=== PATIENT | female | born 1955 | race Caucasian/White ===

== ENCOUNTER → 2023-07-15 | Outpatient (CLI) | payer MEDICARE, SELFPAY ==
--- NOTE | 2023-07-15 09:58 | BI_ITS ---
MAMMOGRAPHY - BILATERAL SCREENING REASON FOR EXAM: Female, 68 years old. Routine annual screening examination. PERTINENT HISTORY: Non-contributory. TECHNIQUE: Digital bilateral breast ankush (3D mammographic acquisition) in the CC and MLO projections. 2-D mediolateral oblique (MLO) and craniocaudad (CC) views of both breasts were obtained. CAD: Full Field Digital Mammography with Computer Added Detection was performed. COMPARISON: None. Baseline examination. FINDINGS: Breast Composition: The breasts are heterogeneously dense, which may obscure small masses. There are no dominant masses or suspicious calcifications. Evidence of bilateral secretory calcifications. No other significant abnormalities are identified. BI/SCRN MAMM (CAD)W/ANKUSH BILAT IMPRESSION: Negative screening mammogram. Yearly followup mammogram recommended. (A) ASSESSMENT CATEGORY: BIRADS Category 2: Benign. A letter regarding these results will be sent to the patient by the facility within 30 days. Approximately 10% of breast cancers are not detected by mammography. A normal mammogram should not delay biopsy of a clinically suspicious abnormality. [id number] Electronically Signed: Andriy Garrett MD at 10:47 EST ,
--- OUTSIDE RECORDS SUMMARY | 2023-07-15 10:30 | XMS RPT_ITS | CCD ---
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 Name Role Phone Unavailable Primary Care Provider UnavailZEN Gee MD Attending Unavailable ZEN GLOVER MD Primary Care Unavailable ZEN GLOVER MD Admitting Unavailable IAN LI, DR JIM Attending Unavailab Cecile LI, DR JIM Admitting Unavailab rankin PHYSICIAN, NONE Primary Care Unavailable No, Physician Primary Care Provider UnavailChaya Castillo CNP Primary Care Provider [phone] [facility] Attending Lamar TAVERA, PHYSICIAN Primary Care Unavailable ZEN GLOVER Referring Unavailable CHAYA WADDLEL Primary Care Unavailable ALETA HUDSON Attending Unavailable ALETA HUDSON Referring Unavailable YELENA REEDER Attending Unavaila josseline [facility], [facility] Consulting Unav ailable ZEN GLOVER Referring Unavailable MADAY BYRD Admitting Unavaildenys TAVERA, PHYSICIAN Primary Care Unavailable [facility], GENERIC Consul ting Unavailable ARMANDO POLLACK Attending Unavaila CHAYA Fortune Primary Care Unavailable Allergies Allergy Classification Reported Allergen(s) Allergy Type Date of Onset Reaction(s) Facility (1 source) Codeine Drug Allergy [facility] Repository Medications Current Medications Medication Drug Class(es) Dates Sig (Normalized) Sig (Original) amoxicillin 875 mg / clavulanate 125 mg oral tablet (5 sources) Penicillin-class Antibacterial Start: 07-04-2023 take 1 tablet by mouth twice daily amoxicillin-clav ulanate (AUGMENTIN) 875-125 mg per tablet Take 1 (one) tablet by mouth 2 (two) times a day . 14 tablet 0 07/04/2023 Active aspirin 81 mg delayed release oral tablet (6 sources) Platelet Aggregation Inhibitor, Nonsteroidal Anti-inflammatory Drug Start: 07-04-2023 take 1 tablet by mouth once daily aspirin 81 MG EC tablet Take 1 (one) tablet (81 mg total) by mouth daily . 30 tablet 2 07/04/2023 Active Completed/Discontinued Medications Medication Drug Class(es) Dates Sig (Normalized) Sig (Original) acetaminophen 325 mg oral tablet (1 source) Start: 07-02-2023 End: 07-04-2023 take 1 tablet by mouth every four hours as needed for pain and headache 650 mg, Oral, Every 4 hours PRN, mild pain, fever 100.4 F or greater, headaches, Starting on 07/02/23 at 0812 ampicillin-sulbactam (UNASYN) 3000 mg in sodium chloride (NS) 0.9% 100 mL MBP (2 sources) Start: 07-03-2023 End: 07-04-2023 take 3000 mg intravenously every six hours ampicillin-sulbac caballero (UNASYN) 3000 mg in sodium chloride (NS) 0.9% 100 mL MBP Problems Active Problems Problem Classification Problem Date Documented Date Episodic/Chronic Acute cerebrovascular disease (13 sources) Cerebrovascular accident; Translations: [Cerebral infarction, unspecified] Onset: 07-02-2023 07-02-2023 Chronic Cardiac dysrhythmias (3 sources) Atrial fibrillation; Translations: [Unspecified atrial fibrillation] Onset: 07-13-2023 07-05-2023 Chronic Skin and subcutaneous tissue infections (3 sources) Cellulitis of face; Translations: [Cellulitis of face] Onset: 07-02-2023 07-02-2023 Episodic Past or Other Problems Problem Classification Problem Date Documented Date Episodic/Chronic Acute cerebrovascular disease (1 source) Acute cerebrovascular disease Onset: 07-01-2023 Results Test Name Value Interpretation Reference Range Facil ity Vital Signs Date Time Vital Sign Value Performing Clinician Faci lity 07-12-2023 10:57-0500 Diastolic blood pressure 84 mm[Hg] Armando Pollack MD Work Phone: [facility] 07-12-2023 10:57-0500 Heart rate 80 /min Armando Pollack MD Work Phone: [facility] 07-12-2023 10:57-0500 SaO2% (BldA) [Mass fraction] 98 % Armando Pollack MD Work Phone: [facility] 07-12-2023 10:57-0500 Systolic blood pressure 146 mm[Hg] Armando Theodore Work Phone: [facility] 07-04-2023 11:51-0500 Body temperature 98.2 [degF] Yelena Haskinserlinjeri DO Work Phone: [facility] 07-04-2023 11:51-0500 Diastolic blood pressure 74 mm[Hg] Yelena Haskinserlinjeri DO Work Phone: [facility] 07-04-2023 11:51-0500 Heart rate 78 /min Yelena Reeder DO Work Phone: [facility] 07-04-2023 11:51-0500 SaO2% (BldA) [Mass fraction] 98 % Yelena Reeder DO Work Phone: [facility] 07-04-2023 11:51-0500 Systolic blood pressure 146 mm[Hg] Yelena Theodore O Work Phone: [facility] 07-04-2023 06:14-0500 Respiratory rate 16 /min Yelena Haskinstierra DO Work Phone: [facility] 07-02-2023 03:10-0500 Body height 162.6 cm Yelena Reeder DO Work Phone: [facility] 07-02-2023 03:10-0500 Body mass index (BMI) [Ratio] 27.46 kg/m2 Yelena Reeder DO Work Phone: [facility] 07-02-2023 03:10-0500 Body weight 72.58 kg Yelena Reeder DO Work Phone: [facility] Encounters Encounter Date Encounter Type Care Provider Facility Start: 07-13-2023 End: 07-14-2023 ambulatory [facility] Start: 07-12-2023 Documentation procedure Katy cisneros CMA [facility] Start: 07-12-2023 End: 07-12-2023 ambulatory ARMANDO POLLACK [facility] Ambulatory Start: 07-12-2023 End: 07-12-2023 Office outpatient new 60 minutes Armando Pollack MD Work Phone: [facility] Procedures Date Procedure Procedure Detail Performing Clinician Start: 07-03-2023 End: 07-03-2023 Basic metabolic panel calcium total Kelli Staton PHYSICAL SCIENCE AIDE Work Phone: Start: 07-02-2023 Assay of troponin quantitative Maday Byrd MD Work Phone: Start: 07-02-2023 Mri brain brain stem w/o w/contrast material Vi Thapa MD Work Phone: Start: 07-02-2023 Assay of troponin quantitative Maday Byrd MD Work Phone: Start: 07-02-2023 Ecg routine ecg w/le ast 12 lds trcg only w/o i&r Maday Byrd MD Work Phone: Start: 07-02-2023 Orthopantogram Maday Byrd MD Work Phone: Start: 07-02-2023 Basic metabolic pane l calcium total Kelli Staton PHYSICAL SCIENCE AIDE Work Phone: Start: 07-02-2023 Lipid panel Kelli Roy PHYSICAL SCIENCE AIDE Work Phone: Start: 07-02-2023 End: 07-02-2023 Blood count complete auto&auto difrntl wbc Vi Thapa MD Work Phone: Start: 07-02-2023 HALL TOP Vi Thapa MD Work Phone: Start: 07-02-2023 LIGHT BLUE TOP Vi Thapa MD Work Phone: Start: 07-02-2023 LIGHT GREEN TOP Vi Thapa MD Work Phone: Start: 07-02-2023 OBTAIN VENOUS BLOOD GASES AND PERFORM Vi Thapa MD Work Phone: Start: 07-02-2023 PINK TOP Vi Thapa MD Work Phone: Start: 07-02-2023 RAINBOW DRAW Vi Thapa MD Work Phone: Start: 07-02-2023 Ct angiography head w/contrast/noncontrast Vi Thapa MD Work Phone: Plan of Treatment Date Care Activity Detail Author Start: 07-12-2023 End: 07-12-2023 Patient encounter procedure 07/12/2023 11:00 AM EST Office Visit [facility] [address] [facility] [address] [place] [address] Armando Pollack MD [address] [facility] [address] [place] [address] [facility] Start: 07-06-2023 End: 09-02-2024 [facility]- Mobile Cardiac Telemetry [facility]iac Tele[facility] Cardiac Services Routine Atrial fibrillation, unspecified type (HCC) Expected: 07/06/2023 (Approximate), Expires: 09/02/2024 [facility] Work Phone: Payers Date Payer Category Payer Medicare [id number] 2022 Medicare [id number] 2022 Medicare [id number] 1955 Unknown [id number] 1955 Unknown [id number] 1955 Unknown [id number] [id number]. [id number] 1955 Unknown [id number] [id number]. [id number] 1955 Unknown [id number] 2.16. [id number] 1955 Unknown [id number] 2.16. [id number] Medicare [id number] Social History Date Type Detail Facility Tobacco smoking status NHIS Tobacco smoking consumption unknown [facility] Work Phone: Start: 1955 Sex Assigned At Not on file [facility] Start: 07-02-2023 Gender identity [facility] Start: 07-02-2023 Tobacco smoking status MTIS Never smoked tobacco [facility] Start: 07-02-2023 Tobacco use and exposure Smokeless tobacco non-user [facility] Start: 07-02-2023 End: 07-12-2023 Alcohol intake Current drinker of alcohol (finding) [facility] Start: 07-02-2023 End: 07-12-2023 Alcohol intake [facility] Clinical Notes 07-02-2023 to 07-12-2023 Armando Pollack MD - 07/12/2023 4:05 PM Katy Moulton CMA - 07/12/2023 11:49 AM Edwina Segundo RN - 07/05/2023 7:48 AM Ruth Delgado - Kelly Del Valle RN - 07/04/2023 11:41 AM EST Sandy Date & Type Note Facility 07-12-2023 History of Present illness Narrative Images from the original note were not included. New Patient Visit [facility] Brandi King, [address], [place] [address] (office) Date of service: 07/12/2023 ID: Krista Urban, 68 y.o., female; : 1955 Chief Concerns and reason for consult: Krista Urban is a 68 y.o. woman who comes for consultation regarding Cerebrovascular Accident (Left side is doing better, including left eye. Speech not affected. Ambulating well after stroke. Sometimes I feel like I have a sinus headache but its getting better . is present for appointment.) History of Present Illness: Ms. Urban has a history of recent stroke. On 07/02/2023, the patient reportedly had some difficulty with using her left upper extremity and it felt heavy. She also had a dental infection at the time, per patient done had swelling of her right face.. Per she was also mildly disoriented. She went to a nearby ER where initially concern was raised for a cardiac cause based on initial troponin elevation. Due to concern for stroke however she was then transferred to [facility]. 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 By the time she was at [facility], she was out of the window for IV tPA. She was started on dual antiplatelets therapy. Echo was obtained prior to the patient being at [facility], and reportedly showed without evidence of endocarditis (EF 65-70%, mild concentric LVH, no regional wall motion abnormalities). Her NIHSS was noticed to, 1 for visual field deficits on the left, and 1 for left facial palsy at the time. She presents today for initial outpatient evaluation of the stroke. She denies any similar symptoms in the past. Prior to the recent visit she had no other medical history. Neurological ROS: negative for - behavioral changes, bowel and bladder control changes, confusion, dizziness, gait disturbance, impaired coordination/balance, memory loss, seizures, speech problems, or tremors Review of Systems: Comments Neurological As above General/constitutional No fevers, weight change Skin No rash HEENT No diplopia, dysphagia, dizziness, tinnitus, hearing loss Cardiovascular No dyspnea or chest pain Respiratory No SOB Gastrointestinal No loss of bowel control Genitourinary No loss of bladder control or sexual dysfunction Musculoskeletal No myalgias Psychiatric No depression Endocrine No changes to hair or nails Hematologic No easy bruising or bleeding Past medical history: has a past medical history of Known health problems: none. Past surgical history: has a past surgical history that includes left ankle surgery and Tubal ligation. Social history: reports that she has never smoked. She has never used smokeless tobacco. She reports current alcohol use of about 1.0 standard drink of alcohol per week. She reports that she does not use drugs. Family history:family history includes Emphysema in her father; Stroke in her brother, brother, and mother. Medications: Current Outpatient Medications: aspirin 81 MG EC tablet, Take 1 (one) tablet (81 mg total) by mouth daily ., Disp: 30 tablet, Rfl: 2 atorvastatin (LIPITOR) 80 MG tablet, Take 1 (one) tablet (80 mg total) by mouth nightly ., Disp: 30 tablet, Rfl: 2 clopidogreL (PLAVIX) 75 mg tablet, Take 1 (one) tablet (75 mg total) by mouth daily Start: 07/09/23., Disp: 90 tablet, Rfl: 0 lisinopriL (PRINIVIL,ZESTRIL) 5 MG tablet, Take 1 (one) tablet (5 mg total) by mouth daily with lunch ., Disp: 30 tablet, Rfl: 0 amoxicillin-clavulanate (AUGMENTIN) 875-125 mg per tablet, Take 1 (one) tablet by mouth 2 (two) times a day . (Patient not taking: Reported on 07/12/2023 .), Disp: 14 tablet, Rfl: 0 Allergies: No Known Allergies Physical Examination: Vitals signs :Her blood pressure is 146/84 (abnormal) and her pulse is 80. Her oxygen saturation is 98%. GENERAL EXAM: The patient is in no apparent distress. Head - normocephalic, atraumatic RESP: normal respiratory effort, no use of accessory muscles for respiration SKIN: No bruising MSK: No bony anomalies CV: Pulse regular; BP as above; Neurological Examination Mental status: awake and alert; oriented to person, place, year, and month; good attention. Normal mood and affect. Normal insight into condition. Speech/language: fluent; comprehension intact; object naming intact; repetition intact Cranial nerves: CN II: Visual billings intact to confrontation. PERRL. Normal conjunctivae and lids. 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 No nystagmus. CN V: Facial sensation is intact to light touch. CN VII: Facial strength normal with symmetric movement. CN VIII: Hearing is grossly intact. CN IX and X: Soft palate elevates symmetrically in the midline CN XI: Shoulder shrug and sternocleidomastoid strength (R/L) 5/5 CN XII: Tongue is midline with normal movement; no fasciculations. Motor: Normal bulk and tone. No pronator drift. SA EE EF WE WF DI HF KE KF DF PF Right 5 5 5 5 5 5 5 5 5 5 5 Left 5 5 5 5 5 5 5 5 5 5 5 Reflexes: Right Left Comments Biceps 2 2 Triceps 2 2 Brachioradialis 2 2 Patellar 2 2 Achilles 1 1 Babinski Down Down Coordination: [id number] intact bilaterally. Sensation: Comments Light touch Intact throughout Vibration Decreased at bilateral feet Temperature Mildly decreased at foot proprioception Decreased bilateral feet Gait: Normal stride length, arm swing, and base width. Able to toe, heel, and tandem walk. Negative Romberg. 07/12/23 1613 NIH Stroke Scale Interval 7-10 days Level of Consciousness (1a.) 0 LOC Questions (1b.) 0 LOC Commands (1c.) 0 Best Gaze (2.) 0 Visual (3.) 0 Facial Palsy (4.) 0 Motor Arm, Left (5a.) 0 Motor Arm, Right (5b.) 0 Motor Leg, Left (6a.) 0 Motor Leg, Right (6b.) 0 Limb Ataxia (7.) 0 Sensory (8.) 0 Best Language (9.) 0 Dysarthria (10.) 0 Extinction and Inattention (11.) (Formerly Neglect) 0 Total 0 Review of images/other data: MRI BRAIN: 07/02/2023 1. There is restricted diffusion identified within the right JAVA WEBSPHERE DEVELOPER territory compatible with evolving acute ischemic infarct with involvement of the right posterior limb internal capsule and thalamus. There is associated sulcal effacement and hyperintense T2/FLAIR signal abnormality in the region. No associated hemorrhage. No significant mass effect. 2. No additional evidence of acute ischemia elsewhere. 3. Findings are superimposed on mild senescent change and a mild burden of nonspecific white matter disease for age most commonly associated with the sequelae of chronic microvascular ischemia. 4. No pathologic post-contrast enhancement is identified to suggest abnormal breakdown of the blood brain barrier. MRA BRAIN: 1. There is intracranial atherosclerosis with approximately 70% stenosis of the right paraclinoid/supraclinoid carotid and 50% stenosis of the left. 2. There appears to be a moderate severity segmental stenosis of the left M1/M2 junction. 3. 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 4. No additional acute regional vascular abnormalities identified elsewhere in the intracranial circulation to include additional flow-limiting stenoses, occlusions, or aneurysm/vascular malformation. Assessment:/Plan: Krista Urban is a 68 y.o. female who presents for initial evaluation after sustaining a recent acute ischemic stroke in the right posterior internal capsule and thalamus in the right JAVA WEBSPHERE DEVELOPER P2 territory. Right JAVA WEBSPHERE DEVELOPER P2 stroke (Ischemic Infarct) Etiology: Large vessel stenosis versus embolic Testing: Patient is scheduled for 30-day telemetry monitor to monitor for atrial fibrillation Labs: Lipid panel elevated during inpatient stay. Patient is scheduled to get a fasting test in the near future with a primary care physician. A1c elevated Cardiac Rhythm: No atrial fibrillation was noted during stay. The patient has scheduled for a 30-day cardiac rhythm monitor Anti-thrombotic: Continue dual antiplatelets for 3 months, followed by aspirin monotherapy Anti-lipid Agent: Lipitor (atorvastatin) 80 mg BP Goal: Less than 130/80; Glucose Goal: Normoglycemia/ A1c less than 6.5. Counseled on the importance of maintaining a healthy diet, and regular aerobic exercises. Counseled to optimize control of cerebrovascular risk factors as above, and avoiding tobacco if applicable. Diagnosis:The encounter diagnosis was Acute ischemic right JAVA WEBSPHERE DEVELOPER stroke (HCC). Follow up: Return in about 3 months (around 10/11/2023). Armando Pollack MD Material Requisitioner Neurologist [facility]. documented in this encounter [facility] 07-12-2023 History of Present illness Narrative 30 day preventice monitor ordered documented in this encounter [facility] 07-05-2023 History of Present illness Narrative Patient with recent admission to [facility] for CVA. Discharged 07.04.22. Per Dr. Aleta Hudson, patient will need 30 day MCOT. MCOT ordered. documented in this encounter [facility] 07-04-2023 Note Formatting of this n ote might be different from the original. Discussed with Patient and Family- spouse scheduling follow up appointment in the [facility]. Appointment made and agreed upon with Patient and Family for July 12, [address] Pollack @ 1100. Approved to f/u in [place] per Dr Patterson. (closer to home). Reminder card with appointment day and time, phone number, and address provided. Patient and Family verbalized understanding. All questions answered at this time. Neurology Navigator provided stroke education. Reviewed with patient and/or family Understanding Stroke booklet including the signs and symptoms of stroke, when to call 911 for stroke symptoms, importance of follow-up appointment with listed providers and individual stroke risk factor of hypertension Written material provided, all questions answered at this time. Please contact Neurology Navigator at [phone] if you have additional questions or needs. [facility] 07-04-2023 Miscellaneous Notes Discussed with Patient and Family- spouse scheduling follow up appointment in the [facility]. Appointment made and agreed upon with Patient and Family for July 12, [address] Pollack @ [facility]. Approved to f/u in [place] per Dr Patterson. (closer to home). Reminder card with appointment day and time, phone number, and address provided. Patient and Family verbalized understanding. All questions answered at this time. Neurology Navigator provided stroke education. Reviewed with patient and/or family Understanding Stroke booklet including the signs and symptoms of stroke, when to call 911 for stroke symptoms, importance of follow-up appointment with listed providers and individual stroke risk factor of hypertension Written material provided, all questions answered at this time. Please contact Neurology Navigator at [phone] if you have additional questions or needs. Neurology Neurovascular Sign-Off Diagnosis: RPCA Stroke Associated Large Vessel Lesion: None Neurovascular Etiology: Intracranial atherosclerotic disease vs embolic Risk Factor Labs: Lab Results Component Value Date LDLCALC 238 (H) 07/02/2023 Lab Results Component Value Date HGBA1C 6.1 (H) 07/02/2023 Procedures & Acute Interventions: None Demographics/Scores: Age & Sex: 68 y.o. female Ethnicity: Not or [* Zip: [id number] NIHSS Admission Total: 2 NIHSS at Sign Off Total: 2 [id number] Score: Age 65= 1, Stroke/Tia= 2, and Sex ( Female) =1 Support System: Family PENDING Procedures: None AFib surveillance at Discharge: 30-day monitor ordered Blood pressure goals at Discharge: Less than 130/80; AVOID hypotension; Attending Service to manage Anti-thrombotic at Discharge: ASA 81 mg-->plan to start Plavix 75 mg + ASA 81 mg every day on 07/09/23 for 90 days, then ASA monotherapy Lipitor 80 mg every day Anti-hyperlipidemic at Discharge: Lipitor (atorvastatin) 80 mg Other treatments at Discharge: Outpatient driving evaluation and Optho eval Anticipated disposition at Discharge: Home Follow-up Appointment: In [facility]. See Discharge Tab/AVS for details. Recall: If questions. 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 RAIL CAR PAINTER/SANDBLASTER placed orders, no further needs. 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 RAIL CAR PAINTER/SANDBLASTER placed orders, no further needs. Physical Therapy PHYSICAL THERAPY EVALUATION, TREATMENT, AND DISCHARGE NOTE PHYSICAL THERAPY EVALUATION Skilled Therapy Needs After Discharge Are Skilled Therapy Services Needed After Discharge: Yes Intensity of Skilled Therapy: 2-3 days per week (outpatient PT to address L ankle pain, strength and ROM deficits and to prevent recurrent ankle sprain s/p acute L ankle sprain) Anticipated Duration of Skilled Therapy: Duration 10 - 30 days DME Recommendation: None Rehab Potential: Good Outcomes Measures Prior Function - Basic Mobility Raw Score: 24 Points Prior Function - Basic Mobility % Impaired: 0% AM-PAC Basic Mobility Raw Score: 20 Points AM-PAC Basic Mobility % Impaired: 33.32% Physical Therapy Assessment History: The following factors influence the patient's participation in the PT plan of care: Environmental Factors: Steps to enter home The following co-morbidities (from this admission or prior) influence the patient's participation in this plan of care: no significant past medical history Number of History elements affecting this patient's PT plan of care: 1 to 2 Examination of Body Systems: The patient presents with: Musculoskeletal impairments: Pain Neurologic Impairments: Vision. These impairments result in limitations of Gait, Stair-Climbing. These impairments result in restrictions of Household mobility, Community mobility, Leisure activities. Number of Body Systems elements affecting this patient's PT plan of care: 4 or more. Clinical Presentation: The patient's clinical presentation for this PT evaluation is evolving with changing characteristics as evidenced by current PT documentation. Activity Tolerance Activity Tolerance: Tolerates 20 - 30 min activity with multiple rests Therapy Precautions Orthotic Devices: No Weight Bearing Status: WFL General Rehab Precautions: (low fall risk) Balance Assessment Sitting Balance - Static: Independent Sitting Balance - Dynamic: Independent Standing Balance - Static: Stand by assist Standing Balance - Dynamic: Stand by assist Bed Mobility Supine to Sit: Stand by assist Sit to Supine: Stand by assist Transfers Sit to Stand: Stand by assist Gait/Locomotion Gait Assistance: Stand by assist Distance: 225 Feet Pattern: step through, L decreased stance time (mildly impaired gait velocity, likely due to L ankle pain) Home Living Obtained Home Living and PLOF info from: Patient Lives With: Spouse, Son (spouse is retired and able bodied) Type of Home: House Home Layout: One level Steps to enter home: Yes Rails to enter home: None Number of stairs to enter home: 2 Bathroom Shower/Tub: Tub/shower unit Bathroom Toilet: Raised (comfort height) Mobility Equipment: Crutches Prior Level of Function Level of [place] - Transfers/Ambulation/Mobility: Independent with functional transfers, Independent with household ambulation, Independent with community ambulation Level of [place] - ADLs: Independent Level of [place] - Homemaking: Independent Driving: Patient drives 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[employer]) PHYSICAL THERAPY TREATMENT NOTE Total Treatment Time (Total Session Time): 32 Minutes Total Timed Code Treatment Minutes: 8 Minutes Gait Training Skilled Intervention Provided: verbal cues For: (increased gait velocity to tolerance) Resulting in: improved functional independence, improved performance, improved safety Therapeutic Activities Bed Mobility Skilled Intervention Provided: verbal cues For: efficient movement Resulting in: improved functional independence, improved performance, improved safety Transfers Skilled Intervention Provided: verbal cues For: controlled descent Resulting in: improved functional independence, improved safety, improved performance Additional Treatment Details Pt tolerated session well this date - no adverse events; pt on room air; pt demonstrates mild L hemianopsia during visual screen testing this date - pt educated regarding potential safety implications of L visual field cut during functional mobility and verbalizes understanding (pt does not demonstrate any deficits in negotiating obstacles during gait assessment/training); pt also educated regarding importance of follow up in outpatient PT to address L ankle sprain to prevent recurrent ankle sprains in future; pt left supine in bed, all needs within reach. Past Medical History: Diagnosis Date Known health problems: none Past Surgical History: Procedure Laterality Date left ankle surgery TUBAL LIGATION For complete objective data, detailed plan of care and patient education refer to: PT Evaluation flowsheet, PT Evaluation and Treatment flowsheet, PT Treatment flowsheet, patient Plan of Care, Plan of Care progress note, and Patient Education. This note stands as the current Discharge Summary upon patient discharge from the hospital or completion of Physical Therapy Plan. Associated Order(s): IP CONSULT TO CARDIAC ELECTROPHYSIOLOGY This consult is for OP MCT request from neuro to cardio. AVS updated and MCT will be ordered upon hospital release. Associated Order(s): IP CONSULT TO NEUROLOGY; IP CONSULT TO NEUROLOGY Neurology Inpatient Consult [facility] 07/02/2023 Aleta Hudson MD [facility] Patient: Krista Urban Date of : 1955 (68 y.o. female) Referring Provider: Refer to consult order in electronic medical record PCP: No, Physician ASSESSMENT: 68 y.o. female with history of with no past medical history, does not follow-up with doctors presented to [facility] on 07/02/2023 with left arm heaviness and right facial swelling, found to have right JAVA WEBSPHERE DEVELOPER infarct and right facial cellulitis. CTA with multifocal stenosis but does not appear that severe. Her stroke is likely due to intracranial atherosclerotic disease versus embolic etiology. Low concern for bacteremia or infective endocarditis. Echo obtained at OSH without evidence of endocarditis (EF 65-70%, mild concentric LVH, no regional wall motion abnormalities). PLAN: Right JAVA WEBSPHERE DEVELOPER stroke (Ischemic Infarct) Etiology: iCAD versus embolic Testing: Echo, Telemetry, and 30-day monitor on discharge Labs: A1c, Lipid panel (Fasting) Cardiac Rhythm: NO Afib noted to date Anti-thrombotic: Continue aspirin for now consider adding Plavix in few days due to the large infarct size, would continue for 3 months Anti-lipid Agent: High intensity statin BP Goal: Less than 180/90 for now; AVOID hypotension; Attending Service to manage Glucose Goal: Normoglycemia/ A1c less than 6.5. Attending Service to manage. Tobacco: Counseled to not smoke/use tobacco. Attending Service to manage. Therapy (Assessed for Rehab): Pending evaluation DVT Prophylaxis: Pharmacological DVT prophylaxis recommended. Dosing per Attending Service Eventual Outpatient Follow-up: [facility] Patient was advised not to drive until she is cleared by ophtho due to VF deficit. Admitted with these risk variables:None. Please see assessment and plan for further details. DIAGNOSTIC TESTING SUMMARY: Resulted Testing: (MRI/CT/XR, EEG, EMG, CSF, Cardiac, Labs) I independently reviewed the MR and CT images and agree with the interpretation(s) with the following comments: Right JAVA WEBSPHERE DEVELOPER infarct, multifocal intracranial stenosis Lab Results Component Value Date HGBA1C 6.1 (H) 07/02/2023 LDLCALC 238 (H) 07/02/2023 SUBJECTIVE: Chief Complaint/Reason for Consult: Stroke Informant(s): Patient, Care Team/Chart History of Present Illness: Krista Urban is a 68 y.o. female with no significant past medical history, does not follow-up with doctors who presented to the emergency department with left-sided weakness and right facial swelling. Patient has been having problems with her tooth and was supposed to have a dentist appointment but she developed sudden onset left-sided weakness that lasted for about 6 hours. Subsequently she had a fall and was little bit dizzy and lightheaded. She also had left visual field deficits. In the emergency department CT head showed right JAVA WEBSPHERE DEVELOPER infarct. She was transferred to [facility] since there is no MRI at [facility]. Review of Systems: All systems reviewed and negative except pertinent positives and negatives documented in the History of Present Illness (HPI). History: Past Medical History: Diagnosis Date Known health problems: none Past Surgical History: Procedure Laterality Date left ankle surgery TUBAL LIGATION Social History: reports that she has never smoked. She has never used smokeless tobacco. She reports current alcohol use of about 1.0 standard drink of alcohol per week. She reports that she does not use drugs. Family History Problem Relation Age of Onset Stroke Mother Emphysema Father Stroke Brother Stroke Brother Additional History Comments: None Allergies: Patient has no known allergies. HOME Medications: No outpatient medications have been marked as taking for the 07/02/23 encounter (Hospital Encounter). HOSPITAL Infusions: sodium chloride 0.9 % HOSPITAL Scheduled Medications: ampicillin-sulbactam (UNAYSN) IVPB 3,000 mg Intravenous Q6H aspirin 325 mg Oral Daily Or aspirin 300 mg Rectal Daily atorvastatin 40 mg Oral Nightly enoxaparin (LOVENOX) injection 40 mg Subcutaneous Daily sodium chloride (PF) 5 mL Intravenous Q8H [facility] PRN Medications: acetaminophen, labetalol OR hydrALAZINE, ondansetron, ondansetron, Saline lock IV AND sodium chloride (PF) AND sodium chloride (PF) AND sodium chloride 0.9 % OBJECTIVE: Physical Examination: BP (!) 155/70 Pulse 85 Temp 98.5 F (36.9 C) Resp 13 Ht 5' 4 Wt 72.6 kg (160 lb) SpO2 94% BMI 27.46 kg/m NINO: DNFC: Does Not Follow Commands SERENE: Unable to Assess GENERAL: General Appearance: In NAD MENTAL STATUS: Alertness, Attention Span & Concentration: Normal Language: Normal Speech: Normal Orientation: Normal Memory, Recent & Remote: Normal Fund of Knowledge: Normal CRANIAL NERVES: II - Visual [place]: left superior quadrantanopsia II, III - Pupils: PERRL III, IV, - Eye Movements: Normal (EOMI, no ptosis, no nystagmus) V - Facial Sensation: Normal VII - Face Symmetry and Strength: Rt face is swollen. VIII - Hearing: Normal IX, X - Palate: Normal XI - Shoulder Shrug: Normal XII - Tongue Protrusion: Normal COORDINATION & GROSS MOTOR: Abnormal Movements: None Coordination Iufhgm-[id number]: no ataxia but slow on FNF in the LUE. Coordination: Xrjd-Fbuu-Btps:Normal Drift: None Tone: Normal Bulk: Normal MOTOR - MUSCLE STRENGTH: 5/5 throughout REFLEXES: Symmetric throughout REFLEXES NINO: 4+ Sustained Clonus 3+ Brisk 2+ Normal 1+ Diminished 0 Absent SERENE Unable to Assess SENSATION: Fine Touch: Normal OTHER: Stroke Assessment - 07/02/23 191 NIH Stroke Scale Level of Consciousness (1a.) 0 LOC Questions (1b.) 0 LOC Commands (1c.) 0 Best Gaze (2.) 0 Visual (3.) 1 Facial Palsy (4.) 1 Motor Arm, Left (5a.) 0 Motor Arm, Right (5b.) 0 Motor Leg, Left (6a.) 0 Motor Leg, Right (6b.) 0 Limb Ataxia (7.) 0 Sensory (8.) 0 Best Language (9.) 0 Dysarthria (10.) 0 Extinction and Inattention (11.) (Formerly Neglect) 0 Total 2 documented in this encounter [facility] 07-04-2023 Hospital course Narrative [facility] DISCHARGE SUMMARY Krista Urban Account: [id number] Admitted: 07/02/2023 Discharge Date/Time: 07/04/23 10:41 AM _ Handoff to PCP PCP to address the following Follow up on BP control (new lisinopril), repeat BMP in ~5 days Ensure compliance to DAPT for 90 days (starting 07/09/22), [facility] CVA clinic Clinical Summary Krista Urban is a 68 y.o. female with no significant past medical history who had [facility] visit 07[facility]01/23 from [facility] due to concern for right facial cellulitis, fall, and left arm heaviness found to have CT head nonacute but noted facial cellulits, small abscess thus transferred to [facility] 07/02/2023 subsequent MRI with R JAVA WEBSPHERE DEVELOPER territory CVA. Neuro followed: DAPT x90 days then ASA starting 07/09/22 Acute R JAVA WEBSPHERE DEVELOPER Stroke: with left arm heaviness and left peripheral vision deficit 07/01/23, since resolved. [facility] CT H 07/01/23 without acute intracranial abnormality, TTE 07/01/23 EF 65-70%, mild concentric LVH, no regional wall motion abnormalities. Admission CTA H/N showed evolving R JAVA WEBSPHERE DEVELOPER distribution infarct, occlusion of proximal P2 segment of right JAVA WEBSPHERE DEVELOPER, and focal high grade stenosis involving the origin of left vertebral artery. Confirmed on MRI. LDL 238, hesham 328, tri 166 and A1c 6.1%. ASA/statin initiated. Neuro followed: DAPT starting 07/09/23 for 90 days then ASA monotherapy. 30 day monitor Right facial cellulitis with dental caries: Onset 06/27/23, missed dentist appt 07/01/[address] Facial Bone 07/01/23 showed right sided maxillary area facial cellulitis with possible very small abscess adjacent to right maxillary sinus. Panorex 07/02/23 showed dental caries involving right mandibular 1st premolar and apical lucencies of right 2nd maxillary premolar and both left maxillary premolars. Unasyn ordered, de-escalate to Augmentin until 07/11/22. 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 XR Left ankle 07/01/23 without acute injury, stable surgical screws noted. OVS. Telemetry. PT/OT Elevated Blood Pressure: SBP 170-190s on admit. No prior diagnosis of HTN. Add low dose lisinopril Elevated Trop: at [facility], suspect demand ischemia. CT Chest 06/25/23 without PE, otherwise unremarkable. EKG 07/01/23 NSR without acute ischemia. TTE 07/01/23 without regional wall abnormalities. Admission Trop 15, no further work up indicated Code status: Full Dispo: outpt therapy, driving eval Discharge Medications Discharge Medications New Medications Details amoxicillin-clavulanate 875-125 mg per tablet Commonly known as: AUGMENTIN Take 1 (one) tablet by mouth 2 (two) times a day . Quantity: 14 tablet aspirin 81 MG EC tablet Take 1 (one) tablet (81 mg total) by mouth daily . Quantity: 30 tablet atorvastatin 80 MG tablet Commonly known as: LIPITOR Take 1 (one) tablet (80 mg total) by mouth nightly . Quantity: 30 tablet clopidogreL 75 mg tablet Commonly known as: PLAVIX Start taking on: July 09, 2023 Take 1 (one) tablet (75 mg total) by mouth daily Start: 07/09/23. Quantity: 90 tablet lisinopriL 5 MG tablet Commonly known as: PRINIVIL,ZESTRIL Take 1 (one) tablet (5 mg total) by mouth daily with lunch . Quantity: 30 tablet Physician(s) Family: No, Physician, Phone: None, Address: [facility] Follow Up: [facility] [address] [place] [id number] Follow up Physicians, [facility] [address] [place] [address] Follow up You will be mailed a heart monitor to wear for 30 days to detect any abnormal heart rhythms. Once completed, mail back and results will be provided to you by Neurology. Primary care physician Follow up Follow up in 1 week for repeat BP check and kidney function test Additional Information: Patient seen and examined day of discharge. For more information regarding patient's care, including complete radiology reports, please contact [facility] Records at Patient instructions, including activity, were given to the patient/family at discharge. Please see the After Visit Summary in the medical record for details. Time spent on discharge: > 30 minutes Completed by: Yelena Reeder on 07/04/23, 10:41 AM documented in this encounter [facility] 07-04-2023 Consult note Formatting of th is note is different from the original. Physical Therapy PHYSICAL THERAPY EVALUATION, TREATMENT, AND DISCHARGE NOTE PHYSICAL THERAPY EVALUATION Skilled Therapy Needs After Discharge Are Skilled Therapy Services Needed After Discharge: Yes Intensity of Skilled Therapy: 2-3 days per week (outpatient PT to address L ankle pain, strength and ROM deficits and to prevent recurrent ankle sprain s/p acute L ankle sprain) Anticipated Duration of Skilled Therapy: Duration 10 - 30 days DME Recommendation: None Rehab Potential: Good Outcomes Measures Prior Function - Basic Mobility Raw Score: 24 Points Prior Function - Basic Mobility % Impaired: 0% AM-PAC Basic Mobility Raw Score: 20 Points AM-PAC Basic Mobility % Impaired: 33.32% Physical Therapy Assessment History: The following factors influence the patient's participation in the PT plan of care: Environmental Factors: Steps to enter home The following co-morbidities (from this admission or prior) influence the patient's participation in this plan of care: no significant past medical history Number of History elements affecting this patient's PT plan of care: 1 to 2 Examination of Body Systems: The patient presents with: Musculoskeletal impairments: Pain Neurologic Impairments: Vision. These impairments result in limitations of Gait, Stair-Climbing. These impairments result in restrictions of Household mobility, Community mobility, Leisure activities. Number of Body Systems elements affecting this patient's PT plan of care: 4 or more. Clinical Presentation: The patient's clinical presentation for this PT evaluation is evolving with changing characteristics as evidenced by current PT documentation. Activity Tolerance Activity Tolerance: Tolerates 20 - 30 min activity with multiple rests Therapy Precautions Orthotic Devices: No Weight Bearing Status: WFL General Rehab Precautions: (low fall risk) Balance Assessment Sitting Balance - Static: Independent Sitting Balance - Dynamic: Independent Standing Balance - Static: Stand by assist Standing Balance - Dynamic: Stand by assist Bed Mobility Supine to Sit: Stand by assist Sit to Supine: Stand by assist Transfers Sit to Stand: Stand by assist Gait/Locomotion Gait Assistance: Stand by assist Distance: 225 Feet Pattern: step through, L decreased stance time (mildly impaired gait velocity, likely due to L ankle pain) Home Living Obtained Home Living and PLOF info from: Patient Lives With: Spouse, Son (spouse is retired and able bodied) Type of Home: House Home Layout: One level Steps to enter home: Yes Rails to enter home: None Number of stairs to enter home: 2 Bathroom Shower/Tub: Tub/shower unit Bathroom Toilet: Raised (comfort height) Mobility Equipment: Crutches Prior Level of Function Level of [place] - Transfers/Ambulation/Mobility: Independent with functional transfers, Independent with household ambulation, Independent with community ambulation Level of [place] - ADLs: Independent Level of [place] - Homemaking: Independent Driving: Patient drives 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[employer]) PHYSICAL THERAPY TREATMENT NOTE Total Treatment Time (Total Session Time): 32 Minutes Total Timed Code Treatment Minutes: 8 Minutes Gait Training Skilled Intervention Provided: verbal cues For: (increased gait velocity to tolerance) Resulting in: improved functional independence, improved performance, improved safety Therapeutic Activities Bed Mobility Skilled Intervention Provided: verbal cues For: efficient movement Resulting in: improved functional independence, improved performance, improved safety Transfers Skilled Intervention Provided: verbal cues For: controlled descent Resulting in: improved functional independence, improved safety, improved performance Additional Treatment Details Pt tolerated session well this date - no adverse events; pt on room air; pt demonstrates mild L hemianopsia during visual screen testing this date - pt educated regarding potential safety implications of L visual field cut during functional mobility and verbalizes understanding (pt does not demonstrate any deficits in negotiating obstacles during gait assessment/training); pt also educated regarding importance of follow up in outpatient PT to address L ankle sprain to prevent recurrent ankle sprains in future; pt left supine in bed, all needs within reach. Past Medical History: Diagnosis Date Known health problems: none Past Surgical History: Procedure Laterality Date left ankle surgery TUBAL LIGATION For complete objective data, detailed plan of care and patient education refer to: PT Evaluation flowsheet, PT Evaluation and Treatment flowsheet, PT Treatment flowsheet, patient Plan of Care, Plan of Care progress note, and Patient Education. This note stands as the current Discharge Summary upon patient discharge from the hospital or completion of Physical Therapy Plan. [facility] 07-03-2023 Emergency department Note Rounding completed on this patient as follows: Safety - Safety addressed. Cart in low and locked position, side rails up for safety, call light within reach. Plan - Plan discussed with patient. Personal Needs - Personal needs of patient addressed. Duration - Duration discussed with patient. [facility] 07-03-2023 Emergency department Note Rounding completed on this patient as follows: Safety - Safety addressed. Cart in low and locked position, side rails up for safety, call light within reach. Plan - Plan discussed with patient. Personal Needs - Personal needs of patient addressed. Duration - Duration discussed with patient. Bed: 2406 Expected date: Expected time: Means of arrival: Comments: 15 - already in hospital bed Report given to 2 green nurse at this time. MRI scheduled for 929 Images from the original note were not included. ED PROVIDER NOTE [facility] NAME: Krista Urban AGE: 68 y.o. : 1955 VISIT DATE: 07/02/2023 CSN: [id number] PCP: No, Physician Chief Complaint Patient presents with Weakness HPI 68-year-old presents emergency department concerns for weakness. Patient presented to an [facility] hospital yesterday was diagnosed with facial cellulitis. She was admitted last night and this morning had a fall. She noted some weakness at that time. Patient noted some left arm weakness and left lateral visual disturbance. She had undergone a facial CT as well as a chest CT and echo of her heart. They had concerns about giving her an additional dye load and did speak with neurology here who recommended she come to the emergency department for CTA of her head and neck. She notes no headache she notes no other neurologic deficits. History reviewed. No pertinent past medical history. History reviewed. No pertinent surgical history. History reviewed. No pertinent family history. Social History Socioeconomic History Marital status: Tobacco Use Smoking status: Never Smokeless tobacco: Never Vaping Use Vaping Use: Never used Substance and Sexual Activity Alcohol use: Yes Alcohol/week: 1.0 standard drink of alcohol Types: 1 Standard drinks or equivalent per week Drug use: Never No current outpatient medications on file prior to encounter. No Known Allergies Review of Systems All other systems reviewed and are negative. Patient Vitals for the past 24 hrs: BP Temp Pulse Resp SpO2 Height Weight 07/02/23 0400 (!) 185/88 -- 82 12 98 % -- -- 07/02/23 0315 (!) 184/91 -- 81 17 98 % -- -- 07/02/23 0310 (!) 184/91 98.5 F (36.9 C) 78 18 98 % 5' 4 72.6 kg (160 lb) Physical Exam Vitals and nursing note reviewed. Constitutional: General: She is not in acute distress. Appearance: She is well-developed. HENT: Head: Normocephalic. Comments: Swelling noted to the right facial area. Cardiovascular: Rate and Rhythm: Normal rate and regular rhythm. Musculoskeletal: General: Normal range of motion. Cervical back: Full passive range of motion without pain and normal range of motion. Pulmonary: Effort: Pulmonary effort is normal. Breath sounds: Normal breath sounds. Abdominal: General: Abdomen is flat. Skin: General: Skin is warm and dry. Neurological: Mental Status: She is alert and oriented to person, place, and time. Sensory: No sensory deficit. Psychiatric: Mood and Affect: Mood normal. NIH Scale: LOC: 0 - alert LOC Questions: 0 - answers both correctly LOC Commands: 0 - performs both correctly Best gaze: 0 - normal Vision: 1 - partial hemianopia Facial Palsy: 0 - normal Left arm: 0 - no drift Right arm; 0 - no drift Left le - no drift Right le - no drift Limb ataxia: 0 - absent Sensation: 0 - normal Best language: 0 - no aphasia Dysarthria: 0 - normal articulation Extinction and inattention: 0 - no neglect Stroke Scale: 1 Laboratory & Radiographic Imaging (if done): Results for orders placed or performed during the hospital encounter of 07/02/23 POC Venous Blood Gases with Full Panel Result Value Ref Range pH, Venous 7.40 7.32 - 7.42 pCO2, Ed 40.5 (L) 41.0 - 51.0 mm Hg pO2, Ed 31 25 - 40 mm Hg Base Excess, Ed 0.3 -2.0 - 2.0 O2 Sat, Ed 59.8 40.0 - 70.0 % Glucose 113 (H) 65 - 99 mg/dL BUN 10 8 - 25 mg/dL Creatinine 0.71 0.60 - 1.20 mg/dL GFR 94 >=60 mL/min/1.73 m2 Sodium 139 135 - 145 mmol/L Potassium 4.3 3.5 - 5.1 mmol/L Chloride 104 98 - 108 mmol/L TCO2 25 21 - 32 mmol/L Lactate 0.9 0.6 - 2.0 mmol/L Ionized Calcium 4.7 4.5 - 5.3 mg/dL CBC Auto Differential Result Value Ref Range WBC 8.27 4.50 - 11.00 K/mcL RBC 4.59 4.00 - 5.20 M/mcL Hemoglobin 13.4 12.0 - 16.0 g/dL Hematocrit 40.4 36.0 - 46.0 % MCV 88.0 80.0 - 100.0 fL MCH 29.2 26.0 - 34.0 pg MCHC 33.2 31.0 - 37.0 g/dL Platelets 252 150 - 400 K/mcL RDW - CV 13.4 11.6 - 14.8 % MPV 9.3 (L) 9.4 - 12.4 fL Neutrophils 83.9 % Lymphocytes 8.7 % Monocytes 5.9 % Eosinophils 0.5 % Basophils 0.5 % IG Percent 0.50 % Neutrophils Abs 6.94 1.70 - 7.00 K/mcL Lymphocytes Abs 0.72 (L) 0.90 - 4.00 K/mcL Monocytes Abs 0.49 0.30 - 0.90 K/mcL Eosinophils Abs 0.04 0.00 - 0.50 K/mcL Basophils Abs 0.04 0.00 - 0.30 K/mcL IG Absolute 0.04 0.00 - 0.30 K/mcL Nucleated RBC 0.0 % Nucleated RBC Abs 0.00 0.00 - 0.00 K/mcL CT Angiogram Head Neck Final Result 1. There is an evolving right JAVA WEBSPHERE DEVELOPER distribution infarction. No evidence of hemorrhagic transformation. 2. There is occlusion of the proximal P2 segment of the right JAVA WEBSPHERE DEVELOPER. 3. There is focal high-grade stenosis involving the origin of the left vertebral artery. 4. There are atherosclerotic changes noted along the carotid bulbs. Otherwise, the extracranial carotid arteries are patent. The process of contacting the ordering provider was initiated on 07/02/2023 at 4:01 a.m.. Critical results were relayed by Dr. Janusz Shrestha to Dr. VI THAPA on 07/02/2023 at 04:14. Workstation ID: [id number] MRA Cow And MR Brain With Contrast (Results Pending) Procedures Medical Decision Making HPI Summary: 68-year-old presents emergency department [facility] with concerns for left arm weakness and left lateral visual disturbance in the setting of a recent diagnosis of facial cellulitis. DDx: CVA, TIA, peripheral neuropathy Data Review/analysis: CT obtained interpreted by radiology the head and neck showed evolving right JAVA WEBSPHERE DEVELOPER infarction. There is occlusion of the proximal P2 segment of the right JAVA WEBSPHERE DEVELOPER. Patient's CBC and chemistry are within normal limits. Disposition: During the patient's ED course above findings were reviewed with the patient. I did speak with Dr. Patterson who is on-call for stroke neurology who recommended aspirin at this time with plans for MRI/MRA to be ordered for the inpatient setting. Patient was updated for the plan for admission at this time. She had no evolving neurologic deficits during her ED course and actually noted some improvement in her subjective strength in her left upper extremity. MDM Data : External Records Reviewed, Drug management discussed, Treatment Goals were addressed, and Social Determinants of Health Impacted Treatment/Disposition Clinical Impression: 1. Cerebrovascular accident (CVA), unspecified mechanism (HCC) 2. Facial cellulitis ED Disposition ED Disposition Hospitalize Condition -- Comment Phone call required?: No Follow-up Information Follow-up information has not been specified. Contact information for after-discharge care Follow-up information has not been specified. MIPS Measure #187: Thrombolytic Therapy Plan for Thrombolytics: LKW was > 3.5 hrs Vi Thapa MD 07/02/23 0437 Per transfer center note: Patient admitted on a med/surg unit for C/O right facial cellulitis today from an infected tooth. Patiet is not septic. [facility] reports that the patient reported that she had fallen while at the [facility] this morning around 8am, and noted she hand left arm heaviness and that her left eye vision feels delayed. Patient also has mild intermittent confusion. [facility] reports patient was seen by their stroke network, a CT head was completed and show no acute intracranial abnormalities. Neurology recommended a CTA head and neck but patient had already received contrast today and would not be able to have more contrast until tomorrow. A MRI/MRA Head and neck was recommended, concern that the inflammation on the CT of the maxillary facial, shows inflammation along the maxillary/mandible region could be compressing on the RCA. [facility] do not have MRI available on the weekends. [facility] request transfer where the patient can have an MRI. VS HR [id number]. [facility] reports patient with no past medical problems. [facility] reports patient did have an elevated troponin 123, 106, no C/O chest pain. OL reports most likely not cardiac. Request transfer for further stroke work up. Per EMS REPORT: No peripheral vision at this time. 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 CT and repeat CT were unremarkable. Potassium running 100 mL/HR. Bed: 15 Expected date: Expected time: Means of arrival: Comments: Referral/Elier/Lele documented in this encounter [facility] 07-03-2023 History of Present illness Narrative [facility] Inpatient Progress Note 07/03/2023 Krista Urban 1955 [id number] Assessment/Plan: Krista Urban is a 68 y.o. female with no significant past medical history who had [facility] visit 07[facility]23 from [facility] due to concern for right facial cellulitis, fall, and left arm heaviness found to have CT head nonacute but noted facial cellulits, small abscess thus transferred to [facility] 07/02/2023 subsequent MRI with R JAVA WEBSPHERE DEVELOPER territory CVA. Neuro followed: DAPT as below Acute R JAVA WEBSPHERE DEVELOPER Stroke: with left arm heaviness and left peripheral vision deficit 07/01/23, since resolved. [facility] CT H 07/01/23 without acute intracranial abnormality, TTE 07/01/23 EF 65-70%, mild concentric LVH, no regional wall motion abnormalities. Admission CTA H/N showed evolving R JAVA WEBSPHERE DEVELOPER distribution infarct, occlusion of proximal P2 segment of right JAVA WEBSPHERE DEVELOPER, and focal high grade stenosis involving the origin of left vertebral artery. Confirmed on MRI. LDL 238, hesham 328, tri 166 and A1c 6.1%. ASA/statin initiated. Neuro followed: DAPT starting 07/09/23 for 90 days then ASA monotherapy Right facial cellulitis with dental caries: Onset 06/27/23, missed dentist appt 07/01/[address] Facial Bone 07/01/23 showed right sided maxillary area facial cellulitis with possible very small abscess adjacent to right maxillary sinus. Panorex 07/02/23 showed dental caries involving right mandibular 1st premolar and apical lucencies of right 2nd maxillary premolar and both left maxillary premolars. Unasyn ordered, de-escalate to Augmentin at discharge with outpatient follow up with established dentist. 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 XR Left ankle 07/01/23 without acute injury, stable surgical screws noted. OVS. Telemetry. PT/OT Elevated Blood Pressure: SBP 170-190s on admit. No prior diagnosis of HTN. Monitor, allow for permissive HTN then may need anti-hypertensive agent Elevated Trop: at [facility], suspect demand ischemia. CT Chest 06/25/23 without PE, otherwise unremarkable. EKG 07/01/23 NSR without acute ischemia. TTE 07/01/23 without regional wall abnormalities. Admission Trop 15, no further work up indicated Code status: Full DVT Prophylaxis: Lovenox Current living situation: home Expected Disposition: therapy pending Estimated discharge date: 07/04, dispo Subjective: Patient seen and examined at bedside. I personally reviewed prior medical records including recent labs, diagnostics, vitals including pulse ox, and access consultant/other provider recommendations. Case discussed with Neuro - TTE pending but plan for DAPT Pt reports she continues to feel well other than tenderness at R upper gum/maxillary Physical Exam: BP (!) 180/88 Pulse 83 Temp 98.2 F (36.8 C) (Oral) Resp 16 Ht 5' 4 Wt 72.6 kg (160 lb) SpO2 96% BMI 27.46 kg/m General: NAD Eyes: EOMI ENT: neck supple Cardiovascular: Regular rate. Respiratory: Clear to auscultation Gastrointestinal: Soft, non tender Genitourinary: no suprapubic tenderness Musculoskeletal: No edema. Skin: warm, dry. R cheek erythema and edema Neuro: Alert. CN intact other than visual cut, 5/5 and sensation intact. Defer gait Psych: Mood appropriate. Current Medications: ampicillin-sulbactam (UNAYSN) IVPB 3,000 mg Intravenous Q6H aspirin 325 mg Oral Daily Or aspirin 300 mg Rectal Daily atorvastatin 80 mg Oral Nightly enoxaparin (LOVENOX) injection 40 mg Subcutaneous Daily sodium chloride (PF) 5 mL Intravenous Q8H [facility] Labs, Imaging and Studies reviewed: Results from last 7 days Lab Units 07/03/23 0409 07/02/23 0811 07/02/23 0355 WBC K/mcL 7.23 7.80 8.27 HGB g/dL 14.0 13.6 13.4 HCT % 41.3 40.7 40.4 PLT K/mcL 245 253 252 Results from last 7 days Lab Units 07/03/23 0408 07/02/23 0811 07/02/23 0411 07/02/23 0355 SODIUM mmol/L 139 138 -- 138 POTASSIUM mmol/L 4.2 4.2 -- 4.4 CHLORIDE mmol/L 104 104 -- 103 BICARB mmol/L 24 23 -- 25 BUN mg/dL 13 11 -- 11 POC BUN mg/dL -- -- 10 -- CREATININE mg/dL 0.78 0.70 -- 0.71 POC CREATININE (EPOC) mg/dL -- -- 0.71 -- EGFR mL/min/1.73 m2 84 96 -- 94 GLUCOSE mg/dL 113* 113* -- 124* CALCIUM mg/dL 9.2 9.3 -- -- ADDENDUM: Patient plan reviewed with Dr. Mora, plan to start Plavix 75 mg + ASA 81 mg on 07/09/23 x 90 days, then ASA monotherapy. 07/03/2023 1:19 PM Neurology Inpatient Follow Up [facility] 07/03/2023 Marisabel Reagan CNP [facility] Patient: Krista Urban Date of : 1955 (68 y.o. female) Referring Provider: Refer to consult order in electronic medical record PCP: No, Physician ASSESSMENT: 68 y.o. female with history of with no past medical history, does not follow-up with doctors presented to [facility] on 07/02/2023 with left arm heaviness and right facial swelling, found to have right JAVA WEBSPHERE DEVELOPER infarct and right facial cellulitis. CTA with multifocal stenosis; her stroke is likely due to intracranial atherosclerotic disease versus embolic etiology. Low concern for bacteremia or infective endocarditis. Echo obtained at OSH without evidence of endocarditis (EF 65-70%, mild concentric LVH, no regional wall motion abnormalities). PLAN: Right JAVA WEBSPHERE DEVELOPER stroke (Ischemic Infarct) Etiology: intracranial atherosclerotic disease versus embolic Testing: Telemetry and 30-day monitor on discharge Labs: None Cardiac Rhythm: NO Afib noted to date Anti-thrombotic: Continue aspirin for now consider adding Plavix in few days due to the large infarct size, would continue for 3 months Anti-lipid Agent: Lipitor 80 mg QD BP Goal: Less than 130/80; AVOID hypotension; Attending Service to manage Glucose Goal: Normoglycemia/ A1c less than 6.5. Attending Service to manage. Tobacco: Counseled to not smoke/use tobacco. Attending Service to manage. Therapy (Assessed for Rehab): Pending evaluation DVT Prophylaxis: Pharmacological DVT prophylaxis recommended. Dosing per Attending Service Eventual Outpatient Follow-up: In [facility] Patient was advised not to drive until she is cleared by ophtho due to VF deficit. Will also place referral for outpatient formal driving evaluation. General medical issues per Attending Service: right facial cellulitis Answered questions and rediscussed plan at length with Patient. Covering neurologist: Dr. Mora. DIAGNOSTIC TESTING SUMMARY: Resulted Testing: (MRI/CT/XR, EEG, EMG, CSF, Cardiac, Labs) I independently reviewed the MR and CT images and agree with the interpretation(s) with the following comments: MRI brain: There is restricted diffusion identified within the right JAVA WEBSPHERE DEVELOPER territory compatible with evolving acute ischemic infarct with involvement of the right posterior limb internal capsule and thalamus. There is associated sulcal effacement and hyperintense T2/FLAIR signal abnormality in the region. No associated hemorrhage. No significant mass effect. MRA brain: There is intracranial atherosclerosis with approximately 70% stenosis of the right paraclinoid/supraclinoid carotid and 50% stenosis of the left. There appears to be a moderate severity segmental stenosis of the left M1/M2 junction. 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 No additional acute regional vascular abnormalities identified elsewhere in the intracranial circulation to include additional flow-limiting stenoses, occlusions, or aneurysm/vascular malformation. CTA head and neck: There is an evolving right JAVA WEBSPHERE DEVELOPER distribution infarction. No evidence of hemorrhagic transformation. There is occlusion of the proximal P2 segment of the right JAVA WEBSPHERE DEVELOPER. There is focal high-grade stenosis involving the origin of the left vertebral artery. There are atherosclerotic changes noted along the carotid bulbs. Otherwise, the extracranial carotid arteries are patent. TTE at OSH reportedly normal. Report unable to view Lab Results Component Value Date HGBA1C 6.1 (H) 07/02/2023 LDLCALC 238 (H) 07/02/2023 SUBJECTIVE: Chief Complaint/Reason for Consult: Stroke Informant(s): Patient Interval Update: Ongoing LH. Right face with notable swelling/bruising. Reviewed recs for formal outpatient driving evaluation prior to resumption of driving. Review of Systems: All systems reviewed and negative except pertinent positives and negatives documented in the History of Present Illness (HPI). OBJECTIVE: Physical Examination: BP (!) 177/71 (BP Location: Right arm, Patient Position: Lying) Pulse 65 Temp 98.2 F (36.8 C) (Oral) Resp 18 Ht 5' 4 Wt 72.6 kg (160 lb) SpO2 96% BMI 27.46 kg/m NINO: DNFC: Does Not Follow Commands SERENE: Unable to Assess GENERAL: General Appearance: In NAD Eyes: Conjunctiva/sclera non-icteric Ears (Hearing): Normal Respiratory Effort: Normal Extremities: No edema Skin: Right facial swelling/bruising MENTAL STATUS: Alertness, Attention Span & Concentration: Normal Language: Normal Speech: Normal Orientation: Normal Memory, Recent & Remote: Normal Fund of Knowledge: Normal CRANIAL NERVES: II - Visual Billings: [facility] II, III - Pupils: PERRL III, IV, - Eye Movements: Normal (EOMI, no ptosis, no nystagmus) V - Facial Sensation: Normal VII - Face Symmetry and Strength: Rt face is swollen. VIII - Hearing: Normal IX, X - Palate: Normal XI - Shoulder Shrug: Normal XII - Tongue Protrusion: Normal COORDINATION & GROSS MOTOR: Abnormal Movements: None Coordination Zypgjt-pu-Camu: no ataxia but slow LUE Drift: None Tone: Normal Bulk: Normal MOTOR - MUSCLE STRENGTH: 5/5 throughout SENSATION: Fine Touch: Normal NIH Stroke Scale Level of Consciousness (1a.): Alert, keenly responsive LOC Questions (1b.): Answers both questions correctly LOC Commands (1c.): Performs both tasks correctly Best Gaze (2.): Normal Visual (3.): Complete hemianopia Facial Palsy (4.): Normal symmetrical movements Motor Arm, Left (5a.): No drift Motor Arm, Right (5b.): No drift Motor Leg, Left (6a.): No drift Motor Leg, Right (6b.): No drift Limb Ataxia (7.): Absent Sensory (8.): Normal, no sensory loss Best Language (9.): No aphasia Dysarthria (10.): Normal Extinction and Inattention (11.) (Formerly Neglect): No abnormality Total: 2 documented in this encounter [facility] 07-03-2023 Consult note Associated Order (s): IP CONSULT TO CARDIAC ELECTROPHYSIOLOGY This consult is for OP MCT request from neuro to cardio. AVS updated and MCT will be ordered upon hospital release. [facility] 07-03-2023 Note Formatting of this n ote is different from the original. Neurology Neurovascular Sign-Off Diagnosis: RPCA Stroke Associated Large Vessel Lesion: None Neurovascular Etiology: Intracranial atherosclerotic disease vs embolic Risk Factor Labs: Lab Results Component Value Date LDLCALC 238 (H) 07/02/2023 Lab Results Component Value Date HGBA1C 6.1 (H) 07/02/2023 Procedures & Acute Interventions: None Demographics/Scores: Age & Sex: 68 y.o. female Ethnicity: Not or [* Zip: [id number] NIHSS Admission Total: 2 NIHSS at Sign Off Total: 2 [id number] Score: Age 65= 1, Stroke/Tia= 2, and Sex ( Female) =1 Support System: Family PENDING Procedures: None AFib surveillance at Discharge: 30-day monitor ordered Blood pressure goals at Discharge: Less than 130/80; AVOID hypotension; Attending Service to manage Anti-thrombotic at Discharge: ASA 81 mg-->plan to start Plavix 75 mg + ASA 81 mg every day on 07/09/23 for 90 days, then ASA monotherapy Lipitor 80 mg every day Anti-hyperlipidemic at Discharge: Lipitor (atorvastatin) 80 mg Other treatments at Discharge: Outpatient driving evaluation and Optho eval Anticipated disposition at Discharge: Home Follow-up Appointment: In [facility]. See Discharge Tab/AVS for details. Recall: If questions. Urgent Questions: Use [facility] On-call Directory to contact Physician [facility] 07-02-2023 Emergency department Note Bed: 2406 Expected date: Expected time: Means of arrival: Comments: 15 - already in hospital bed [facility] 07-02-2023 Emergency department Note Report given to 2 green nurse at this time. [facility] 07-02-2023 Consult note Associated Order (s): IP CONSULT TO NEUROLOGY; IP CONSULT TO NEUROLOGY Neurology Inpatient Consult [facility] 07/02/2023 Aleta Hudson MD [facility] Patient: Krista Urban Date of : 1955 (68 y.o. female) Referring Provider: Refer to consult order in electronic medical record PCP: Yennifer, Physician ASSESSMENT: 68 y.o. female with history of with no past medical history, does not follow-up with doctors presented to [facility] on 07/02/2023 with left arm heaviness and right facial swelling, found to have right JAVA WEBSPHERE DEVELOPER infarct and right facial cellulitis. CTA with multifocal stenosis but does not appear that severe. Her stroke is likely due to intracranial atherosclerotic disease versus embolic etiology. Low concern for bacteremia or infective endocarditis. Echo obtained at OSH without evidence of endocarditis (EF 65-70%, mild concentric LVH, no regional wall motion abnormalities). PLAN: Right JAVA WEBSPHERE DEVELOPER stroke (Ischemic Infarct) Etiology: iCAD versus embolic Testing: Echo, Telemetry, and 30-day monitor on discharge Labs: A1c, Lipid panel (Fasting) Cardiac Rhythm: NO Afib noted to date Anti-thrombotic: Continue aspirin for now consider adding Plavix in few days due to the large infarct size, would continue for 3 months Anti-lipid Agent: High intensity statin BP Goal: Less than 180/90 for now; AVOID hypotension; Attending Service to manage Glucose Goal: Normoglycemia/ A1c less than 6.5. Attending Service to manage. Tobacco: Counseled to not smoke/use tobacco. Attending Service to manage. Therapy (Assessed for Rehab): Pending evaluation DVT Prophylaxis: Pharmacological DVT prophylaxis recommended. Dosing per Attending Service Eventual Outpatient Follow-up: In [facility] Patient was advised not to drive until she is cleared by ophtho due to VF deficit. Admitted with these risk variables:None. Please see assessment and plan for further details. DIAGNOSTIC TESTING SUMMARY: Resulted Testing: (MRI/CT/XR, EEG, EMG, CSF, Cardiac, Labs) I independently reviewed the MR and CT images and agree with the interpretation(s) with the following comments: Right JAVA WEBSPHERE DEVELOPER infarct, multifocal intracranial stenosis Lab Results Component Value Date HGBA1C 6.1 (H) 07/02/2023 LDLCALC 238 (H) 07/02/2023 SUBJECTIVE: Chief Complaint/Reason for Consult: Stroke Informant(s): Patient, Care Team/Chart History of Present Illness: Krista Urban is a 68 y.o. female with no significant past medical history, does not follow-up with doctors who presented to the emergency department with left-sided weakness and right facial swelling. Patient has been having problems with her tooth and was supposed to have a dentist appointment but she developed sudden onset left-sided weakness that lasted for about 6 hours. Subsequently she had a fall and was little bit dizzy and lightheaded. She also had left visual field deficits. In the emergency department CT head showed right JAVA WEBSPHERE DEVELOPER infarct. She was transferred to [place] since there is no MRI at [facility]. Review of Systems: All systems reviewed and negative except pertinent positives and negatives documented in the History of Present Illness (HPI). History: Past Medical History: Diagnosis Date Known health problems: none Past Surgical History: Procedure Laterality Date left ankle surgery TUBAL LIGATION Social History: reports that she has never smoked. She has never used smokeless tobacco. She reports current alcohol use of about 1.0 standard drink of alcohol per week. She reports that she does not use drugs. Family History Problem Relation Age of Onset Stroke Mother Emphysema Father Stroke Brother Stroke Brother Additional History Comments: None Allergies: Patient has no known allergies. HOME Medications: No outpatient medications have been marked as taking for the 07/02/23 encounter (Hospital Encounter). HOSPITAL Infusions: sodium chloride 0.9 % HOSPITAL Scheduled Medications: ampicillin-sulbactam (UNAYSN) IVPB 3,000 mg Intravenous Q6H aspirin 325 mg Oral Daily Or aspirin 300 mg Rectal Daily atorvastatin 40 mg Oral Nightly enoxaparin (LOVENOX) injection 40 mg Subcutaneous Daily sodium chloride (PF) 5 mL Intravenous Q8H [facility] PRN Medications: acetaminophen, labetalol OR hydrALAZINE, ondansetron, ondansetron, Saline lock IV AND sodium chloride (PF) AND sodium chloride (PF) AND sodium chloride 0.9 % OBJECTIVE: Physical Examination: BP (!) 155/70 Pulse 85 Temp 98.5 F (36.9 C) Resp 13 Ht 5' 4 Wt 72.6 kg (160 lb) SpO2 94% BMI 27.46 kg/m NINO: DNFC: Does Not Follow Commands SERENE: Unable to Assess GENERAL: General Appearance: In NAD MENTAL STATUS: Alertness, Attention Span & Concentration: Normal Language: Normal Speech: Normal Orientation: Normal Memory, Recent & Remote: Normal Fund of Knowledge: Normal CRANIAL NERVES: II - Visual Billings: left superior quadrantanopsia II, III - Pupils: PERRL III, IV, - Eye Movements: Normal (EOMI, no ptosis, no nystagmus) V - Facial Sensation: Normal VII - Face Symmetry and Strength: Rt face is swollen. VIII - Hearing: Normal IX, X - Palate: Normal XI - Shoulder Shrug: Normal XII - Tongue Protrusion: Normal COORDINATION & GROSS MOTOR: Abnormal Movements: None Coordination Nxntal-yi-Xvia: no ataxia but slow on FNF in the LUE. Coordination: Gvrk-Xxti-Wjdb:Normal Drift: None Tone: Normal Bulk: Normal MOTOR - MUSCLE STRENGTH: 5/5 throughout REFLEXES: Symmetric throughout REFLEXES NINO: 4+ Sustained Clonus 3+ Brisk 2+ Normal 1+ Diminished 0 Absent SERENE Unable to Assess SENSATION: Fine Touch: Normal OTHER: Stroke Assessment - 07/02/23 191 NIH Stroke Scale Level of Consciousness (1a.) 0 LOC Questions (1b.) 0 LOC Commands (1c.) 0 Best Gaze (2.) 0 Visual (3.) 1 Facial Palsy (4.) 1 Motor Arm, Left (5a.) 0 Motor Arm, Right (5b.) 0 Motor Leg, Left (6a.) 0 Motor Leg, Right (6b.) 0 Limb Ataxia (7.) 0 Sensory (8.) 0 Best Language (9.) 0 Dysarthria (10.) 0 Extinction and Inattention (11.) (Formerly Neglect) 0 Total 2 [facility] Work Phone: 07-02-2023 Emergency department Note MRI scheduled for 929 [facility] 07-02-2023 History and physical note [facility] History and Physical Note 07/02/23 Krista Urban 1955 [id number] Assessment/Plan: Krista Urban is a 68 y.o. female with no significant past medical history who had [facility] visit 07/01/23 from [facility] due to concern for right facial cellulitis, fall, and left arm heaviness. Transferred to [facility] 07/02/2023 for further neurological evaluation as no MRI available at [facility] on weekends. Acute Stroke: with left arm heaviness and numbness, gait instability, and left peripheral vision deficit 07/01/23, since resolved. [facility] Stroke Network evaluated with CT H 07/01/23 without acute intracranial abnormality; noted unable to obtain CTA H/N due to recent contrast and recommended MRI/MRA H/N as concern that CT MF showing inflammation along maxillary/mandible region could be compressing on RCA. [facility] TTE 07/01/23 EF 65-70%, mild concentric LVH, no regional wall motion abnormalities. Admission CTA H/N showed evolving R JAVA WEBSPHERE DEVELOPER distribution infarct, occlusion of proximal P2 segment of right JAVA WEBSPHERE DEVELOPER, and focal high grade stenosis involving the origin of left vertebral artery. Admission lipid panel with LDL 238, hesham 328, tri 166 and A1c pending. ASA/statin initiated on admit. MRI/MRA pending. 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 Right facial cellulitis with dental caries: Onset 06/27/23, missed dentist appt 07/01/[address] Facial Bone 07/01/23 showed right sided maxillary area facial cellulitis with possible very small abscess adjacent to right maxillary sinus. Panorex 07/02/23 showed dental caries involving right mandibular 1st premolar and apical lucencies of right 2nd maxillary premolar and both left maxillary premolars. Unasyn ordered, de-escalate to Augmentin at discharge with outpatient follow up with established dentist. 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 XR Left ankle 07/01/23 without acute injury, stable surgical screws noted. OVS. Telemetry. PT/OT Elevated Blood Pressure: SBP 170-190s on admit. No prior diagnosis of HTN. Monitor, allow for permissive HTN then may need anti-hypertensive agent Elevated Trop: at [facility], suspect demand ischemia. CT Chest 06/25/23 without PE, otherwise unremarkable. EKG 07/01/23 NSR without acute ischemia. TTE 07/01/23 without regional wall abnormalities. Admission Trop 15, no further work up indicated Code status: Full DVT Prophylaxis: Lovenox Current living situation: home Expected Disposition: same Estimated discharge date: 2-3 days Admitted with these risk variables:None. Please see assessment and plan for further details. Chief Complaint: Stroke symptoms History of Present Illness: Krista Urban is a 68 y.o. female with no significant past medical history who had [facility] visit 07/01/23 from [facility] due to concern for right facial cellulitis, fall, and left arm heaviness. Transferred to [facility] 07/02/2023 for further neurological evaluation as no MRI available at [facility] on weekends. Patient has infection under her crown. She called dentist, wasn't able to get to the dentist for her appt yesterday though. Currently with a little bit of tooth discomfort, rated as 2/10, aching, constant throbbing. Stated she got tylenol with some improvement Patient stated she set her alarm for 8AM on 07/01/23. She laid back down, got back up and took about 4 steps and felt like her left side wasn't working. Stated her LUE was numb, felt heavy, had difficulty moving it. Reported LLE felt uncoordinated. No dysphagia, aphasia, facial droop. Stated it last 5-6 hours. It did cause her to fall, felt like she twisted her bad foot or left ankle. Stated she was a little lightheaded, dizzy, warm, and then her gait was also off causing her to fall. When she got to the hospital, she had left visual deficit with peripheral vision cut out. Currently, peripheral vision has returned and arm improved, no longer heavy. Denied chset pain, shortness of breath, abdominal pain, n/v/d, urinary discomfort, fevers, chills. Denied current lightheadedness, dizziness. Has slight headache from R side of face feeling uncomfortable. ROS: 10 systems were reviewed and negative, except as noted above. Past Medical, Surgical, Social, Family History: Past Medical History: Diagnosis Date Known health problems: none Past Surgical History: Procedure Laterality Date left ankle surgery TUBAL LIGATION Social History Socioeconomic History Marital status: Tobacco Use Smoking status: Never Smokeless tobacco: Never Vaping Use Vaping Use: Never used Substance and Sexual Activity Alcohol use: Yes Alcohol/week: 1.0 standard drink of alcohol Types: 1 Standard drinks or equivalent per week Drug use: Never Family History Problem Relation Age of Onset Stroke Mother Emphysema Father Stroke Brother Stroke Brother Home Medications: No current outpatient medications on file as of 07/02/2023. Physical Exam: BP (!) 182/86 Pulse 80 Temp 98.5 F (36.9 C) Resp 17 Ht 5' 4 Wt 72.6 kg (160 lb) SpO2 93% BMI 27.46 kg/m General: NAD Eyes: EOMI ENT: neck supple. Right facial swelling, no redness Cardiovascular: Regular rate. No extra heart sounds Respiratory: Clear to auscultation, on room air Gastrointestinal: Soft, non tender Genitourinary: no suprapubic tenderness Musculoskeletal: No edema Skin: warm, dry Neuro: Alert. Oriented x3. BUE/BLE 5/5, sensation intact. No facial droop, no pronator drift Psych: Mood appropriate. Labs, Imaging, and Studies reviewed: Results from last 7 days Lab Units 07/02/23 0811 07/02/23 0355 WBC K/mcL 7.80 8.27 HGB g/dL 13.6 13.4 HCT % 40.7 40.4 PLT K/mcL 253 252 Results from last 7 days Lab Units 07/02/23 0811 07/02/23 0411 07/02/23 0355 SODIUM mmol/L 138 -- 138 POTASSIUM mmol/L 4.2 -- 4.4 CHLORIDE mmol/L 104 -- 103 BICARB mmol/L 23 -- 25 BUN mg/dL 11 -- 11 POC BUN mg/dL -- 10 -- CREATININE mg/dL 0.70 -- 0.71 POC CREATININE (EPOC) mg/dL -- 0.71 -- EGFR mL/min/1.73 m2 96 -- 94 GLUCOSE mg/dL 113* -- 124* CALCIUM mg/dL 9.3 -- -- Associated attestation - Maday Byrd MD - 07/02/2023 11:19 AM EST I have personally performed a [id number] diagnostic evaluation of this patient on 07/02/2023. After discussing the case Kelli Staton CNP, I performed the substantive part of the medical decision making for this encounter with the following additions: Patient is a 68 year old female with no known past significant medical history who initially presented to [facility] on 07/01/23 for stroke like symptoms with left arm heaviness and facial cellulitis. VS at [facility] significant for BP of 189/95. She was transferred to [facility] on 07/02/23 for higher level of care. CTA head and neck at [facility] on 07/02/23 showed evolving right JAVA WEBSPHERE DEVELOPER infarction, occluded proximal P2 segment of right JAVA WEBSPHERE DEVELOPER and focal high grade stenosis of left vertebral artery. Acute stroke: likely ischemic than embolic, presented as above. CTA as above. Neurology consulted. TTE at [facility] with EF of 65% with no RWMA. Permissive HTN. PT/OT. Continued aspirin and statin initiated this admit. MRI/MRA pending. Right facial cellulitis: CT Facial Bone 07/01/23 showed right sided maxillary area facial cellulitis with possible very small abscess adjacent to right maxillary sinus. Panorex on 07/02/23 with dental ashleigh involving right mandibular 1 st molar and apical lucency in right 2nd maxillary premolar. Unasyn initiated. DDS consulted given abscess. Elevated troponin: troponin of 15 on admit. Denied anginal complaint. EKG at [facility] pending. Likely due to demand ischemia in the setting of above. Trend. Medical non compliance: patient has never been to PCP, will need to establish with PCP before discharge. PCP to consider age appropriate health screenings on outpatient. Physical Exam (Focused elements based on presentation): BP (!) 168/91 Pulse 89 Temp 98.5 F (36.9 C) Resp 15 Ht 5' 4 Wt 72.6 kg (160 lb) SpO2 98% BMI 27.46 kg/m General: NAD Eyes: EOMI ENT: neck supple. Right facial swelling with some warmth Cardiovascular: Regular rate. No extra heart sound Musculoskeletal: No edema Skin: warm, dry Neuro: Alert. Oriented x3. Some flattening of nasolabial fold on right side due to facial swelling, strength on UE and LE intact Psych: Mood appropriate. [facility] 07-02-2023 [facility] and Physical [facility] 07/02/23 Krista Urban 1955 [id number] Assessment/Plan: Krista Urban is a 68 y.o. female with no significant past medical history who had [facility] visit 07/01/23 from [facility] due to concern for right facial cellulitis, fall, and left arm heaviness. Transferred to [facility] 07/02/2023 for further neurological evaluation as no MRI available at [facility] on weekends. Acute Stroke: with left arm heaviness and numbness, gait instability, and left peripheral vision deficit 07/01/23, since resolved. [facility] Stroke Network evaluated with CT H 07/01/23 without acute intracranial abnormality; noted unable to obtain CTA H/N due to recent contrast and recommended MRI/MRA H/N as concern that CT MF showing inflammation along maxillary/mandible region could be compressing on RCA. [facility] TTE 07/01/23 EF 65-70%, mild concentric LVH, no regional wall motion abnormalities. Admission CTA H/N showed evolving R JAVA WEBSPHERE DEVELOPER distribution infarct, occlusion of proximal P2 segment of right JAVA WEBSPHERE DEVELOPER, and focal high grade stenosis involving the origin of left vertebral artery. Admission lipid panel with LDL 238, hesham 328, tri 166 and A1c pending. ASA/statin initiated on admit. MRI/MRA pending. 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 Right facial cellulitis with dental caries: Onset 06/27/23, missed dentist appt 07/01/[address] Facial Bone 07/01/23 showed right sided maxillary area facial cellulitis with possible very small abscess adjacent to right maxillary sinus. Panorex 07/02/23 showed dental caries involving right mandibular 1st premolar and apical lucencies of right 2nd maxillary premolar and both left maxillary premolars. Unasyn ordered, de-escalate to Augmentin at discharge with outpatient follow up with established dentist. 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 XR Left ankle 07/01/23 without acute injury, stable surgical screws noted. OVS. Telemetry. PT/OT Elevated Blood Pressure: SBP 170-190s on admit. No prior diagnosis of HTN. Monitor, allow for permissive HTN then may need anti-hypertensive agent Elevated Trop: at [facility], suspect demand ischemia. CT Chest 06/25/23 without PE, otherwise unremarkable. EKG 07/01/23 NSR without acute ischemia. TTE 07/01/23 without regional wall abnormalities. Admission Trop 15, no further work up indicated Code status: Full DVT Prophylaxis: Lovenox Current living situation: home Expected Disposition: same Estimated discharge date: 2-3 days Admitted with these risk variables:None. Please see assessment and plan for further details. Chief Complaint: Stroke symptoms History of Present Illness: Krista Urban is a 68 y.o. female with no significant past medical history who had [facility] visit 07/01/23 from [facility] due to concern for right facial cellulitis, fall, and left arm heaviness. Transferred to [facility] 07/02/2023 for further neurological evaluation as no MRI available at [facility] on weekends. Patient has infection under her crown. She called dentist, wasn't able to get to the dentist for her appt yesterday though. Currently with a little bit of tooth discomfort, rated as 2/10, aching, constant throbbing. Stated she got tylenol with some improvement Patient stated she set her alarm for 8AM on 07/01/23. She laid back down, got back up and took about 4 steps and felt like her left side wasn't working. Stated her LUE was numb, felt heavy, had difficulty moving it. Reported LLE felt uncoordinated. No dysphagia, aphasia, facial droop. Stated it last 5-6 hours. It did cause her to fall, felt like she twisted her bad foot or left ankle. Stated she was a little lightheaded, dizzy, warm, and then her gait was also off causing her to fall. When she got to the hospital, she had left visual deficit with peripheral vision cut out. Currently, peripheral vision has returned and arm improved, no longer heavy. Denied chset pain, shortness of breath, abdominal pain, n/v/d, urinary discomfort, fevers, chills. Denied current lightheadedness, dizziness. Has slight headache from R side of face feeling uncomfortable. ROS: 10 systems were reviewed and negative, except as noted above. Past Medical, Surgical, Social, Family History: Past Medical History: Diagnosis Date Known health problems: none Past Surgical History: Procedure Laterality Date left ankle surgery TUBAL LIGATION Social History Socioeconomic History Marital status: Tobacco Use Smoking status: Never Smokeless tobacco: Never Vaping Use Vaping Use: Never used Substance and Sexual Activity Alcohol use: Yes Alcohol/week: 1.0 standard drink of alcohol Types: 1 Standard drinks or equivalent per week Drug use: Never Family History Problem Relation Age of Onset Stroke Mother Emphysema Father Stroke Brother Stroke Brother Home Medications: No current outpatient medications on file as of 07/02/2023. Physical Exam: BP (!) 182/86 Pulse 80 Temp 98.5 F (36.9 C) Resp 17 Ht 5' 4 Wt 72.6 kg (160 lb) SpO2 93% BMI 27.46 kg/m General: NAD Eyes: EOMI ENT: neck supple. Right facial swelling, no redness Cardiovascular: Regular rate. No extra heart sounds Respiratory: Clear to auscultation, on room air Gastrointestinal: Soft, non tender Genitourinary: no suprapubic tenderness Musculoskeletal: No edema Skin: warm, dry Neuro: Alert. Oriented x3. BUE/BLE 5/5, sensation intact. No facial droop, no pronator drift Psych: Mood appropriate. Labs, Imaging, and Studies reviewed: Results from last 7 days Lab Units 07/02/23 0811 07/02/23 0355 WBC K/mcL 7.80 8.27 HGB g/dL 13.6 13.4 HCT % 40.7 40.4 PLT K/mcL 253 252 Results from last 7 days Lab Units 07/02/23 0811 07/02/23 0411 07/02/23 0355 SODIUM mmol/L 138 -- 138 POTASSIUM mmol/L 4.2 -- 4.4 CHLORIDE mmol/L 104 -- 103 BICARB mmol/L 23 -- 25 BUN mg/dL 11 -- 11 POC BUN mg/dL -- 10 -- CREATININE mg/dL 0.70 -- 0.71 POC CREATININE (EPOC) mg/dL -- 0.71 -- EGFR mL/min/1.73 m2 96 -- 94 GLUCOSE mg/dL 113* -- 124* CALCIUM mg/dL 9.3 -- -- Associated attestation - Maday Byrd MD - 07/02/2023 11:19 AM EST I have personally performed a [id number] diagnostic evaluation of this patient on 07/02/2023. After discussing the case Kelli Staton CNP, I performed the substantive part of the medical decision making for this encounter with the following additions: Patient is a 68 year old female with no known past significant medical history who initially presented to [facility] on 07/01/23 for stroke like symptoms with left arm heaviness and facial cellulitis. VS at [facility] significant for BP of 189/95. She was transferred to [facility] on 07/02/23 for higher level of care. CTA head and neck at [facility] on 07/02/23 showed evolving right JAVA WEBSPHERE DEVELOPER infarction, occluded proximal P2 segment of right JAVA WEBSPHERE DEVELOPER and focal high grade stenosis of left vertebral artery. Acute stroke: likely ischemic than embolic, presented as above. CTA as above. Neurology consulted. TTE at [facility] with EF of 65% with no RWMA. Permissive HTN. PT/OT. Continued aspirin and statin initiated this admit. MRI/MRA pending. Right facial cellulitis: CT Facial Bone 07/01/23 showed right sided maxillary area facial cellulitis with possible very small abscess adjacent to right maxillary sinus. Panorex on 07/02/23 with dental ashleigh involving right mandibular 1 st molar and apical lucency in right 2nd maxillary premolar. Unasyn initiated. DDS consulted given abscess. Elevated troponin: troponin of 15 on admit. Denied anginal complaint. EKG at [facility] pending. Likely due to demand ischemia in the setting of above. Trend. Medical non compliance: patient has never been to PCP, will need to establish with PCP before discharge. PCP to consider age appropriate health screenings on outpatient. Physical Exam (Focused elements based on presentation): BP (!) 168/91 Pulse 89 Temp 98.5 F (36.9 C) Resp 15 Ht 5' 4 Wt 72.6 kg (160 lb) SpO2 98% BMI 27.46 kg/m General: NAD Eyes: EOMI ENT: neck supple. Right facial swelling with some warmth Cardiovascular: Regular rate. No extra heart sound Musculoskeletal: No edema Skin: warm, dry Neuro: Alert. Oriented x3. Some flattening of nasolabial fold on right side due to facial swelling, strength on UE and LE intact Psych: Mood appropriate. documented in this encounter [facility] 07-02-2023 Note HNO ID: [id number] Author: Pj Lewis DO Service: Hospital Medicine Author Type: Physician Type: Plan of Care Filed: 07/02/2023 2:16 AM Note Text: Accepted for transfer yesterday 07/01/2023 (late charting, pt not yet arrived to [facility]) from [facility] initially seen for right facial cellulitis suspected to be odontogenic but patient then reported left sided deficits of weakness in arm, heaviness, vision changes. Teleneurology recommended CTA carotid but pt had already received contrast for previous scans so Neurology recommended MRA/MRV which they do not have available and due to acuity would not want to wait the 24 hours from contrast standpoint. Bps in the 140's went up to 180's reportedly but Dr. Glover discussed this seeming related to pain from facial cellulitis and did not note a correlation between blood pressure being elevated and neurologic symptoms. She was not aware of any comorbidities putting pt at risk of strokes residential but wanting to rule out deeper swelling of facial cellulitis possibly compressing right carotid. [facility] 07-02-2023 Physician Emergency department Note Images from the original note were not included. ED PROVIDER NOTE [facility] EM[facility]ENCY [facility] NAME: Krista Urban AGE: 68 y.o. : 1955 VISIT DATE: 07/02/2023 CSN: [id number] PCP: No, Physician Chief Complaint Patient presents with Weakness HPI 68-year-old presents emergency department concerns for weakness. Patient presented to an [facility] hospital yesterday was diagnosed with facial cellulitis. She was admitted last night and this morning had a fall. She noted some weakness at that time. Patient noted some left arm weakness and left lateral visual disturbance. She had undergone a facial CT as well as a chest CT and echo of her heart. They had concerns about giving her an additional dye load and did speak with neurology here who recommended she come to the emergency department for CTA of her head and neck. She notes no headache she notes no other neurologic deficits. History reviewed. No pertinent past medical history. History reviewed. No pertinent surgical history. History reviewed. No pertinent family history. Social History Socioeconomic History Marital status: Tobacco Use Smoking status: Never Smokeless tobacco: Never Vaping Use Vaping Use: Never used Substance and Sexual Activity Alcohol use: Yes Alcohol/week: 1.0 standard drink of alcohol Types: 1 Standard drinks or equivalent per week Drug use: Never No current outpatient medications on file prior to encounter. No Known Allergies Review of Systems All other systems reviewed and are negative. Patient Vitals for the past 24 hrs: BP Temp Pulse Resp SpO2 Height Weight 07/02/23 0400 (!) 185/88 -- 82 12 98 % -- -- 07/02/23 0315 (!) 184/91 -- 81 17 98 % -- -- 07/02/23 0310 (!) 184/91 98.5 F (36.9 C) 78 18 98 % 5' 4 72.6 kg (160 lb) Physical Exam Vitals and nursing note reviewed. Constitutional: General: She is not in acute distress. Appearance: She is well-developed. HENT: Head: Normocephalic. Comments: Swelling noted to the right facial area. Cardiovascular: Rate and Rhythm: Normal rate and regular rhythm. Musculoskeletal: General: Normal range of motion. Cervical back: Full passive range of motion without pain and normal range of motion. Pulmonary: Effort: Pulmonary effort is normal. Breath sounds: Normal breath sounds. Abdominal: General: Abdomen is flat. Skin: General: Skin is warm and dry. Neurological: Mental Status: She is alert and oriented to person, place, and time. Sensory: No sensory deficit. Psychiatric: Mood and Affect: Mood normal. NIH Scale: LOC: 0 - alert LOC Questions: 0 - answers both correctly LOC Commands: 0 - performs both correctly Best gaze: 0 - normal Vision: 1 - partial hemianopia Facial Palsy: 0 - normal Left arm: 0 - no drift Right arm; 0 - no drift Left le - no drift Right le - no drift Limb ataxia: 0 - absent Sensation: 0 - normal Best language: 0 - no aphasia Dysarthria: 0 - normal articulation Extinction and inattention: 0 - no neglect Stroke Scale: 1 Laboratory & Radiographic Imaging (if done): Results for orders placed or performed during the hospital encounter of 07/02/23 POC Venous Blood Gases with Full Panel Result Value Ref Range pH, Venous 7.40 7.32 - 7.42 pCO2, Ed 40.5 (L) 41.0 - 51.0 mm Hg pO2, Ed 31 25 - 40 mm Hg Base Excess, Ed 0.3 -2.0 - 2.0 O2 Sat, Ed 59.8 40.0 - 70.0 % Glucose 113 (H) 65 - 99 mg/dL BUN 10 8 - 25 mg/dL Creatinine 0.71 0.60 - 1.20 mg/dL GFR 94 >=60 mL/min/1.73 m2 Sodium 139 135 - 145 mmol/L Potassium 4.3 3.5 - 5.1 mmol/L Chloride 104 98 - 108 mmol/L TCO2 25 21 - 32 mmol/L Lactate 0.9 0.6 - 2.0 mmol/L Ionized Calcium 4.7 4.5 - 5.3 mg/dL CBC Auto Differential Result Value Ref Range WBC 8.27 4.50 - 11.00 K/mcL RBC 4.59 4.00 - 5.20 M/mcL Hemoglobin 13.4 12.0 - 16.0 g/dL Hematocrit 40.4 36.0 - 46.0 % MCV 88.0 80.0 - 100.0 fL MCH 29.2 26.0 - 34.0 pg MCHC 33.2 31.0 - 37.0 g/dL Platelets 252 150 - 400 K/mcL RDW - CV 13.4 11.6 - 14.8 % MPV 9.3 (L) 9.4 - 12.4 fL Neutrophils 83.9 % Lymphocytes 8.7 % Monocytes 5.9 % Eosinophils 0.5 % Basophils 0.5 % IG Percent 0.50 % Neutrophils Abs 6.94 1.70 - 7.00 K/mcL Lymphocytes Abs 0.72 (L) 0.90 - 4.00 K/mcL Monocytes Abs 0.49 0.30 - 0.90 K/mcL Eosinophils Abs 0.04 0.00 - 0.50 K/mcL Basophils Abs 0.04 0.00 - 0.30 K/mcL IG Absolute 0.04 0.00 - 0.30 K/mcL Nucleated RBC 0.0 % Nucleated RBC Abs 0.00 0.00 - 0.00 K/mcL CT Angiogram Head Neck Final Result 1. There is an evolving right JAVA WEBSPHERE DEVELOPER distribution infarction. No evidence of hemorrhagic transformation. 2. There is occlusion of the proximal P2 segment of the right JAVA WEBSPHERE DEVELOPER. 3. There is focal high-grade stenosis involving the origin of the left vertebral artery. 4. There are atherosclerotic changes noted along the carotid bulbs. Otherwise, the extracranial carotid arteries are patent. The process of contacting the ordering provider was initiated on 07/02/2023 at 4:01 a.m.. Critical results were relayed by Dr. Janusz Shrestha to Dr. VI THAPA on 07/02/2023 at 04:14. Workstation ID: [id number] MRA Cow And MR Brain With Contrast (Results Pending) Procedures Medical Decision Making HPI Summary: 68-year-old presents emergency department from [facility] with concerns for left arm weakness and left lateral visual disturbance in the setting of a recent diagnosis of facial cellulitis. DDx: CVA, TIA, peripheral neuropathy Data Review/analysis: CT obtained interpreted by radiology the head and neck showed evolving right JAVA WEBSPHERE DEVELOPER infarction. There is occlusion of the proximal P2 segment of the right JAVA WEBSPHERE DEVELOPER. Patient's CBC and chemistry are within normal limits. Disposition: During the patient's ED course above findings were reviewed with the patient. I did speak with Dr. Patterson who is on-call for stroke neurology who recommended aspirin at this time with plans for MRI/MRA to be ordered for the inpatient setting. Patient was updated for the plan for admission at this time. She had no evolving neurologic deficits during her ED course and actually noted some improvement in her subjective strength in her left upper extremity. MDM Data : External Records Reviewed, Drug management discussed, Treatment Goals were addressed, and Social Determinants of Health Impacted Treatment/Disposition Clinical Impression: 1. Cerebrovascular accident (CVA), unspecified mechanism (HCC) 2. Facial cellulitis ED Disposition ED Disposition Hospitalize Condition -- Comment Phone call required?: No Follow-up Information Follow-up information has not been specified. Contact information for after-discharge care Follow-up information has not been specified. MIPS Measure #187: Thrombolytic Therapy Plan for Thrombolytics: LKW was > 3.5 hrs Vi Thapa MD 07/02/23 0437 [facility] 07-02-2023 Emergency department Triage note Per transfer center note: Patient admitted on a med/surg unit for C/O right facial cellulitis today from an infected tooth. Patiet is not septic. [facility] reports that the patient reported that she had fallen while at the [facility] this morning around 8am, and noted she hand left arm heaviness and that her left eye vision feels delayed. Patient also has mild intermittent confusion. [facility] reports patient was seen by their stroke network, a CT head was completed and show no acute intracranial abnormalities. Neurology recommended a CTA head and neck but patient had already received contrast today and would not be able to have more contrast until tomorrow. A MRI/MRA Head and neck was recommended, concern that the inflammation on the CT of the maxillary facial, shows inflammation along the maxillary/mandible region could be compressing on the RCA. [facility] HOSPITAL do not have MRI available on the weekends. [facility] request transfer where the patient can have an MRI. VS HR [id number]. [facility] reports patient with no past medical problems. [facility] reports patient did have an elevated troponin 123, 106, no C/O chest pain. [facility] reports most likely not cardiac. Request transfer for further stroke work up. Per EMS REPORT: No peripheral vision at this time. 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 CT and repeat CT were unremarkable. Potassium running 100 mL/HR. [facility] 07-02-2023 Emergency department Note Bed: 15 Expected date: Expected time: Means of arrival: Comments: Referral/Elier/Lele [facility] Diagnosis Atrial fibrillation, unspecified type (HCC)- Primary [facility]* Diagnosis Acute ischemic right JAVA WEBSPHERE DEVELOPER stroke (HCC)- Primary Unspecified cerebral artery occlusion with cerebral infarction [facility] Attachments The following attachments cannot be sent through Care Everywhere. * Stroke (Divehi) * After a Stroke: Taking an Antiplatelet: Video (Divehi) * Antiplatelets After Ischemic Stroke: General Info ([facility]) [facility] Family History No Family History Records FoundNo Family History Records FoundNo Family History Records FoundNo Family History Records FoundNo Family History Records FoundNo Family History Records Found Advance Directives No Advanced Directives Records FoundLatest Code Status on File Code Status Date Activated Date Inactivated Comments Full Code 07/02/2023 8:05 AM 07/04/2023 2:18 PM Latest Code Status on File Code Status Date Activated Date Inactivated Comments Full Code 07/02/2023 8:05 AM 07/04/2023 2:18 PM Reason for Referral Specialty Diagnoses / Procedures Referred By Kyrie t Referred To Contact Rehabilitation Diagnoses Cerebrovascular accident (CVA), unspecified mechanism (HCC) Facial cellulitis Acute stroke due to occlusion of right carotid artery (HCC) Yelena Reeder, [address] [place] [address] [address] [place] [address] Referral ID Status Reason Start Date Expiration Date V isits Requested Visits Authorized [id number] Authorized 07/04/2023 07/03/2024 1 1 Specialty Diagnoses / Procedures Referred By Contac t Referred To Contact Cardiology Diagnoses Atrial fibrillation, unspecified type (HCC) Procedures MCT- Mobile Cardiac Telemetry Aleta Hudson MD [address] [facility] [address] [place] [address] Referral ID Status Reason Start Date Expiration Date V isits Requested Visits Authorized [id number] Authorized 07/06/2023 07/05/2024 1 1 Additional Source Comments INFORMATION SOURCE (unrecogn ized section and content) DATE CREATED AUTHOR AUTHOR'S ORGANIZ ATION 07/03/2023 [facility] ([place]) DATE CREATED AUTHOR AUTHOR'S ORGANIZ ATION 07/03/2023 [facility] DATE CREATED AUTHOR AUTHOR'S ORGANIZ ATION 07/13/2023 [facility] DATE CREATED AUTHOR AUTHOR'S ORGANIZ ATION 07/14/2023 [facility] DATE CREATED AUTHOR AUTHOR'S ORGANIZ ATION 07/15/2023 [facility] Reason for Visit (unrecogniz ed section and content) Specialty Diagnoses / Procedures Referred By Contac t Referred To Contact Diagnoses 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 Speech not affected. Ambulating well after stroke. Sometimes I feel like I have a sinus headache but its getting better . is present for appointment. Scheduled Active and Recently Administ ered Medications (unrecognized section and content) PRN Medication Order 07/02/2023 07/03/2023 07/04/2023 acetaminophen (TYLENOL) tablet 650 mg 650 mg, Oral, Every 4 hours PRN, mild pain, fever 100.4 F or greater, headaches, Starting on 07/02/23 at 0812 2135 (Given - Provider: Tracey Jones RN) 0701 (Given - Provider: Tracey Jones RN) gadoterate meglumine (DOTAREM) injection 15 mL (COMPLETED) 15 mL, Intravenous, Once in imaging, contrast, Starting on 07/02/23 at 1244, For 1 dose 1225 (Contrast Administered - Provider: Ambrocio Diane, TECHNOLOGIST) hydrALAZINE (APRESOLINE) injection 10 mg(Linked Group 3) 10 mg, Intravenous, Every 2 hour PRN, As ordered IF HR = 100 or less AND SBP or DBP greater than ranges stated in Hemodynamic Goal orders., Starting on 07/02/23 at 0812, Use labetalol first if HR greater than 60. Do not use hydralazine if HR greater than 100. May repeat dose in 15 minutes if SBP or DBP remains above ranges stated in Hemodynamic Goal orders. If, 15 minutes after a repeat dose, SBP or DBP remains above ranges stated in Hemodynamic Goal orders, initiate antihypertensive infusion IF ordered (Otherwise notify physician). If infusion already running, titrate it as ordered. 2217 (See Alternative - Provider: CHRISTIANO Zaman) iopamidoL (ISOVUE-370) 370 mg iodine /mL (76 %) injection 75 mL (COMPLETED) 75 mL, Intravenous, Once in imaging, contrast, Starting on 07/02/23 at 0309, For 1 dose 0323 (Contrast Administered - Provider: Pro Trinh, TECHNOLOGIST) labetaloL (NORMODYNE) injection 10 mg(Linked Group 3) 10 mg, Intravenous, Every 2 hour PRN, As ordered IF HR greater than 60 AND SBP or DBP greater than ranges stated in Hemodynamic Goal orders., Starting on 07/02/23 at 0812, Do not use labetolol if HR = 60 or less (Use hydralazine in that case, if ordered). May repeat dose in 15 minutes if SBP or DBP remains above ranges stated in Hemodynamic Goal orders. If, 15 minutes after a repeat dose, SBP or DBP remains above ranges stated in Hemodynamic Goal orders, initiate antihypertensive infusion IF ordered (Otherwise notify physician). If infusion already running, titrate it as ordered. 2217 (Given - Provider: CHRISTIANO Zaman) ondansetron (ZOFRAN) injection 4 mg 4 mg, Intravenous, Every 6 hours PRN, nausea, vomiting, Starting on 07/02/23 at 0812, Use oral route first, if tolerated. ondansetron (ZOFRAN-ODT) disintegrating tablet 4 mg 4 mg, Oral, Every 6 hours PRN, nausea, vomiting, Starting on 07/02/23 at 0812, Use oral route first, if tolerated. Formulation requires tablet remain in sealed package until immediately prior to dose being administered. sodium chloride (PF) (NS) flush 5 mL(Linked Group 2) 5 mL, Intravenous, As needed, line care, Starting on 07/02/23 at 0812 sodium chloride 0.9% (NS)(Linked Group 2) 0-150 mL/hr, Intravenous, As needed, To flush line after IV infusions when no maintenance IV ordered or a compatibility issue. Infuse 20ml at the same rate as the secondary infusion, Starting on 07/02/23 at 0812, Run as Primary IV. NOT intended for KVO. Linked Groups Order Group 1: aspirin EC tablet 325 mgJump to med 325 mg, Oral, Daily, First dose on 07/02/23 at 0815
DO NOT CRUSH OR CHEW.
Or aspirin suppository 300 mgJump to med 300 mg, Rectal, Daily, First dose on 07/02/23 at 0815
Use oral route first, if tolerated.
Group 2: Saline lock IV (CANCELED) Routine, Continuous, Starting on 07/02/23 at 0815, Until Specified And sodium chloride (PF) (NS) flush 5 mLJump to med 5 mL, Intravenous, As needed, line care, Starting on 07/02/23 at 0812 And sodium chloride (PF) (NS) flush 5 mLJump to med 5 mL, Intravenous, Every 8 hours scheduled, First dose on 07/02/23 at 0815
Saline lock
And sodium chloride 0.9% (NS)Jump to med 0-150 mL/hr, Intravenous, As needed, To flush line after IV infusions when no maintenance IV ordered or a compatibility issue. Infuse 20ml at the same rate as the secondary infusion, Starting on 07/02/23 at 0812
Run as Primary IV. NOT intended for KVO.
Group 3: labetaloL (NORMODYNE) injection 10 mgJump to med 10 mg, Intravenous, Every 2 hour PRN, As ordered IF HR greater than 60 AND SBP or DBP greater than ranges stated in Hemodynamic Goal orders., Starting on 07/02/23 at 0812
Do not use labetolol if HR = 60 or less (Use hydralazine in that case, if ordered). May repeat dose in 15 minutes if SBP or DBP remains above ranges stated in Hemodynamic Goal orders. If, 15 minutes after a repeat dose, SBP or DBP remains above ranges stated in Hemodynamic Goal orders, initiate antihypertensive infusion IF ordered (Otherwise notify physician). If infusion already running, titrate it as ordered.
Or hydrALAZINE (APRESOLINE) injection 10 mgJump to med 10 mg, Intravenous, Every 2 hour PRN, As ordered IF HR = 100 or less AND SBP or DBP greater than ranges stated in Hemodynamic Goal orders., Starting on 07/02/23 at 0812
Use labetalol first if HR greater than 60. Do not use hydralazine if HR greater than 100. May repeat dose in 15 minutes if SBP or DBP remains above ranges stated in Hemodynamic Goal orders. If, 15 minutes after a repeat dose, SBP or DBP remains above ranges stated in Hemodynamic Goal orders, initiate antihypertensive infusion IF ordered (Otherwise notify physician). If infusion already running, titrate it as ordered.
Care Teams (unrecognized sec tion and content) Scene And Lighting Design Lecturer Relationship Specialty Start Date End Date No, Physician [facility] PCP - General 07/01/23 Scene [employer] Lighting Design Lecturer Relationship Specialty Start Date End Date Chaya Waddell CNP [place] [phone] [place] [address] PCP - General Nurse Practitioner 07/12/23 [employer] Lighting [employer] Lecturer Relationship Specialty Start Date End Date Chaya Waddell CNP [place] [phone] [place] [address] PCP - General Nurse Practitioner 07/12/23 FOR RECORDS PERTAINING TO PATIENTS WHO ARE OR HAVE BEEN ENROLLED IN A CHEMICAL DEPENDENCY/SUBSTANCEABUSE PROGRAM, SOME INFORMATION MAY BE OMITTED. This clinical summary was aggregated from multiple sources. Caution should be exercised in using it in the provision of clinical care. This summary normalizes information from multiple sources, and as a consequence, information in this document may materially change the coding, format and clinical context of patient data. In addition, data may be omitted in some cases. CLINICAL DECISIONS SHOULD BE BASED ON THE PRIMARY CLINICAL RECORDS. [facility]. provides no warranty or guarantee of the accuracy or completeness of information in this document.
== END | disposition home or self-care (01) ==
PROVIDERS: PCP Nurse Practitioner Family; Referring Provider Nurse Practitioner Family; Visit Provider Nurse Practitioner Family
DX: Z12.31 Encounter for screening mammogram for malignant neoplasm of breast (principal)
CPT/HCPCS: 77063; 77067

== ENCOUNTER → 2023-07-25 | Outpatient (CLI) | payer MEDICARE, SELFPAY ==
[2023-07-25 09:18] LABS: Absolute Lymphocyte Count 1.36 X10^3/uL (0.83-4.51); Basophil# 0.05 X10^3/uL; Basophil% 0.9 % (0-1); Eosinophil# 0.14 X10^3/uL; Eosinophils% 2.4 % (0-5); Hematocrit 43.5 % (37-47); Hemoglobin 14.3 g/dL (12.0-15.0); Lymphocyte # 1.36 X10^3/ul (0.83-4.51); Lymphocyte % 23.4 % (19-41); Mean Corp Hgb Conc 32.9 g/dL (32-36); Mean Corpuscular Hgb 29.3 pg (27.0-32.0); Mean Corpuscular Volume 89.1 fL (81-99); Mean Platelet Vol. 10.1 fl (6.2-12.0); Monocyte# 0.27 X10^3/uL; Monocyte% 4.6 % (0-10); NRBC Flagged by Analyzer 0 % (0-5); Neutrophil # 3.97 X10^3/uL (2.7-7.7); Neutrophil % 68.2 % (47-70); Platelet Count 258 K/mm3 (150-450); RBC Distribution Width CV 12.8 % (11.6-14.6); Red Blood Count 4.88 M/mm3 (4.2-5.4); White Blood Count 5.8 K/mm3 (4.4-11.0)
--- OUTSIDE RECORDS SUMMARY | 2023-07-25 09:24 | XMS RPT_ITS | CCD ---
Author Name Unknown Address [address] [place] [address] Organization [facility] Care Team Providers Care Track Walker Name Role Phone Unavailable Primary Care Provider UnavailZEN Gee MD Attending Unavailable ZEN GLOVER MD Primary Care Unavailable ZEN GLOVER MD Admitting Unavailable IAN LI, DR JIM Attending Unavailab Cecile LI, DR JIM Admitting Unavailab rankin PHYSICIAN, NONE Primary Care Unavailable No, Physician Primary Care Provider UnavailChaya Castillo CNP Primary Care Provider [phone] [facility] [place] [place] [facility] Attending Lamar TAVERA, PHYSICIAN Primary Care Unavailable ZEN GLOVER Referring Unavailable CHAYA WADDELL Primary Care Unavailable ALETA HUDSON Attending Unavailable ALETA HUDSON Referring Unavailable YELENA REEDER Attending Unavaila josseline [facility], [facility] Consulting Unav ailable ZEN GLOVER Referring Unavailable MADAY BYRD Admitting Unavaildenys TAVERA, PHYSICIAN Primary Care Unavailable [facility], GENER[facility] Consul ting Unavailable ARMANDO POLLACK Attending Unavaila CHAYA Fortune Primary Care Unavailable Allergies Allergy Classification Reported Allergen(s) Allergy Type Date of Onset Reaction(s) Facility (1 source) Codeine Drug Allergy [facility] Repository Medications Current Medications Medication Drug Class(es) [...] 84 mm[Hg] Armando Pollack MD Work Phone: [facility] 07-12-2023 10:57-0500 Heart rate 80 /min Armando Pollack MD Work Phone: [facility] 07-12-2023 10:57-0500 SaO2% (BldA) [Mass fraction] 98 % Armando Pollack MD Work Phone: [facility] 07-12-2023 10:57-0500 Systolic blood pressure 146 mm[Hg] Armando Theodore Work Phone: [facility] 07-04-2023 11:51-0500 Body temperature 98.2 [degF] Yelena Haskinserlinjeri DO Work Phone: [facility] 07-04-2023 11:51-0500 Diastolic blood pressure 74 mm[Hg] Yelena Haskinserlinjeri DO Work Phone: [facility] 07-04-2023 11:51-0500 Heart rate 78 /min Yelena Reeder DO Work Phone: [facility] 07-04-2023 11:51-0500 SaO2% (BldA) [Mass fraction] 98 % Yelena Reeder DO Work Phone: [facility] 07-04-2023 11:51-0500 Systolic blood pressure 146 mm[Hg] Yelena Theodore O Work Phone: [facility] 07-04-2023 06:14-0500 Respiratory rate 16 /min Yelena Haskinstierra DO Work Phone: [facility] 07-02-2023 03:10-0500 Body height 162.6 cm Yelena Reeder DO Work Phone: [facility] 07-02-2023 03:10-0500 Body mass index (BMI) [Ratio] 27.46 kg/m2 Yelena Reeder DO Work Phone: [facility] 07-02-2023 03:10-0500 Body weight 72.58 kg Yelena Reeder DO Work Phone: [facility] Encounters Encounter Date Encounter Type Care Provider Facility Start: 07-13-2023 End: 07-14-2023 ambulatory [facility] Start: 07-12-2023 Documentation procedure Katy cisneros CMA [facility] Start: 07-12-2023 End: 07-12-2023 ambulatory ARMANDO POLLACK [facility] Start: 07-12-2023 End: 07-12-2023 Office outpatient new 60 minutes Armando Pollack MD Work Phone: [facility] Procedures Date Procedure Procedure Detail Performing Clinician Start: 07-03-2023 End: 07-03-2023 Basic metabolic panel calcium total Kelli Staton [employer]PLANT NETWORK MANAGER Work Phone: Start: 07-02-2023 Assay of troponin [...] metabolic pane l calcium total Kelli Staton [employer]COLOGY TRANSPLANT NETWORK MANAGER Work Phone: Start: 07-02-2023 Lipid panel Kelli Roy ONCOLOGY TRANSPLANT NETWORK MANAGER Work Phone: Start: 07-02-2023 End: 07-02-2023 Blood [...] procedure 07/12/2023 11:00 AM EST Office Visit [facility] [address], [address]nd [place] [address] Armando Pollack MD [address] [address] [place] [address] [facility] Start: 07-06-2023 End: 09-02-2024 MCT- Mobile Cardiac Telemetry M[facility]- Mobile Cardiac Telemetry Cardiac Services Routine Atrial fibrillation, unspecified type (HCC) Expected: 07/06/2023 (Approximate), Expires: 09/02/2024 [facility] Work Phone: Payers Date Payer Category Payer Medicare [id number] 2022 Medicare [id number] 2022 Medicare [id number] 1955 Unknown [id number] 1955 Unknown [id number] 1955 Unknown [id number] 2.16. [id number] 1955 Unknown [id number] 2.16. [id number] 1955 Unknown [id number] 2.16. [id number] 1955 Unknown [id number] 2.16. [id number] Medicare [id number] Social History Date Type Detail Facility Tobacco smoking status NHIS Tobacco smoking consumption unknown [facility] Work Phone: Start: 1955 Sex Assigned At Not on file [facility] Start: 07-02-2023 [facility] Start: 07-02-2023 Tobacco smoking status RIIS Never smoked tobacco [facility] Start: 07-02-2023 Tobacco use and exposure Smokeless tobacco non-user [facility] Start: 07-02-2023 End: 07-12-2023 Alcohol intake Current drinker of alcohol (finding) [facility] Start: 07-02-2023 End: 07-12-2023 Alcohol intake [facility] Clinical Notes 07-02-2023 to 07-12-2023 Armando Pollack MD - 07/12/2023 4:05 PM Katy Moulton CMA - 07/12/2023 11:49 AM Edwina Segundo RN - 07/05/2023 7:48 AM Ruth Delgado - Kelly Del Valle RN - 07/04/2023 11:41 AM EST Sandy Date & Type Note Facility 07-12-2023 History of Present illness Narrative Images from the original note were not included. New Patient Visit [place] [facility] Brandi King, [address], [place] [address] (office) Date of service: 07/12/2023 [...] stroke however she was then transferred to [facility]. She was found to have a right FRAME POLISHER stroke and right facial cellulitis. By the time she was at [facility], she was out of the window for IV tPA. She was started on dual antiplatelets therapy. Echo was obtained prior to the patient being at [facility], and reportedly showed without evidence of endocarditis [...] to confrontation. PERRL. Normal conjunctivae and lids. 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 [...] Achilles 1 1 Babinski Down Down Coordination: Murqwb-zl-xhji intact bilaterally. Sensation: Comments Light touch Intact [...] is restricted diffusion identified within the right FRAME POLISHER territory compatible with evolving acute ischemic infarct [...] internal capsule and thalamus in the right FRAME POLISHER P2 territory. Right FRAME POLISHER P2 stroke (Ischemic Infarct) Etiology: Large vessel stenosis versus embolic Testing: Patient is scheduled for 30-day checkout supervisor to monitor for atrial fibrillation Labs: Lipid [...] Diagnosis:The encounter diagnosis was Acute ischemic right FRAME POLISHER stroke (HCC). Follow up: Return in about 3 months (around 10/11/2023). Armando Pollack MD Care Navigator Neurologist [facility]. documented in this encounter [facility] 07-12-2023 History of Present illness Narrative 30 day preventice monitor ordered documented in this encounter [facility] 07-05-2023 History of Present illness Narrative Patient with recent admission to [facility] for CVA. Discharged 07.04.22. Per Dr. Aleta Hudson, patient will need 30 day MCOT. MCOT ordered. documented in this encounter [facility] 07-04-2023 Note Formatting of this n ote might be different from the original. Discussed with Patient and Family- spouse scheduling follow up appointment in the [facility]. Appointment made and agreed upon with Patient and Family for July 12, [address] Pollack @ 1100. Approved to f/u in [place] per Dr Patterson. (closer to home). Reminder [...] this time. Please contact Neurology Navigator at [phone] if you have additional questions or needs. [facility] 07-04-2023 Miscellaneous Notes Discussed with Patient and Family- spouse scheduling follow up appointment in the Stroke Prevention Clinic. Appointment made and agreed upon with Patient and Family for July 12, [address] Pollack @ [facility]. Approved to f/u in [place] per Dr Patterson. (closer to home). Reminder [...] this time. Please contact Neurology Navigator at [phone] if you have additional questions or needs. Neurology Neurovascular Sign-Off Diagnosis: RPCA Stroke Associated Large Vessel Lesion: None Neurovascular Etiology: Intracranial atherosclerotic disease vs embolic Risk Factor Labs: Lab Results Component Value Date LDLCALC 238 (H) 07/02/2023 Lab Results Component Value Date HGBA1C 6.1 (H) 07/02/2023 Procedures & Acute Interventions: None Demographics/Scores: Age & Sex: 68 y.o. female Ethnicity: Not or [* Zip: [id number] NIHSS Admission Total: 2 NIHSS at Sign Off Total: 2 [id number] Score: Age 65= 1, Stroke/Tia= 2, and [...] details. Recall: If questions. 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 TIRE BLADDER MAKER placed orders, no further needs. 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 TIRE BLADDER MAKER placed orders, no further needs. 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 female) Referring Provider: Refer to consult order in electronic medical record PCP: No, Physician ASSESSMENT: 68 y.o. female with history of with no past medical history, does not follow-up with doctors presented to [facility] on 07/02/2023 with left arm heaviness and right facial swelling, found to have right FRAME POLISHER infarct and right facial cellulitis. CTA with multifocal stenosis but does not appear that severe. Her stroke is likely due to intracranial atherosclerotic disease versus embolic etiology. Low concern for bacteremia or infective endocarditis. Echo obtained at OSH without evidence of endocarditis (EF 65-70%, mild concentric LVH, no regional wall motion abnormalities). PLAN: Right FRAME POLISHER stroke (Ischemic Infarct) Etiology: iCAD versus embolic [...] the interpretation(s) with the following comments: Right FRAME POLISHER infarct, multifocal intracranial stenosis Lab Results Component [...] the emergency department CT head showed right FRAME POLISHER infarct. She was transferred to [facility] since there is no MRI at [facility]. Review of Systems: All systems [...] sodium chloride (PF) 5 mL Intravenous Q8H [facility] PRN Medications: acetaminophen, labetalol OR hydrALAZINE, [...] & GROSS MOTOR: Abnormal Movements: None Coordination Yocolj-fa-Qoew: no ataxia but slow on FNF in the LUE. Coordination: Yook-Hmym-Qwmc:Normal Drift: None Tone: Normal Bulk: Normal MOTOR [...] 0 Total 2 documented in this encounter [facility] 07-04-2023 Hospital course Narrative [facility] DISCHARGE SUMMARY Krista Urban Account: [id number] Admitted: 07/02/2023 Discharge Date/Time: 07/04/23 10:41 AM _ Handoff to PCP PCP to address the following Follow up on BP control (new lisinopril), repeat BMP in ~5 days Ensure compliance to DAPT for 90 days (starting 07/09/22), [facility] CVA clinic Clinical Summary Krista Urban is a 68 y.o. female with no significant past medical history who had [facility] visit 07/01/23 from [facility] due to concern for right facial cellulitis, fall, and left arm heaviness found to have CT head nonacute but noted facial cellulits, small abscess thus transferred to [facility] 07/02/2023 subsequent MRI with R FRAME POLISHER territory CVA. Neuro followed: DAPT x90 days then ASA starting 07/09/22 Acute R FRAME POLISHER Stroke: with left arm heaviness and left peripheral vision deficit 07/01/23, since resolved. [facility] CT H 07/01/23 without acute intracranial abnormality, TTE 07/01/23 EF 65-70%, mild concentric LVH, no regional wall motion abnormalities. 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 XR Left ankle 07/01/23 without acute injury, stable surgical screws noted. OVS. Telemetry. PT/OT Elevated Blood Pressure: SBP 170-190s on admit. No prior diagnosis of HTN. Add low dose lisinopril Elevated Trop: at [facility], suspect demand ischemia. CT Chest 06/25/23 without [...] Physician(s) Family: No, Physician, Phone: None, Address: [facility] Follow Up: [facility] Stroke [facility] [address] [place] [id number] Follow up Physicians, [facility] [address] [place] [address] Follow up You will be mailed a [...] care, including complete radiology reports, please contact [facility] Records at Patient instructions, including activity, were given to the patient/family at discharge. Please see the After Visit Summary in the medical record for details. 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 [facility] 07-03-2023 Emergency department Note Rounding completed on this patient as follows: Safety - Safety addressed. Cart in low and locked position, side rails up for safety, call light within reach. Plan - Plan discussed with patient. Personal Needs - Personal needs of patient addressed. Duration - Duration discussed with patient. [facility] 07-03-2023 Emergency department Note Rounding completed on [...] note were not included. ED PROVIDER NOTE [facility] EMERGENCY DEPARTMENT NAME: Krista Urban AGE: 68 y.o. : 1955 VISIT DATE: 07/02/2023 CSN: [id number] PCP: No, Physician Chief Complaint Patient presents with Weakness HPI 68-year-old presents emergency department concerns for weakness. Patient presented to an [facility] yesterday was diagnosed with facial cellulitis. [...] Result 1. There is an evolving right FRAME POLISHER distribution infarction. No evidence of hemorrhagic transformation. 2. There is occlusion of the proximal P2 segment of the right FRAME POLISHER. 3. There is focal high-grade stenosis involving [...] HPI Summary: 68-year-old presents emergency department from [facility] with concerns for left arm weakness and left lateral visual disturbance in the setting of a recent diagnosis of facial cellulitis. DDx: CVA, TIA, peripheral neuropathy Data Review/analysis: CT obtained interpreted by radiology the head and neck showed evolving right FRAME POLISHER infarction. There is occlusion of the proximal P2 segment of the right FRAME POLISHER. Patient's CBC and chemistry are within normal [...] an infected tooth. Patiet is not septic. [facility] reports that the patient reported that she had fallen while at the [facility] this morning around 8am, and noted she hand left arm heaviness and that her left eye vision feels delayed. Patient also has mild intermittent confusion. [facility] reports patient was seen by their stroke [...] region could be compressing on the RCA. [facility] do not have MRI available on the weekends. [facility] request transfer where the patient can have an MRI. VS HR [id number]%RA. OL reports patient with no past medical problems. OL reports patient did have an elevated troponin 123, 106, no C/O chest pain. OL reports most likely not cardiac. Request transfer for further stroke work up. Per EMS REPORT: No peripheral vision at this time. Equal flower buncher or picker strength, left sided deficits, right side droop per ems but could be attributed to cellulitis. CT and repeat CT were unremarkable. Potassium running 100 mL/HR. Bed: 15 Expected date: Expected time: Means of arrival: Comments: Referral/Elier/Lele documented in this encounter [facility] 07-03-2023 History of Present illness Narrative [facility] Inpatient Progress Note 07/03/2023 Krista Urban 1955 [id number] Assessment/Plan: Krista Urban is a 68 y.o. female with no significant past medical history who had [facility] visit 07/01/23 from [facility] due to concern for right facial cellulitis, fall, and left arm heaviness found to have CT head nonacute but noted facial cellulits, small abscess thus transferred to [facility] 07/02/2023 subsequent MRI with R FRAME POLISHER territory CVA. Neuro followed: DAPT as below Acute R FRAME POLISHER Stroke: with left arm heaviness and left peripheral vision deficit 07/01/23, since resolved. [facility] CT H 07/01/23 without acute intracranial abnormality, TTE 07/01/23 EF 65-70%, mild concentric LVH, no regional wall motion abnormalities. 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 XR Left [...] labs, diagnostics, vitals including pulse ox, and literacy consultant/other provider recommendations. Case discussed with Neuro [...] 07/03/2023 1:19 PM Neurology Inpatient Follow Up [facility] 07/03/2023 Marisabel Reagan CNP [facility] Patient: Krista Urban Date of : 1955 (68 y.o. female) Referring Provider: Refer to consult order in electronic medical record PCP: No, Physician ASSESSMENT: 68 y.o. female with history of with no past medical history, does not follow-up with doctors presented to [facility] on 07/02/2023 with left arm heaviness and right facial swelling, found to have right FRAME POLISHER infarct and right facial cellulitis. CTA with multifocal stenosis; her stroke is likely due to intracranial atherosclerotic disease versus embolic etiology. Low concern for bacteremia or infective endocarditis. Echo obtained at OSH without evidence of endocarditis (EF 65-70%, mild concentric LVH, no regional wall motion abnormalities). PLAN: Right FRAME POLISHER stroke (Ischemic Infarct) Etiology: intracranial atherosclerotic disease [...] is restricted diffusion identified within the right FRAME POLISHER territory compatible with evolving acute ischemic infarct [...] and neck: There is an evolving right FRAME POLISHER distribution infarction. No evidence of hemorrhagic transformation. There is occlusion of the proximal P2 segment of the right FRAME POLISHER. There is focal high-grade stenosis involving the [...] Normal CRANIAL NERVES: II - Visual [place]: [facility] II, III - Pupils: PERRL III, IV, - Eye Movements: Normal (EOMI, no ptosis, no nystagmus) V - Facial Sensation: Normal VII - Face Symmetry and Strength: Rt face is swollen. VIII - Hearing: Normal IX, X - Palate: Normal XI - Shoulder Shrug: Normal XII - Tongue Protrusion: Normal COORDINATION & GROSS MOTOR: Abnormal Movements: None Coordination Mrzcgh-lv-Rnnp: no ataxia but slow LUE Drift: None [...] abnormality Total: 2 documented in this encounter [facility] 07-03-2023 Consult note Associated Order (s): IP CONSULT TO CARDIAC ELECTROPHYSIOLOGY This consult is for OP MCT request from neuro to cardio. AVS updated and MCT will be ordered upon hospital release. [facility] 07-03-2023 Note Formatting of this n ote [...] y.o. female Ethnicity: Not or [* Zip: [id number] NIHSS Admission Total: 2 NIHSS at Sign Off Total: 2 [id number] Score: Age 65= 1, Stroke/Tia= 2, and [...] details. Recall: If questions. Urgent Questions: Use [facility] On-call Directory to contact Physician [facility] 07-02-2023 Emergency department Note Bed: 2406 Expected date: Expected time: Means of arrival: Comments: 15 - already in hospital bed [facility] 07-02-2023 Emergency department Note Report given to 2 green nurse at this time. [facility] 07-02-2023 Consult note Associated Order (s): IP CONSULT TO NEUROLOGY; IP CONSULT TO NEUROLOGY Neurology Inpatient Consult [facility] 07/02/2023 Aleta Hudson MD [facility] Patient: Krista Urban Date of : 1955 (68 y.o. female) Referring Provider: Refer to consult order in electronic medical record PCP: Yennifer, Physician ASSESSMENT: 68 y.o. female with history of with no past medical history, does not follow-up with doctors presented to [facility] on 07/02/2023 with left arm heaviness and right facial swelling, found to have right FRAME POLISHER infarct and right facial cellulitis. CTA with multifocal stenosis but does not appear that severe. Her stroke is likely due to intracranial atherosclerotic disease versus embolic etiology. Low concern for bacteremia or infective endocarditis. Echo obtained at OSH without evidence of endocarditis (EF 65-70%, mild concentric LVH, no regional wall motion abnormalities). PLAN: Right FRAME POLISHER stroke (Ischemic Infarct) Etiology: iCAD versus embolic [...] the interpretation(s) with the following comments: Right FRAME POLISHER infarct, multifocal intracranial stenosis Lab Results Component [...] the emergency department CT head showed right FRAME POLISHER infarct. [facility] [facility]. Review of Systems: All systems [...] sodium chloride (PF) 5 mL Intravenous Q8H [facility] PRN Medications: acetaminophen, labetalol OR hydrALAZINE, [...] & GROSS MOTOR: Abnormal Movements: None Coordination Xwbvfh-eo-Drge: no ataxia but slow on FNF in the LUE. Coordination: Xvac-Yetg-Rpnv:Normal Drift: None Tone: Normal Bulk: Normal MOTOR [...] Inattention (11.) (Formerly Neglect) 0 Total 2 [facility] Work Phone: 07-02-2023 Emergency department Note MRI scheduled for 929 [facility] 07-02-2023 History and physical note [facility] History and Physical Note 07/02/23 Krista Urban 1955 [id number] Assessment/Plan: Krista Urban is a 68 y.o. female with no significant past medical history who had [facility] visit 07/01/23 from [facility] due to concern for right facial cellulitis, fall, and left arm heaviness. Transferred to [facility] 07/02/2023 for further neurological evaluation as no MRI available at [facility] on weekends. Acute Stroke: with left arm heaviness and numbness, gait instability, and left peripheral vision deficit 07/01/23, since resolved. [facility] Stroke Network evaluated with CT H 07/01/23 without acute intracranial abnormality; noted unable to obtain CTA H/N due to recent contrast and recommended MRI/MRA H/N as concern that CT MF showing inflammation along maxillary/mandible region could be compressing on RCA. [facility] TTE 07/01/23 EF 65-70%, mild concentric LVH, no regional wall motion abnormalities. Admission CTA H/N showed evolving R FRAME POLISHER distribution infarct, occlusion of proximal P2 segment of right FRAME POLISHER, and focal high grade stenosis involving the origin of left vertebral artery. Admission lipid panel with LDL 238, hesham 328, tri 166 and A1c pending. ASA/statin initiated on admit. MRI/MRA pending. Neuro, PT, OT, SUPERVISOR [employer] consulted. 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 XR Left ankle 07/01/23 without acute injury, stable surgical screws noted. OVS. Telemetry. PT/OT Elevated Blood Pressure: SBP 170-190s on admit. No prior diagnosis of HTN. Monitor, allow for permissive HTN then may need anti-hypertensive agent Elevated Trop: at [facility], suspect demand ischemia. CT Chest 06/25/23 without [...] no significant past medical history who had [facility] visit 07/01/23 from [facility] due to concern for right facial cellulitis, fall, and left arm heaviness. Transferred to [facility] 07/02/2023 for further neurological evaluation as no MRI available at [facility] on weekends. Patient has infection under her [...] AM EST I have personally performed a hvaj-qj-paoi diagnostic evaluation of this patient on 07/02/2023. After discussing the case Kelli Staton CNP, I performed the substantive part of the medical decision making for this encounter with the following additions: Patient is a 68 year old female with no known past significant medical history who initially presented to [facility] on 07/01/23 for stroke like symptoms with left arm heaviness and facial cellulitis. VS at [facility] significant for BP of 189/95. She was transferred to [facility] on 07/02/23 for higher level of care. CTA head and neck at [facility] on 07/02/23 showed evolving right FRAME POLISHER infarction, occluded proximal P2 segment of right FRAME POLISHER and focal high grade stenosis of left vertebral artery. Acute stroke: likely ischemic than embolic, presented as above. CTA as above. Neurology consulted. TTE at [facility] with EF of 65% with no RWMA. [...] on admit. Denied anginal complaint. EKG at [facility] pending. Likely due to demand ischemia in [...] UE and LE intact Psych: Mood appropriate. [facility] 07-02-2023 History and physical note [facility] Physical [facility] 07/02/23 Krista Urban 1955 [id number] Assessment/Plan: Krista Urban is a 68 y.o. female with no significant past medical history who had [facility] visit 07/01/23 from [facility] due to concern for right facial cellulitis, fall, and left arm heaviness. Transferred to [facility] 07/02/2023 for further neurological evaluation as no MRI available at [facility] on weekends. Acute Stroke: with left arm heaviness and numbness, gait instability, and left peripheral vision deficit 07/01/23, since resolved. [facility] Stroke Network evaluated with CT H 07/01/23 without acute intracranial abnormality; noted unable to obtain CTA H/N due to recent contrast and recommended MRI/MRA H/N as concern that CT MF showing inflammation along maxillary/mandible region could be compressing on RCA. [facility] TTE 07/01/23 EF 65-70%, mild concentric LVH, no regional wall motion abnormalities. Admission CTA H/N showed evolving R FRAME POLISHER distribution infarct, occlusion of proximal P2 segment of right FRAME POLISHER, and focal high grade stenosis involving the origin of left vertebral artery. Admission lipid panel with LDL 238, hesham 328, tri 166 and A1c pending. ASA/statin initiated on admit. MRI/MRA pending. Neuro, PT, OT, [employer] consulted. 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 XR Left ankle 07/01/23 without acute injury, stable surgical screws noted. OVS. Telemetry. PT/OT Elevated Blood Pressure: SBP 170-190s on admit. No prior diagnosis of HTN. Monitor, allow for permissive HTN then may need anti-hypertensive agent Elevated Trop: at [facility], suspect demand ischemia. CT Chest 06/25/23 without [...] no significant past medical history who had [facility] visit 07/01/23 from [facility] due to concern for right facial cellulitis, fall, and left arm heaviness. Transferred to [facility] 07/02/2023 for further neurological evaluation as no MRI available at [facility] on weekends. Patient has infection under her [...] AM EST I have personally performed a [id number]-ixsz diagnostic evaluation of this patient on 07/02/2023. After discussing the case Kelli Staton CNP, I performed the substantive part of the medical decision making for this encounter with the following additions: Patient is a 68 year old female with no known past significant medical history who initially presented to [facility] on 07/01/23 for stroke like symptoms with left arm heaviness and facial cellulitis. VS at [facility] significant for BP of 189/95. She was transferred to [facility] on 07/02/23 for higher level of care. CTA head and neck at [facility] on 07/02/23 showed evolving right FRAME POLISHER infarction, occluded proximal P2 segment of right FRAME POLISHER and focal high grade stenosis of left vertebral artery. Acute stroke: likely ischemic than embolic, presented as above. CTA as above. Neurology consulted. TTE at [facility] with EF of 65% with no RWMA. [...] on admit. Denied anginal complaint. EKG at [facility] pending. Likely due to demand ischemia in [...] Psych: Mood appropriate. documented in this encounter [facility] 07-02-2023 Note HNO ID: [id number] Author: Pj Lewis DO Service: Hospital Medicine Author Type: Physician Type: Plan of Care Filed: 07/02/2023 2:16 AM Note Text: Accepted for transfer yesterday 07/01/2023 (late charting, pt not yet arrived to [facility]) from [facility] initially seen for right facial cellulitis suspected [...] comorbidities putting pt at risk of strokes correction but wanting to rule out deeper swelling of facial cellulitis possibly compressing right carotid. [facility] 07-02-2023 Physician Emergency department Note Images from the original note were not included. ED PROVIDER NOTE [facility] EMERGENCY DEPARTMENT NAME: Krista Urban AGE: 68 y.o. : 1955 VISIT DATE: 07/02/2023 CSN: [id number] PCP: No, Physician Chief Complaint Patient presents with Weakness HPI 68-year-old presents emergency department concerns for weakness. Patient presented to an [facility] yesterday was diagnosed with facial cellulitis. [...] Result 1. There is an evolving right FRAME POLISHER distribution infarction. No evidence of hemorrhagic transformation. 2. There is occlusion of the proximal P2 segment of the right FRAME POLISHER. 3. There is focal high-grade stenosis involving [...] HPI Summary: 68-year-old presents emergency department from [facility] with concerns for left arm weakness and left lateral visual disturbance in the setting of a recent diagnosis of facial cellulitis. DDx: CVA, TIA, peripheral neuropathy Data Review/analysis: CT obtained interpreted by radiology the head and neck showed evolving right FRAME POLISHER infarction. There is occlusion of the proximal P2 segment of the right FRAME POLISHER. Patient's CBC and chemistry are within normal [...] 3.5 hrs Vi Thapa MD 07/02/23 0437 [facility] 07-02-2023 Emergency department Triage note Per transfer center note: Patient admitted on a med/surg unit for C/O right facial cellulitis today from an infected tooth. Patiet is not septic. [facility] reports that the patient reported that she had fallen while at the [facility] this morning around 8am, and noted she hand left arm heaviness and that her left eye vision feels delayed. Patient also has mild intermittent confusion. [facility] reports patient was seen by their stroke [...] region could be compressing on the RCA. [facility] do not have MRI available on the weekends. [facility] request transfer where the patient can have an MRI. VS HR [id number]/95-94%RA. [facility] reports patient with no past medical problems. [facility] reports patient did have an elevated troponin 123, 106, no C/O chest pain. [facility] reports most likely not cardiac. Request transfer for further stroke work up. Per EMS REPORT: No peripheral vision at this time. Equal flower buncher or picker strength, left sided deficits, right side droop per ems but could be attributed to cellulitis. CT and repeat CT were unremarkable. Potassium running 100 mL/HR. [facility] 07-02-2023 Emergency department Note Bed: 15 Expected date: Expected time: Means of arrival: Comments: Referral/Elier/Lele [facility] Diagnosis Atrial fibrillation, unspecified type (HCC)- Primary [facility]* Diagnosis Acute ischemic right FRAME POLISHER stroke (HCC)- Primary Unspecified cerebral artery occlusion with cerebral infarction [facility]* Attachments The following attachments cannot be sent through Care Everywhere. * Stroke (Ukrainian) * After a Stroke: Taking an Antiplatelet: Video (Ukrainian) * Antiplatelets After Ischemic Stroke: General Info (Ukrainian) [facility] Family History No Family History [...] of right carotid artery (HCC) Yelena Reeder, [address] [place] [address] [address] [place] [address] Referral ID Status Reason Start Date Expiration Date V isits Requested Visits Authorized [id number] Authorized 07/04/2023 07/03/2024 1 1 Specialty Diagnoses / Procedures Referred By Contac t Referred To Contact Cardiology Diagnoses Atrial fibrillation, unspecified type (HCC) Procedures MCT- Mobile Cardiac Telemetry Aleta Hudson MD [address] [facility] [address] [place] [address] Referral ID Status Reason Start Date Expiration Date V isits Requested Visits Authorized [id number] Authorized 07/06/2023 07/05/2024 1 1 Additional Source Comments INFORMATION SOURCE (unrecogn ized section and content) DATE CREATED AUTHOR AUTHOR'S ORGANIZ ATION 07/03/2023 [facility] ([place]) DATE CREATED AUTHOR AUTHOR'S ORGANIZ ATION 07/03/2023 [facility] DATE CREATED AUTHOR AUTHOR'S ORGANIZ ATION 07/13/2023 [facility] DATE CREATED AUTHOR AUTHOR'S ORGANIZ ATION 07/14/2023 [facility] DATE CREATED AUTHOR AUTHOR'S ORGANIZ ATION 07/15/2023 [facility] Reason for Visit (unrecogniz ed section and content) Specialty Diagnoses / Procedures Referred By Contac t Referred To Contact Diagnoses Acute stroke due to occlusion of right carotid artery (HCC) Stroke Symptoms, Facial cellulitis Referral ID Status Reason Start Date Expiration Date Visits Re quested Visits Authorized [id number] 1 1 Reason Comments Cerebrovascular Accident Left [...]
Care Teams (unrecognized sec tion and content) Track Walker Relationship Specialty Start Date End Date No, Physician [facility] PCP - General 07/01/23 Track Walker Relationship Specialty Start Date End Date Chaya Waddell CNP [place] [id number] [place] [address] PCP - General Nurse Practitioner 07/12/23 Track Walker Relationship Specialty Start Date End Date Chaya Waddell CNP [place] [id number] [place] [address] PCP - General Nurse Practitioner 07/12/23 FOR [...] BE BASED ON THE PRIMARY CLINICAL RECORDS. [facility]. provides no warranty or guarantee of the accuracy or completeness of information in this document.
[2023-07-25 09:45] LABS: ALB/GLOB Ratio 1.1 RATIO (0.9-2.4); AST(SGOT) 27 U/L (15-37); Alanine Aminotransfer ALT/SGPT 38 U/L (13-56); Alkaline Phosphatase 93 U/L (45-117); Anion Gap 5 (5-15); BUN 14 mg/dL (7-18); BUN/Creat Ratio 14.4 RATIO (10-20); Chloride 108 mmol/L (98-107); Cholesterol 146 mg/dL (200); Creatinine, Serum 0.97 mg/dL (0.55-1.02); EST Glomerular Filtration Rate 61 mL/min (>60); Est Glom Filt Rate - Afr Amer 74 mL/min (>60); Globulin 3.5 g/dL (2.2-4.2); Glucose 122 mg/dL (74-106); High Density Lipoprotein 43 mg/dL; Potassium 4.1 mmol/L (3.5-5.1); Protein, Total 7.5 g/dL (6.4-8.2); Sodium Level 139 mmol/L (136-145); Triglycerides 152 mg/dL; Very Low Density Lipoprotein 30 mg/dL (5-40)
[2023-07-25 13:40] LABS: Hemoglobin A1c 5.9 % (3.8-5.6)
== END | disposition home or self-care (01) ==
LOC: LAB 08:44
PROVIDERS: PCP Nurse Practitioner Family; Referring Provider Nurse Practitioner Family; Visit Provider Nurse Practitioner Family
DX: I10 Essential (primary) hypertension (principal); E78.5 Hyperlipidemia, unspecified; R73.01 Impaired fasting glucose
CPT/HCPCS: 36415; 80053; 80061; 83036; 85025

== ENCOUNTER → 2024-07-16 | Outpatient (CLI) | payer MEDICARE, SELFPAY ==
--- NOTE | 2024-07-16 14:21 | BI_ITS ---
MAMMOGRAPHY - BILATERAL SCREENING REASON FOR EXAM: Female, 69 years old. Routine annual screening examination. PERTINENT HISTORY: Non-contributory. TECHNIQUE: Digital bilateral breast ankush (3D mammographic acquisition) in the CC and MLO projections. 2-D mediolateral oblique (MLO) and craniocaudad (CC) views of both breasts were obtained. CAD: Full Field Digital Mammography with Computer Added Detection was performed. COMPARISON: Comparison is made with prior study dated July 15, 2023. FINDINGS: Breast Composition: The breasts are heterogeneously dense, which may obscure small masses. There are no dominant masses or suspicious calcifications. Stable bilateral secretory calcifications. No other significant abnormalities are identified. There has been no significant change since the prior study. BI/SCRN MAMM (CAD)W/ANKUSH BILAT IMPRESSION: Stable bilateral screening mammogram. Yearly follow-up mammogram recommended. (A) ASSESSMENT CATEGORY: BIRADS Category 2: Benign. A letter regarding these results will be sent to the patient by the facility within 30 days. Approximately 10% of breast cancers are not detected by mammography. A normal mammogram should not delay biopsy of a clinically suspicious abnormality. [id number] Electronically Signed: Andriy Garrett MD at 15:04 EST ,
== END | disposition home or self-care (01) ==
LOC: OPBI 14:20
PROVIDERS: PCP Nurse Practitioner Family; Referring Provider Nurse Practitioner Family; Visit Provider Nurse Practitioner Family
DX: Z12.31 Encounter for screening mammogram for malignant neoplasm of breast (principal)

== ENCOUNTER → 2024-07-31 | Outpatient (CLI) | payer MEDICARE, SELFPAY ==
[2024-07-31 12:17] LABS: Absolute Lymphocyte Count 1.29 X10^3/uL (0.83-4.51); Absolute Neutrophil Count 5.3 X10^3/uL (2.0-7.7); Basophil# 0.06 X10^3/uL; Basophil% 0.8 % (0-1); Eosinophil# 0.14 X10^3/uL; Hematocrit 44.2 % (37-47); Hemoglobin 14.2 g/dL (12.0-15.0); Lymphocyte # 1.29 X10^3/ul (0.83-4.51); Lymphocyte % 18.1 % (19-41); Mean Corp Hgb Conc 32.1 g/dL (32-36); Mean Corpuscular Volume 93.2 fL (81-99); Mean Platelet Vol. 10.9 fl (6.2-12.0); Monocyte# 0.37 X10^3/uL; Monocyte% 5.2 % (0-10); NRBC Flagged by Analyzer 0 % (0-5); Neutrophil # 5.25 X10^3/uL (2.7-7.7); Neutrophil % 73.5 % (47-70); Platelet Count 211 K/mm3 (150-450); RBC Distribution Width CV 13.5 % (11.6-14.6); RBC Distribution Width SD 46.3 fl (35.1-43.9); Red Blood Count 4.74 M/mm3 (4.2-5.4); White Blood Count 7.1 K/mm3 (4.4-11.0)
[2024-07-31 12:27] LABS: ALB/GLOB Ratio 1.2 RATIO (0.9-2.4); AST(SGOT) 23 U/L (15-37); Alanine Aminotransfer ALT/SGPT 38 U/L (13-56); Alkaline Phosphatase 52 U/L (45-117); Anion Gap 5 (5-15); BUN 24 mg/dL (7-18); BUN/Creat Ratio 22.6 RATIO (10-20); Calcium,Total 9.7 mg/dL (8.5-10.1); Chloride 107 mmol/L (98-107); Cholesterol 141 mg/dL (200); Creatinine, Serum 1.06 mg/dL (0.55-1.02); EST Glomerular Filtration Rate 55 mL/min (>60); Est Glom Filt Rate - Afr Amer 67 mL/min (>60); Globulin 3.4 g/dL (2.2-4.2); Glucose 100 mg/dL (74-106); High Density Lipoprotein 55 mg/dL; Potassium 4.3 mmol/L (3.5-5.1); Protein, Total 7.4 g/dL (6.4-8.2); Sodium Level 138 mmol/L (136-145); Triglycerides 95 mg/dL; Very Low Density Lipoprotein 19 mg/dL (5-40)
== END | disposition home or self-care (01) ==
LOC: BFHLAB 10:00
PROVIDERS: PCP Nurse Practitioner Family; Visit Provider Nurse Practitioner Family
DX: I10 Essential (primary) hypertension (principal); E78.5 Hyperlipidemia, unspecified
CPT/HCPCS: 36415; 80053; 80061; 85025

== ENCOUNTER 2024-08-21 06:49 | Day surgery (SDC) | payer MEDICARE, SELFPAY ==
[2024-08-21 07:08] VITALS: BP 145/83; PULSE 74; RESP 12; TEMP 36.2; O2SAT 98; BMI 23.0
--- NOTE | 2024-08-21 07:26 | PCM.PRE.AN2 ---
ASA Classification* ASA Classification ASA Classification: 2 Assessment & Plan Anesthesia* Anesthesia Assessment Anesthesia Assessment: Discussed sedation and/or anesthesia options, risks, benefits, and alternatives with patient/parents/legal guardian/POA. Questions invited. The patient/parents/legal guardian/POA seems to understand and agrees to proceed with anesthesia plan. Reviewed the physical assessment, medical history, allergy history and patient home medications list prior to surgery/procedure/anesthetic and documented any changes. Performed airway and anesthesia risk assessments. Anesthesia Type Anesthesia Type: MAC History Source History Obtained from:: Patient and Chart Anesthesia Focused Assessment* Temperature: 97.2 F Pulse Rate: 74 Blood Pressure: 145/83 Respiratory Rate: 12 Pulse Ox: 98 Oxygen Delivery Method: Room Air Airway Assessment Mouth opens: >3 cm Mallampati Score: III Teeth Condition: Caps/Crowns (Patient has several crowns on both incisors and molars. They are all tight.) and Missing (Patient has a couple missing teeth. Rest are tight.) Neck Range of motion (ROM): Full ROM Focused Labs Anesthesia Preop lab: CBC WBC 7.1 K/mm3 (4.4-11.0) 07/31/24 10:01 07/31/24 RBC 4.74 M/mm3 (4.2-5.4) 07/31/24 10:01 07/31/24 Hgb 14.2 g/dL (12.0-15.0) 07/31/24 10:01 07/31/24 Hct 44.2 % (37-47) 07/31/24 10:01 07/31/24 Plt Count 211 K/mm3 (150-450) 07/31/24 10:01 07/31/24 CHEMISTRY Potassium 4.3 mmol/L (3.5-5.1) 07/31/24 10:01 07/31/24 Sodium 138 mmol/L (136-145) 07/31/24 10:01 07/31/24 BUN 24 mg/dL (7-18) H 07/31/24 10:01 07/31/24 Creatinine 1.06 mg/dL (0.55-1.02) H 07/31/24 10:01 07/31/24 Glucose 100 mg/dL (74-106) 07/31/24 10:01 07/31/24 COAG Pre-Assessment Diagnosis/Proposed Procedure Planned Operative Procedure(s): COLONSCOPY Anesthesia History Anesthesia History - relief mate: Anesthesia History - relief mate Hx Hospitalization No 08/16/24 14:12 Any Problems With Anesthesia Yes: PONV 08/16/24 14:12 Cholinesterase deficiency No 08/16/24 14:12 You/Your Family Experience No 08/16/24 14:12 fever (hyperthermia) with Relationship Recent Exposure to Contagious No 08/21/24 07:08 Disease Does patient have nerve No 08/16/24 14:12 stimulator Patient instructed to have device shut off --Does patient have Pacemaker No 08/21/24 07:08 or ICD? When Was Last Pacemaker Check QUESTION #4 FULL TEXT: You/Your Family Experience fever (hyperthermia) with Anesthesia Last Oral Intake Last Oral intake: Last Oral Intake NPO since 04:15 08/21/24 07:08 Meds taken in AM with sips of No 08/21/24 07:08 water? Meds patient instructed to take am of surgery Any additional information?: Yes NPO since: 04:15 (Patient finished prep at 4:15 AM.) PONV PONV - relief mate: PONV - relief mate Female Yes 08/16/24 14:12 HX of Motion Sickness No 08/16/24 14:12 HX of N/V After Surgery Yes 08/16/24 14:12 Non-Smoker Yes 08/16/24 14:12 Duration of Surgery greater No 08/16/24 14:12 than 60 minutes Number of Risk Factors 3 08/16/24 14:12 PONV Score Moderate Risk 08/16/24 14:12 Height & Weight Height & Weight: Anesthesia: Height & Weight Height 5 ft 4 in 08/21/24 07:08 Weight: 60.9 kg 08/21/24 07:08 Body Mass Index (BMI) 23.0 08/21/24 07:08 Respiratory Assessment Respiratory Assessment - relief mate: Respiratory Tract Infection Hx - relief mate Hx Respiratory Tract Infection No 08/16/24 14:12 STOP Sleep Apnea STOP Sleep Apnea - relief mate: STOP Sleep Apnea - relief mate Hx Hypertension Yes: per pt, controlled on 08/16/24 14:12 meds Hx Sleep Apnea No 08/16/24 14:12 CPAP BIPAP Do you snore loudly (louder No 08/16/24 14:12 than talking or can be heard Do you often feel tired/ No 08/16/24 14:12 fatigued/ sleepy during daytime? Has anyone observed you stop No 08/16/24 14:12 breathing during sleep? STOP Results Negative 08/16/24 14:12 QUESTION #5 FULL TEXT : Do you snore loudly (louder than talking or can be heard through closed doors)? Tobacco Use History Tobacco Use History - relief mate: Tobacco Use History - relief mate Tobacco Use Smoking Status Never smoker 08/16/24 14:12 Hx Tobacco Use No 08/16/24 14:12 Years Smoking Packs Smoked per Day Smoking Cessation Date was within the last 15 years Hx Smoking Cessation Date Hx Smoking Cessation Counseling Hematologic Medial History Hematologic Hx - relief mate: Hematologic Medical Hx - flatwork folder Hx of Blood Transfusion No 08/16/24 14:12 Hx of Transfusion in last 3 No 08/16/24 14:12 Months Date of Last Transfusion (if within last 3 months) Ever experience any problems No 08/16/24 14:12 with transfusion(s)? Specify any problems Hx of Preganancy in last 3 No 08/16/24 14:12 Months Nurse Filling Out Transfusion MGRIFFITH 08/16/24 14:12 & Questions: Date: 08/16/24 08/16/24 14:12 Time: 14:14 08/16/24 14:12 Patient unable to answer at this time (ie. confused, unrespo /Reproduction History /Reproductive History - relief mate: /Reproductive Hx- relief mate Hx Now Gestational Age (in weeks): EDC: Hx Hx Para Hx Section [facility] Medical History (Updated 08/21/24 @ 07:[address] Chiki Randle MD) Wears glasses Alcohol use Arthritis High cholesterol Back pain Heartburn PONV (postoperative nausea and vomiting) Non-smoker Hemiplegia and hemiparesis following cerebral infarction affecting left non-dominant side CVA (cerebral vascular accident) HTN (hypertension) Home Medications ?Medication ?Instructions ?Recorded ?Last Taken ?Type aspirin 81 mg tablet,delayed 81 mg PO QDAY 07/13/24 08/20/24 History release (Adult Low Dose Aspirin) atorvastatin 40 mg tablet 40 mg PO QHS 07/13/24 Unknown History lisinopril 5 mg tablet 5 mg PO QDAY 07/13/24 08/20/24 History meloxicam 15 mg tablet 15 mg PO QDAY 07/13/24 08/19/24 History Allergy/AdvReac Type Severity Reaction Status Date / Time codeine AdvReac Jitters Verified 08/21/24 07:07 Dressing: Non-Medicated AdvReac Rash Verified 08/21/24 07:07 (band aids) Surgical History History of tubal ligation History of nasal surgery History of ankle surgery Social History household members: spouse and children current occupational status: retired Smoking Status: Never smoker alcohol intake: current alcohol intake frequency: holidays/special occasions only substance use type: does not use Review of Systems (Anesthesia) ROS Narrative System reviewed and no additional complaints, except as documented.
[2024-08-21 07:37] VITALS: BP 145/83; PULSE 74; RESP 12; TEMP 36.2; O2SAT 98
--- NOTE | 2024-08-21 08:41 | PCM.HP.STD ---
[facility] - General General Date of Admission: 08/21/24 Date of Service: 08/21/24 Chief Complaint: Colonoscopy HPI Narrative ZACH URBAN, is a 69 F who presents for screening colonoscopy. She has had no prior colonoscopy. No family history of colon polyps or colon cancers. She denies any GI issues or complaints. [facility] Medical History Wears glasses Alcohol use Arthritis High cholesterol Back pain Heartburn PONV (postoperative nausea and vomiting) Non-smoker Hemiplegia and hemiparesis following cerebral infarction affecting left non-dominant side CVA (cerebral vascular accident) HTN (hypertension) Home Medications ?Medication ?Instructions ?Recorded ?Last Taken ?Type aspirin 81 mg tablet,delayed 81 mg PO QDAY 07/13/24 08/20/24 History release (Adult Low Dose Aspirin) atorvastatin 40 mg tablet 40 mg PO QHS 07/13/24 Unknown History lisinopril 5 mg tablet 5 mg PO QDAY 07/13/24 08/20/24 History meloxicam 15 mg tablet 15 mg PO QDAY 07/13/24 08/19/24 History Allergy/AdvReac Type Severity Reaction Status Date / Time codeine AdvReac Jitters Verified 08/21/24 07:07 Dressing: Non-Medicated AdvReac Rash Verified 08/21/24 07:07 (band aids) Surgical History History of tubal ligation History of nasal surgery History of ankle surgery Social History household members: spouse and children current occupational status: retired Smoking Status: Never smoker alcohol intake: current alcohol intake frequency: holidays/special occasions only substance use type: does not use ROS Constitutional Constitutional: Reports systems reviewed and no addt'l complaints, except as documented Eyes Eyes: Reports systems reviewed and no addt'l complaints, except as documented ENT HEENT: Reports systems reviewed and no addt'l complaints, except as documented Cardiovascular Cardiovascular: Reports systems reviewed and no addt'l complaints, except as documented Respiratory/Chest Respiratory/Chest: Reports systems reviewed and no addt'l complaints, except as documented Gastrointestinal Gastrointestinal: Reports systems reviewed and no addt'l complaints, except as documented Vital Signs Vital Signs Vital Signs: 08/21/24 07:08 08/21/24 07:08 08/21/24 07:37 Temperature 97.2 F L 97.2 F L Temperature Source Temporal Pulse Rate 74 74 Respiratory Rate 12 12 Respiratory Pattern Normal Blood Pressure 145/83 H 145/83 H Blood Pressure Mean 103 Blood Pressure Source Monitor Blood Pressure Position Semi-Fowlers Blood Pressure Location Right Arm Pulse Ox 98 98 Oxygen Delivery Method Room Air Room Air Weight Weight: 134 lb 4.184 oz Body Mass Index (BMI) 23.0 Physical Exam Const alert, oriented x3 and no apparent distress Assessment & Plan Assessment/Plan (1) Encounter for screening for malignant neoplasm of colon: PLAN: Plan The patient is a 69-year-old female in need of a screening colonoscopy. She has not had no previous colonoscopy. We discussed the details of the planned procedure including risk benefits and alternatives. She wishes to proceed. This will begin momentarily.
[2024-08-21 09:05] VITALS: BP 145/83; BP 93/56; PULSE 60; RESP 16; TEMP 36.5; O2SAT 98
--- NOTE | 2024-08-21 09:08 | OP.CCLET_ITS ---
08/21/2024 Paige Brown Re : Colonoscopy procedure for Kaylee Nievesr Perry This procedure was performed on Wednesday, August 21, 2024. My impressions and recommendations are as follows: Impressions : - Internal hemorrhoids. - The examination was otherwise normal on direct and retroflexion views. - No specimens collected. Recommendations : - Discharge patient to home (ambulatory). - High fiber diet. - Repeat colonoscopy in 10 years for screening purposes. - Return to my office PRN. - Continue present medications. My findings are described in the full procedure note, which is enclosed. If I can be of further assistance, please feel free to contact me at . Sincerely, Maxwell Castillo MD 08/21/2024 9:08:08 AM This report has been signed electronically.
--- NOTE | 2024-08-21 09:08 | OP.COLON_ITS ---
Patient Name: Kaylee Royal Procedure Date: 08/21/2024 8:40 AM Date of : 1955 Age: 69 Procedure: Colonoscopy Indications: Screening for colorectal malignant neoplasm Providers: Maxwell Castillo MD Referring MD: Paige Brown Medicines: Monitored Anesthesia Care Patient Profile: Refer to note in patient chart for documentation of history and physical. Last Colonoscopy: none. The patient's first colonoscopy is today. Complications: No immediate complications. Estimated blood loss: None. Procedure: Pre-Anesthesia Assessment: - Prior to the procedure, a History and Physical was performed, and patient medications and allergies were reviewed. The patient's tolerance of previous anesthesia was also reviewed. The risks and benefits of the procedure and the sedation options and risks were discussed with the patient. All questions were answered, and informed consent was obtained. Prior Anticoagulants: The patient has taken no anticoagulant or antiplatelet agents. ASA Grade Assessment: II - A patient with mild systemic disease. After reviewing the risks and benefits, the patient was deemed in satisfactory condition to undergo the procedure. After I obtained informed consent, the scope was passed under direct vision. Throughout the procedure, the patient's blood pressure, pulse, and oxygen saturations were monitored continuously. The adult colonoscope was introduced through the anus and advanced to the cecum, identified by appendiceal orifice and ileocecal valve. The ileocecal valve, appendiceal orifice, and rectum were photographed. The entire colon was well visualized. The colonoscopy was performed without difficulty. The patient tolerated the procedure well. The quality of the bowel preparation was adequate. Moderate Sedation: See the other procedure note for documentation of moderate sedation with intraservice time. See the other procedure note for documentation of moderate sedation with intraservice time. Scope In: 8:49:24 AM Scope Withdrawal Time 0 hours 6 minutes 54 seconds Scope Out: 9:03:06 AM Total Procedure Duration Time 0 hours 13 minutes 42 seconds Findings: The perianal and digital rectal examinations were normal. Pertinent negatives include normal sphincter tone. Internal hemorrhoids were found during retroflexion. The hemorrhoids were mild. The exam was otherwise without abnormality on direct and retroflexion views. Impression: - Internal hemorrhoids. - The examination was otherwise normal on direct and retroflexion views. - No specimens collected. Recommendation: - Discharge patient to home (ambulatory). - High fiber diet. - Repeat colonoscopy in 10 years for screening purposes. - Return to my office PRN. - Continue present medications. Procedure Code(s): --- Professional --- 08235, Colonoscopy, flexible; diagnostic, including collection of specimen(s) by brushing or washing, when performed (separate procedure) Diagnosis Code(s): --- Professional --- K64.8, Other hemorrhoids Z12.11, Encounter for screening for malignant neoplasm of colon CPT copyright 2021 [employer]. All rights reserved. The codes documented in this report are preliminary and upon white metal corrosion proofer review may be revised to meet current compliance requirements. Maxwell Castillo MD 08/21/2024 9:08:08 AM This report has been signed electronically. Number of Addenda: 0 Note Initiated On: 08/21/2024 8:40 AM
[2024-08-21 09:10] VITALS: BP 145/83; BP 92/54; BP 93/56; PULSE 62; PULSE 69; RESP 16; TEMP 36.5; O2SAT 94; O2SAT 98
--- NOTE | 2024-08-21 09:10 | PCM.POST.ANE ---
Anesthesia: Postop Eval I Current Vital Signs Temperature: 97.7 F Pulse Rate: 62 Blood Pressure: 93/56 Respiratory Rate: 16 Pulse Ox: 98 Oxygen Delivery Method: Room Air Assessment Airway patent: Yes Spontaneous unlabored respirations: Yes Mental status: Awake and Calm nausea: No Vomiting: No Anesthesia Complication: No Fluid Hydration Crystalloid volume administer (ml): 40 Total IV fluid infused: 40 Progress Note Anesthesia document: Postop Eval 1 completed: Yes
[2024-08-21 09:15] VITALS: BP 104/81; BP 145/83; PULSE 67; RESP 16; TEMP 36.8; O2SAT 96
[2024-08-21 09:24] VITALS: BP 145/83
--- NOTE | 2024-08-21 10:58 | PCM.POSTANE2 ---
Anesthesia Postop Eval I Sum Postop Eval Completion status Anesthesia document: Postop Eval 1 completed: Yes Anesthesia Postop Eval I Summary Anesthesia Postop Eval I Summary: Anesthesia Postop Eval I: Assessment Summary Airway patent Yes 08/21/24 09:10 [email or web address] Spontaneous unlabored Yes 08/21/24 09:10 [email or web address] respirations Mental status Awake,Calm 08/21/24 09:10 [email or web address] nausea No 08/21/24 09:10 [email or web address] Vomiting No 08/21/24 09:10 [email or web address] Anesthesia Postop Eval I: Fluid Summary Crystalloid volume administer 40 08/21/24 09:10 [email or web address] (ml) Colloids volume administered ( ml) Blood Product volume administered (ml) Total IV fluid infused 40 08/21/24 09:10 [email or web address] Anesthesia Postop Eval I: Summary Notes Anesthesia Complication No 08/21/24 09:10 [email or web address] Anesthesia Complication Comment: Post-operative progress note Anesthesia: Postop Eval II Evaluation Mental status: Awake and Calm Pain Level: 0 nausea: No Vomiting: No Complications Anesthesia Complication: No
== END 2024-08-21 09:42 | disposition home or self-care (01) ==
LOC: EN 06:50 → AC 06:51
PROVIDERS: PCP Nurse Practitioner Family; Referring Provider Nurse Practitioner Family; Visit Provider Surgery
PROC: 0DJD8ZZ Inspection of Lower Intestinal Tract, Via Natural or Artificial Opening Endoscopic (ICD-10-PCS; CPT 45378; principal; 2024-08-21 08:10)
DX: Z12.11 Encounter for screening for malignant neoplasm of colon (principal); I69.354 Hemiplegia and hemiparesis following cerebral infarction affecting left non-dominant side; K64.8 Other hemorrhoids; I10 Essential (primary) hypertension; E78.00 Pure hypercholesterolemia, unspecified; Z79.899 Other long term (current) drug therapy; Z79.82 Long term (current) use of aspirin
CPT/HCPCS: G0121; A4216; J2405

== ENCOUNTER → 2024-08-24 | Outpatient (CLI) | payer MEDICARE, SELFPAY | END | disposition home or self-care (01) | LOC: LABSPEC 12:09 | PROVIDERS: PCP Nurse Practitioner Family; Referring Provider Nurse Practitioner Family; Visit Provider Nurse Practitioner Family | DX: N39.0 Urinary tract infection, site not specified (principal) | CPT/HCPCS: 87086; 87088; 87186 ==

== ENCOUNTER 2024-12-25 12:18 | Inpatient (IN) | payer MEDICARE, SELFPAY ==
[2024-12-25] VITALS (10 sets, daily range): BP systolic 125–148; BP diastolic 67–90; PULSE 60–104; RESP 14–20; TEMP 36.4–37; O2SAT 93–99; BMI 23.1; BMI 23.8
--- NOTE | 2024-12-25 12:19 | CT_ITS ---
PROCEDURE: STROKE CTA HEAD AND NECK W/CON 12/25/2024 REASON FOR EXAM: NEURO DEFICIT, ACUTE, STROKE SUSPECTED TECHNIQUE: STROKE CTA HEAD AND NECK W/CON Multiplanar Sagittal and Coronal images were obtained. CONTRAST: Isovue 3 7 VOLUME: 100 mL One or more dose reduction techniques were used (e.g., Automated exposure control, adjustment of the mA and/or kV according to patient size, use of iterative reconstruction technique). RADIATION DOSE SUMMARY: CTDlvol: 17.5 mGy DLP: 584.28 mGycm COMPARISON: None FINDINGS: Aortic Arch: Normal size and branching pattern. Mild atherosclerotic plaque. Brachiocephalic and Subclavians: Mild atherosclerotic plaque without significant stenosis. RIGHT Carotid: Right CCA: Unremarkable. Right ICA: Unremarkable. Right ECA: Unremarkable. LEFT Carotid: Left CCA: Unremarkable. Left ICA: Moderate calcified and soft plaque. Maximum stenosis (NASCET): > 70 % Left ECA: Unremarkable. Vertebrals: Codominant. Arise from the subclavians. Both vertebrals form the basilar. RIGHT Vertebral: Unremarkable. LEFT Vertebral: Unremarkable. Anatomy: [place] anatomy is normal. Aneurysm or avm: No intracranial aneurysms or large vascular malformations are identified. Anterior cerebral arteries: Unremarkable: Middle cerebral arteries: Unremarkable. Basilar artery: Unremarkable. Posterior cerebral arteries: Unremarkable. Other major branches of the posterior circulation: Unremarkable. Major venous structures: Unremarkable. Other findings: Neck: Lungs: Bones: CT/STROKE CTA Head AND Neck W/Con IMPRESSION: High-grade stenosis at the origin of the left internal carotid artery. Reading Location: [facility]
--- NOTE | 2024-12-25 12:19 | EKG12_ITS ---
Test Reason : STROKE TEAM Blood Pressure : */* mmHG Vent. Rate : 86 BPM Atrial Rate : 86 BPM P-R Int : 164 ms QRS Dur : 86 ms QT Int : 382 ms P-R-T Axes : 61 7 36 degrees QTcB Int : 457 ms Normal sinus rhythm Normal ECG Confirmed by JEFE LI, SANDHYA ([id number]), acquisition editor TOMASA TORRES ([id number]) on 12/26/2024 11:05:12 AM Referred By: Yadira Costello Confirmed By: SANDHYA MAYBERRY MD
--- NOTE | 2024-12-25 12:19 | RAD_ITS ---
PROCEDURE: CHEST PA AND LATERAL 12/25/2024 REASON FOR EXAM: STROKE TECHNIQUE: CHEST PA AND LATERAL COMPARISON: None. RAD/Chest PA and Lateral IMPRESSION: Moderate degenerative changes of the visualized spine are seen. A partially calcified aorta is noted; no evidence of cardiomegaly. Lungs appear clear of acute disease. No pleural effusion or pneumothorax is noted. No evidence of acute cardiopulmonary disease Reading Location: [place] [id number]
--- NOTE | 2024-12-25 12:19 | CT_ITS ---
PROCEDURE: STROKE BRAIN/HEAD WITHOUT CONT N/A REASON FOR EXAM: NEURO DEFICIT, ACUTE, STROKE SUSPECTED TECHNIQUE: STROKE BRAIN/HEAD WITHOUT CONT Coronal and Sagittal reconstruction series were provided. One or more dose reduction techniques were used (e.g., Automated exposure control, adjustment of the mA and/or kV according to patient size, use of iterative reconstruction technique. RADIATION DOSE SUMMARY: CTDlvol: 44.99 mGy DLP: 762.36 mGycm COMPARISON: None FINDINGS: Brain: Low density in the periventricular white matter suggests mild chronic small vessel ischemic changes. Focal area of decreased attenuation in the medial aspect of the right occipital lobe as well as in the region of the hippocampus of the right temporal lobe. This may be subacute in nature. CSF Spaces: Mild generalized cerebral atrophy Sinuses/Mastoids: Clear at visualized levels Bones: Unremarkable CT/STROKE Brain/Head without Cont IMPRESSION: Findings suggestive of possible subacute infarct in the region of the hippocamp us of the right temporal lobe. Old ischemic change in the medial aspect of the right occipital lobe. Red Alert: ?Ischemia in Right hippocampus The critical information above was relayed directly by me by telephone to Donn Dewitt on 12/25/2024 at 12:34 pm with readback verification. Reading Location: [id number]
--- NOTE | 2024-12-25 12:25 | EX.ED.DYSGE1 ---
HPI History of Present Illness Chief Complaint: Stroke Alert Narrative Narrative: Patient is a 69-year-old female with past medical history of CVA, hypercholesteremia, hypertension who presents to the emergency department via EMS as a prehospital stroke alert. According to EMS patient and were driving down the road when she started looking into her left and behind the car and not responding to him. He states that then she went unresponsive he pulled over called EMS. When they arrived EMS noted that she was not fully responding to them and noted that when they started putting IVs and she became a little bit more responsive and opened her eyes. According to them she was not saying words and not following commands and route. When they arrived here and were coming to the hospital she became combative with him. They deny a history of seizures denied any history of shaking today. [facility] Medical History Wears glasses Alcohol use Arthritis High cholesterol Back pain Heartburn PONV (postoperative nausea and vomiting) Non-smoker Hemiplegia and hemiparesis following cerebral infarction affecting left non-dominant side CVA (cerebral vascular accident) HTN (hypertension) Home Medications ?Medication ?Instructions ?Recorded ?Last Taken ?Type aspirin 81 mg tablet,delayed 81 mg PO QDAY 07/13/24 08/20/24 History release (Adult Low Dose Aspirin) lisinopril 5 mg tablet 5 mg PO QDAY 07/13/24 08/20/24 History meloxicam 15 mg tablet 15 mg PO QDAY 07/13/24 08/19/24 History ezetimibe 10 mg tablet 10 mg PO DAILY 12/25/24 Unknown History Allergy/AdvReac Type Severity Reaction Status Date / Time codeine AdvReac Jitters Verified 08/21/24 07:07 Dressing: Non-Medicated AdvReac Rash Verified 08/21/24 07:07 (band aids) Surgical History History of tubal ligation History of nasal surgery History of ankle surgery Social History household members: spouse and children current occupational status: retired Smoking Status: Never smoker alcohol intake: current alcohol intake frequency: holidays/special occasions only substance use type: does not use ROS ROS ED ROS Narrative Constitutional: [ ] Eyes: [ ] Cardiovascular: [ ] Respiratory: [ ] Abdomen: [ ] : [ ] Neurological: [ ] Musculoskeletal: [ ] Skin: [ ] EXAM Physical Exam Narrative Exam Narrative: General: Patient is lying on the cot in the hallway resting comfortably did not appear to be acute distress Head: Atraumatic, normocephalic Eyes: PERRL bilaterally, EOMI bladder, no conjunctival injection noted Neck: Soft, supple, trachea midline Cardiovascular: Patient tachycardic with regular rhythm Respiratory: Clear to auscultation bilaterally Abdomen: Soft, nondistended, tender to palpation Extremities: +5/5 strength noted in the bilateral lower extremities, left upper extremity, +4/5 strength noted in the right upper extremity, radial pulses +2/4 in the bilateral extremities Neurological: Patient following commands, closed her eyes when told to was able to lift each extremity up off the cot. NIH of 0 GCS 15 Skin: Warm, dry, tact no rashes or lesions noted Const Vital Signs: 12/25/24 12:19 12/25/24 12:20 12/25/24 12:25 Temperature 98.6 F 98.1 F Temperature Source Oral Temporal Pulse Rate 92 104 H Respiratory Rate 16 18 Blood Pressure 134/67 H 144/77 H Blood Pressure Mean 89 99 Pulse Ox 98 96 Oxygen Delivery Method Room Air Room Air Room Air 12/25/24 12:25 12/25/24 12:27 12/25/24 13:18 Temperature 98.6 F Temperature Source Oral Pulse Rate 104 H 104 H 72 Respiratory Rate 18 18 16 Blood Pressure 144/74 H 144/74 H 131/81 H Blood Pressure Mean 97 97 97 Pulse Ox 96 96 93 Oxygen Delivery Method Room Air Room Air Room Air MDM MDM MDM Narrative Medical decision making narrative: Patient is a 69-year-old female who presented to the emergency department via EMS prehospital stroke alert. On the differential diagnosis includes but not limited to intracranial hemorrhage, TIA, ischemic stroke, electrolyte abnormality, hypoglycemia although per EMS her glucose was normal, cardiac arrhythmia. Once workup is obtained reviewed she will be reevaluated Patient is not a tenecteplase candidate as her symptoms have significantly proved upon her arrival to the emergency department. Patient CBC was reviewed and showed no evidence leukocytosis white blood count normal 11,000, hemoglobin is 14.3, platelet count normal at 313. Patient's INR normal at 1.1, PT of 14.7. Patient sodium is 135, potassium normal at 4.3, patient's anion gap was noted to be 26 with a CO2 of 11.9. Patient's glucose of 128. Patient's troponin was 9, EKG reviewed showed sinus rhythm with a rate of 86 bpm. Patient chest x-ray reviewed by myself and by radiology showed no acute cardiopulmonary processes there was moderate degenerative changes of the visualized spine with a partially calcified aorta noted. Patient's CT brain reviewed which showed finding suggestive of possible subacute infarct in the region of the hippocampus of the right temporal lobe old ischemic change in the medial aspect of the right occipital lobe. Patient CTA head and neck was reviewed and showed high-grade stenosis at the origin of the left internal carotid artery. Patient's arrived at bedside and he noted that she had some left arm shaking at this point in time during this episode and noted by staff that she appears to have bit her tongue and she stooled herself as well. Teleneurology evaluated the patient and they feel that this was likely a seizure and is requesting admission for new onset seizure workup with Keppra load which was ordered. Will discuss case with hospitalist for admission. Discussed case with hospitalist Dr. Costello who accept patient for admission. Patient was notified as well as significant other at bedside all course concerns answered. Lab Data Labs: Laboratory Results - last 24 hr 12/25/24 12:30 WBC 11.0 RBC 4.57 Hgb 14.3 Hct 43.5 MCV 95.2 MCH 31.3 MCHC 32.9 RDW Std Deviation 45.2 H RDW Coeff of Miesha 13.0 Plt Count 313 MPV 10.0 Immature Gran % (Auto) 0.500 Neut % (Auto) 63.5 Lymph % (Auto) 27.7 [place] % (Auto) 6.3 Eos % (Auto) 1.3 Baso % (Auto) 0.7 Absolute Neuts (auto) 7.0 Absolute Lymphs (auto) 3.04 Nucleated RBC % 0 PT 14.7 INR 1.1 APTT 24.5 Sodium 135 Potassium 4.3 Chloride 96 L Carbon Dioxide 11.9 L Anion Gap 26 H BUN 18 Creatinine 1.10 Estim Creat Clear Calc 42.86 L Est GFR (MDRD) Non-Af 55 L BUN/Creatinine Ratio 16.0 Glucose 128 H Calcium 10.0 Troponin T High Sens 9 Radiography Diagnostic Testing: Clinical Impression(s) from Imaging Studies Brain CT 12/25/24 12:19 IMPRESSION: Findings suggestive of possible subacute infarct in the region of the hippocampus of the right temporal lobe. Old ischemic change in the medial aspect of the right occipital lobe. Red Alert: ?Ischemia in Right hippocampus The critical information above was relayed directly by me by telephone to Donn Fitch on 12/25/2024 at 12:34 pm with readback verification. Reading Location: [id number] Chest X-Ray 12/25/24 12:19 IMPRESSION: Moderate degenerative changes of the visualized spine are seen. A partially calcified aorta is noted; no evidence of cardiomegaly. Lungs appear clear of acute disease. No pleural effusion or pneumothorax is noted. No evidence of acute cardiopulmonary disease Reading Location: [id number] Head/Neck CTA 12/25/24 12:19 IMPRESSION: High-grade stenosis at the origin of the left internal carotid artery. Reading Location: [facility] Discharge Plan Triage Chief Complaint: Stroke Alert ED Provider: Donn Fitch Dx/Rx/DC Orders Clinical Impression: Abnormal involuntary movement, Altered mental status Prescriptions: No Action aspirin [Adult Low Dose Aspirin] 81 mg tablet,delayed release (DR/EC) 81 mg PO QDAY lisinopril 5 mg tablet 5 mg PO QDAY meloxicam 15 mg tablet 15 mg PO QDAY ezetimibe 10 mg tablet 10 mg PO DAILY Primary Care Provider: Johanna Amador Referrals: Johanna Amador, ACUTE CARE CERTIFIED NURSING ASSISTANT-C [Primary Care Provider] - Print Language: Welsh Disposition Disposition: Acute Care [facility]
[2024-12-25] MEDS: 0.9% Normal Saline (1000mL) 1,000 ML 999 ML IV (12:43)
[2024-12-25] MEDS: Ondansetron 4 MG/2 ML Vial IV ×2 (12:43→19:59)
[2024-12-25 12:45] LABS: Absolute Lymphocyte Count 3.04 X10^3/uL (0.83-4.51); Basophil# 0.08 X10^3/uL; Basophil% 0.7 % (0-1); Eosinophil# 0.14 X10^3/uL; Eosinophils% 1.3 % (0-5); Hematocrit 43.5 % (37-47); Hemoglobin 14.3 g/dL (12.0-15.0); Lymphocyte # 3.04 X10^3/ul (0.83-4.51); Lymphocyte % 27.7 % (19-41); Mean Corp Hgb Conc 32.9 g/dL (32-36); Mean Corpuscular Hgb 31.3 pg (27.0-32.0); Mean Corpuscular Volume 95.2 fL (81-99); Monocyte# 0.69 X10^3/uL; Monocyte% 6.3 % (0-10); NRBC Flagged by Analyzer 0 % (0-5); Neutrophil # 6.98 X10^3/uL (2.7-7.7); Neutrophil % 63.5 % (47-70); Platelet Count 313 K/mm3 (150-450); RBC Distribution Width SD 45.2 fl (35.1-43.9); Red Blood Count 4.57 M/mm3 (4.2-5.4)
[2024-12-25 12:59] LABS: International Normalized Ratio 1.1; Partial Thromboplast Time 24.5 Seconds (24.1-36.2); Prothrombin Time (Protime)PT. 14.7 SECONDS (11.7-14.9)
[2024-12-25 13:09] LABS: Troponin T High Sensitivity 9 ng/L (<=14)
[2024-12-25] MEDS: levETIRAcetam IV 2,000 MG in 0.9% Normal Saline (250mL Bag) 230 ML 1000 MG IV (13:10)
[2024-12-25 13:13] LABS: Anion Gap 26 (5-15); BUN 18 mg/dL (4-19); Carbon Dioxide 11.9 mmol/L (21.0-32.0); Chloride 96 mmol/L (98-108); EST Glomerular Filtration Rate 55 (>60); Estimated Creatinine Clearance 42.86 ml/min (50-250); Glucose 128 mg/dL (70-99); Potassium 4.3 mmol/L (3.3-5.1); Sodium Level 135 mmol/L (133-145)
--- NOTE | 2024-12-25 13:57 | HP.PCM.HOS_ITS ---
HPI - General General Date of Admission: 12/25/24 Date of Service: 12/25/24 Chief Complaint: LOC, shaking episode HPI Narrative ZACH URBAN, is a 69-year-old female history of CVA and hypertension presented to [facility] ED 12/21/2024 as a prehospital stroke alert. On arrival patient afebrile, heart rate 92 with blood pressure 134/67, respiratory rate 16 patient pulse ox 98% on room air. CBC with no concerning findings, BMP with bicarb of 11.9 and a gap of 26 with creatinine of 1.1. Reportedly patient and were driving down the road and then she began looking to her left and had left arm shaking and was not responding purposefully and then went completely unresponsive so pulled over and called EMS. When EMS arrived she was not fully responding initially but then slowly became more responsive and opened her eyes but was not saying words or following commands. She then became combative but by the time ED physician evaluated her she was awake and alert. Patient did have stroke alert and brain CT showed findings suggestive of possible subacute infarct in region of hippocampus on right temporal lobe with old ischemic change in the medial aspect of the right occipital lobe. CTA with high-grade stenosis of the origin of the left internal carotid artery. Teleneurology evaluated and got history that patient had left arm tightening, left face twisting and then started shaking before she lost consciousness for 1 minute, during that time she bit her right lateral tongue and had stool incontinence and was confused. Teleneurology concern for seizure and recommended admitting locally and pursuing seizure workup with brain MRI, routine EEG, general neuro consult and recommended loading patient with Keppra. Patient loaded with Keppra and hospitalist contacted for admission. Patient evaluated at bedside with family members present. reports that she had been in her usual health and then suddenly while he was driving she began looking somewhere behind him, he looked to see what she was looking at but did not see anything and when he looked back her left arm manjit up in the left side of her face twisted and then she began having all over shaking movements, then slumped forward with loss of consciousness, was noted to bit her tongue and soiled herself. She was confused afterwards but now is back to her baseline mental status. Feels little bit nauseated and just kind of tired but no other new or acute complaints. Denies anything like this happening previously. Does note previous stroke 07/01/2023 when she went to do her hair she was unable to use her left hand, she then lost consciousness and fell hurting her shoulder and her left leg. Only residual problems are some numbness on top of left foot and knee which is unchanged. Presently denies any other numbness, tingling, weakness. Has chronic right shoulder problems so somewhat limited with this and is supposed to be evaluated for surgery next month. Sometimes gets some reflux symptoms but no chest pain or shortness of breath, no headache or changes in vision. No bowel or bladder complaints. [facility] Medical History Wears glasses Alcohol use Arthritis High cholesterol Back pain Heartburn PONV (postoperative nausea and vomiting) Non-smoker Hemiplegia and hemiparesis following cerebral infarction affecting left non- dominant side CVA (cerebral vascular accident) HTN (hypertension) Home Medications ?Medication ?Instructions ?Recorded ?Last Taken ?Type aspirin 81 mg tablet,delayed 81 mg PO QDAY 07/13/24 History release (Adult Low Dose Aspirin) lisinopril 5 mg tablet 5 mg PO QDAY 07/13/24 History meloxicam 15 mg tablet 15 mg PO QDAY 07/13/2408/19 History ezetimibe 10 mg tablet 10 mg PO DAILY 12/25/24 Unkn own History Allergy/AdvReac Type Severity Reaction Status Date / Time codeine AdvReac Jitters Verified 08/21/24 07:07 Dressing: Non-Medicated AdvReac Rash Verified 08/21/24 07:07 (band aids) Surgical History History of tubal ligation History of nasal surgery History of ankle surgery Social History household members: spouse and children current occupational status: retired Smoking Status: Never smoker alcohol intake: current alcohol intake frequency: holidays/special occasions only substance use type: does not use ROS ROS Narrative General: Denies fever/chills HENT: Denies headache, denies stuffy nose, denies sore throat EYES: Denies changes in vision Resp: Denies cough, denies shortness of breath Cardiac: Denies chest pain GI: Denies abdominal pain, denies changes in bowel, feels little nauseated, did soil self during this episode : Denies changes in urination Extremity: Denies swelling MSK: Denies weakness, has some chronic right shoulder pain and left hip pain Neuro: Chronic numb feeling in left knee and top of left foot Heme: Denies any bleeding or bruising Skin: Denies rashes Psychiatric: No complaints voiced Vital Signs Vital Signs Vital Signs: 12/25/24 12:19 12/25/24 12:20 12/25/24 12:25 Temperature 98.6 F 98.1 F Temperature Source Oral Temporal Pulse Rate 92 104 H Respiratory Rate 16 18 Blood Pressure 134/67 H 144/77 H Blood Pressure Mean 89 99 Pulse Ox 98 96 Oxygen Delivery Method Room Air Room Air Room Air 12/25/24 12:25 12/25/24 12:27 12/25/24 13:18 Temperature 98.6 F Temperature Source Oral Pulse Rate 104 H 104 H 72 Respiratory Rate 18 18 16 Blood Pressure 144/74 H 144/74 H 131/81 H Blood Pressure Mean 97 97 97 Pulse Ox 96 96 93 Oxygen Delivery Method Room Air Room Air Room Air 12/25/24 13:48 Temperature 97.8 F Temperature Source Pulse Rate 76 Respiratory Rate 20 H Blood Pressure 125/76 H Blood Pressure Mean 92 Pulse Ox 97 Oxygen Delivery Method Weight Weight: 61 kg Body Mass Index (BMI) 23.1 Physical Exam Narrative General: Alert, oriented, no apparent distress HEENT: Atraumatic, normocephalic Eyes: Anicteric, normal conjunctiva, extraocular movements intact, pupils equal Neck: Supple Respiratory: Clear to auscultation bilaterally, normal respiratory effort Cardiovascular: Regular rate and rhythm GI: Soft, nontender, nondistended Extremities: No edema Musculoskeletal: Strength 5 out of 5 in right upper extremity, 5 out of 5 left upper extremity, 5 out of 5 right lower extremity, 5 out of 5 left lower extremity, does have some limited shrug and movement in the right shoulder which is not new Neuro: No overt focal neurological deficits, cranial nerves II through XII intact, [id number] without significant difficulty bilaterally Skin: No rashes appreciated Psych: Cooperative Results Lab / Micro Data 12/25/24 12:30 12/25/24 12:30 Labs: Laboratory Results - last 24 hr 12/25/24 12:30: WBC 11.0, RBC 4.57, Hgb 14.3, Hct 43.5, MCV 95.2, MCH 31.3, MCHC 32.9, RDW Std Deviation 45.2 H, RDW Coeff of Miesha 13.0, Plt Count 313, MPV 10.0, Immature Gran % (Auto) 0.500, Neut % (Auto) 63.5, Lymph % (Auto) 27.7, [place] % (Auto) 6.3, Eos % (Auto) 1.3, Baso % (Auto) 0.7, Absolute Neuts (auto) 7.0, Absolute Lymphs (auto) 3.04, Nucleated RBC % 0, PT 14.7, INR 1.1, APTT 24.5, Sodium 135, Potassium 4.3, Chloride 96 L, Carbon Dioxide 11.9 L, Anion Gap 26 H, BUN 18, Creatinine 1.10, Estim Creat Clear Calc 42.86 L, Est GFR (MDRD) Non-Af 55 L, BUN/Creatinine Ratio 16.0, Glucose 128 H, Calcium 10.0, Troponin T High Sens 9 Imaging Radiology Impression Brain CT 12/25/24 12:19 IMPRESSION: Findings suggestive of possible subacute infarct in the region of the hippocampus of the right temporal lobe. Old ischemic change in the medial aspect of the right occipital lobe. Red Alert: ?Ischemia in Right hippocampus The critical information above was relayed directly by me by telephone to Donn Fitch on 12/25/2024 at 12:34 pm with readback verification. Reading Location: [id number] Chest X-Ray 12/25/24 12:19 IMPRESSION: Moderate degenerative changes of the visualized spine are seen. A partially calcified aorta is noted; no evidence of cardiomegaly. Lungs appear clear of acute disease. No pleural effusion or pneumothorax is noted. No evidence of acute cardiopulmonary disease Reading Location: [facility] Head/Neck CTA 12/25/24 12:19 IMPRESSION: High-grade stenosis at the origin of the left internal carotid artery. Reading Location: [id number] Assessment & Plan Assessment/Plan (1) Abnormal involuntary movement: (2) Altered mental status: PLAN: Plan # Concern for new onset seizure - With left-sided symptoms followed by general tonic-clonic movements, possibly associated with right sided subacute CVA seen on imaging, evaluated by stroke neurologist who recommended admitting locally with further workup with a general telemetry neurology consult - MRI ordered - EEG - General Neurology consult - Continuing [facility] - Will obtain UA and UDS for additional workup - Also check lactic acid given the low bicarb and elevated gap, no other acute complaints is suspected that this is high due to seizure -IVF # Subacute CVA - CT revealed possible subacute infarct in region of left hippocampus of right temporal lobe - Aspirin, statin - MRI as above - Will obtain echocardiogram - Monitor on telemetry -It was felt that presentation was due to seizure not stroke however given the subacute stroke will obtain further workup as above -NIH q4hr -asa, statin -Echo -PT/OT/Speech eval # Left internal carotid stenosis - Seen on CTA - Will obtain carotid Doppler for further assessment, if significant stenosis will need to consider vascular intervention inpatient versus outpatient #Hypertension - Will hold home lisinopril at this time pending further workup #DVT ppx: SCDs Yadira Costello MD Charges/Coding Visit Charges Inpatient E&M: 63617 Init Hosp L2
--- NOTE | 2024-12-25 14:24 | MRI_ITS ---
PROCEDURE: BRAIN WITHOUT CONTRAST 12/25/2024 REASON FOR EXAM: CVA ON CT, NEW ONSET SEIZURE TECHNIQUE: BRAIN WITHOUT CONTRAST Multiplanar and multisequence images were obtained. FINDINGS: There is no abnormal diffusion to suggest an acute or recent infarction. Normal craniocervical junction. No evidence of hemorrhage. Sinuses orbits are unremarkable. There has been a prior right STAVE GRADER territory infarct with encephalomalacia. There is slight volume loss of the right hippocampus compared with the left probably secondary to adjacent volume loss from STAVE GRADER territory infarct rather than hippocampal sclerosis itself. There are few nonspecific punctate scattered areas of subcortical leukomalacia. No sinonasal air-fluid levels. Negative for hemorrhage. MRI/Brain without Contrast IMPRESSION: No acute infarction. Prior right STAVE GRADER territory infarct. Reading [facility]
--- NOTE | 2024-12-25 14:24 | ECHOD_ITS ---
Reason For Study Reason For Study: TIA/STROKE Procedure This was a 2D Doppler, Color Flow transthoracic echocardiogram. Exam performed portable in patient room. Left Ventricle Normal LV size. Left ventricular systolic function is normal. The left ventricular ejection fraction is 70 %. No regional wall motion abnormalities noted. Right Ventricle Normal RV size. Normal systolic function. Atria Normal left atrium. Normal right atrium. Mitral Valve There is mild to moderate mitral annular calcification. Mild focal mitral valve calcification, bileaflet. Tricuspid Valve Normal tricuspid valve. Mild tricuspid valve insufficiency. Pulmonary artery systolic pressure is 27 mmHg. Aortic Valve Trisinus/trileaflet aortic valve. Mild focal aortic valve calcification. Pulmonic Valve Normal pulmonic valve. Great Vessels Normal aortic root. The pulmonary artery is normal size. Inferior vena cava collapse with respiration. Pericardium/Pleural No pericardial effusion. MMode/2D Measurements & Calculations LVIDd: 4.1 cm IVSd: 0.98 cm LVOT diam: 1.9 cm LVIDs: 2.2 cm LVPWd: 0.94 cm LVOT area: 2.7 cm2 RVDd: 3.7 cm FS: 45.9 % asc Aorta Diam: 3.4 cm LAV(MOD-bp): 25.0 ml LVAd ap4: 18.1 cm2 LAV(MOD-bp) Indexed: 15.0 ml/m2 LVLd ap4: 6.8 cm LAV(MOD-sp2): 33.3 ml EDV(MOD-sp4): 38.9 ml LAV(MOD-sp4): 18.1 ml EDV(sp4-el): 40.8 ml LVAs ap4: 9.5 cm2 LVLs ap4: 6.1 cm ESV(MOD-sp4): 12.9 ml ESV(sp4-el): 12.5 ml EF(MOD-sp4): 66.8 % EF(sp4-el): 69.3 % LVAd ap2: 18.7 cm2 SV(MOD-sp4): 26.0 ml SV(MOD-sp2): 27.8 ml LVLd ap2: 7.5 cm SI(MOD-sp4): 15.5 ml/m2 SI(MOD-sp2): 16.6 ml/m2 EDV(MOD-sp2): 40.0 ml EDV(sp2-el): 39.5 ml LVAs ap2: 9.5 cm2 LVLs ap2: 6.5 cm ESV(MOD-sp2): 12.2 ml ESV(sp2-el): 11.7 ml EF(MOD-sp2): 69.5 % SV(sp4-el): 28.3 ml Ao sinus diam: 3.[address] Junction: 2.4 cm LA dimension(2D): 3.1 cm LA A4 area: 10.5 cm2 RA A4 area: 10.4 cm2 TAPSE: 2.3 cm Time Measurements MV dec time: 0.21 sec Doppler Measurements & Calculations MV E max tobias: 98.4 cm/sec Lat Peak E' Tobias: 8.4 cm/sec Med Peak E' Tobias: 7.4 cm/sec MV A max tobias: 91.1 cm/sec E/E' lat: 11.8 E/E' med: 13.3 MV E/A: 1.1 MV dec slope: 465.8 cm/sec2 Ao V2 max: 157.9 cm/sec LV V1 max: 129.9 cm/sec Ao max P.0 mmHg LV V1 max P.8 mmHg Ao V2 mean: 110.9 cm/sec LV V1 mean P.7 mmHg Ao mean P.6 mmHg LV V1 mean: 88.9 cm/sec Ao V2 VTI: 39.4 cm LV V1 VTI: 29.9 cm AV (velocity ratio): 0.76 REBECA(I,D): 2.1 cm2 REBECA(V,D): 2.2 cm2 SV(LVOT): 81.1 ml TV V2 max: 162.1 cm/sec PA V2 max: 87.1 cm/sec TV max P.5 mmHg TR max tobias: 239.7 cm/sec TR max P.0 mmHg ECHO/Echo Complete Interpretation Summary Normal LV size. Left ventricular systolic function is normal. The left ventricular ejection fraction is 70 %. No regional wall motion abnormalities noted. Mild focal mitral valve calcification, bileaflet. Mild tricuspid valve insufficiency. Ordering Physician: Yadira Costello Referring Physician: Yadira Costello Performed By: Carmina Waggoner RDCS
--- NOTE | 2024-12-25 14:24 | CDU_ITS ---
Reason For Study Reason For Study: CVA / Abnormal CT Rt. Velocities/BP Lt. Velocities/BP Prox CCA 79.0/9.8 cm/sec. Prox CCA 80.9/15.8 cm/sec. Mid CCA 51.6/14.7 cm/sec. Mid CCA 69.9/14.6 cm/sec. Dist CCA 48.7/10.0 cm/sec. Dist CCA 56.4/17.1 cm/sec. Prox ICA 69.5/15.5 cm/sec. Prox ICA 73.6/28.1 cm/sec. Mid ICA 80.6/30.2 cm/sec. Mid ICA 54.8/18.0 cm/sec. Dist ICA 69.6/20.6 cm/sec. Dist ICA 89.4/36.6 cm/sec. Rt. ICA/CCA = 1.6. Lt. ICA/CCA = 1.3. Prox ECA 88.4/5.3 cm/sec. Prox ECA 54.3/5.2 cm/sec. Rt. Vert. 48.3/14.2 cm/sec. Lt. Vert. 55.6/17.1 cm/sec. Right Extracranial There is heterogeneous, irregular atherosclerotic plaque noted in the right common carotid artery. There is heterogeneous, irregular atherosclerotic plaque noted in the right internal carotid artery. There is heterogeneous, irregular atherosclerotic plaque noted in the right external carotid artery. Antegrade flow is noted in the right vertebral artery. Left Extracranial There is homogeneous, smooth atherosclerotic plaque noted in the left common carotid artery. There is heterogeneous, irregular atherosclerotic plaque noted in the left internal carotid artery. There is heterogeneous, irregular atherosclerotic plaque noted in the left external carotid artery. Antegrade flow is noted in the left vertebral artery. Procedure Carotid Duplex [id number]. This is a Carotid Duplex examination using B-mode, color flow and specral Doppler. The exam was diagnostic. Exam performed portable in patient room. VL/Carotid Duplex Ultrasound Interpretation Summary Mild (<50%) stenosis right extracranial internal carotid. Mild (<50%) stenosis left extracranial internal carotid. Patent and antegrade vertebrals bilaterally. Ordering Physician: Yadira Costello Referring Physician: Johanna Amador Performed By: Wilfred Jamison RVT
--- NOTE | 2024-12-25 14:56 | CHAPLAIN ---
Type of Pastoral Visit ___ Initial Visit ___ Follow-up Visit ___ On-call Visit ___ General Patient Visit ___ Spiritual Assessment ___ Family Conference ___ Bereavement _x__ Rapid Response ___ Code Blue ___ Other (describe below) Pastoral Care Referral From ___ Patient ___ Family ___ Nurse ___ Physician ___ Power Ballast Machine Operator ___ Certified Prosthetist/Orthotist _x__ Other (describe below) Sacrament/Intervention _x__ Active listening ___ Anointing ___ Jain ___ Bereavement ___ Communion ___ Alexia exploration ___ ___ Life review ___ Prayer ___ Reconciliation ___ Sacrament of Sick _x__ Supportive presence ___ Wedding ___ Other (describe below) Pastoral Comments responded to the stroke alert and met with the spouse and daughter of the patient as she was in the CT; was present when patient was returned to the room and the online evaluation was to begin; listened to spouse speak of the situation and symptoms that caused this ED visit; offered water and presence; family members declined further support at this time
--- NOTE | 2024-12-25 15:07 | CM.ED ---
Social Work Reason for visit: Stroke Alert SW introduced self to patients who was standing outside of [place] by patients room. stated he was okay at this time and thanked SW for checking. No further needs identified at this time. Joanna Dill, MID LEVEL PROVIDER, WAFER MOUNTER
[2024-12-25 15:57] LABS: Mucous, Urine 0 SEEN /hpf (<or=2+)
[2024-12-25 16:08] LABS: Lactic Acid 2.8 mmol/L (0.0-2.0); Troponin T High Sens 2 HR 63 ng/L (<=14)
[2024-12-25] MEDS: 0.9% Normal Saline (1000mL) 1,000 ML 100 ML IV (16:35)
[2024-12-25 16:47] LABS: Color, Urine Straw (Yellow); Glucose, Dipstick Normal (Normal); Ketone-Dipstick Negative (Negative); Leukocyte Esterase-Dipstick 25 /ul (Negative); Nitrite-Dipstick Negative (Negative); Occult Blood-Urine 25 /ul (Negative); Protein-Dipstick 15 mg/dl (Negative); Urine Bilirubin Dipstick Negative (Negative); Urine Clarity Clear (Clear); Urine Urobilinogen Normal (Normal)
[2024-12-25 17:30] LABS: Amphetamine Urine NEGATIVE (<1000 ng/mL); Barbiturate Urine NEGATIVE (< 200 ng/mL); Benzodiazepine Urine NEGATIVE (< 200 ng/mL); Buprenorphine Urine NEGATIVE (< 200 ng/mL); Cocaine Urine NEGATIVE (< 300 ng/mL); Fentanyl, Urine NEGATIVE; Methadone Urine NEGATIVE (< 300 ng/mL); Opiates Urine NEGATIVE (< 300 ng/mL); Oxycodone, Urine NEGATIVE (< 100 ng/mL); PCP Urine NEGATIVE (< 25 ng/mL); THC Urine NEGATIVE (< 50 ng/mL)
[2024-12-25 17:38] LABS: Troponin T High Sens 4 HR 74 ng/L (<=14)
[2024-12-25 18:30] LABS: Bacteria 1+ /hpf (None Seen); Red Blood Cells-Urine 0-5 SEEN /hpf (0-5); Squamous Epithelial Cells - UA 0-5 SEEN /hpf (5-10); White Blood Cells 0-5 SEEN /hpf (0-5)
[2024-12-25 19:08] LABS: Reflex Lactate? Y
[2024-12-25 20:37] LABS: Lactic Acid 1.6 mmol/L (0.0-2.0)
--- OUTSIDE RECORDS SUMMARY | 2024-12-25 22:16 | XMS RPT_ITS | CCD ---
Author Organization [facility] Care Team Providers Care Hand Etcher Name Role Phone Unavailable Primary Care Provider ZEN Henson MD Attending Unavailable ZEN HATHAWAY MD Primary Care Unavailable ZEN HATHAWAY MD Admitting Unavailable IAN LI, DR JIM Attending Unavailab massiel SOSA MD, DR JIM Admitting Unavailab massiel PHYSICIAN, NONE Primary Care Unavailable No, Physician Primary Care Provider Unavailabl e Biaron IT TEACHER, Chaya Primary Care Provider [phone] [facility] Attending Lamar TAVERA, PHYSICIAN Primary Care Unavailable ZEN HATHAWAY Referring Unavailable BAIRON, CHAYA Primary Care Unavailable SYSTEM, PROVIDER NOT IN Attending Unavaila ble SYSTEM, PROVIDER NOT IN Referring Unavaila ble BAIRON, CHAYA Primary Care Unavailable SYSTEM, PROVIDER NOT IN Referring Unavaila ble SYSTEM, PROVIDER NOT IN Attending Unavaila ble ALETA HUDSON Attending Unavailable ALETA HUDSON Referring Unavailable BAIRON, CHAYA Primary Care Unavailable ZEN HATHAWAY Referring Unavailable MADAY CONTI Admitting UnavailYELENA Olvera Attending Unavaila ble PHYSICIANS, [facility] Consulting Unav ailable NO, PHYSICIAN Primary Care Unavailable [facility] [place], GENERIC Consul ting Unavailable SYSTEM, PROVIDER NOT IN Referring Unavaila ble SYSTEM, PROVIDER NOT IN Attending Unavaila ble BAIRON, CHAYA Primary Care Unavailable BAIRON, CHAYA Primary Care Unavailable SYSTEM, PROVIDER NOT IN Attending Unavaila ble SYSTEM, PROVIDER NOT IN Referring Unavaila ble BAIRON, CHAYA Primary Care Unavailable JOSESITO POLLACK Attending Unavaila ble JOSESITO POLLACK Attending Unavaila ble BAIRON, CHAYA Primary Care Unavailable JOSESITO POLLACK Attending Unavaila ble BAIRON, CHAYA Primary Care Unavailable Maxwell Castillo Consulting Unavailable Maxwell Castillo Attending Unavailable Bairon, Chaya Referring Unavailable Bairon, Chaya Primary Care Unavailable Bairon, Chaya Primary Care Unavailable Patrick Renee Attending Unavailable Bairon, Chaya Primary Care Unavailable Bairon, Chaya Attending Unavailable Bairon, Chaya Referring Unavailable Bairon, Chaya Attending Unavailable Bairon, Chaya Referring Unavailable Bairon, Chaya Primary Care Unavailable Bairon, Chaya Primary Care Unavailable Bairon, Chaya Attending Unavailable Bairon, Chaya Primary Care Unavailable Maxwell Castillo Attending Unavailable Bairon, Chaya Referring Unavailable Bairon IMPORT EXPORT MANAGER, Chaya Primary Care Provider [phone] BAIRON, CHAYA Referring Unavailable VETOVITZ, RACHELE Attending Unavailable BAIRON, CHAYA Primary Care Unavailable VETOVITZ, RACHELE Referring Unavailable BAIRON, CHAYA Primary Care Unavailable Bairon IMPORT EXPORT MANAGER-C, Chaya Primary Care Provider Dr. Donn Fitch DO Emergency Provider [phone] Pravin LI, Dr. May Admit Provider [phone] Yadira Costello MD Attending Provider [phone] Dr. Yadira Costello MD Referring Provider [phone] Allergies Allergy Classification Reported Allergen(s) Allergy Type Date of Onset Reaction(s) Facility (3 sources) Codeine; Translations: [CODEINE] Drug Allergy 4 [facility] Repository (5 sources) Codeine Drug Allergy 4 Unknown, GI Upset [facility] (1 source) Codeine Drug Allergy 5 [facility] Repository (2 sources) Dressing: Non-Medicated; Translations: [Dressing: Non-Medicated] Propensity to adverse reactions (disorder) [address] [facility] Repository Medications Current Medications Medication Drug Class(es) Dates Sig (Normalized) Sig (Original) aspirin 81 mg delayed release oral tablet (10 sources) Platelet Aggregation Inhibitor, Nonsteroidal Anti-inflammatory Drug Start: 07-13-2024 Aspirin (Adult Low Dose Aspirin) 81 mg tablet,delayed release (DR/EC) Active 81 mg PO daily July 13, 2024 1:00am Start: 07-04-2023 take 1 tablet by madelyn th once daily aspirin 81 MG EC tablet Take 1 (one) tablet (81 mg total) by mouth daily . 30 tablet 2 07/04/2023 Active Start: 07-02-2023 End: 07-04-2023 aspirin EC tablet 325 mg take 81 mg by mouth once daily [facility] ASPIRIN ORAL Take 81 mg by mouth once daily. Active clopidogrel 75 mg oral tablet (7 sources) P2Y12 Platelet Inhibitor Start: 07-09-2023 End: 05-18-2024 take 1 tablet by mouth once daily clopidogreL (PLAVIX) 75 mg tablet Take 1 (one) tablet (75 mg total) by mouth daily Start: 07/09/23. 90 tablet 07/09/2023 05/18/2024 Discontinued (Therapy completed) ezetimibe 10 mg oral tablet (2 sources) Dietary Cholesterol Absorption Inhibitor Start: 12-25-2024 take 1 tablet by mouth once daily Ezetimibe 10 mg tablet Active 10 mg PO DAILY December 25, 2024 12:00am take 1 tablet by mouth once sky y ezetimibe (ZETIA) 10 mg tablet Take 10 mg by mouth once daily. Active lisinopril 5 mg oral tablet (10 sources) Angiotensin Converting Enzyme Inhibitor Start: 07-13-2024 take 1 tablet by mouth once daily Lisinopril 5 mg tablet Active 5 mg PO daily July 13, 2024 1:00am Start: 07-04-2023 End: 07-04-2023 take 1 tablet by mouth once daily at lunch lisinopriL (PRINIVIL,ZESTRIL) 5 MG tablet Take 1 (one) tablet (5 mg total) by mouth daily with lunch . 30 tablet 07/04/2023 Active meloxicam 15 mg oral tablet (3 sources) Nonsteroidal Anti-inflammatory Drug Start: 07-13-2024 take 1 tablet by mouth once daily Meloxicam 15 mg tablet Active 15 mg PO daily July 13, 2024 1:00am Start: 03-01-2024 take 1 tablet by madelyn th once daily meloxicam (MOBIC) 7.5 MG tablet Take 1 (one) tablet (7.5 mg total) by mouth daily . 03/01/2024 Active Completed/Discontinued Medications Medication Drug Class(es) Dates Sig (Normalized) Sig (Original) acetaminophen 325 mg oral tablet (1 source) Start: 07-02-2023 End: 07-04-2023 take 1 tablet by mouth every four hours as needed for pain and headache 650 mg, Oral, Every 4 hours PRN, mild pain, fever 100.4 F or greater, headaches, Starting on 07/02/23 at 0812 amoxicillin 875 mg / clavulanate 125 mg oral tablet (6 sources) Penicillin-class Antibacterial Start: 07-04-2023 End: 10-03-2023 take 1 tablet by mouth twice daily amoxicillin-clavu lanate (AUGMENTIN) 875-125 mg per tablet Take 1 (one) tablet by mouth 2 (two) times a day . 14 tablet 0 07/04/2023 10/03/2023 Discontinued (Therapy completed) ampicillin-sulbacta m (UNASYN) 3000 mg in sodium chloride (NS) 0.9% 100 mL MBP (2 sources) Start: 07-03-2023 End: 07-04-2023 take 3000 mg intravenously every six hours ampicillin-sulbac caballero (UNASYN) 3000 mg in sodium chloride (NS) 0.9% 100 mL MBP Start: 07-02-2023 End: 07-03-2023 take 3000 mg intravenously every six hours ampicillin-sulbactam (UNASYN) 3000 mg in sodium chloride (NS) 0.9% 100 mL MBP atorvastatin 40 mg oral tablet (11 sources) HMG-CoA Reductase Inhibitor Start: 07-13-2024 End: 12-25-2024 take 1 tablet by mouth at bedtime Atorvastatin 40 mg tablet Discontinued 40 mg PO AT BEDTIME July 13, 2024 1:00am December 25, 2024 12:52pm Start: 07-04-2023 End: 05-18-2024 take 1 tablet by mouth once daily atorvastatin (LIPITOR) 80 MG tablet Take 1 (one) tablet (80 mg total) by mouth nightly . 30 tablet 2 07/04/2023 05/18/2024 Discontinued (Dose adjustment) Start: 07-03-2023 End: 07-04-2023 atorvastatin (LIPITOR) table t 80 mg Start: 07-02-2023 End: 07-03-2023 take 40 mg by mouth once daily 40 mg, Oral, Nightly, F irst dose on 07/02/23 at 2100 0.4 ml enoxaparin sodium 100 mg/ml prefilled syringe (1 source) Low Molecular Weight Heparin Start: 07-02-2023 End: 07-04-2023 inject 40 mg by subcutaneous injection once daily 40 mg, Subcutaneous, Daily, First dose on 07/02/23 at 0900 Administer in abdomen unless otherwise directed by prescriber. Notify physician if patient refuses. Indication: VTE Prophylaxis gadoterate meglumine (DOTAREM) injection 15 mL (1 source) Start: 07-02-2023 End: 07-02-2023 gadoterate meglumine (DOTAREM) injection 15 mL iopamidoL (ISOVUE-370) 370 mg iodine /mL (76 %) injection 75 mL (1 source) Start: 07-02-2023 End: 07-02-2023 iopamidoL (ISOVUE-370) 370 mg iodine /mL (76 %) injection 75 mL labetaloL (NORMODYNE) injection 10 mg (1 source) Start: 07-02-2023 End: 07-04-2023 take 10 mg intravenously every two hours as needed labetaloL (NORMODYNE) injection 10 mg 2 ml ondansetron 2 mg/ml injection (2 sources) Serotonin-3 Receptor Antagonist Start: 07-02-2023 End: 07-04-2023 take 1 tablet by mouth every six hours as needed for nausea and vomiting 4 mg, Oral, Every 6 hours PRN, nausea, vomiting, Starting on 07/02/23 at 0812 Use oral route first, if tolerated. Fo rmulation requires tablet remain in sealed package until immediately prior to dose being administered. Start: 07-02-2023 End: 07-04-2023 take 4 mg intravenously every six hours as needed for nausea and vomiting 4 mg, Intravenous, Every 6 hours PRN, nausea, vomiting, Starting on 07/02/23 at 0812 Use oral route first, if tolerated. Sodium Chloride (1 source) Start: 07-02-2023 End: 07-04-2023 sodium chloride (PF) (NS) fl ush 5 mL Problems Active Problems Problem Classification Problem Date Documented Date Episodic/Chronic Acute cerebrovascular disease (16 sources) Cerebrovascular accident; Translations: [Cerebral infarction, unspecified] Onset: 07-02-2023 Resolved: 10-03-2023 07-02-2023 Chronic Cardiac dysrhythmias (3 sources) Atrial fibrillation; Translations: [Unspecified atrial fibrillation] Onset: 07-13-2023 07-05-2023 Chronic Essential hypertension (1 source) Essential (primary) hypertension; Translations: [Essential (primary) hypertension] Onset: 08-17-2024 Chronic Osteoarthritis (3 sources) Osteoarthritis of right glenohumeral joint; Translations: [Primary osteoarthritis, right shoulder] Onset: 12-10-2024 12-12-2024 Chronic Other circulatory disease (2 sources) History of cerebrovascular accident; Translations: [Personal history of transient ischemic attack (TIA), and cerebral infarction without residual deficits] 10-03-2023 Episodic Other nervous system disorders (2 sources) Involuntary movement; Translations: [Unspecified abnormal involuntary movements] 12-25-2024 Episodic Other screening for suspected conditions (not mental disorders or infectious disease) (4 sources) Encounter for screening for malignant neoplasm of colon; Translations: [Encounter for screening mammogram for malignant neoplasm of breast] Onset: 08-08-2024 07-13-2024 Episodic Residual codes; unclassified (1 source) Pain; Translations: [Pain, unspecified] 12-10-2024 Episodic Residual codes; unclassified (1 source) Pain, unspecified; Translations: [Pain] Onset: 12-10-2024 Episodic Residual codes; unclassified (2 sources) Altered mental status; Translations: [Altered mental status, unspecified] 12-25-2024 Episodic Skin and subcutaneous tissue infections (3 sources) Cellulitis of face; Translations: [Cellulitis of face] Onset: 07-02-2023 07-02-2023 Episodic Urinary tract infections (1 source) Urinary tract infection, site not specified; Translations: [Urinary tract infection, site not specified] Onset: 09-04-2024 Episodic Past or Other Problems Problem Classification Problem Date Documented Date Episodic/Chronic Acute cerebrovascular disease (1 source) Acute cerebrovascular disease Onset: 07-01-2023 Results Test Name Value Interpretation Reference Range Facility Absolute lymphocyte countOrd ered By: Donn Fitch on 12-25-2024 Lymphocytes Auto (Unsp spec) [#/Vol] 3.04 10*3/uL 0.83-4.51 [facility] Absolute neutrophil countOrd ered By: Donn Fitch on 12-25-2024 Neutrophils (Bld) [#/Vol] 7.0 10*3/uL 2.0-7.7 [facility] Activated partial thrombopla stin time (aPTT) in platelet poor plasma by coagulation aOrdered By: Donn Fitch on 12-25-2024 aPTT Coag (PPP) [Time] 24.5 s 24.1-36.2 [facility] Anion gap in Serum or Plasma Ordered By: Donn Fitch on 12-25-2024 Anion gap [Moles/Vol] 26 mmol/L High 5-15 [facility] Automated lymphocyte count a s percentage of total leukocytesOrdered By: Donn Fitch on 12-25-2024 Lymphocytes/100 WBC Auto (Unsp spec) 27.7 % 19-41 [facility] BUN/creatinine ratioOrdered By: Donn Fitch on 12-25-2024 Urea nitrogen/Creatinine [Mass ratio] 16.0 mg/mg 10-20 [facility] Basophil percentageOrdered B y: Donn Fitch on 12-25-2024 Basophils/100 WBC (Bld) 0.7 % 0-1 [facility] Carbon dioxide, total [Moles /volume] in Central venous bloodOrdered By: Donn Fitch on 12-25-2024 CO2 [Moles/Vol] 11.9 mmol/L Low 21.0-32.0 [facility] Chloride assayOrdered By: Garret Fitch on 12-25-2024 Chloride [Moles/Vol] 96 mmol/L Low 98-108 [facility] Eosinophil percentageOrdered By: Donn Fitch on 12-25-2024 Eosinophils/100 WBC (Bld) 1.3 % 0-5 [facility] Erythrocyte distribution wid th ratioOrdered By: Donn Fitch on 12-25-2024 Erythrocyte distribution width (RBC) [Ratio] 13.0 % 11.6-14.6 [facility] Erythrocyte distribution wid th standard deviationOrdered By: Donn Fitch on 12-25-2024 Erythrocyte distribution width (RBC) [Ratio] 45.2 fl High 35.1-43.9 [facility] Glomerular filtration rate ( GFR) estimation/1.73 sq m using serum, plasma, or whole bOrdered By: Donn Fitch on 12-25-2024 GFR/1.73 sq M.predicted among non-blacks MDRD (S/P/Bld) [Vol rate/Area] 55 mL/min/{1.73_m2} Low >60 [facility] Comment on above: mL/min/1.73m2 CKD-EP I Creatinine Equation (2020) Hematocrit Auto (Bld) [Volum e fraction]Ordered By: Donn Fitch on 12-25-2024 Hematocrit (Bld) [Volume fraction] 43.5 % 37-47 [facility] Hemoglobin measurementOrdere d By: Donn Fitch on 12-25-2024 Hemoglobin (Bld) [Mass/Vol] 14.3 g/dL 12.0-15.0 [facility] Immature granulocytes/100 WB C Auto (Bld)Ordered By: Donn Fitch on 12-25-2024 Immature granulocytes/100 WBC (Bld) 0.500 % 0.0-0.9 [facility] Comment on above: IG% - Immature Granu locytes (promyelocytes, myelocytes and metamyelocytes) > 1% indicates that a LEFT SHIFT is Present. International normalized rat io (INR) calculationOrdered By: Donn Fitch on 12-25-2024 INR Coag (Bld) [Relative time] 1.1 {INR} [facility] MCV (mean corpuscular volume ) determinationOrdered By: Donn Fitch on 12-25-2024 MCV (RBC) [Entitic vol] 95.2 fL 81-99 [facility] Mean corpuscular hemoglobin (MCH) determinationOrdered By: Donn Fitch on 12-25-2024 MCH (RBC) [Entitic mass] 31.3 pg 27.0-32.0 [facility] Mean corpuscular hemoglobin concentration (MCHC) determinationOrdered By: Donn Fitch on 12-25-2024 MCHC (RBC) [Mass/Vol] 32.9 g/dL 32-36 [facility] Mean platelet volume determi nationOrdered By: Donn Fitch on 12-25-2024 Platelet mean volume (Bld) [Entitic vol] 10.0 fL 6.2-12.0 [facility] Monocyte percentageOrdered B y: Donn Fitch on 12-25-2024 Monocytes/100 WBC (Bld) 6.3 % 0-10 [facility] Neutrophil percentageOrdered By: Donn Fitch on 12-25-2024 Neutrophils/100 WBC (Bld) 63.5 % 47-70 [facility] Nucleated red blood cell per centageOrdered By: Donn Fitch on 12-25-2024 Nucleated RBC/100 WBC (Bld) [Ratio] 0 % 0-5 [facility] Platelet countOrdered By: Garret Fitch on 12-25-2024 Platelets (Bld) [#/Vol] 313 10*3/uL 150-450 [facility] Potassium measurement (mass/ volume)Ordered By: Donn Fitch on 12-25-2024 Potassium (Unsp spec) [Mass/Vol] 4.3 mmol/L 3.3-5.1 [facility] Comment on above: Hemolysis present, R esults could be affected. Prothrombin timeOrdered By: Donn Fitch on 12-25-2024 PT Coag (PPP) [Time] 14.7 s 11.7-14.9 [facility] RBC Auto (Bld) [#/Vol]Ordere d By: Donn Fitch on 12-25-2024 RBC (Bld) [#/Vol] 4.57 10*6/uL 4.2-5.4 [facility] Serum creatinine measurement (mass/volume)Ordered By: Donn Fitch on 12-25-2024 Creatinine [Mass/Vol] 1.10 mg/dL 0.70-1.20 [facility] Serum glucose measurement (m ass/volume)Ordered By: Donn Fitch on 12-25-2024 Glucose [Mass/Vol] 128 mg/dL High 70-99 [facility] Serum or plasma calcium haris urement (mass/volume)Ordered By: Donn Fitch on 12-25-2024 Calcium [Mass/Vol] 10.0 mg/dL 7.6-11.0 [facility] Serum or plasma urea nitroge n measurement (mass/volume)Ordered By: Donn Fitch on 12-25-2024 Urea nitrogen [Mass/Vol] 18 mg/dL 4-19 [facility] Sodium levelOrdered By: Isac Fitch on 12-25-2024 Sodium [Moles/Vol] 135 mmol/L 133-145 [facility] Troponin T.cardiac [Mass/vol ume] in Serum or Plasma by High sensitivity methodOrdered By: Donn Fitch on 12-25-2024 Troponin T.cardiac High sensitivity method [Mass/Vol] 9 ng/L <14 [facility] White blood cell (WBC) count Ordered By: Donn Fitch on 12-25-2024 WBC (Bld) [#/Vol] 11.0 10*3/uL 4.4-11.0 [facility] CNOVon 12-10-2024 CNOV Office Visit (ORTHWS) KRISTA ROYAL ([id number]) 1955 F Date Time Provider Department 12/10/24 11:00 AM RACHELE OSUNA During your visit today, we recorded the following information about you: Mary Park MA 12/12/2024 6:04 PM Signed Patient presents with: Right Shoulder - New, Pain: Referred by Chaya Waddell [facility] INTAKE FLOWSHEET DATA Risk Screening Do you have concerns about personal safety or safety in the home?: No Pain Pain Level: 10 Pain Location: Shoulder-Right Description: Aching Duration Amount of Time: 6 Duration Units: Years Frequency: Continuous Intervention/Comfort measure: (injections) Patient states she is having pain in her right shoulder that started 6 years ago after using crutches when she fractured her ankle. States she is having difficulty sitting on the couch. Feels like her shoulder blade is protruding in her back. She was given a a cortisone shot by her PCP and did not help. X-rays done today. Tried taking Tylenol for the pain and does not help. Has tried biofreeze and only helps for about 10 minutes. Rachele Osuna PA-C 12/12/2024 6:04 PM Signed Rachele Osuna PA-C Department of Orthopaedics Orthopaedics [address] [facility] [address] Dept: [phone] Dept December 10, 2024 CHIEF COMPLAINT: New and Pain of the Right Shoulder (Referred by Chaya Waddell) Right Shoulder Pain: - Worsening pain and limited ROM in the right shoulder. - Pain described as awful, radiating down the entire front of the shoulder. - Difficulty performing daily activities, including hair care and vacuuming. - Unable to sleep comfortably due to pain. - Reports a visible lump on the shoulder. - Pain exacerbated by movement, especially pulling; shoulder feels like it jerks out of socket. - Two previous cortisone injections by Chaya Waddell provided no relief. - Tylenol ineffective for pain management. - History of right clavicle fracture, (AC seperation) 30 years ago. - Left-handed but uses right hand more frequently; right-hand dominant for sports. - Retired after 46 years at [employer], with a history of overhead lifting and repetitive use of the right arm. ASSESSMENT: M19.011 Glenohumeral arthritis, right (primary encounter diagnosis) PLAN: 1. Glenohumeral arthritis, right (M19.011) - Discussed the benefits of shoulder replacement surgery, including pain relief and nondenominational of a significant amount of movement. - Referred to Dr. Nolan Stanford at [facility] for consultation and potential shoulder replacement surgery. - Patient and spouse understand and agree with the treatment plan. Ms. Krista Royal was advised as to contrast therapies and/or to take analgesics/anti-infl ammatories as needed and all contraindications were reviewed. OBJECTIVE: Ms. Krista Royal is a pleasant 69 year old in no apparent distress. Gen:There were no vitals taken for this visit. nl development, non obese, no deformities ENT: Normocephalic, normal hearing, moist mucosa CV: Pulses:Radial= 2+ and symmetric, capillary refill < 2 secs, no peripheral edema/varicosities Skin: no rash, bruising or lesions. Good turgor. Psych: cooperative and appropriate, alert and oriented x 3, good mood and affect. Musculoskeletal: Right shoulder with an obvious deformity at the AC joint. Diffuse tenderness throughout the right shoulder. Passive forward elevation of about 85 degrees, passive external rotation of about 10 degrees. There is palpable crepitance of the shoulder through passive range of motion. Strength testing was not performed. Imaging: * * *Final Report* * * DATE OF EXAM: Dec 10 2024 11:23AM [id number] - XR SHLDR >/=3V AP/JOHN AP/OTHR RT / PROCEDURE REASON: Pain * * * * Physician Interpretation * * * * XR SHLDR >/=3V AP/JOHN AP/OTHR RT Ordering Physician: RACHELE OSUNA RIGHT SHOULDER RADIOGRAPHS Clinical Statement: Pain Comparison: None FINDINGS: Inferior subluxation of the acromion in relation to the distal clavicle is likely chronic. The coracoclavicular distance is not widened. There are advanced degenerative changes in the glenohumeral joint with joint space narrowing, subchondral sclerosis and prominent marginal osteophytosis. Soft tissues are unremarkable. IMPRESSION IMPRESSION: Chronic and degenerative changes. [employer] Hand Engraver: [facility] Transcribe Date/Time: Dec 12 2024 7:51A Dictated by : KRYSTAL RIVERA MD This examination was interpreted and the report reviewed and electronically signed by: KRYSTAL RIVERA MD on Dec 12 2024 7:51AM EST Supporting Subjective Information Below: Past Surgical History: PAST SURGICAL HISTORY Procedure Laterality Date LIGATE FALLOPIAN TUBE NASAL SURGERY PROCEDURE OPEN RX ANKLE DISLOCATN+FIXATN Left (more content not included)... Normal [facility] XR SHLDR >/=3V AP/JOHN AP/OTH R RTon 12-10-2024 XR SHLDR >/=3V AP/JOHN AP/OTHR RT * * *Final Report* * * DATE OF EXAM: Dec 10 2024 11:23AM [id number] - XR SHLDR >/=3V AP/JOHN AP/OTHR RT / PROCEDURE REASON: Pain * * * * Physician Interpretation * * * * XR SHLDR >/=3V AP/JOHN AP/OTHR RT Ordering Physician: RACHELE OSUNA RIGHT SHOULDER RADIOGRAPHS Clinical Statement: Pain Comparison: None FINDINGS: Inferior subluxation of the acromion in relation to the distal clavicle is likely chronic. The coracoclavicular distance is not widened. There are advanced degenerative changes in the glenohumeral joint with joint space narrowing, subchondral sclerosis and prominent marginal osteophytosis. Soft tissues are unremarkable. IMPRESSION: Chronic and degenerative changes. [employer] Hand Engraver: ISABEL Transcribe Date/Time: Dec 12 2024 7:51A Dictated by : KRYSTAL RIVERA MD This examination was interpreted and the report reviewed and electronically signed by: KRYSTAL RIVERA MD on Dec 12 2024 7:51AM EST [id number] CN Normal [facility] Urine Cultureon 08-26-2024 [facility] Presumptive E. coli [place] Count 25,000-50,000 Presumptive E. coli: REACTION Ampicillin Islt LUKE >=32 Ampicillin+Sulbac Islt LUKE 16 I Cefepime Islt LUKE <=0.12 S cefTRIAXone Islt LUKE <=0.25 S Ciprofloxacin Islt LUKE <=0.06 S B-Lactamase Extended Susc Islt NEG Gentamicin Islt LUKE >=16 R levoFLOXacin Islt LUKE <=0.12 S Meropenem Islt LUKE <=0.25 S Nitrofurantoin Islt LUKE <=16 S Pip+Tazo Islt LUKE <=4 S TMP SMX Islt LUKE >=[address] [facility] Comment on above: Performed By: #### M [id number] #### [facility] [address] [place], [address] Colonoscopy Reporton 025 Colonoscopy Report [facility] Medical Records Department [address] [place] [address] Colonoscopy Report MR#: [id number] Acct: [id number] Name: KAYLEE ROYAL Rep #: [id number] : 1955 69 From: Maxwell Castillo MD PCP: RICHARD Brown Status:REG [facility] Patient Name: Kaylee Royal Procedure Date: 08/21/2024 8:40 AM Date of : 1955 Age: 69 Procedure: Colonoscopy Indications: Screening for colorectal malignant neoplasm Providers: Maxwell Castillo MD Referring MD: Richard Brown Medicines: Monitored Anesthesia Care Patient Profile: Refer to note in patient chart for documentation of history and physical. Last Colonoscopy: none. The patient's first colonoscopy is today. Complications: No immediate complications. Estimated blood loss: None. Procedure: Pre-Anesthesia Assessment: - Prior to the procedure, a History and Physical was performed, and patient medications and allergies were reviewed. The patient's tolerance of previous anesthesia was also reviewed. The risks and benefits of the procedure and the sedation options and risks were discussed with the patient. All questions were answered, and informed consent was obtained. Prior Anticoagulants: The patient has taken no anticoagulant or antiplatelet agents. ASA Grade Assessment: II - A patient with mild systemic disease. After reviewing the risks and benefits, the patient was deemed in satisfactory condition to undergo the procedure. After I obtained informed consent, the scope was passed under direct vision. Throughout the procedure, the patient's blood pressure, pulse, and oxygen saturations were monitored continuously. The adult colonoscope was introduced through the anus and advanced to the cecum, identified by appendiceal orifice and ileocecal valve. The ileocecal valve, appendiceal orifice, and rectum were photographed. The entire colon was well visualized. The colonoscopy was performed without difficulty. The patient tolerated the procedure well. The quality of the bowel preparation was adequate. Moderate Sedation: See the other procedure note for documentation of moderate sedation with intraservice time. See the other procedure note for documentation of moderate sedation with intraservice time. Scope In: 8:49:24 AM Scope Withdrawal Time 0 hours 6 minutes 54 seconds Scope Out: 9:03:06 AM Total Procedure Duration Time 0 hours 13 minutes 42 seconds Findings: The perianal and digital rectal examinations were normal. Pertinent negatives include normal sphincter tone. Internal hemorrhoids were found during retroflexion. The hemorrhoids were mild. The exam was otherwise without abnormality on direct and retroflexion views. Impression: - Internal hemorrhoids. - The examination was otherwise normal on direct and retroflexion views. - No specimens collected. Recommendation: - Discharge patient to home (ambulatory). - High fiber diet. - Repeat colonoscopy in 10 years for screening purposes. - Return to my office PRN. - Continue present medications. Procedure Code(s): --- Professional --- 16780, Colonoscopy, flexible; diagnostic, including collection of specimen(s) by brushing or washing, when performed (separate procedure) Diagnosis Code(s): --- Professional --- K64.8, Other hemorrhoids Z12.11, Encounter for screening for malignant neoplasm of colon CPT copyright 2021 [employer]. All rights reserved. The codes documented in this report are preliminary and upon licensed occupational therapist review may be revised to meet current compliance requirements. Maxwell Castillo MD 08/21/2024 9:08:08 AM This report has been signed electronically. Number of Addenda: 0 Note Initiated On: 08/21/2024 8:40 AM 08/21/24907 Date Maxwell Castillo MD Cosigner Signature: Date (if indicated) CC: IMPORT EXPORT MANAGER-C Chaya Waddell; Dr. Maxwell Castillo MD Date Dictated: 08/21/24839 Date Transcribed: [employer] Hand Engraver: JADIEL Silva [facility] MR/POSTOP.[facility]uma 08-21-2024 MR/POSTOP.[facility] Medical Records Department [address] [place] [address] Anesthesia Postop Eval I 08/21/24909 MR#: [id number] Acct: [id number] Name: KAYLEE ROYAL Rep #: [id number] : 1955 69 From: Tyler Fitch PCP: RICHARD Brown Status:REG SDC Y Race: C Location: [place] [address] Anesthesia: Postop Eval I Current Vital Signs Temperature: 97.7 F Pulse Rate: 62 Blood Pressure: 93/56 Respiratory Rate: 16 Pulse Ox: 98 Oxygen Delivery Method: Room Air Assessment Airway patent: Yes Spontaneous unlabored respirations: Yes Mental status: Awake and Calm nausea: No Vomiting: No Anesthesia Complication: No Fluid Hydration Crystalloid volume administer (ml): 40 Total IV fluid infused: 40 Progress Note Anesthesia document: Postop Eval 1 completed: Yes 08/21/24909 Date Tyler Horn Signature: Date CC: Signed Normal [facility] MR/NOTHESCU0tu 08-21-2024 MR/POSTOPAN2 [facility] Medical Records Department [address] [place] [address] Anesthesia Postop Eval II 08/21/24 105 MR#: [id number] Acct: [id number] Name: KAYLEE ROYAL Rep #: [id number] : 1955 69 From: Tyler Fitch PCP: RICHARD Brown Status:[facility] Y Race: C Location: [place] Anesthesia Postop Eval I Sum Postop Eval Completion status Anesthesia document: Postop Eval 1 completed: Yes Anesthesia Postop Eval I Summary Anesthesia Postop Eval I Summary: Anesthesia Postop Eval I: Assessment Summary Airway patent Yes 08/21/24 09:10 [email or web address] Spontaneous unlabored Yes 08/21/24 09:10 [email or web address] respirations Mental status Awake,Calm 08/21/24 09:10 [email or web address] nausea No 08/21/24 09:10 [email or web address] Vomiting No 08/21/24 09:10 [email or web address] Anesthesia Postop Eval I: Fluid Summary Crystalloid volume administer 40 08/21/24 09:10 [email or web address] (ml) Colloids volume administered ( ml) Blood Product volume administered (ml) Total IV fluid infused 40 08/21/24 09:10 [email or web address] Anesthesia Postop Eval I: Summary Notes Anesthesia Complication No 08/21/24 09:10 [email or web address] Anesthesia Complication Comment: Post-operative progress note Anesthesia: Postop Eval II Evaluation Mental status: Awake and Calm Pain Level: 0 nausea: No Vomiting: No Complications Anesthesia Complication: No 08/21/241057 Date Tyler Horn Signature: Date CC: Signed Normal [facility] CBC W/Diff, Automatedon 07-05 Absolute Lymph 1.29 X10 3/uL Normal 0.83-4.51 [facility] Comment on above: Performed By: #### L 100.0100, L500.4100, L500.4050 #### [facility] [address] [place], [address] Absolute Neut 5.3 X10 3/uL Normal 2.0-7.7 [facility] Comment on above: Performed By: #### L 100.0100, L500.4100, L500.4050 #### [facility] [address] [place], [address] Basophils/100 WBC (Bld) 0.8 % Normal 0-1 [facility] Comment on above: Performed By: #### L 100.0100, L500.4100, L500.4050 #### [facility] [address] [place], [address] Eosinophils/100 WBC (Bld) 2.0 % Normal 0-5 [facility] Comment on above: Performed By: #### L 100.0100, L500.4100, L500.4050 #### [facility] [address] [place], [address] Erythrocyte distribution width (RBC) [Ratio] 13.5 % Normal 11.6-14.6 [facility] Comment on above: Performed By: #### L 100.0100, L500.4100, L500.4050 #### [facility] [address] [place], [address] Hematocrit (Bld) [Volume fraction] 44.2 % Normal 37-47 [facility] Comment on above: Performed By: #### L 100.0100, L500.4100, L500.4050 #### [facility] [address] [place], [address] Hemoglobin (Bld) [Mass/Vol] 14.2 g/dL Normal 12.0-15.0 [facility] Comment on above: Performed By: #### L 100.0100, L500.4100, L500.4050 #### [facility] [address] [place], [address] IG% 0.400 Normal 0.0-0.9 [facility] Comment on above: Result Comment: IG% - Immature Granulocytes (promyelocytes, myelocytes and metamyelocytes) > 1% indicates that a LEFT SHIFT is Present. Performed By: #### L 100.0100, L500.4100, L500.4050 #### [facility] [address] [place], [address] Lymphocytes/100 WBC (Bld) 18.1 % Low 19-41 [facility] Comment on above: Performed By: #### L 100.0100, L500.4100, L500.4050 #### [facility] [address] [place], [address] MCH (RBC) [Entitic mass] 30.0 pg Normal 27.0-32.0 [facility] Comment on above: Performed By: #### L 100.0100, L500.4100, L500.4050 #### [facility] [address] [place], [address] MCHC (RBC) [Mass/Vol] 32.1 g/dL Normal 32-36 [facility] Comment on above: Performed By: #### L 100.0100, L500.4100, L500.4050 #### [facility] [address] [place], [address] MCV (RBC) [Entitic vol] 93.2 fL Normal 81-99 [facility] Comment on above: Performed By: #### L 100.0100, L500.4100, L500.4050 #### [facility] [address] [place], [address] Monocytes/100 WBC (Bld) 5.2 % Normal 0-10 [facility] Comment on above: Performed By: #### L 100.0100, L500.4100, L500.4050 #### [facility] [address] [place], [address] Neutrophils/100 WBC (Bld) 73.5 % High 47-70 [facility] Comment on above: Performed By: #### L 100.0100, L500.4100, L500.4050 #### [facility] [address] [place], [address] Nucleated RBC (Bld) [#/Vol] 0 10*3/uL Normal 0-5 [facility] Comment on above: Performed By: #### L 100.0100, L500.4100, L500.4050 #### [facility] [address] [place], [address] Platelet mean volume (Bld) [Entitic vol] 10.9 fL Normal 6.2-12.0 [facility] Comment on above: Performed By: #### L 100.0100, L500.4100, L500.4050 #### [facility] [address] [place], [address] Platelets (Bld) [#/Vol] 211 10*3/uL Normal 150-450 [facility] Comment on above: Performed By: #### L 100.0100, L500.4100, L500.4050 #### [facility] [address] [place], [address] RBC (Bld) [#/Vol] 4.74 10*6/uL Normal 4.2-5.4 [facility] Comment on above: Performed By: #### L 100.0100, L500.4100, L500.4050 #### [facility] [address] [place], [address] RDW SD 46.3 fl High 35.1-43.9 [facility] Comment on above: Performed By: #### L 100.0100, L500.4100, L500.4050 #### [facility] [address] [place], [address] WBC (Bld) [#/Vol] 7.1 10*3/uL Normal 4.4-11.0 [facility] Comment on above: Performed By: #### L 100.0100, L500.4100, L500.4050 #### [facility] [address] [place], [address] Comprehensive Metabolic Prof [facility] 07-31-2024 Albumin [Mass/Vol] 4.0 g/dL Normal 3.2-5.0 [facility] Comment on above: Performed By: #### L 100.0100, L500.4100, L500.4050 #### [facility] [address] [place], [address] Albumin/Globulin [Mass ratio] 1.2 {ratio} Normal 0.9-2.4 [facility] Comment on above: Performed By: #### L 100.0100, L500.4100, L500.4050 #### [facility] [address] [place], [address] ALK P 52 U/L Normal 45-117 [facility] Comment on above: Performed By: #### L 100.0100, L500.4100, L500.4050 #### [facility] [address] [place], [address] ALT [Catalytic activity/Vol] 38 U/L Normal 13-56 [facility] Comment on above: Performed By: #### L 100.0100, L500.4100, L500.4050 #### [facility] [address] [place], [address] AST [Catalytic activity/Vol] 23 U/L Normal 15-37 [facility] Comment on above: Performed By: #### L 100.0100, L500.4100, L500.4050 #### [facility] [address] [place], [address] Bilirubin [Mass/Vol] 0.50 mg/dL Normal 0.20-1.00 [facility] Comment on above: Result Comment: For patients on eltrombopag therapy, use of Dimension [place] TBIL is not recommended. Performed By: #### L 100.0100, L500.4100, L500.4050 #### [facility] [address] [place], [address] BUN/CRE 22.6 RATIO High 10-20 [facility] Comment on above: Performed By: #### L 100.0100, L500.4100, L500.4050 #### [facility] [address] [place], [address] CA,Total 9.7 mg/dL Normal 8.5-10.1 [facility] Comment on above: Performed By: #### L 100.0100, L500.4100, L500.4050 #### [facility] [address] [place], [address] Chloride [Moles/Vol] 107 mmol/L Normal 98-107 [facility] Comment on above: Performed By: #### L 100.0100, L500.4100, L500.4050 #### [facility] [address] [place], [address] CO2 [Moles/Vol] 26.0 mmol/L Normal 21.0-32.0 [facility] Comment on above: Performed By: #### L 100.0100, L500.4100, L500.4050 #### [facility] [address] [place], [address] Creatinine [Mass/Vol] 1.06 mg/dL High 0.55-1.02 [facility] Comment on above: Result Comment: The validity of the calculated GFR GFRAA in patients over 70 years has not been determined. Clinical correlation is essential. Performed By: #### L 100.0100, L500.4100, L500.4050 #### [facility] [address] [place], [address] EST GFR - AA 67 mL/min Normal >60 [facility] Comment on above: Result Comment: Afri can [place] GFR Calc Performed By: #### L 100.0100, L500.4100, L500.4050 #### [facility] [address] [place], [address] GAP 5 Normal 5-15 [facility] Comment on above: Performed By: #### L 100.0100, L500.4100, L500.4050 #### [facility] [address] [place], [address] GFR/1.73 sq M.predicted among non-blacks MDRD (S/P/Bld) [Vol rate/Area] 55 mL/min/{1.73_m2} Low >60 [facility] Comment on above: Result Comment: Non- GFR Calc Performed By: #### L 100.0100, L500.4100, L500.4050 #### [facility] [address] [place], [address] Globulin (S) [Mass/Vol] 3.4 g/dL Normal 2.2-4.2 [facility] Comment on above: Performed By: #### L 100.0100, L500.4100, L500.4050 #### [facility] [address] [place], [address] Glucose [Mass/Vol] 100 mg/dL Normal 74-106 [facility] Comment on above: Result Comment: Fast ing Glucose result from 100 to 125 mg/dL suggests IMPAIRED HOMEOSTASIS per A.D.A. criteria. Performed By: #### L 100.0100, L500.4100, L500.4050 #### [facility] [address] [place], [address] Potassium [Moles/Vol] 4.3 mmol/L Normal 3.5-5.1 [facility] Comment on above: Performed By: #### L 100.0100, L500.4100, L500.4050 #### [facility] [address] [place], [address] Sodium [Moles/Vol] 138 mmol/L Normal 136-145 [facility] Comment on above: Performed By: #### L 100.0100, L500.4100, L500.4050 #### [facility] [address] [place], [address] T PROT 7.4 g/dL Normal 6.4-8.2 [facility] Comment on above: Performed By: #### L 100.0100, L500.4100, L500.4050 #### [facility] [address] [place], [address] Urea nitrogen [Mass/Vol] 24 mg/dL High 7-18 [facility] Comment on above: Performed By: #### L 100.0100, L500.4100, L500.4050 #### [facility] [address] [place], [address] Lipid Profileon 07-31-2024 Cholesterol [Mass/Vol] 141 mg/dL Normal 200 [facility] Comment on above: Result Comment: <200 mg/dL Desirable 200-240 mg/dL Borderline >240 mg/dL High Risk Performed By: #### L 100.0100, L500.4100, L500.4050 #### [facility] [address] [place], [address] Cholesterol in HDL [Mass/Vol] 55 mg/dL Normal [facility] Comment on above: Result Comment: The drugs N-Acetylcysteine and Metamizole may falsely depress this assay. Reference Range HDL <40 mg/dL Low HDL Cholesterol HDL >or= 60 mg/dL High HDL Cholesterol Performed By: #### L 100.0100, L500.4100, L500.4050 #### [facility] [address] [place], [address] Cholesterol in LDL [Mass/Vol] 67 mg/dL Normal 0-130 [facility] Comment on above: Performed By: #### L 100.0100, L500.4100, L500.4050 #### [facility] [address] [place], [address] Cholesterol in VLDL [Mass/Vol] 19 mg/dL Normal 5-40 [facility] Comment on above: Performed By: #### L 100.0100, L500.4100, L500.4050 #### [facility] [address] [place], [address] Triglyceride [Mass/Vol] 95 mg/dL Normal [facility] Comment on above: Result Comment: The drugs N-Acetylcysteine and Metamizole may falsely depress this assay. Serum Triglycerides Reference Interval Normal <150 mg/dL Borderline high 150 - 199 mg/dL High 200 - 499 mg/dL Very High > or = 500 mg/dL Performed By: #### L 100.0100, L500.4100, L500.4050 #### [facility] [address] [place], [place], [address] SCRN MAMM (CAD)W/ANKUSH BILATo n 07-16-2024 SCRN MAMM (CAD)W/ANKUSH BILAT [facility] Imaging Services [address] [place] [address] SCRN MAMM (CAD)W/ANKUSH BILAT MR#: [id number] Acct: [id number] Name: KAYLEE ROYAL Rep #: [id number] : 1955 F 69 From: Andriy hernandez MD PCP: RICHARD Brown Status: [facility] Study: SCRN MAMM (CAD)W/ANKUSH BILAT Date of Exam: 07/04 09/25 Exam# [id number] Ordering Dr: Chaya Waddell [id number] MAMMOGRAPHY - BILATERAL SCREENING REASON FOR EXAM: Female, 69 years old. Routine annual screening examination. PERTINENT HISTORY: Non-contributory. TECHNIQUE: Digital bilateral breast ankush (3D mammographic acquisition) in the CC and MLO projections. 2-D mediolateral oblique (MLO) and craniocaudad (CC) views of both breasts were obtained. CAD: Full Field Digital Mammography with Computer Added Detection was performed. COMPARISON: Comparison is made with prior study dated July 15, 2023. FINDINGS: Breast Composition: The breasts are heterogeneously dense, which may obscure small masses. There are no dominant masses or suspicious calcifications. Stable bilateral secretory calcifications. No other significant abnormalities are identified. There has been no significant change since the prior study. BI/SCRN MAMM (CAD)W/ANKUSH BILAT IMPRESSION: Stable bilateral screening mammogram. Yearly follow-up mammogram recommended. (A) ASSESSMENT CATEGORY: BIRADS Category 2: Benign. A letter regarding these results will be sent to the patient by the facility within 30 days. Approximately 10% of breast cancers are not detected by mammography. A normal mammogram should not delay biopsy of a clinically suspicious abnormality. [id number] Electronically Signed: Andriy Garrett MD at 15:04 EST , CC: RICHARD Waddell [employer] Hand Engraver: Signed Normal [facility] MCT-CARDIAC EVENT MONITORon 09-21-2023 MCT-CARDIAC EVENT MONITOR ?? Event monitor findings as below I had the pleasure of reviewing the 30 day event monitor on your patient Krista Royal indicated for evaluation of AF. The recording is between 07/19/2023 - 08/17/2023, with the usable monitored diagnostic time being 100% of the total time during which a total of 9 recordings were sent. 2 (auto trigger) and 7 (manual trigger) recordings were associated with no symptoms. The baseline rhythm is SR with normal [place], QRS, QT interval with a heart rate of 88/min. The additional 8 recordings displayed normal sinus rhythm at a heart rate between 48 and 166 bpm without any significant pathological ectopy except for one sustained episode of narrow complex tachycardia at 180/min. PAC burden is <1%. PVC burden is <1%. Atrial fibrillation burden is 0%. Upon review of the available tracings, I do not see any evidence of sustained atrial fibrillation, atrial flutter, sustained or nonsustained ventricular tachycardia, significant sinus pauses or high-grade AV block. Clinical correlation is required. When present, significant motion artifact coupled with a single lead vector ECG transmission reduces the accuracy of making a correct cardiac rhythm diagnosis. Feel free to contact me if you have any specific questions. Normal [facility] Absolute lymphocyte countOrd ered By: Chaya Waddell on 07-25-2023 Lymphocytes Auto (Unsp spec) [#/Vol] 1.36 10*3/uL 0.83-4.51 [facility] Automated lymphocyte count a s percentage of total leukocytesOrdered By: Chaya Waddell on 07-25-2023 Lymphocytes/100 WBC Auto (Unsp spec) 23.4 % 19-41 [facility] Basophil percentageOrdered B y: Chaya Waddell on 07-25-2023 Basophils/100 WBC (Bld) 0.9 % 0-1 [facility] Bilirubin [Mass/Vol] 0.70 mg/dL 0.20-1.00 [facility] Comment on above: For patients on eltr ombopag therapy, use of Dimension [place] TBIL is not recommended. Chloride [Moles/Vol] 108 mmol/L 98-107 [facility] Cholesterol [Mass/Vol] 146 mg/dL <200 [facility] Comment on above: <200 mg/dL Desirable 200-240 mg/dL Borderline >240 mg/dL High Risk Eosinophils/100 WBC (Bld) 2.4 % 0-5 [facility] Glucose [Mass/Vol] 122 mg/dL 74-106 [facility] Comment on above: Fasting Glucose resu lt from 100 to 125 mg/dL suggests IMPAIRED HOMEOSTASIS per A.D.A. criteria. Hemoglobin (Bld) [Mass/Vol] 14.3 g/dL 12.0-15.0 [facility] Monocytes/100 WBC (Bld) 4.6 % 0-10 [facility] Neutrophils (Bld) [#/Vol] 4.0 10*3/uL 2.0-7.7 [facility] Neutrophils/100 WBC (Bld) 68.2 % 47-70 [facility] Potassium [Moles/Vol] 4.1 mmol/L 3.5-5.1 [facility] Protein [Mass/Vol] 7.5 g/dL 6.4-8.2 [facility] Sodium [Moles/Vol] 139 mmol/L 136-145 [facility] Triglyceride [Mass/Vol] 152 mg/dL <199 [facility] Comment on above: The drugs N-Acetylcy steine and Metamizole may falsely depress this assay.Serum Triglycerides Reference Interval Normal <150 mg/dL Borderline high 150 - 199 mg/dL High 200 - 499 mg/dL Very High > or = 500 mg/dL WBC (Bld) [#/Vol] 5.8 10*3/uL 4.4-11.0 [facility] Determination of erythrocyte mean corpuscular volume (MCV)Ordered By: Chaya Waddell on 07-25-2023 MCV (RBC) [Entitic vol] 89.1 fL 81-99 [facility] Erythrocyte distribution wid th ratioOrdered By: Firsthealthgar on 07-25-2023 Erythrocyte distribution width (RBC) [Ratio] 12.8 % 11.6-14.6 [facility] Erythrocyte distribution wid th standard deviationOrdered By: Chaya Bairon on 07-25-2023 Erythrocyte distribution width (RBC) [Entitic vol] 42.0 fL 35.1-43.9 [facility] Hematocrit Auto (Bld) [Volum e fraction]Ordered By: Chayaannabelle Waddell on 07-25-2023 Hematocrit (Bld) [Volume fraction] 43.5 % 37-47 [facility] High density lipoprotein (HD L) measurementOrdered By: Chaya Waddell on 07-25-2023 Cholesterol in HDL (Body fld) [Mass/Vol] 43 mg/dL >40 [facility] Comment on above: The drugs N-Acetylcy steine and Metamizole may falsely depress this assay. Reference Range HDL <40 mg/dL Low HDL Cholesterol HDL >or= 60 mg/dL High HDL Cholesterol Immature granulocytes/100 WB C Auto (Bld)Ordered By: Chaya Waddell on 07-25-2023 Immature granulocytes/100 WBC (Bld) 0.500 % 0.0-0.9 [facility] Comment on above: IG% - Immature Granu locytes (promyelocytes, myelocytes and metamyelocytes) > 1% indicates that a LEFT SHIFT is Present. Laboratory - Chemistry and C hemistry - challengeOrdered By: Chayaannabelle Waddell on 07-25-2023 Albumin/Globulin [Mass ratio] 1.1 {ratio} 0.9-2.4 [facility] ALP [Catalytic activity/Vol] 93 U/L 45-117 [facility] ALT [Catalytic activity/Vol] 38 U/L 13-56 [facility] CO2 [Moles/Vol] 26.0 mmol/L 21.0-32.0 [facility] Globulin (S) [Mass/Vol] 3.5 g/dL 2.2-4.2 [facility] Urea nitrogen/Creatinine [Mass ratio] 14.4 mg/mg 10-20 [facility] Laboratory - Hematology and Cell countsOrdered By: Chaya Waddell on 07-25-2023 MCH (RBC) [Entitic mass] 29.3 pg 27.0-32.0 [facility] MCHC (RBC) [Mass/Vol] 32.9 g/dL 32-36 [facility] Nucleated RBC/100 WBC (Bld) [Ratio] 0 % 0-5 [facility] Platelets (Bld) [#/Vol] 258 10*3/uL 150-450 [facility] Low density lipoprotein (LDL ) cholesterol measurementOrdered By: Chaya Waddell on 07-25-2023 Cholesterol in LDL (Body fld) [Moles/Vol] 73 mg/dL 0-130 [facility] No Panel InformationOrdered By: Chaya Waddell on 07-25-2023 Estimated GFR (MDRD) Amer 74 mL/min >60 [facility] Comment on above: GFR Calc Estimated GFR (MDRD) Non-Af Amer 61 mL/min >60 [facility] Comment on above: Non- GFR Calc Platelet mean volume Jarred-Ec ker (Bld) [Entitic vol]Ordered By: Chaya Waddell on 07-25-2023 Platelet mean volume (Bld) [Entitic vol] 10.1 fL 6.2-12.0 [facility] RBC Auto (Bld) [#/Vol]Ordere d By: Chaya Waddell on 07-25-2023 RBC (Bld) [#/Vol] 4.88 10*6/uL 4.2-5.4 [facility] Serum or plasma calcium haris urement (mass/volume)Ordered By: Chaya Waddell on 07-25-2023 Calcium [Mass/Vol] 10.0 mg/dL 8.5-10.1 [facility] Serum or plasma creatinine m easurement (mass/volume)Ordered By: Chaya Waddell on 07-25-2023 Creatinine [Mass/Vol] 0.97 mg/dL 0.55-1.02 [facility] Comment on above: The validity of the calculated GFR & GFRAA in patients over 70 years has not been determined. Clinical correlation is essential. Serum or plasma urea nitroge n measurement (mass/volume)Ordered By: Chaya Waddell on 07-25-2023 Urea nitrogen [Mass/Vol] 14 mg/dL 7-18 [facility] Thin prep Papanicolaou smear with manual screeningOrdered By: Chaya Waddell on 07-25-2023 Thin prep Papanicolaou smear with manual screening 4.0 g/dL 3.2-5.0 [facility] Thin prep Papanicolaou smear with manual screening 27 U/L 15-37 [facility] Thin prep Papanicolaou smear with manual screening 5 5-15 [facility] Very low density lipoprotein (VLDL) cholesterol measurementOrdered By: Chaya Waddell on 07-25-2023 Cholesterol in VLDL Calc [Moles/Vol] 30 mg/dL 5-40 [facility] Whole blood hemoglobin A1c/t otal hemoglobin ratio (mass fraction)Ordered By: Chaya Waddell on 07-25-2023 HbA1c (Bld) [Mass fraction] 5.9 % 3.8-5.6 [facility] Comment on above: Normal < 5.7 % Predi abetic 5.7 - 6.4 % Diabetic >or= 6.5 % Please note range changes. Basic metabolic 2000 panelon 07-03-2023 Anion gap [Moles/Vol] 15 mmol/L 10 - 2 0 mmol/L [facility] Calcium [Mass/Vol] 9.2 mg/dL 8.4 - 10. 2 mg/dL [facility] Chloride [Moles/Vol] 104 mmol/L 98 - 10 8 mmol/L [facility] Creatinine [Mass/Vol] 0.78 mg/dL 0.60 - 1.20 mg/dL [facility] GFR/1.73 sq M.predicted CKD-EPI (S/P/Bld) [Vol rate/Area] 84 - PINF [facility] Comment on above: Estimated GFR was ca lculated using the 2020 CKD-EPI creatinine equation. Glucose [Mass/Vol] 113 mg/dL High 65 - 99 mg/dL [facility] HCO3 [Moles/Vol] 24 mmol/L 21 - 32 mmol/L [facility] Interpretation and review of laboratory results Abnormal [facility] Potassium [Moles/Vol] 4.2 mmol/L 3.5 - 5.1 mmol/L [facility] Sodium [Moles/Vol] 139 mmol/L 135 - 145 mmol/L [facility] Urea nitrogen [Mass/Vol] 13 mg/dL 8 - 25 mg/d L [facility] Urea nitrogen/Creatinine [Mass ratio] 16.7 mg/mg 10.0 - 20.0 [facility] has implemented the eGFR calculation approach that does not have a coefficient for race that conforms to the NKF-ASN Task Force Recommendations. [facility] CBC panel Auto (Bld)on 07-03 Erythrocyte distribution width (RBC) [Entitic vol] 13.3 % 11.6 - 14.8 % [facility] Hematocrit (Bld) [Volume fraction] 41.3 % 36.0 - 46.0 % [facility] Hemoglobin (Bld) [Mass/Vol] 14.0 g/dL 12.0 - 16.0 g/dL [facility] Interpretation and review of laboratory results Abnormal [facility] MCH (RBC) [Entitic mass] 30.0 pg 26. 0 - 34.0 pg [facility] MCHC (RBC) [Mass/Vol] 33.9 g/dL 31.0 - 37.0 g/dL [facility] MCV (RBC) [Entitic vol] 88.4 fL 80.0 - 100.0 fL [facility] Nucleated RBC (Bld) [#/Vol] 0.00 10*3/uL [facility] Nucleated RBC/100 WBC (Bld) [Ratio] 0.0 % [facility] Platelet mean volume (Bld) [Entitic vol] 9.3 fL Low 9.4 - 12.4 fL [facility] Platelets (Bld) [#/Vol] 245 10*3/uL [facility] RBC (Bld) [#/Vol] 4.67 10*6/uL [facility] WBC (Bld) [#/Vol] 7.23 10*3/uL [facility] Basic metabolic 1998 panelon 07-02-2023 Anion gap [Moles/Vol] 14 mmol/L 10 - 2 0 mmol/L [facility] Chloride [Moles/Vol] 103 mmol/L 98 - 10 8 mmol/L [facility] Creatinine [Mass/Vol] 0.71 mg/dL 0.60 - 1.20 mg/dL [facility] GFR/1.73 sq M.predicted CKD-EPI (S/P/Bld) [Vol rate/Area] 94 - PINF [facility] Comment on above: Estimated GFR was ca lculated using the 2020 CKD-EPI creatinine equation. Glucose [Mass/Vol] 124 mg/dL High 65 - 99 mg/dL [facility] HCO3 [Moles/Vol] 25 mmol/L 21 - 32 mmol/L [facility] Interpretation and review of laboratory results Abnormal [facility] Potassium [Moles/Vol] 4.4 mmol/L 3.5 - 5.1 mmol/L [facility] Sodium [Moles/Vol] 138 mmol/L 135 - 145 mmol/L [facility] Urea nitrogen [Mass/Vol] 11 mg/dL 8 - 25 mg/d L [facility] Urea nitrogen/Creatinine [Mass ratio] 15.5 mg/mg 10.0 - 20.0 [facility] has implemented the eGFR calculation approach that does not have a coefficient for race that conforms to the NKF-ASN Task Force Recommendations. [facility] Basic metabolic 2000 panelon 07-02-2023 Anion gap [Moles/Vol] 15 mmol/L 10 - 2 0 mmol/L [facility] Calcium [Mass/Vol] 9.3 mg/dL 8.4 - 10. 2 mg/dL [facility] Chloride [Moles/Vol] 104 mmol/L 98 - 10 8 mmol/L [facility] Creatinine [Mass/Vol] 0.70 mg/dL 0.60 - 1.20 mg/dL [facility] GFR/1.73 sq M.predicted CKD-EPI (S/P/Bld) [Vol rate/Area] 96 - PINF [facility] Comment on above: Estimated GFR was ca lculated using the 2020 CKD-EPI creatinine equation. Glucose [Mass/Vol] 113 mg/dL High 65 - 99 mg/dL [facility] HCO3 [Moles/Vol] 23 mmol/L 21 - 32 mmol/L [facility] Interpretation and review of laboratory results Abnormal [facility] Potassium [Moles/Vol] 4.2 mmol/L 3.5 - 5.1 mmol/L [facility] Sodium [Moles/Vol] 138 mmol/L 135 - 145 mmol/L [facility] Urea nitrogen [Mass/Vol] 11 mg/dL 8 - 25 mg/d L [facility] Urea nitrogen/Creatinine [Mass ratio] 15.7 mg/mg 10.0 - 20.0 [facility] has implemented the eGFR calculation approach that does not have a coefficient for race that conforms to the NKF-ASN Task Force Recommendations. [facility] CBC Auto Differentialon 06-05 Basophils (Bld) [#/Vol] 0.04 10*3/uL [facility] Basophils/100 WBC (Bld) 0.5 % [facility] Eosinophils (Bld) [#/Vol] 0.04 10*3/uL [facility] Eosinophils/100 WBC (Bld) 0.5 % [facility] Erythrocyte distribution width (RBC) [Entitic vol] 13.4 % 11.6 - 14.8 % [facility] Hematocrit (Bld) [Volume fraction] 40.4 % 36.0 - 46.0 % [facility] Hemoglobin (Bld) [Mass/Vol] 13.4 g/dL 12.0 - 16.0 g/dL [facility] Immature granulocytes (Bld) [#/Vol] 0.04 10*3/uL [facility] Immature granulocytes/100 WBC (Bld) 0.50 % [facility] Comment on above: The IG parameter is the percentage of metamyelocytes, myelocytes and promyelocytes. An immature granulocyte count (IG) of 1% or more suggests the possibility of infection, an IG count of 3% is very likely related to an infection. Interpretation and review of laboratory results Abnormal [facility] Lymphocytes (Bld) [#/Vol] 0.72 10*3/uL Low [facility] Lymphocytes/100 WBC (Bld) 8.7 % [facility] MCH (RBC) [Entitic mass] 29.2 pg 26. 0 - 34.0 pg [facility] MCHC (RBC) [Mass/Vol] 33.2 g/dL 31.0 - 37.0 g/dL [facility] MCV (RBC) [Entitic vol] 88.0 fL 80.0 - 100.0 fL [facility] Monocytes (Bld) [#/Vol] 0.49 10*3/uL [facility] Monocytes/100 WBC (Bld) 5.9 % [facility] Neutrophils (Bld) [#/Vol] 6.94 10*3/uL [facility] Neutrophils/100 WBC (Bld) 83.9 % [facility] Nucleated RBC (Bld) [#/Vol] 0.00 10*3/uL [facility] Nucleated RBC/100 WBC (Bld) [Ratio] 0.0 % [facility] Platelet mean volume (Bld) [Entitic vol] 9.3 fL Low 9.4 - 12.4 fL [facility] Platelets (Bld) [#/Vol] 252 10*3/uL [facility] RBC (Bld) [#/Vol] 4.59 10*6/uL [facility] WBC (Bld) [#/Vol] 8.27 10*3/uL [facility] CBC panel Auto (Bld)on 07-02 Erythrocyte distribution width (RBC) [Entitic vol] 13.4 % 11.6 - 14.8 % [facility] Hematocrit (Bld) [Volume fraction] 40.7 % 36.0 - 46.0 % [facility] Hemoglobin (Bld) [Mass/Vol] 13.6 g/dL 12.0 - 16.0 g/dL [facility] Interpretation and review of laboratory results Abnormal [facility] MCH (RBC) [Entitic mass] 29.3 pg 26. 0 - 34.0 pg [facility] MCHC (RBC) [Mass/Vol] 33.4 g/dL 31.0 - 37.0 g/dL [facility] MCV (RBC) [Entitic vol] 87.7 fL 80.0 - 100.0 fL [facility] Nucleated RBC (Bld) [#/Vol] 0.00 10*3/uL [facility] Nucleated RBC/100 WBC (Bld) [Ratio] 0.0 % [facility] Platelet mean volume (Bld) [Entitic vol] 9.3 fL Low 9.4 - 12.4 fL [facility] Platelets (Bld) [#/Vol] 253 10*3/uL [facility] RBC (Bld) [#/Vol] 4.64 10*6/uL [facility] WBC (Bld) [#/Vol] 7.80 10*3/uL [facility] CT ANGIOGRAM HEAD NECKon CT ANGIOGRAM HEAD NECK EXAMINATION: CT Head without Contrast CT Angiogram Neck with Contrast CT Angiogram Head with Contrast HISTORY: Neuro deficit, acute, stroke suspected Injury/Trauma or Illness?:Illness/Oth er How long have you had these symptoms (acute/chronic)?:Acu te COMPARISON: none TECHNIQUE: Helical CT imaging of the head was performed without IV contrast and supplemented with coronal sagittal reformations. Multiple axial images of the head and neck were obtained during the dynamic intravenous administration of contrast material according to the standard protocol. 3-D volume rendered reformations were created on an independent workstation. The amount and type of contrast are recorded in the medical record. QPP DOCUMENTATION: All internal carotid artery percent stenoses are calculated using the distal internal carotid artery diameter as the denominator (NASCET criteria). At least one of the following dose reduction techniques was utilized: Iterative reconstruction, and/or Automatic Exposure Control, and/or mA/kV adjustment based on body size. FINDINGS: CT HEAD: Infarction/Vascular: There is subtle hypoattenuation within the posteromedial right temporal lobe the and adjacent right occipital lobe. These findings are consistent with an area of evolving right STARS COORDINATOR distribution infarction. Hemorrhage: No intracranial hemorrhage. Masses: No evidence of space occupying intracranial lesions. Ventricles/CSF Spaces: The ventricles, basal cisterns, and sulci are normal for the patient's age. Skull/Scalp: No suspicious skull or scalp lesions. Paranasal Sinuses/Mastoids: There is mucosal thickening throughout the right maxillary sinus. The mastoid air cells are clear. Orbits: The orbits are unremarkable. Additional: None. CTA NECK: Aortic Arch/Great Vessels: Minimal atherosclerotic plaque along the visualized segments of the aortic arch. The brachiocephalic and subclavian arteries are patent. Right Carotid: Minimal atherosclerotic plaque at the level of the bifurcation. No significant stenosis, occlusion, or dissection throughout the common carotid, cervical internal carotid, or proximal external carotid arteries. Left Carotid: There is calcified and noncalcified atherosclerotic plaque along the left carotid bulb. This results in mild narrowing of the artery with stenosis estimated at well under 50%. Right Vertebral: Dominant. No significant stenoses, occlusions or dissections of the cervical segments of the artery. Left Vertebral: Slightly nondominant. There is severe focal stenosis of the origin. No significant stenoses, occlusions, or dissections throughout the other cervical segments. Additional Findings: There is mild pulmonary scarring within the right upper lobe of the lung. There are degenerative changes throughout the cervical spine. CTA HEAD: ICAs: There is calcified atherosclerotic plaque along the siphons. Otherwise, the petrous, cavernous, and supraclinoid segments are patent. ACAs: No significant stenoses, occlusions, or aneurysms. MCAs: No significant stenoses, occlusions, or aneurysms. steel inspector: There is occlusion of the proximal P2 segment of the right STARS COORDINATOR. The left STARS COORDINATOR is patent. Basilar: Probable fenestration within the proximal basilar artery. No significant stenoses or occlusions. Vertebral Arteries: No significant stenoses, occlusions, or aneurysms throughout the intracranial segments. Dural Venous Sinuses: Limited assessment of the dural venous sinuses demonstrates no evidence of thrombosis. Additional Findings: None. IMPRESSION: 1. 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 No evidence of hemorrhagic transformation. 2. There is occlusion of the proximal P2 segment of the right STARS COORDINATOR. 3. There is focal high-grade stenosis involving the origin of the left vertebral artery. 4. There are atherosclerotic changes noted along the carotid bulbs. Otherwise, the extracranial carotid arteries are patent. The process of contacting the ordering provider was initiated on 07/02/2023 at 4:01 a.m.. Critical results were relayed by Dr. Darius Banks to Dr. SOURAV THAPA on 07/02/2023 at 04:14. Workstation ID: [id number] Dictated by: DARIUS BANKS on Sat Jul 02, 2023 4:18:37 AM EST Transcribed by: DARIUS BANKS on Sat Jul 02, 2023 4:18:37 AM EST Finalized by: DARIUS BANKS on Sat Jul 02, 2023 4:18:37 AM EST Normal [facility] Comment on above: Order Comment: Injur y/Trauma or Illness?:Illness/Other How long have you had these symptoms (acute/chronic)?:Acute Reason for exam?:Neuro deficit, acute, stroke suspected Type of Exam?:Initial Additional signs and symptoms?:Neuro deficit, acute, stroke suspected CTA Head vessels and Neck ve ssels W contrast Gerardo 07-02-2023 1. 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 No evidence of hemorrhagic transformation. 2. There is occlusion of the proximal P2 segment of the right STARS COORDINATOR. 3. There is focal high-grade stenosis involving the origin of the left vertebral artery. 4. There are atherosclerotic changes noted along the carotid bulbs. Otherwise, the extracranial carotid arteries are patent. The process of contacting the ordering provider was initiated on 07/02/2023 at 4:01 a.m.. Critical results were relayed by Dr. Darius Banks to Dr. SOURAV THAPA on 07/02/2023 at 04:14. Workstation ID: [id number] EXAMINATION: CT Head without Contrast CT Angiogram Neck with Contrast CT Angiogram Head with Contrast HISTORY: Neuro deficit, acute, stroke suspected Injury/Trauma or Illness?:Illness/Oth er How long have you had these symptoms (acute/chronic)?:Acu te COMPARISON: none TECHNIQUE: Helical CT imaging of the head was performed without IV contrast and supplemented with coronal sagittal reformations. Multiple axial images of the head and neck were obtained during the dynamic intravenous administration of contrast material according to the standard protocol. 3-D volume rendered reformations were created on an independent workstation. The amount and type of contrast are recorded in the medical record. QPP DOCUMENTATION: All internal carotid artery percent stenoses are calculated using the distal internal carotid artery diameter as the denominator (NASCET criteria). At least one of the following dose reduction techniques was utilized: Iterative reconstruction, and/or Automatic Exposure Control, and/or mA/kV adjustment based on body size. FINDINGS: CT HEAD: Infarction/Vascular: There is subtle hypoattenuation within the posteromedial right temporal lobe the and adjacent right occipital lobe. These findings are consistent with an area of evolving right STARS COORDINATOR distribution infarction. Hemorrhage: No intracranial hemorrhage. Masses: No evidence of space occupying intracranial lesions. Ventricles/CSF Spaces: The ventricles, basal cisterns, and sulci are normal for the patient's age. Skull/Scalp: No suspicious skull or scalp lesions. Paranasal Sinuses/Mastoids: There is mucosal thickening throughout the right maxillary sinus. The mastoid air cells are clear. Orbits: The orbits are unremarkable. Additional: None. CTA NECK: Aortic Arch/Great Vessels: Minimal atherosclerotic plaque along the visualized segments of the aortic arch. The brachiocephalic and subclavian arteries are patent. Right Carotid: Minimal atherosclerotic plaque at the level of the bifurcation. No significant stenosis, occlusion, or dissection throughout the common carotid, cervical internal carotid, or proximal external carotid arteries. Left Carotid: There is calcified and noncalcified atherosclerotic plaque along the left carotid bulb. This results in mild narrowing of the artery with stenosis estimated at well under 50%. Right Vertebral: Dominant. No significant stenoses, occlusions or dissections of the cervical segments of the artery. Left Vertebral: Slightly nondominant. There is severe focal stenosis of the origin. No significant stenoses, occlusions, or dissections throughout the other cervical segments. Additional Findings: There is mild pulmonary scarring within the right upper lobe of the lung. There are degenerative changes throughout the cervical spine. CTA HEAD: ICAs: There is calcified atherosclerotic plaque along the siphons. Otherwise, the petrous, cavernous, and supraclinoid segments are patent. ACAs: No significant stenoses, occlusions, or aneurysms. MCAs: No significant stenoses, occlusions, or aneurysms. steel inspector: There is occlusion of the proximal P2 segment of the right STARS COORDINATOR. The left STARS COORDINATOR is patent. Basilar: Probable fenestration within the proximal basilar artery. No significant stenoses or occlusions. Vertebral Arteries: No significant stenoses, occlusions, or aneurysms throughout the intracranial segments. Dural Venous Sinuses: Limited assessment of the dural venous sinuses demonstrates no evidence of thrombosis. Additional Findings: None. [employer] [facility] Darius Banks MD - 07/02/2023 EXAMINATION: CT Head without Contrast CT Angiogram Neck with Contrast CT Angiogram Head with Contrast HISTORY: Neuro deficit, acute, stroke suspected Injury/Trauma or Illness?:Illness/Oth er How long have you had these symptoms (acute/chronic)?:Acu te COMPARISON: none TECHNIQUE: Helical CT imaging of the head was performed without IV contrast and supplemented with coronal sagittal reformations. Multiple axial images of the head and neck were obtained during the dynamic intravenous administration of contrast material according to the standard protocol. 3-D volume rendered reformations were created on an independent workstation. The amount and type of contrast are recorded in the medical record. QPP DOCUMENTATION: All internal carotid artery percent stenoses are calculated using the distal internal carotid artery diameter as the denominator (NASCET criteria). At least one of the following dose reduction techniques was utilized: Iterative reconstruction, and/or Automatic Exposure Control, and/or mA/kV adjustment based on body size. FINDINGS: CT HEAD: Infarction/Vascular: There is subtle hypoattenuation within the posteromedial right temporal lobe the and adjacent right occipital lobe. These findings are consistent with an area of evolving right STARS COORDINATOR distribution infarction. Hemorrhage: No intracranial hemorrhage. Masses: No evidence of space occupying intracranial lesions. Ventricles/CSF Spaces: The ventricles, basal cisterns, and sulci are normal for the patient's age. Skull/Scalp: No suspicious skull or scalp lesions. Paranasal Sinuses/Mastoids: There is mucosal thickening throughout the right maxillary sinus. The mastoid air cells are clear. Orbits: The orbits are unremarkable. Additional: None. CTA NECK: Aortic Arch/Great Vessels: Minimal atherosclerotic plaque along the visualized segments of the aortic arch. The brachiocephalic and subclavian arteries are patent. Right Carotid: Minimal atherosclerotic plaque at the level of the bifurcation. No significant stenosis, occlusion, or dissection throughout the common carotid, cervical internal carotid, or proximal external carotid arteries. Left Carotid: There is calcified and noncalcified atherosclerotic plaque along the left carotid bulb. This results in mild narrowing of the artery with stenosis estimated at well under 50%. Right Vertebral: Dominant. No significant stenoses, occlusions or dissections of the cervical segments of the artery. Left Vertebral: Slightly nondominant. There is severe focal stenosis of the origin. No significant stenoses, occlusions, or dissections throughout the other cervical segments. Additional Findings: There is mild pulmonary scarring within the right upper lobe of the lung. There are degenerative changes throughout the cervical spine. CTA HEAD: ICAs: There is calcified atherosclerotic plaque along the siphons. Otherwise, the petrous, cavernous, and supraclinoid segments are patent. ACAs: No significant stenoses, occlusions, or aneurysms. MCAs: No significant stenoses, occlusions, or aneurysms. steel inspector: There is occlusion of the proximal P2 segment of the right STARS COORDINATOR. The left STARS COORDINATOR is patent. Basilar: Probable fenestration within the proximal basilar artery. No significant stenoses or occlusions. Vertebral Arteries: No significant stenoses, occlusions, or aneurysms throughout the intracranial segments. Dural Venous Sinuses: Limited assessment of the dural venous sinuses demonstrates no evidence of thrombosis. Additional Findings: None. IMPRESSION: 1. 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 No evidence of hemorrhagic transformation. 2. There is occlusion of the proximal P2 segment of the right STARS COORDINATOR. 3. There is focal high-grade stenosis involving the origin of the left vertebral artery. 4. There are atherosclerotic changes noted along the carotid bulbs. Otherwise, the extracranial carotid arteries are patent. The process of contacting the ordering provider was initiated on 07/02/2023 at 4:01 a.m.. Critical results were relayed by Dr. Daruis Banks to Dr. SOURAV THAPA on 07/02/2023 at 04:14. Workstation ID: [id number] [facility] Radiology Study observation (narrative) [facility] CTA Head vessels and Neck ve ssels W contrast IVOrdered By: Darius Banks on 07-02-2023 [facility] Work Phone: ECG 12 Leadon 07-02-2023 Atrial Rate 84 BPM [facility] P [place] 48 degrees [facility] P-R Interval 134 ms [facility] Q-T Interval 392 ms [facility] QRS Duration 70 ms [facility] QTC Calculation (Bezet) 463 ms [facility] R [place] 42 degrees [facility] T [place] 55 degrees [facility] Ventricular Rate 84 BPM [facility] Normal sinus rhythm Confirmed by Bobo Galvez ([id number]) on 07/02/2023 5:45:59 PM MUSE [facility] HbA1c (Bld) [Mass fraction]o n 07-02-2023 Average glucose Estimated from glycated hemoglobin (Bld) [Mass/Vol] 128 mg/dL High 74 - 114 mg/dL [facility] Interpretation and review of laboratory results Abnormal [facility] Normal: 4.2% - 5.6% Increased risk for diabetes: 5.7% - 6.4% Diabetes: >= 6.5% Pediatrics: No established reference range Estimated average glucose: 74-114 mg/dL [facility] Hemoglobin A1con 07-02-2023 HbA1c (Bld) [Mass fraction] 6.1 % High 4.2 - 5.6 % [facility] Lipid 1996 panelon Cholesterol [Mass/Vol] 328 mg/dL High 100 - 199 mg/dL [facility] Cholesterol in HDL [Mass/Vol] 57 mg/dL 40 - 59 mg/dL [facility] Cholesterol in LDL [Mass/Vol] 238 mg/dL High 10 - 130 mg/dL [facility] Comment on above: National Cholesterol Education Program Guidelines: LDL Cholesterol Optimal: <100 mg/dL Near Optimal/above Optimal: 100-129 mg/dL Borderline High: 130-159 mg/dL High: 160-189 mg/dL Very High: greater than or equal to 190 mg/dL Cholesterol non HDL [Mass/Vol] 271 mg/dL [facility] Comment on above: National Cholesterol Education Program Guidelines: NON HDL Cholesterol Desirable: <130 mg/dL Borderline High: 130-159 mg/dL High: 160-189 mg/dL Very High: > or = 190 mg/dL Cholesterol.total/Choles terol in HDL [Mass ratio] 5.8 {ratio} ratio [facility] Comment on above: Female Cholesterol/H DL Ratio: Average risk: 4.4 1/2 average risk: 3.3 2 x average risk: 7.1 Interpretation and review of laboratory results Abnormal [facility] Triglyceride [Mass/Vol] 166 mg/dL High 30 - 150 mg/dL [facility] MR Brain WO and W contrast I V and MRA Brain WO contraston 07-02-2023 MRI BRAIN: 1. There is restricted diffusion identified within the right STARS COORDINATOR territory compatible with evolving acute ischemic infarct [...] with approximately 70% stenosis of the right paraclinoid/supracli noid carotid and 50% stenosis of the left. 2. There appears to be a moderate severity segmental stenosis of the left M1/M2 junction. 3. 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 4. No additional acute regional vascular abnormalities identified elsewhere in the intracranial circulation to include additional flow-limiting stenoses, occlusions, or aneurysm/vascular malformation. [facility] Workstation ID: [id number] [employer] [facility] EXAMINATION: MR/MRA BRAIN WITH AND WITHOUT CONTRAST HISTORY: ORDERING SYSTEM PROVIDED HISTORY: Stroke, follow up, TECHNOLOGIST PROVIDED HISTORY: Illness/Other Reason for exam: stroke Encounter Type: Initial Additional signs and symptoms: n/a ORDERING SYSTEM PROVIDED DIAGNOSIS CODES: I63.9 Cerebrovascular accident (CVA), unspecified mechanism (HCC) L03.211 Facial cellulitis COMPARISON: 07/02/2023 (CTA). TECHNIQUE: Noncontrast audio visual project manager images of the head were first obtained, followed by 2D and 3D MR angiography of the intracranial circulation including the [place] using sosn-hj-hdubaq techniques. Pre and postcontrast multiplanar, multisequence imaging of the entire brain was then performed. Advanced data processing and image rendering were carried out on an independent 3D workstation. Any stenosis reported is calculated using NASCET criteria with the estimated diameter of the distal normal vessel (e.g., ICA) in the denominator. CONTRAST: GADOTERATE MEGLUMINE 0.5 MMOL/ML (376.9 MG/ML) INTRAVENOUS SOLUTION - 15 mL, FINDINGS: MRI BRAIN: CALVARIUM/SKULL BASE: No focal marrow replacing lesion suggestive of neoplasm. ORBITS: Grossly unremarkable. PARANASAL SINUSES: There is mucosal thickening of the right maxillary antrum. Remaining sinuses are well aerated. BRAIN: There is restricted diffusion identified in the right STARS COORDINATOR territory compatible with evolving acute ischemic infarct with some involvement of the right posterior limb internal capsule and thalamus. There is sulcal effacement in the region without evidence of significant midline shift. No additional restricted diffusion is identified elsewhere to localize acute ischemia or cytotoxic edema otherwise. No acute intracranial hemorrhage. No hydrocephalus. There is a mild background of nonspecific white matter disease which is most commonly associated with the sequelae of chronic microvascular ischemia. No abnormal extraaxial fluid collections are identified. Midline structures to include the corpus callosum and the pituitary gland appear to be within normal limits. The flow voids of the intracranial arteries and veins at the base of the brain are maintained implying preserved antegrade flow. After the administration of contrast, there is no pathologic postcontrast enhancement identified currently to suggest abnormal breakdown of the blood brain barrier. ADDITIONAL COMMENTS: None. MRA BRAIN: ANTERIOR CIRCULATION: Skull base internal carotid arteries appear to be patent. There appear to be segmental stenoses identified at the iqpby-cezkeho-mhcn-l eft paraclinoid and supraclinoid carotid which appear flow-limiting with approximately 70% stenosis on the right and 50% stenosis on the left. This is presumably atherosclerotic in origin. The bilateral A1 segments are codominant. The bilateral anterior cerebral arteries appear to be widely patent. The middle cerebral arteries appear to be patent with no flow-limiting (greater than 50%) stenosis or occlusion. There is a short segment moderate severity stenosis identified at the left M1/M2 junction which is presumably atherosclerotic in origin. No aneurysm. No vascular malformation. POSTERIOR CIRCULATION: Evaluation of the posterior circulation demonstrates a patent appearance of the vertebral and cerebellar arteries. The basilar artery is patent in appearance. The left posterior cerebral artery appears to be patent. The right posterior cerebral artery is occluded at the P1/P2 junction. ADDITIONAL COMMENTS: None. [facility] Guillaume Nick MD - 07/02/2023 EXAMINATION: MR/MRA BRAIN WITH AND WITHOUT CONTRAST HISTORY: ORDERING SYSTEM PROVIDED HISTORY: Stroke, follow up, TECHNOLOGIST PROVIDED HISTORY: Illness/Other Reason for exam: stroke Encounter Type: Initial Additional signs and symptoms: n/a ORDERING SYSTEM PROVIDED DIAGNOSIS CODES: I63.9 Cerebrovascular accident (CVA), unspecified mechanism (HCC) L03.211 Facial cellulitis COMPARISON: 07/02/2023 (CTA). TECHNIQUE: Noncontrast audio visual project manager images of the head were first obtained, followed by 2D and 3D MR angiography of the intracranial circulation including the [place] using ynew-dh-ynmgcv techniques. Pre and postcontrast multiplanar, multisequence imaging of the entire brain was then performed. Advanced data processing and image rendering were carried out on an independent 3D workstation. Any stenosis reported is calculated using NASCET criteria with the estimated diameter of the distal normal vessel (e.g., ICA) in the denominator. CONTRAST: GADOTERATE MEGLUMINE 0.5 MMOL/ML (376.9 MG/ML) INTRAVENOUS SOLUTION - 15 mL, FINDINGS: MRI BRAIN: CALVARIUM/SKULL BASE: No focal marrow replacing lesion suggestive of neoplasm. ORBITS: Grossly unremarkable. PARANASAL SINUSES: There is mucosal thickening of the right maxillary antrum. Remaining sinuses are well aerated. BRAIN: There is restricted diffusion identified in the right STARS COORDINATOR territory compatible with evolving acute ischemic infarct with some involvement of the right posterior limb internal capsule and thalamus. There is sulcal effacement in the region without evidence of significant midline shift. No additional restricted diffusion is identified elsewhere to localize acute ischemia or cytotoxic edema otherwise. No acute intracranial hemorrhage. No hydrocephalus. There is a mild background of nonspecific white matter disease which is most commonly associated with the sequelae of chronic microvascular ischemia. No abnormal extraaxial fluid collections are identified. Midline structures to include the corpus callosum and the pituitary gland appear to be within normal limits. The flow voids of the intracranial arteries and veins at the base of the brain are maintained implying preserved antegrade flow. After the administration of contrast, there is no pathologic postcontrast enhancement identified currently to suggest abnormal breakdown of the blood brain barrier. ADDITIONAL COMMENTS: None. MRA BRAIN: ANTERIOR CIRCULATION: Skull base internal carotid arteries appear to be patent. There appear to be segmental stenoses identified at the yfweh-siiomjx-pwsk-l eft paraclinoid and supraclinoid carotid which appear flow-limiting with approximately 70% stenosis on the right and 50% stenosis on the left. This is presumably atherosclerotic in origin. The bilateral A1 segments are codominant. The bilateral anterior cerebral arteries appear to be widely patent. The middle cerebral arteries appear to be patent with no flow-limiting (greater than 50%) stenosis or occlusion. There is a short segment moderate severity stenosis identified at the left M1/M2 junction which is presumably atherosclerotic in origin. No aneurysm. No vascular malformation. POSTERIOR CIRCULATION: Evaluation of the posterior circulation demonstrates a patent appearance of the vertebral and cerebellar arteries. The basilar artery is patent in appearance. The left posterior cerebral artery appears to be patent. The right posterior cerebral artery is occluded at the P1/P2 junction. ADDITIONAL COMMENTS: None. IMPRESSION: MRI BRAIN: 1. There is restricted diffusion identified within the right STARS COORDINATOR territory compatible with evolving acute ischemic infarct [...] with approximately 70% stenosis of the right paraclinoid/supracli noid carotid and 50% stenosis of the left. 2. There appears to be a moderate severity segmental stenosis of the left M1/M2 junction. 3. 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 4. No additional acute regional vascular abnormalities identified elsewhere in the intracranial circulation to include additional flow-limiting stenoses, occlusions, or aneurysm/vascular malformation. [employer] Workstation ID: [id number] [facility] Radiology Study observation (narrative) MR Brain WO and W contrast I V and MRA Brain WO contrastOrdered By: Guillaume Nick on 07-02-2023 [facility] Work Phone: MR/MRA BRAIN WITH AND WITHOU T CONTRASTon 07-02-2023 MR/MRA BRAIN WITH AND WITHOUT CONTRAST EXAMINATION: MR/MRA BRAIN WITH AND WITHOUT CONTRAST HISTORY: ORDERING SYSTEM PROVIDED HISTORY: Stroke, follow up, TECHNOLOGIST PROVIDED HISTORY: Illness/Other Reason for exam: stroke Encounter Type: Initial Additional signs and symptoms: n/a ORDERING SYSTEM PROVIDED DIAGNOSIS CODES: I63.9 Cerebrovascular accident (CVA), unspecified mechanism (HCC) L03.211 Facial cellulitis COMPARISON: 07/02/2023 (CTA). TECHNIQUE: Noncontrast audio visual project manager images of the head were first obtained, followed by 2D and 3D MR angiography of the intracranial circulation including the [place] using oxts-ae-frldtv techniques. Pre and postcontrast multiplanar, multisequence imaging of the entire brain was then performed. Advanced data processing and image rendering were carried out on an independent 3D workstation. Any stenosis reported is calculated using NASCET criteria with the estimated diameter of the distal normal vessel (e.g., ICA) in the denominator. CONTRAST: GADOTERATE MEGLUMINE 0.5 MMOL/ML (376.9 MG/ML) INTRAVENOUS SOLUTION - 15 mL, FINDINGS: MRI BRAIN: CALVARIUM/SKULL BASE: No focal marrow replacing lesion suggestive of neoplasm. ORBITS: Grossly unremarkable. PARANASAL SINUSES: There is mucosal thickening of the right maxillary antrum. Remaining sinuses are well aerated. BRAIN: There is restricted diffusion identified in the right STARS COORDINATOR territory compatible with evolving acute ischemic infarct with some involvement of the right posterior limb internal capsule and thalamus. There is sulcal effacement in the region without evidence of significant midline shift. No additional restricted diffusion is identified elsewhere to localize acute ischemia or cytotoxic edema otherwise. No acute intracranial hemorrhage. No hydrocephalus. There is a mild background of nonspecific white matter disease which is most commonly associated with the sequelae of chronic microvascular ischemia. No abnormal extraaxial fluid collections are identified. Midline structures to include the corpus callosum and the pituitary gland appear to be within normal limits. The flow voids of the intracranial arteries and veins at the base of the brain are maintained implying preserved antegrade flow. After the administration of contrast, there is no pathologic postcontrast enhancement identified currently to suggest abnormal breakdown of the blood brain barrier. ADDITIONAL COMMENTS: None. MRA BRAIN: ANTERIOR CIRCULATION: Skull base internal carotid arteries appear to be patent. There appear to be segmental stenoses identified at the dzskn-clzljue-jqhc-l eft paraclinoid and supraclinoid carotid which appear flow-limiting with approximately 70% stenosis on the right and 50% stenosis on the left. This is presumably atherosclerotic in origin. The bilateral A1 segments are codominant. The bilateral anterior cerebral arteries appear to be widely patent. The middle cerebral arteries appear to be patent with no flow-limiting (greater than 50%) stenosis or occlusion. There is a short segment moderate severity stenosis identified at the left M1/M2 junction which is presumably atherosclerotic in origin. No aneurysm. No vascular malformation. POSTERIOR CIRCULATION: Evaluation of the posterior circulation demonstrates a patent appearance of the vertebral and cerebellar arteries. The basilar artery is patent in appearance. The left posterior cerebral artery appears to be patent. The right posterior cerebral artery is occluded at the P1/P2 junction. ADDITIONAL COMMENTS: None. IMPRESSION: MRI BRAIN: 1. There is restricted diffusion identified within the right STARS COORDINATOR territory compatible with evolving acute ischemic infarct [...] with approximately 70% stenosis of the right paraclinoid/supracli noid carotid and 50% stenosis of the left. 2. There appears to be a moderate severity segmental stenosis of the left M1/M2 junction. 3. 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 4. No additional acute regional vascular abnormalities identified elsewhere in the intracranial circulation to include additional flow-limiting stenoses, occlusions, or aneurysm/vascular malformation. LSE/[facility] Workstation ID: [id number] Dictated by: GUILLAUME NICK on Tue (more content not included)... Normal [facility] Comment on above: Order Comment: Injur y/Trauma or Illness?:Illness/Other How long have you had these symptoms (acute/chronic)?:Unknown Reason for exam?:stroke Type of Exam?:Initial Additional signs and symptoms?:n/a No Panel Informationon 07-02 Extra Tube Hold for add-ons. [facility] Comment on above: Auto resulted. [facility] Obtain VBG and performon [facility] POC Venous Blood Gases with Full PanelOrdered By: Wilma Fernandez on 07-02-2023 Base excess Calc (BldV) [Moles/Vol] 0.3 mmol/L -2.0 - 2.0 [facility] Calcium.ionized [Mass/Vol] 4.7 mg/dL 4.5 - 5.3 mg/dL [facility] Chloride [Moles/Vol] 104 mmol/L 98 - 10 8 mmol/L [facility] CO2 (BldV) [Partial pressure] 40.5 mm[Hg] Low [facility] CO2 [Moles/Vol] 25 mmol/L 21 - 32 mmol/L [facility] Creatinine [Mass/Vol] 0.71 mg/dL 0.60 - 1.20 mg/dL [facility] GFR/1.73 sq M.predicted CKD-EPI (S/P/Bld) [Vol rate/Area] 94 - PINF [facility] Comment on above: Estimated GFR was ca lculated using the 2020 CKD-EPI creatinine equation. Glucose [Mass/Vol] 113 mg/dL High 65 - 99 mg/dL [facility] Interpretation and review of laboratory results Abnormal [facility] Lactate (Bld) [Mass/Vol] 0.9 mmol/L 0.6 - 2.0 mmol/L [facility] Oxygen (BldV) [Partial pressure] 31 mm[Hg] [facility] Oxygen saturation in Venous blood 59.8 % 40.0 - 70.0 % [facility] pH (BldV) 7.40 [pH] 7.32 - 7.42 [facility] Potassium [Moles/Vol] 4.3 mmol/L 3.5 - 5.1 mmol/L [facility] Sodium [Moles/Vol] 139 mmol/L 135 - 145 mmol/L [facility] Urea nitrogen [Mass/Vol] 10 mg/dL 8 - 25 mg/d L [facility] has implemented the eGFR calculation approach that does not have a coefficient for race that conforms to the NKF-ASN Task Force Recommendations. [facility] Dewitt Topon 07-02-2023 [facility] Troponin OnceOrdered By: Latricia Bell on 07-02-2023 Interpretation and review of laboratory results Abnormal [facility] Troponin T 15 ng/L Critically high NINF - 14 ng/L [facility] Troponin T Interpretation Possible acute cardiac injury. [facility] Troponin x 2 (Now and Repeat in 3 hours)on 07-02-2023 Delta Difference Troponin T 0 ng/L < = -/+ 7 change [facility] Inter Troponin T Delta Change Probable non-acute cardiac injury or late presentation of acute injury. [facility] Interpretation and review of laboratory results Abnormal [facility] Troponin T 15 ng/L Critically high NINF - 14 ng/L [facility] Delta Difference Troponin T 0 ng/L < = -/+ 7 change [facility] Inter Troponin T Delta Change Probable non-acute cardiac injury or late presentation of acute injury. [facility] Interpretation and review of laboratory results Abnormal [facility] Troponin T 15 ng/L Critically high NINF - 14 ng/L [facility] XR MANDIBLE LESS THAN 4 VIEW S (PANOREX)on 07-02-2023 XR MANDIBLE LESS THAN 4 VIEWS (PANOREX) EXAMINATION: XR MANDIBLE LESS THAN 4 VIEWS (PANOREX) HISTORY: ORDERING SYSTEM PROVIDED HISTORY: infected tooth, TECHNOLOGIST PROVIDED HISTORY: Illness/Other Reason for exam: infected tooth Cancer History: unk Surgery, RadiationHistory: unk Encounter Type: Unknown Additional signs and symptoms: no ORDERING SYSTEM PROVIDED DIAGNOSIS CODES: I63.9 Cerebrovascular accident (CVA), unspecified mechanism (HCC) L03.211 Facial cellulitis infected tooth. COMPARISON: CTA head and neck 07/02/2023. TECHNIQUE: Panoramic view of the mandible. FINDINGS: Temporomandibular joints are maintained. Mandible is intact. Extensive postsurgical change of the maxillary and mandibular teeth. Root canal involving the right 2nd mandibular molar and left 1st mandibular molar. Dental caries is seen involving the right 1st mandibular premolar. Apical lucency/abscess is seen involving the right 2nd maxillary premolar and both left maxillary premolars. Several maxillary molars are missing. IMPRESSION: 1. Dental ashleigh involving the right mandibular 1st premolar. 2. Apical lucencies involving the right 2nd maxillary premolar and both left maxillary premolars. MPH/mll Workstation ID: [id number] Dictated by: MILDRED RICHARDS on Sat Jul 02, 2023 9:54:44 AM EST Transcribed by: CHAPIS TAMAYO on Sat Jul 02, 2023 10:01:26 AM EST Finalized by: MILDRED RICHARDS on Sat Jul 02, 2023 10:02:35 AM EST Normal [facility] Comment on above: Order Comment: Injur y/Trauma or Illness?:Illness/Other How long have you had these symptoms (acute/chronic)?:Unknown Reason for exam?:infected tooth History of cancer?:unk Surgeries, chemotherapy, or radiation?:unk Type of Exam?:Unknown Additional signs and symptoms?:no XR Mandible 4 Viewson 2022 1. Dental ashleigh involving the right mandibular 1st premolar. 2. Apical lucencies involving the right 2nd maxillary premolar and both left maxillary premolars. [facility] Workstation ID: [id number] [facility] EXAMINATION: XR MANDIBLE LESS THAN 4 VIEWS (PANOREX) HISTORY: ORDERING SYSTEM PROVIDED HISTORY: infected tooth, TECHNOLOGIST PROVIDED HISTORY: Illness/Other Reason for exam: infected tooth Cancer History: unk Surgery, RadiationHistory: unk Encounter Type: Unknown Additional signs and symptoms: no ORDERING SYSTEM PROVIDED DIAGNOSIS CODES: I63.9 Cerebrovascular accident (CVA), unspecified mechanism (HCC) L03.211 Facial cellulitis infected tooth. COMPARISON: CTA head and neck 07/02/2023. TECHNIQUE: Panoramic view of the mandible. FINDINGS: Temporomandibular joints are maintained. Mandible is intact. Extensive postsurgical change of the maxillary and mandibular teeth. Root canal involving the right 2nd mandibular molar and left 1st mandibular molar. Dental caries is seen involving the right 1st mandibular premolar. Apical lucency/abscess is seen involving the right 2nd maxillary premolar and both left maxillary premolars. Several maxillary molars are missing. [facility] Mildred Richards, DO - 07/02/2023 EXAMINATION: XR MANDIBLE LESS THAN 4 VIEWS (PANOREX) HISTORY: ORDERING SYSTEM PROVIDED HISTORY: infected tooth, TECHNOLOGIST PROVIDED HISTORY: Illness/Other Reason for exam: infected tooth Cancer History: unk Surgery, RadiationHistory: unk Encounter Type: Unknown Additional signs and symptoms: no ORDERING SYSTEM PROVIDED DIAGNOSIS CODES: I63.9 Cerebrovascular accident (CVA), unspecified mechanism (HCC) L03.211 Facial cellulitis infected tooth. COMPARISON: CTA head and neck 07/02/2023. TECHNIQUE: Panoramic view of the mandible. FINDINGS: Temporomandibular joints are maintained. Mandible is intact. Extensive postsurgical change of the maxillary and mandibular teeth. Root canal involving the right 2nd mandibular molar and left 1st mandibular molar. Dental caries is seen involving the right 1st mandibular premolar. Apical lucency/abscess is seen involving the right 2nd maxillary premolar and both left maxillary premolars. Several maxillary molars are missing. IMPRESSION: 1. Dental ashleigh involving the right mandibular 1st premolar. 2. Apical lucencies involving the right 2nd maxillary premolar and both left maxillary premolars. MPH/mll Workstation ID: [id number] [facility] Radiology Study observation (narrative) [facility] X[facility] Mandible 4 ViewsOrdered B y: Mildred Richards on 07-02-2023 [facility] Work Phone: ANKLE COMPLETE LTon 07-01-20 23 ANKLE COMPLETE LT [address] [address] Patient: KRISTA ROYAL Phone#: : 1955 Age: 68 Gender: F Pt. Type: Out Account: [id number] Location: [facility] Ordering: ZEN HATHAWAY Exam Date: 07/01/2023/16:51 Family Phys: Charge Code: 326165 Physician: [place] Order #: [id number] Dose#: PROCEDURE: X-RAY ANKLE COMPLETE LT MIN 3 VIEWS COMPARISON: None. INDICATIONS: Pain. FINDINGS: BONES: Surgical screws are present in the distal tibia and distal fibula. There is no evidence of acute bone abnormality. SOFT TISSUES: Negative. No visible soft tissue swelling. EFFUSION: None visible. OTHER: Negative. CONCLUSION: 1. There is no evidence of acute abnormality. Dictated by: Sofia Nascimento MD on 07/01/2023 at 17:04 Approved by: Sofia Nascimento MD on 07/01/2023 at 17:06 Normal [facility] CBC + DIFFon 07-01-2023 Baso # 0.10 x10EE3/UL Normal 0.00 - 0.10 [facility] Comment on above: Performed By: #### 2 [id number] #### [facility],[address] [place] [id number] Basophils/100 WBC (Bld) 0.4 % Normal 0.0 - 2.0 [facility] l [facility] Comment on above: Performed By: #### 2 [id number] #### [facility] [place] [id number] CBC + DIFF Normal [facility] Comment on above: Result Comment: CBC- COMPLETE BLOOD COUNT Performed By: #### 2 [id number] #### [facility],[address] [place] [address] 11146 EO # 0.10 x10EE3/UL Normal 0.00 - 0.50 [facility] Comment on above: Performed By: #### 2 [id number] #### [facility],[address] [place] [address] 22953 Eosinophils/100 WBC (Bld) 0.6 % Normal 0.0 - 7.0 [facility] Comment on above: Performed By: #### 2 [id number] #### [facility],[address] [place] [address] [id number] Erythrocyte distribution width (RBC) [Ratio] 13.8 % Normal 12.0 - 15.6 [facility] Comment on above: Performed By: #### 2 [id number] #### [facility],[address] [place] [address] 18028 Hematocrit (Bld) [Volume fraction] 45.5 % Normal 34.0 - 46.0 [facility] Comment on above: Performed By: #### 2 [id number] #### [facility],[address] [place] [address] 21860 Hemoglobin (Bld) [Mass/Vol] 15.0 g/dL Normal 12.0 - 16.0 [facility] Comment on above: Performed By: #### 2 [id number] #### [facility],[address] [place] [address]172 Lymph # 1.10 x10EE3/UL Normal 0.80 - 2.80 [facility] Comment on above: Performed By: #### 2 [id number] #### [facility],[address] [place] [address] 14623 Lymphocytes/100 WBC (Bld) 8.1 % Low 20.0 - 45.0 [facility] Comment on above: Performed By: #### 2 [id number] #### [facility],[address] [place] [address] MANUAL DIFF N/A Normal [facility] Comment on above: Performed By: #### 2 [id number] #### [facility],[address] [place] [address] MCH (RBC) [Entitic mass] 29 pg Normal 27 - 33 [facility] Comment on above: Performed By: #### 2 [id number] #### [facility],[address] [place] [address] MCHC 33 X10 3 Normal 32 - 36 [facility] [facility] Comment on above: Performed By: #### 2 16435 #### [facility],[address] [place] [address] MCV (RBC) [Entitic vol] 89 fL Normal 80 - 99 [facility] Comment on above: Performed By: #### 2 48033 #### [facility],[address] [place] [address] [place] # 0.60 x10EE3/UL Normal 0.20 - 1.00 [facility] Comment on above: Performed By: #### 2 77070 #### [facility],[address] [place] [address] MONOS % 4.2 % Normal 0.0 - 10.0 [facility] Comment on above: Performed By: #### 2 77436 #### [facility],[address] [place] [address] Morphology Augusto (Bld) [Interp] N/A Normal [facility] Comment on above: Result Comment: {CD] Performed By: #### 2 58880 #### [facility],[address] [place] [address] Neut # 11.50 x10EE3/UL High 1.50 - 7.10 [facility] Comment on above: Performed By: #### 2 99379 #### [facility],[address] [place] [address] 61880 Neutrophils/100 WBC (Bld) 86.7 % High 46.0 - 76.0 [facility] Comment on above: Performed By: #### 2 35298 #### [facility],[address] [place] [address] 88264 PLATELET 312 x10EE3/UL Normal 150 - 450 [facility] Comment on above: Performed By: #### 2 65181 #### [facility],[address] [place] [address] 62925 Platelet mean volume (Bld) [Entitic vol] 8.5 fL Normal 6.6 - 10.5 [facility] Comment on above: Result Comment: AUTO MATED DIFFERENTIAL Performed By: #### 2 68648 #### [facility],[address] [place] [address] 64538 RBC 5.11 x 10EE6/UL Normal 4.10 - 5.30 [facility] Comment on above: Performed By: #### 2 90736 #### [facility],[address] [place] [address] 63811 WBC 13.3 x 10EE3/UL High 4.5 - 10.8 [facility] Comment on above: Performed By: #### 2 42655 #### [facility],[address] [place] [address] 20159 CMP with eGFRon 07-01-2023 AGE 68 years Normal [facility] Comment on above: Performed By: #### 2 02022 #### [facility],[address] [place] [address] 68884 Albumin [Mass/Vol] 3.8 g/dL Normal 3.4 - 5.0 [facility] Comment on above: Performed By: #### 2 66548 #### [facility],[address] [place] [address] 03584 Albumin/Globulin [Mass ratio] 1.0 {ratio} Normal 0.9 - 1.6 [facility] Comment on above: Performed By: #### 2 84871 #### [facility],[address] [place] [address] 26864 ALK PHOS 92 U/L Normal 46 - 116 [facility] Comment on above: Performed By: #### 2 96530 #### [facility],[address] [place] [address] 86475 ALT [Catalytic activity/Vol] 28 U/L Normal 14 - 59 [facility] Comment on above: Performed By: #### 2 36931 #### [facility],[address] [place] [address] 97531 Anion gap [Moles/Vol] 18 mmol/L Normal 10 - 20 [facility] Comment on above: Performed By: #### 2 70388 #### [facility],[address] [place] [address] 53207 AST [Catalytic activity/Vol] 14 U/L Normal 13 - 39 [facility] Comment on above: Performed By: #### 2 21634 #### [facility],[address] [place] [address] 59438 B/C RATIO 17 ratio Normal 0 - 30 [facility] Comment on above: Performed By: #### 2 58128 #### [facility],[address] [place] [address] 26418 Bilirubin [Mass/Vol] 0.6 mg/dL Normal 0.2 - 1.0 [facility] Comment on above: Performed By: #### 2 06396 #### [facility],[address] [place] [address] 89960 Calcium [Mass/Vol] 10.1 mg/dL Normal 8.5 - 10.1 [facility] Comment on above: Performed By: #### 2 96628 #### [facility],[address] [place] [address] 34585 Chloride [Moles/Vol] 100 mmol/L Normal 98 - 107 [facility] Comment on above: Performed By: #### 2 08708 #### [facility],[address] [place] [address] 99772 CMP with eGFR Normal [facility] Comment on above: Result Comment: COMP REHENSIVE METABOLIC PANEL Performed By: #### 2 40279 #### [facility],[address] [place], [place] [id number] CO2 [Moles/Vol] 23.6 mmol/L Normal 21.0 - 32.0 [facility] Comment on above: Performed By: #### 2 16554 #### [place] [address] Creatinine [Mass/Vol] 0.96 mg/dL Normal 0.55 - 1.02 [facility] Comment on above: Performed By: #### 2 71335 #### [facility],[address] [place], [place] [id number] eGFR 58 ML/MINUTE Low 60 - 999 [facility] Comment on above: Performed By: #### 2 09728 #### [place] [id number] GFR/1.73 sq M.predicted among non-blacks MDRD (S/P/Bld) [Vol rate/Area] mL/min/{1.73_m2} Normal 60 - 999 [facility] Comment on above: Result Comment: ACCO RDING TO THE NATIONAL KIDNEY DISEASE EDUCATION PROGRAM(NKDE), A NORMAL eGFR IS A VALUE GREATER THAN OR EQUAL TO 60 ML/MIN/1.73 SQ METERS. CHRONIC KIDNEY DISEASE: <60mL/MIN/1.73 SQ METERS KIDNEY FAILURE: <15mL/MIN/1.73 SQ METERS THIS TEST SHOULD ONLY BE USED FOR PATIENTS 18 YEARS OF AGE AND OLDER. Performed By: #### 2 29688 #### [facility],[address] [place] [address] 92688 Globulin (S) [Mass/Vol] 4.0 g/dL High 1.5 - 3.8 [facility] Comment on above: Performed By: #### 2 01543 #### [facility],[address] [place] [address] 31849 Glucose [Mass/Vol] 157 mg/dL High 74 - 106 [facility] Comment on above: Performed By: #### 2 49638 #### [facility],[address] [place] [address] 23273 Potassium [Moles/Vol] 4.0 mmol/L Normal 3.5 - 5.1 [facility] Comment on above: Performed By: #### 2 18519 #### [facility],[address] [place] [address] 30291 Protein [Mass/Vol] 7.8 g/dL Normal 6.4 - 8.2 [facility] Comment on above: Performed By: #### 2 16772 #### [facility],[address] [place] [address] 23736 Sodium [Moles/Vol] 138 mmol/L Normal 136 - 145 [facility] Comment on above: Performed By: #### 2 68599 #### [facility],[address] [place] [address] 51638 Urea nitrogen [Mass/Vol] 16 mg/dL Normal 7 - 18 [facility] Comment on above: Performed By: #### 2 20433 #### [facility],[address] [place] [address] BRAIN W/O CONTRAST - CT BRAIN W/O CONTRAST [place] [address] Patient: KRISTA ROYAL Phone#: : 1955 Age: 68 Gender: F Pt. Type: ER Account: [id number] Location: [facility] Ordering: SOURAV JOINER Exam Date: 07/01/2023/11:23 Family Phys: Charge Code: [id number] Physician: [place] Order #: [id number] Dose#: 57.50 mGy PROCEDURE: CT BRAIN WITHOUT CONTRAST COMPARISON: None. INDICATIONS: Dizziness. TECHNIQUE: CT images were obtained without contrast material. All CT scans at this facility use dose modulation, iterative reconstruction, and/or weight based dosing when appropriate to reduce radiation dose to as low as reasonably achievable. IV CONTRAST: No IV contrast used,ml TOTAL DOSE: 57.50 CTDIvol(mGy) FINDINGS: CEREBRUM: No edema, hemorrhage, mass, or inappropriate atrophy. CEREBELLUM: No edema, hemorrhage, mass, or inappropriate atrophy. BRAINSTEM: No edema, hemorrhage, mass, or inappropriate atrophy. CSF SPACES: Ventricles, cisterns, and sulci are appropriate for age. No hydrocephalus, subarachnoid hemorrhage, or mass. SKULL: No mass or other significant visible lesion. SINUSES: Limited views demonstrate no significant mucosal thickening or fluid. ORBITS: Limited views are unremarkable. OTHER: Atherosclerotic calcifications the intracranial arteries. CONCLUSION: 1. No appreciable acute intracranial abnormality. Note: An acute ischemic event may not be initially evident on CT. Dictated by: Germain Jaime MD on 07/01/2023 at 11:56 Approved by: Germain Jaime MD on 07/01/2023 at 12:01 Normal [facility] CT CHEST (PE PROTOCOL)on CT CHEST (PE PROTOCOL) [place] [id number] Patient: KRISTA ROYAL Phone#: : 1955 Age: 68 Gender: F Pt. Type: ER Account: [id number] Location: 052 Ordering: SOURAV JOINER Exam Date: 07/01/2023/13:36 Family Phys: Charge Code: [id number] Physician: [place] Order #: [id number] Dose#: 5.90 mGy PROCEDURE: CT CHEST WITH CONTRAST FOR PE COMPARISON: None. INDICATIONS: Cough. TECHNIQUE: After obtaining the patient's consent, CT images were obtained with non-ionic intravenous contrast material. Multi-planar images were created to optimize visualization of vascular anatomy with MPR/MIPS and 3D imaging. All CT scans at this facility use dose modulation, iterative reconstruction, and/or weight based dosing when appropriate to reduce radiation dose to as low as reasonably achievable. IV CONTRAST: Omnipaque 350,100ml TOTAL DOSE: 5.90 CTDIvol(mGy) FINDINGS: Respiratory motion somewhat limits the evaluation. VASCULATURE: No pulmonary embolism in the main or proximal pulmonary arteries. Branch pulmonary arteries limited by respiratory motion AORTA: No aortic aneurysm. LUNGS: Atelectasis versus scarring in the upper lobes. Atelectasis or scarring in the lower lobes. Areas of geographic attenuation differences may be due to phase inspiration. DAVID: Normal. No mass or adenopathy. MEDIASTINUM: Calcified mediastinal lymph nodes. CARDIAC: Coronary artery calcifications. PLEURA: Normal. No mass or effusion. CHEST WALL: Normal. No mass or axillary adenopathy. LIMITED ABDOMEN: Normal. Limited images of the upper abdomen are unremarkable. BONES: Degenerative changes of the right shoulder. Schmorl's nodes multiple levels throughout the thoracic spine. OTHER: Negative. CONCLUSION: 1. No pulmonary embolism in the main or proximal pulmonary arteries. Continued Report - Page 2 of 2 Patient: KRISTA ROYAL Phone#: : 1955 Age: 68 Gender: F Pt. Type: ER Account: [id number] Location: [facility] Ordering: SOURAV JOINER Exam Date: 07/01/2023/13:36 Family Phys: Charge Code: [id number] Physician: [place] Order #: [id number] Dose#: 5.90 mGy 2. No significant focal acute pulmonary parenchymal abnormality Dictated by: Germain Jaime MD on 07/01/2023 at 14:02 Approved by: Germain Jaime MD on 07/01/2023 at 14:12 Normal [facility] CT FACIAL BONES W/CONTRASTon 07-01-2023 CT FACIAL BONES W/CONTRAST [address] [address] Patient: KRISTA ROYALRolf Phone#: : 1955 Age: 68 Gender: F Pt. Type: ER Account: [id number] Location: 052 Ordering: [facility] Exam Date: 07/01/2023/11:23 Family Phys: Charge Code: [id number] Physician: C[place] Order #: [id number] Dose#: 30.50 mGy PROCEDURE: CT FACIAL BONES WITH CONTRAST COMPARISON: None. INDICATIONS: Infection. TECHNIQUE: After obtaining the patient's consent, CT images were created with non-ionic intravenous contrast. All CT scans at this facility use dose modulation, iterative reconstruction, and/or weight based dosing when appropriate to reduce radiation dose to as low as reasonably achievable. IV CONTRAST: Omnipaque 350,50ml TOTAL DOSE: 30.50 CTDIvol(mGy) FINDINGS: Dental amalgam streak artifact limits evaluation at the involved levels. Artifact from the your piercings also somewhat limits the evaluation. FACIAL BONES: Normal. No bony lesion or fracture SINUSES: There is mucosal thickening in the ethmoid air cells. There is mucosal thickening of the right maxillary sinus. NASAL FOSSA: Mild rightward nasal septal deviation. SKULL BASE: Normal. No mass or bone destruction. ORBITS: Normal. No visible mass, hematoma, edema or fracture. CAVERNOUS SINUS: Atherosclerotic calcifications of the cavernous carotid arteries. SALIVARY GLANDS: Normal. The parotid and submandibular glands are unremarkable. OTHER: There is asymmetric soft tissue swelling and stranding in the soft tissues of the right face extending from the level of the maxilla to mandible. There is focal enhancement in the soft tissues the level of the right maxilla, there is a small amount of fluid centrally suggesting a very small abscess measuring approximately 0.2 x 0.1 cm, series 8, image 23, however this area is limited by streak artifact from dental hardware. There are periapical lucencies in the bilateral maxillary premolars and right maxillary molar. Atherosclerotic calcifications of the carotid bifurcations. CONCLUSION: Continued Report - Page 2 of 2 Patient: KRISTA ROYAL Phone#: : 1955 Age: 68 Gender: F Pt. Type: ER Account: [id number] Location: 052 Ordering: [facility] Exam Date: 07/01/2023/11:23 Family Phys: Charge Code: [id number] Physician: [place] Order #: [id number] Dose#: 30.50 mGy 1. Asymmetric right-sided soft tissue swelling and inflammation. Focal area of enhancement with central lucency may represent a very small abscess, adjacent to the right maxillary sinus. 2. Bilateral maxillary periapical lucencies. Dictated by: Germain Jaime MD on 07/01/2023 at 12:01 Approved by: Germain Jaime MD on 07/01/2023 at 12:25 Normal [facility] CV ECHO COMPLETEon CV ECHO COMPLETE [place] [address] Patient: KRISTA ROYAL Phone#: : 1955 Age: 68 Gender: F Pt. Type: Out Account: [id number] Location: [facility] Ordering: ZEN HATHAWAY Exam Date: 07/01/2023/14:53 Family Phys: Charge Code: [id number] Physician: [place] Order #: [id number] Dose#: PROCEDURE: ECHOCARDIOGRAM WITH DOPPLER AND COLOR FLOW HISTORY: Patient is 68-year-old female INDICATIONS: Cardiomyopathy COMPARISON: None. TECHNIQUE: A 2-D ultrasound, color spectral Doppler and M-mode evaluation of the heart and great vessels. PATIENT MEASUREMENTS: Height (in.): 65 BSA: 1.9 Weight (lbs.): 185 BP: 148/95 Superintendent Building: [facility] MODE 2D MEASUREMENTS AND CALCULATIONS: LVIDd: 4.2 cm LVIDs: 2.8 cm IVSd: 1.1 cm LVPWd: 1.1 cm LVOT diam: 1.7 cm FS: 25 % Ao Root diam: 2.87 cm LA diam: 3.5 cm LA Volume Index: 14.4 ml/m2 LA A4 Area: 10.65 cm2 RA A4 Area: 10.6 cm2 RVDd: 2.66 cm TAPSE: 19 mm DOPPLER MEASUREMENTS AND CALCULATIONS MITRAL MV E MAX mariah: 0.84 m/s MV A MAX mariah: 1.10 m/s MV E-A ratio: 0.76 Lat Peak E' Mariah 6 cm/sec Septal Peak E' MARIAH 7 cm/sec E/E' lateral 19 E/E' medial 11 Continued Report - Page 2 of 3 Patient: KRISTA ROYAL Phone#: : 1955 Age: 68 Gender: F Pt. Type: Out Account: [id number] Location: 010 Ordering: ZEN HATHAWAY Exam Date: 07/01/2023/14:53 Family Phys: Charge Code: [id number] Physician: [place] Order #: [id number] Dose#: AORTIC Ao V2 max: 1.46 m/s Ao max P.54 mm[Hg] LV V1 Max 1.15 m/s LV V1 Max PG 5.25 mm[Hg] PULMONIC PA V2 Max 1.03 m/s PA Max PG 4.24 mm[Hg] TRICUSPID TR Max Mariah 2.22 m/s TR max PG 19.77 mm[Hg] RVSP 23 mm Hg 2D/M-MODE AND COLOR FLOW LEFT VENTRICLE: There is mild concentric left ventricular hypertrophy. Left ventricle is normal in size. Systolic ejection fraction is 65-70%. There are no regional wall motion abnormality seen. WALL MOTION: 1 - Basal anterior: Normal. 7 - Mid anterior: Normal. 13 - Apical anterior: Normal. 2 - Basal anteroseptal: Normal. 8 - Mid anteroseptal: Normal. 14 - Apical septal: Normal. 3 - Basal inferoseptal: Normal. 9 - Mid inferoseptal: Normal. 15 - Apical inferior: Normal. 4 - Basal inferior: Normal. 10-Mid inferior: Normal. 16 - Apical lateral: Normal. 5 - Basal inferolateral: Normal. 11-Mid inferolateral: Normal. 6 - Basal anterolateral: Normal. 12-Mid anterolateral: Normal. RIGHT VENTRICLE: Right ventricle is normal in size and systolic function. LEFT ATRIUM: Left atrium is normal size. RIGHT ATRIUM: Right atrium is normal size. ATRIAL SEPTUM: There is no large interatrial shunt seen. PFO was not assessed MITRAL VALVE: There is mild mitral annular calcification seen. Posterior mitral valve leaflet appears mildly calcified. There is trivial regurgitation and no stenosis seen TRICUSPID VALVE: There is no large interatrial shunt seen. PFO was not assessed. AORTIC VALVE: Aortic valve is probably trileaflet. There is no significant regurgitation or stenosis seen PULMONIC VALVE: Pulmonic valve is inadequately visualized. Doppler shows no significant regurgitation or stenosis AORTIC ROOT: Aortic root is normal in size AORTIC ARCH: Aortic arch is normal in size. DESC THORACIC AORTA: Descending aorta is normal in size. Doppler shows normal systolic diastolic flow IVC/SVC: IVC is normal size more than 50% collapse of inspiration. Estimated right atrial pressure is 3 mm Hg PULMONARY VEINS: Normal pulmonic vein flow Continued Report - Page 3 of 3 Patient: KRISTA ROYAL Phone#: : 1955 Age: 68 Gender: F Pt. Type: Out Account: [id number] Location: 010 Ordering: ZEN YEAGERMATEUSZJerica Exam Date: 07/01/2023/14:53 Family Phys: Charge Code: [id number] Physician: [place] Order #: [id number] Dose#: PERICARDIUM: There is no pericardial effusion seen CONCLUSION: 1. There is mild concentric left ventricular hypertrophy. Left ventricle is normal size. Systolic ejection fraction is 65-70% with normal wall motion. 2. There is mild mitral annular calcification seen. Mitral valve leaflets appear normal in structure. There is trivial regurgitation and no stenosis seen 3. Aortic valve is probably trileaflet. There is no significant regurgitation or stenosis 4. Right ventricle is normal in size and systolic function. 5. Estimated right ventricular systolic pressure is 23 mm Hg Dictated by: EARNEST VARGAS MD on 07/01/2023 at 16:58 Approved by: EARNEST VARGAS MD on 07/01/2023 at 18:01 Normal [facility] TROPONIN I, HIGH SENSITIVITY on 07-01-2023 HS TROPONIN 106.5 pg/mL Critically high 0.0 - 51.4 [facility] Comment on above: Result Comment: { CA LLED TO SINA BY LMM @ 1250 { READ BACK BY SINA VASQUEZ 1250 Performed By: #### 2 [id number] #### [facility],[address] [place] [address] HS TROPONIN 123.4 pg/mL Critically high 0.0 - 51.4 [facility] Comment on above: Result Comment: { CA LLED TO DENITA BY LMM @ 1102 { READ BACK BY DENITA VASQUEZ 1100 Performed By: #### 2 78368 #### [facility],[address] [facility] [address] Vital Signs Date Time Vital Sign Value Performing Clinician Facility 12-25-2024 14:00-0400 Diastolic blood pressure 78 mm[Hg] Chaya Waddell IMPORT EXPORT MANAGER-C Work Phone: [facility] 12-25-2024 14:00-0400 Heart rate 82 /min Chayaannabelle Waddell IMPORT EXPORT MANAGER-C Work Phone: [facility] 12-25-2024 14:00-0400 Respiratory rate 14 /min Chaya Waddell IMPORT EXPORT MANAGER-C Work Phone: [facility] 12-25-2024 14:00-0400 SaO2% (BldA) [Mass fraction] 96 % Chaya Waddell IMPORT EXPORT MANAGER-C Work Phone: [facility] 12-25-2024 14:00-0400 Systolic blood pressure 145 mm[Hg] Chaya Waddell IMPORT EXPORT MANAGER-C Work Phone: [facility] 12-25-2024 13:48-0400 Body temperature 97.8 [degF] Chaya Waddell IMPORT EXPORT MANAGER-C Work Phone: [facility] 12-25-2024 12:25-0400 Body height 162.56 cm Chaya Waddell IMPORT EXPORT MANAGER-C Work Phone: [facility] 12-25-2024 12:25-0400 Body mass index (BMI) [Ratio] 23.1 kg/m2 Chaya Waddell IMPORT EXPORT MANAGER-C Work Phone: [facility] 12-25-2024 12:25-0400 Body weight 61 kg Chaya Waddell IMPORT EXPORT MANAGER-C Work Phone: [facility] 05-18-2024 10:33-0500 Diastolic blood pressure 81 mm[Hg] Josesito Pollack MD Work Phone: [facility] 05-18-2024 10:33-0500 Systolic blood pressure 164 mm[Hg] Josesito Pollack MD Work Phone: [facility] 05-18-2024 10:06-0500 Heart rate 82 /min Josesito Pollack MD Work Phone: [facility] 05-18-2024 10:06-0500 Respiratory rate 18 /min Josesito Pollack MD Work Phone: [facility] 05-18-2024 10:06-0500 SaO2% (BldA) [Mass fraction] 98 % Josesito Pollack MD Work Phone: [facility] 10-03-2023 16:16-0400 Diastolic blood pressure 103 mm[Hg] Josesito Pollack MD Work Phone: [facility] Comment on above: pt checks BP daily. BP this morning 120/ 71 10-03-2023 16:16-0400 Systolic blood pressure 159 mm[Hg] Josesito Pollack MD Work Phone: [facility] Comment on above: pt checks BP daily. BP this morning 120/ 71 10-03-2023 15:12-0400 Body mass index (BMI) [Ratio] 24.07 kg/m2 Josesito Pollack MD Work Phone: [facility] 10-03-2023 15:12-0400 Body weight 63.59 kg Josesito Pollack MD Work Phone: [facility] 10-03-2023 15:12-0400 Heart rate 86 /min Josesito Pollack MD Work Phone: [facility] 07-12-2023 10:57-0500 Diastolic blood pressure 84 mm[Hg] Josesito Pollack MD Work Phone: [facility] 07-12-2023 10:57-0500 Heart rate 80 /min Josesito Pollack MD Work Phone: [facility] 07-12-2023 10:57-0500 SaO2% (BldA) [Mass fraction] 98 % Josesito Pollack MD Work Phone: [facility] 07-12-2023 10:57-0500 Systolic blood pressure 146 mm[Hg] Josesito Pollack MD Work Phone: [facility] 07-04-2023 11:51-0500 Body temperature 98.2 [degF] Yelena Reeder DO Work Phone: [facility] 07-04-2023 11:51-0500 Diastolic blood pressure 74 mm[Hg] Yelena Reeder DO Work Phone: [facility] 07-04-2023 11:51-0500 Heart rate 78 /min Yelena Reeder DO Work Phone: [facility] 07-04-2023 11:51-0500 SaO2% (BldA) [Mass fraction] 98 % Yelena Reeder DO Work Phone: [facility] 07-04-2023 11:51-0500 Systolic blood pressure 146 mm[Hg] Yelena Reeder DO Work Phone: [facility] 07-04-2023 06:14-0500 Respiratory rate 16 /min Yelena Reeder DO Work Phone: [facility] 07-02-2023 03:10-0500 Body height 162.6 cm Yelena Reeder DO Work Phone: [facility] 07-02-2023 03:10-0500 Body mass index (BMI) [Ratio] 27.46 kg/m2 Yelena Reeder DO Work Phone: [facility] 07-02-2023 03:10-0500 Body weight 72.58 kg Yelena Reeder DO Work Phone: [facility] Encounters Encounter Date Encounter Type Care Provider Facility Start: 12-25-2024 Evaluation and management of inpatient Dr. Yadira Costello MD -Progressive Care Unit Work Phone: Start: 12-10-2024 End: 12-10-2024 ambulatory CHAYA WADDELL Facility:[facility] Start: 12-10-2024 End: 12-10-2024 Patient encounter procedure Rachele Osuna PA-C Work Phone: Orthopaedics Comment on above: Glenohumeral arthrit is, right (Primary Dx) Start: 12-10-2024 ambulatory RACHELE OSUNA Facilit y:[facility] Start: 12-10-2024 End: 12-10-2024 Subsequent hospital visit by physician Markus [facility] Vincenzo Tanner Work Phone: Radiology Comment on above: Pain [R52] Start: 08-24-2024 End: 08-24-2024 ambulatory [facility] Facility:[facility] Start: 08-21-2024 ambulatory Maxwell Malini Joshuacecilia Facility :[facility] Start: 08-21-2024 End: 08-21-2024 ambulatory [facility] Facility:[facility] Start: 07-31-2024 End: 07-31-2024 ambulatory [facility] Facility:[facility] Start: 07-16-2024 End: 07-16-2024 ambulatory [facility] Facility:[facility] Start: 07-13-2024 ambulatory [facility] Facility:[facility] Start: 05-18-2024 End: 05-18-2024 Office outpatient visit 25 minutes Josesito Pollack MD Work Phone: [facility] Comment on above: H/O ischemic right P CA stroke (Primary Dx) Start: 05-18-2024 End: 05-18-2024 ambulatory [facility] Start: 10-03-2023 End: 10-03-2023 Office outpatient visit 40 minutes Josesito Pollack MD Work Phone: [facility] Comment on above: Acute ischemic right STARS COORDINATOR stroke (HCC) (Primary Dx); H/O ischemic right STARS COORDINATOR stroke Start: 10-03-2023 End: 10-03-2023 ambulatory JOSESITO POLLACK [facility] Start: 08-23-2023 End: 08-24-2023 ambulatory PROVIDER NOT IN SYSTEM [facility] Start: 07-25-2023 End: 07-25-[address] [facility] Work Phone: Start: 07-25-2023 End: 07-25-[address] [facility] Work Phone: Start: 07-15-2023 End: 07-15-[address] [facility] Work Phone: Start: 07-15-2023 End: 07-15-[address] [facility] Work Phone: Start: 07-13-2023 End: 07-14-2023 ambulatory ALETA HUDSON [facility] Start: 07-12-2023 Documentation procedure [place] Dashawn cisneros CMA [facility] Start: 07-12-2023 End: 07-12-2023 Office outpatient new 60 minutes Josesito Pollack MD Work Phone: [facility] Comment on above: Acute ischemic right STARS COORDINATOR stroke (HCC) (Primary Dx) Start: 07-12-2023 End: 07-12-2023 ambulatory JOSESITO POLLACK [facility] Start: 07-05-2023 Orders Only Aleta de león MD Work Phone: [facility] Comment on above: Atrial fibrillation, unspecified type (HCC) (Primary Dx) Start: 07-02-2023 End: 07-04-2023 [facility] Start: 07-02-[address] HERNÁN PENA MD Facility:A Start: 07-02-2023 End: 07-04-2023 Evaluation and management of inpatient Sourav Thapa MD Work Phone: [facility] Emergency Department Start: 07-01-2023 Telephone encounter Carl mcmanus DO Work Phone: [facility] Start: 07-01-2023 End: 07-02-2023 [facility] Procedures Date Procedure Procedure Detail Performing Clinician Start: 12-25-2024 Estimated creatinine clearance Chaya Waddell IMPORT EXPORT MANAGER-C Work Phone: Start: 12-25-2024 CT angiography of he ad and neck Chaya Waddell IMPORT EXPORT MANAGER-C Work Phone: Start: 12-25-2024 CT of head without contrast Chaya Waddell IMPORT EXPORT MANAGER-C Work Phone: Start: 12-25-2024 X-ray of chest, PA a nd lateral views Chaya Waddell IMPORT EXPORT MANAGER-C Work Phone: Start: 10-03-2023 Adult depression scr eening assessment Josesito Pollack MD Work Phone: Start: 08-23-2023 Mammography Josesito russell MD Work Phone: Start: 07-15-2023 Screening mammography Start: 07-03-2023 End: 07-03-2023 Basic metabolic panel calcium total Kelli Staton IT TEACHER Work Phone: Start: 07-02-2023 Assay of troponin quantitative Maday Conti MD Work Phone: Start: 07-02-2023 Mri brain brain stem w/o w/contrast material Sourav Thapa MD Work Phone: Start: 07-02-2023 Assay of troponin quantitative Maday Conti MD Work Phone: Start: 07-02-2023 Ecg routine ecg w/le ast 12 lds trcg only w/o i&r Maday Conti MD Work Phone: Start: 07-02-2023 Orthopantogram Maday Conti MD Work Phone: Start: 07-02-2023 Basic metabolic pane l calcium total Kelli Staton IT TEACHER Work Phone: Start: 07-02-2023 Lipid panel Kelli Roy IT TEACHER Work Phone: Start: 07-02-2023 End: 07-02-2023 Blood count complete auto&auto difrntl wbc Sourav Thapa MD Work Phone: Start: 07-02-2023 HALL TOP Sourav Thapa MD Work Phone: Start: 07-02-2023 LIGHT BLUE TOP Sourav Thapa MD Work Phone: Start: 07-02-2023 LIGHT GREEN TOP Sourav Thapa MD Work Phone: Start: 07-02-2023 OBTAIN VENOUS BLOOD GASES AND PERFORM Sourav Thapa MD Work Phone: Start: 07-02-2023 PINK TOP Sourav Thapa MD Work Phone: Start: 07-02-2023 RAINBOW DRAW Sourav Thapa MD Work Phone: Start: 07-02-2023 Ct angiography head w/contrast/noncontrast Sourav Thapa MD Work Phone: Start: 07-02-2023 Lipid 1996 panel - S kiya or Plasma Xr Mob Work Phone: Plan of Treatment Date Care Activity Detail Author Start: 2032 Respiratory Syncytia l Virus Immunization: Risk, 60-74 Risk, or 75+ (1 - 1-dose 75+ series) Respiratory Syncytial Virus Immunization: Risk, 60-74 Risk, or 75+ (1 - 1-dose 75+ series) [facility] Start: 2032 RSV Vaccine (1 - 1-d ose 75+ series) RSV Vaccine (1 - 1-dose 75+ series) [facility] Start: 07-02-2028 Lipid panel Lipid Screening [facility] Start: 07-03-2026 Diabetes Screening Diabetes Screenin g [facility] Start: 03-04-2025 Influenza vaccination Influenz a Vaccine (Season Ended) [facility] Start: 01-25-2025 End: 01-25-2025 Patient encounter procedure 01/25/2025 9:30 AM EDT Office Visit Orthopedics [address] [facility] [address] [place] [address] Nolan Stanford MD [address] [facility] [facility] [address] [place], [place] [address] : Glenohumeral arthritis, right [M19.011] Orthopedics Comment on above: : Glenohumeral arthr itis, right [M19.011] Start: 12-25-2024 End: 12-25-2024 [facility] Start: 12-25-[address] [facility] Start: 12-25-2024 Verification routine [facility] Start: 12-25-2024 Hospital admission, emergency, from emergency room, medical nature [facility] Start: 12-25-2024 Urinalysis complete panel - Urine [facility] Start: 12-25-[address] [facility] Start: 12-25-2024 [facility] Start: 10-02-2024 Depression screening using PHQ-9 (Patient Health Questionnaire 9) score [facility] Start: 08-23-2024 Screening for malign ant neoplasm of breast Mammogram [facility] Start: 07-04-2024 Advance Directive Discussion Advance Directive Discussion [facility] Start: 07-04-2024 Medicare Advantage Annual Wellness Visit Medicare Advantage Annual Wellness Visit [facility] Start: 03-04-2024 COVID-19 Vaccine () COVID-19 Vaccine () [facility] Start: 03-04-2024 Influenza vaccination [facility] Start: 07-12-2023 End: 07-12-2023 Patient encounter procedure 07/12/2023 11:00 AM EST Office Visit [facility] [address] [place] [address] Medical Office Building, 2nd [place] [address] Josesito Pollack MD [address] [address] [facility] Start: 07-06-2023 End: 09-02-2024 [facility]- Mobile Cardiac Telemetry [facility] Cardiac Services Routine Atrial fibrillation, unspecified type (HCC) Expected: 07/06/2023 (Approximate), Expires: 09/02/2024 [facility] Work Phone: Comment on above: Expected: 07/06/2023 (Approximate), Expires: 09/02/2024 Start: 03-04-2023 COVID-19 Vaccine () COVID-19 Vaccine () [facility] Start: 03-04-2023 Influenza vaccination [facility] Start: 11-01-2022 Welcome to Medicare Visit (G0402) Welcome to Medicare Visit (G0402) [facility] Start: 2022 Fall risk assessment Falls Risk Asse ssment [facility] Start: 2022 Pneumococcal vaccination Pneum ococcal Vaccine(s) (65+ yrs) (1 of 1 - PCV) [facility] Start: 2022 Pneumococcal Vaccine : Age 65+ (1 - PCV) Pneumococcal Vaccine: Age 65+ (1 - PCV) [facility] Start: 2022 Pneumococcal Vaccine : Age 65+ (1 of 1 - PCV) Pneumococcal Vaccine: Age 65+ (1 of 1 - PCV) [facility] Start: 2022 Screening for osteoporosis [facility] Start: 2017 RSV vaccine (optiona l 60+ years) RSV vaccine (optional 60+ years) [facility] Start: 2007 Administration of he rpes zoster vaccine Zoster Vaccines (1 of 2) [facility] Start: 2007 Pneumococcal Vaccine : 50+ (1 of 1 - PCV) Pneumococcal Vaccine: 50+ (1 of 1 - PCV) [facility] Start: 2007 Screening for malign ant neoplasm of colon Flexible sigmoidoscopy [facility] Start: 2007 Shingles (RZV) Vacci ne (1 of 2) Shingles (RZV) Vaccine (1 of 2) [facility] Start: 2007 Shingrix Vaccine (1 of 2) Shingrix Vaccine (1 of 2) [facility] Start: 2002 Cholesterol [Mass/volume] in Serum or Plasma Cholesterol [facility] Start: 2002 Screening for malign ant neoplasm of colon [facility] Start: 1997 Screening for malign ant neoplasm of breast [facility] Start: 1976 Urine microalbumin profile DTaP,Tdap,Td Vaccine (1 - Tdap) [facility] Start: 1975 Anxiety Screening Anxiety Screening [facility] Start: 1975 Depression Screening Depression Scre ening [facility] Start: 1975 [facility]: 1975 Tetanus + diphtheria + acellular pertussis vaccine (product) Tdap [facility] Start: 1969 Depression screening using PHQ-9 (Patient Health Questionnaire 9) score Depression Screening (PHQ-2/9) [facility] Start: 1960 History and physical examination, annual for health maintenance Wellness Visit [facility] Start: 1960 Medicare Wellness Visit Medicare Wel lness Visit [facility] Start: 1957 COVID-19 Vaccine (#1) COVID-19 Vacci ne (#1) [facility] Start: 1957 Screening for malign ant neoplasm of colon [facility] Start: 1957 Screening for osteoporosis Dexa Scan [facility] Start: 1957 Tetanus vaccination Tetanus: Every 1 0yrs [facility] Amphetamines [Presen ce] in Urine by Screen method >1000 ng/mL [facility] Benzodiazepine measurement, urine [facility] Cocaine measurement, urine [facility] fentaNYL [Presence] in Urine by Screen method [facility] Hemoglobin A1c/Hemoglobin.total in Blood [facility] Lactic acid measurement [facility] Methadone measuremen t, urine [facility] Patient referral [facility] Work Phone: Phencyclidine [Prese nce] in Urine [facility] Troponin T.cardiac [Mass/volume] in Serum or Plasma by High sensitivity method [facility] Troponin T.cardiac [Mass/volume] in Serum or Plasma by High sensitivity method [facility] Urine cannabinoid measurement [facility] Urine opiate measurement [facility] XR Shoulder - right 3 Views XR SHOULDER GENERAL 3V OR MORE AP/TRUE AP/OTHER RIGHT Radiology Routine Pain 12/10/2024 11:23 AM EDT [facility] Work Phone: Payers Date Payer Category Payer Self-pay 2023 Medicare (Managed Care) [employer] [id number] 2023 Medicare [id number] 2022 Medicare [id number] 2022 Medicare PPO [employer] MEDICARE P WILLIAM (PPO) [id number] 2022 Medicare [id number] 2006 Unknown ANTHEM [id number] 1957 Unknown [id number] 2.16.840.1.743356.3.579.2. 651 1957 Unknown [id number] 2.16.840.1.284420.3.579.2. 627 1957 Unknown [id number] 2.16.840.1.774711.3.579.2. 902 1957 Unknown [id number] 2.16.840.1.991616.3.579.2. 900 1957 Unknown [id number] 2.16.840.1.473893.3.579.2. 900 1957 Unknown [id number] 2.16.840.1.183328.3.579.2. 900 1957 Unknown [id number] 2.16.840.1.704864.3.579.2. 900 1957 Unknown [id number] 2.16.840.1.303825.3.579.2. 900 1957 Unknown [id number] 2.16.840.1.877126.3.579.2. 900 1957 Unknown [id number] 2.16.840.1.317837.3.579.2. 900 1957 Unknown [id number] 2.16.840.1.977973.3.579.2. 903 1957 Unknown [id number] 2.16.840.1.861592.3.579.2. 903 1957 Unknown [id number] 2.16.840.1.115696.3.579.2. 903 Medicare [id number] Private Health Insurance AETNA [facility] [id number] Unknown [id number] 2.16.840.1.521354.3.579.2. 462 Unknown [id number] 2.16.840.1.889852.3.579.2. 462 Unknown [id number] 2.16.840.1.091011.3.579.2. 462 Unknown [id number] 2.16.840.1.062323.3.579.2. 462 Unknown [id number] 2.16.840.1.074189.3.579.2. 462 Unknown [id number] 2.16.840.1.806120.3.579.2. 462 Social History Date Type Detail Facility Tobacco smoking stat [facility] Tobacco smoking consumption unknown [facility] Work Phone: Start: 1955 [facility] Start: 07-02-2023 End: 12-10-2024 [facility] Start: 07-02-2023 End: 12-25-2024 Tobacco smoking status NHIS Never smoked tobacco [facility] Start: 07-02-2023 End: 12-10-2024 Tobacco use and exposure Smokeless tobacco non-user [facility] Start: 07-02-2023 End: 12-10-2024 Alcohol intake Current drinker of alcohol (finding) [facility] Start: 07-02-2023 End: 12-10-2024 Alcohol intake [facility] Start: 1955 Sex Assigned At Female W [facility] Adult [facility] Start: 12-10-2024 Alcohol Comment socially [facility] Mental Status Date Assessment Result Facility 12-25-2024 Cognitive function Voice/Name [facility] Work Phone: Clinical Notes 07-02-2023 to 12-25-2024 Note Date & Type Note Facility 12-25-2024 Discharge summary Note Date/Time December 25, 2024 1:37pm [facility] Medical Records Department [address] [place] [address] Emergency Department Summary 12/25/24 MR#: [id number] Acct: [id number] Name: KAYLEE ROYAL Rep #:[id number] : 1955 69 From: Donn Fitch DO PCP: RICHARD Brown Status:REG ER Location: ED ADDENDUM by Dr. Donn Fitch DO on 12/25/[address] Byrd 12/25/24 1336<Electronically signed by Donn Fitch DO> Cosigner Signature (if applicable): cc: IMPORT EXPORT MANAGER-C Chaya Waddell ~* Signed HPI History of Present Illness Chief Complaint: Stroke Alert Narrative Narrative: Patient is a 69-year-old female with past medical history of CVA, hypercholesteremia, hypertension who presents to the emergency department via EMS as a prehospital stroke alert. According to EMS patient and were driving down the road when she started looking into her left and behind the car and not responding to him. He states that then she went unresponsive he pulled over called EMS. When they arrived EMS noted that she was not fully responding to them and noted that when they started putting IVs and she became a little bitmore responsive and opened her eyes. According to them she was not saying wordsand not following commands and route. When they arrived here and were coming [facility] she became combative with him. They deny a history of seizures denied any history of shaking today. [facility] Medical History Wears glasses Alcohol use Arthritis High cholesterol Back pain Heartburn PONV (postoperative nausea and vomiting) Non-smoker Hemiplegia and hemiparesis following cerebral infarction affecting left non-dominant side CVA (cerebral vascular accident) HTN (hypertension) Home Medications ?Medication ?Instructions ?Recorded ?Last Taken ?Type aspirin 81 mg tablet,delayed 81 mg PO QDAY 07/13/24 History release (Adult Low Dose Aspirin) lisinopril 5 mg tablet 5 mg PO QDAY 07/13/24 History meloxicam 15 mg tablet 15 mg PO QDAY 07/13/2408/19 History ezetimibe 10 mg tablet 10 mg PO DAILY 12/25/24 Unkn own History Allergy/AdvReac Type Severity Reaction Status Date / Time codeine AdvReac Jitters Verified 08/21/24 07:07 Dressing: Non-Medicated AdvReac Rash Verified 08/21/24 07:07 (band aids) Surgical History History of tubal ligation History of nasal surgery History of ankle surgery Social History household members: spouse and children current occupational status: retired Smoking Status: Never smoker alcohol intake: current alcohol intake frequency: holidays/special occasions only substance use type: does not use ROS ROS ED ROS Narrative Constitutional: [ ] Eyes: [ ] Cardiovascular: [ ] Respiratory: [ ] Abdomen: [ ] : [ ] Neurological: [ ] Musculoskeletal: [ ] Skin: [ ] EXAM Physical Exam Narrative Exam Narrative: General: Patient is lying on the cot in the hallway resting comfortably did not appear to be acute distress Head: Atraumatic, normocephalic Eyes: PERRL bilaterally, EOMI bladder, no conjunctival injection noted Neck: Soft, supple, trachea midline Cardiovascular: Patient tachycardic with regular rhythm Respiratory: Clear to auscultation bilaterally Abdomen: Soft, nondistended, tender to palpation Extremities: +5/5 strength noted in the bilateral lower extremities, left upper extremity, +4/5 strength noted in the right upper extremity, radial pulses +2/4 in the bilateral extremities Neurological: Patient following commands, closed her eyes when told to was able to lift each extremity up off the cot. NIH of 0 GCS 15 Skin: Warm, dry, tact no rashes or lesions noted Const Vital Signs: 12/25/24 12:19 12/25/24 12:20 12/25/24 12:25 Temperature 98.6 F 98.1 F Temperature Source Oral Temporal Pulse Rate 92 104 H Respiratory Rate 16 18 Blood Pressure 134/67 H 144/77 H Blood Pressure Mean 89 99 Pulse Ox 98 96 Oxygen Delivery Method Room Air Room Air Room Air 12/25/24 12:25 12/25/24 12:27 12/25/24 13:18 Temperature 98.6 F Temperature Source Oral Pulse Rate 104 H 104 H 72 Respiratory Rate 18 18 16 Blood Pressure 144/74 H 144/74 H 131/81 H Blood Pressure Mean 97 97 97 Pulse Ox 96 96 93 Oxygen Delivery Method Room Air Room Air Room Air MDM MDM MDM Narrative Medical decision making narrative: Patient is a 69-year-old female who presented to the emergency department via EMS prehospital stroke alert. On the differential diagnosis includes but not limited to intracranial hemorrhage, TIA, ischemic stroke, electrolyte abnormality, hypoglycemia although per EMS her glucose was normal, cardiac arrhythmia. Once workup is obtained reviewed she will be reevaluated Patient is not a tenecteplase candidate as her symptoms have significantly proved upon her arrival to the emergency department. Patient CBC was reviewed and showed no evidence leukocytosis white blood count normal 11,000, hemoglobin is 14.3, platelet count normal at 313. Patient's INR normal at 1.1, PT of 14.7. Patient sodium is 135, potassium normal at 4.3, patient's anion gap was noted to be 26 with a CO2 of 11.9. Patient's glucose of128. Patient's troponin was 9, EKG reviewed showed sinus rhythm with a rate of 86 bpm. Patient chest x-ray reviewed by myself and by radiology showed no acutecardiopulmonary processes there was moderate degenerative changes of the visualized spine with a partially calcified aorta noted. Patient's CT brain reviewed which showed finding suggestive of possible subacute infarct in the region of the hippocampus of the right temporal lobe old ischemic change in the medial aspect of the right occipital lobe. Patient CTA head and neck was reviewed and showed high-grade stenosis at the origin of the left internal carotid artery. Patient's arrived at bedside and he noted that she had some left arm shaking at this point in time during this episode and noted by staff that she appears to have bit her tongue and she stooled herself as well. Teleneurology evaluated the patient and they feel that this was likely a seizureand is requesting admission for new onset seizure workup with Keppra load which was ordered. Will discuss case with hospitalist for admission. Discussed case with hospitalist Dr. Costello who accept patient for admission. Patient was notified as well as significant other at bedside all course concernsanswered. Lab Data Labs: Laboratory Results - last 24 hr 12/25/24 12:30 WBC 11.0 RBC 4.57 Hgb 14.3 Hct 43.5 MCV 95.2 MCH 31.3 MCHC 32.9 RDW Std Deviation 45.2 H RDW Coeff of Miesha 13.0 Plt Count 313 MPV 10.0 Immature Gran % (Auto) 0.500 Neut % (Auto) 63.5 Lymph % (Auto) 27.7 [place] % (Auto) 6.3 Eos % (Auto) 1.3 Baso % (Auto) 0.7 Absolute Neuts (auto) 7.0 Absolute Lymphs (auto) 3.04 Nucleated RBC % 0 PT 14.7 INR 1.1 APTT 24.5 Sodium 135 Potassium 4.3 Chloride 96 L Carbon Dioxide 11.9 L Anion Gap 26 H BUN 18 Creatinine 1.10 Estim Creat Clear Calc 42.86 L Est GFR (MDRD) Non-Af 55 L BUN/Creatinine Ratio 16.0 Glucose 128 H Calcium 10.0 Troponin T High Sens 9 Radiography Diagnostic Testing: Clinical Impression(s) from Imaging Studies Brain CT 12/25/24 12:19 IMPRESSION: Findings suggestive of possible subacute infarct in the region of the hippocampus of the right temporal lobe. Old ischemic change in the medial aspect of the right occipital lobe. Red Alert: ?Ischemia in Right hippocampus The critical information above was relayed directly by me by telephone to Donn Fitch on 12/25/2024 at 12:34 pm with readback verification. Reading Location: [id number] Chest X-Ray 12/25/24 12:19 IMPRESSION: Moderate degenerative changes of the visualized spine are seen. A partially calcified aorta is noted; no evidence of cardiomegaly. Lungs appear clear of acute disease. No pleural effusion or pneumothorax is noted. No evidence of acute cardiopulmonary disease Reading Location: [facility] Head/Neck CTA 12/25/24 12:19 IMPRESSION: High-grade stenosis at the origin of the left internal carotid artery. Reading Location: [id number] Discharge Plan Triage Chief Complaint: Stroke Alert ED Provider: Donn Fitch Dx/Rx/DC Orders Clinical Impression: Abnormal involuntary movement, Altered mental status Prescriptions: No Action aspirin [Adult Low Dose Aspirin] 81 mg tablet,delayed release (DR/EC) 81 mg PO QDAY lisinopril 5 mg tablet 5 mg PO QDAY meloxicam 15 mg tablet 15 mg PO QDAY ezetimibe 10 mg tablet 10 mg PO DAILY Primary Care Provider: Chaya Waddell Referrals: Chaya Waddell NP-C [Primary Care Provider] - Print Language: Botswanan Disposition Disposition: Acute Care Hospital [facility] What to do if you have Problems For any increased pain, shortness of breath, bleeding, nausea or vomiting, chestpain, or any unexpected problems, contact your Primary Care Provider. Call [facility] ([phone]) or report to the closest Emergency Room. Call 911 if necessary. 12/25/24 1336 <Electronically signed by Donn Fitch DO> Cosigner Signature (if applicable): CC: RICHARD Waddell ~ Signed [facility] Work Phone: [phone] 248-465506-24-2025 Discharge summary [facility] Medical Records Department [address] [place] [address] Emergency Department Summary 12/25/24 MR#: [id number] Acct: [id number] Name: KAYLEE ROYAL Rep #:[id number] : 1955 69 From: Donn Fitch DO PCP: RICHARD Brown Status:REG ER Location: ED ADDENDUM by Dr. Donn Fitch DO on 12/25/[address] Byrd 12/25/24 1336 Cosigner Signature (if applicable): cc: IMPORT EXPORT MANAGER-C Chaya Waddell ~* Signed HPI History of Present Illness Chief Complaint: Stroke Alert Narrative Narrative: Patient is a 69-year-old female with past medical history of CVA, hypercholesteremia, hypertension who presents to the emergency department via EMS as a prehospital stroke alert. According to EMS patient and were driving down the road when she started looking into her left and behind the car and not responding to him. He states that then she went unresponsive he pulled over called EMS. When they arrived EMS noted that she was not fully responding to them and noted that when they startedputting IVs and she became a little bitmore responsive and opened her eyes. According to them she was not saying wordsand not following commands and route. When they arrived here and were coming [facility] she became combative with him. They deny a history of seizures denied any history of shaking today. [facility] Medical History Wears glasses Alcohol use Arthritis High cholesterol Back pain Heartburn PONV (postoperative nausea and vomiting) Non-smoker Hemiplegia and hemiparesis following cerebral infarction affecting left non- dominant side CVA (cerebral vascular accident) HTN (hypertension) Home Medications ?Medication ?Instructions ?Recorded ?Last Taken ?Type aspirin 81 mg tablet,delayed 81 mg PO QDAY 07/13/24 History release (Adult Low Dose Aspirin) lisinopril 5 mg tablet 5 mg PO QDAY 07/13/24 History meloxicam 15 mg tablet 15 mg PO QDAY 07/13/2408/19 History ezetimibe 10 mg tablet 10 mg PO DAILY 12/25/24 Unkn own History Allergy/AdvReac Type Severity Reaction Status Date / Time codeine AdvReac Jitters Verified 08/21/24 07:07 Dressing: Non-Medicated AdvReac Rash Verified 08/21/24 07:07 (band aids) Surgical History History of tubal ligation History of nasal surgery History of ankle surgery Social History household members: spouse and children current occupational status: retired Smoking Status: Never smoker alcohol intake: current alcohol intake frequency: holidays/special occasions only substance use type: does not use ROS ROS ED ROS Narrative Constitutional: [ ] Eyes: [ ] Cardiovascular: [ ] Respiratory: [ ] Abdomen: [ ] : [ ] Neurological: [ ] Musculoskeletal: [ ] Skin: [ ] EXAM Physical Exam Narrative Exam Narrative: General: Patient is lying on the cot in the hallway resting comfortably did not appear to be acute distress Head: Atraumatic, normocephalic Eyes: PERRL bilaterally, EOMI bladder, no conjunctival injection noted Neck: Soft, supple, trachea midline Cardiovascular: Patient tachycardic with regular rhythm Respiratory: Clear to auscultation bilaterally Abdomen: Soft, nondistended, tender to palpation Extremities: +5/5 strength noted in the bilateral lower extremities, left upper extremity, +4/5 strength noted in the right upper extremity, radial pulses +2/4 in the bilateral extremities Neurological: Patient following commands, closed her eyes when told to was able to lift each extremity up off the cot. NIH of 0 GCS 15 Skin: Warm, dry, tact no rashes or lesions noted Const Vital Signs: 12/25/24 12:19 12/25/24 12:20 12/25/24 12:25 Temperature 98.6 F 98.1 F Temperature Source Oral Temporal Pulse Rate 92 104 H Respiratory Rate 16 18 Blood Pressure 134/67 H 144/77 H Blood Pressure Mean 89 99 Pulse Ox 98 96 Oxygen Delivery Method Room Air Room Air Room Air 12/25/24 12:25 12/25/24 12:27 12/25/24 13:18 Temperature 98.6 F Temperature Source Oral Pulse Rate 104 H 104 H 72 Respiratory Rate 18 18 16 Blood Pressure 144/74 H 144/74 H 131/81 H Blood Pressure Mean 97 97 97 Pulse Ox 96 96 93 Oxygen Delivery Method Room Air Room Air Room Air MDM MDM MDM Narrative Medical decision making narrative: Patient is a 69-year-old female who presented to the emergency department via EMS prehospital stroke alert. On the differential diagnosis includes but not limited to intracranial hemorrhage, TIA, ischemic stroke, electrolyte abnormality, hypoglycemia although per EMS her glucose was normal, cardiac arrhythmia. Once workup is obtained reviewed she will be reevaluated Patient is not a tenecteplase candidate as her symptoms have significantly proved upon her arrival to the emergency department. Patient CBC was reviewed and showed no evidence leukocytosis white blood count normal 11,000, hemoglobin is 14.3, platelet count normal at 313. Patient's INR normal at 1.1, PT of 14.7. Patient sodiumis 135, potassium normal at 4.3, patient's anion gap was noted to be 26 with a CO2 of 11.9. Patient's glucose of128. Patient's troponin was 9, EKG reviewed showed sinus rhythm with a rate of 86 bpm. Patient chest x-ray reviewed by myself and by radiology showed no acutecardiopulmonary processes there was moderate degenerative changes of the visualized spine with a partially calcified aorta noted.Patient's CT brain reviewed which showed finding suggestive of possible subacute infarct in the region of the hippocampus of the right temporal lobe old ischemic change in the medial aspect of the right occipital lobe. Patient CTA head and neck was reviewed and showed high-grade stenosis at the origin of the left internal carotid artery. Patient's arrived at bedside and he noted that she had some left arm shaking at this point in time during this episode and noted by staff that she appears to have bit her tongue and she stooled herself as well. Teleneurology evaluated the patient and they feel that this was likely a seizureand is requesting admission for new onset seizure workup with Keppra load which was ordered. Will discuss case with hospitalist for admission. Discussed case with hospitalist Dr. Costello who accept patient for admission. Patient was notified as well as significant other at bedside all course concernsanswered. Lab Data Labs: Laboratory Results - last 24 hr 12/25/24 12:30 WBC 11.0 RBC 4.57 Hgb 14.3 Hct 43.5 MCV 95.2 MCH 31.3 MCHC 32.9 RDW Std Deviation 45.2 H RDW Coeff of Miesha 13.0 Plt Count 313 MPV 10.0 Immature Gran % (Auto) 0.500 Neut % (Auto) 63.5 Lymph % (Auto) 27.7 [place] % (Auto) 6.3 Eos % (Auto) 1.3 Baso % (Auto) 0.7 Absolute Neuts (auto) 7.0 Absolute Lymphs (auto) 3.04 Nucleated RBC % 0 PT 14.7 INR 1.1 APTT 24.5 Sodium 135 Potassium 4.3 Chloride 96 L Carbon Dioxide 11.9 L Anion Gap 26 H BUN 18 Creatinine 1.10 Estim Creat Clear Calc 42.86 L Est GFR (MDRD) Non-Af 55 L BUN/Creatinine Ratio 16.0 Glucose 128 H Calcium 10.0 Troponin T High Sens 9 Radiography Diagnostic Testing: Clinical Impression(s) from Imaging Studies Brain CT 12/25/24 12:19 IMPRESSION: Findings suggestive of possible subacute infarct in the region of the hippocampus of the right temporal lobe. Old ischemic change in the medial aspect of the right occipital lobe. Red Alert: ?Ischemia in Right hippocampus The critical information above was relayed directly by me by telephone to Donn Fitch on 12/25/2024 at 12:34 pm with readback verification. Reading Location: [id number] Chest X-Ray 12/25/24 12:19 IMPRESSION: Moderate degenerative changes of the visualized spine are seen. A partially calcified aorta is noted; no evidence of cardiomegaly. Lungs appear clear of acute disease. No pleural effusion or pneumothorax is noted. No evidence of acute cardiopulmonary disease Reading Location: [facility] Head/Neck CTA 12/25/24 12:19 IMPRESSION: High-grade stenosis at the origin of the left internal carotid artery. Reading Location: [facility] Discharge Plan Triage Chief Complaint: Stroke Alert ED Provider: Donn Fitch Dx/Rx/DC Orders Clinical Impression: Abnormal involuntary movement, Altered mental status Prescriptions: No Action aspirin [Adult Low Dose Aspirin] 81 mg tablet,delayed release (DR/EC) 81 mg PO QDAY lisinopril 5 mg tablet 5 mg PO QDAY meloxicam 15 mg tablet 15 mg PO QDAY ezetimibe 10 mg tablet 10 mg PO DAILY Primary Care Provider: Chaya Waddell Referrals: Chaya Waddell NP-C [Primary Care Provider] - Print Language: Botswanan Disposition Disposition: Acute Care [facility] What to do if you have Problems For any increased pain, shortness of breath, bleeding, nausea or vomiting, chestpain, or any unexpected problems, contact your Primary Care Provider. Call [facility] ([phone]) or report tothe closest Emergency Room. Call 911 if necessary. 12/25/24 1336 Cosigner Signature (if applicable): CC: RICHARD Waddell ~ Signed [facility]06-24-2025 Radiology Diagnostic study note [facility] Imaging Services [address] [place] [address] Chest PA and Lateral MR#: [id number] Acct: [id number] Name: KAYLEE ROYAL Rep #: [id number] : 1955 From: Tarun Wallace MD PCP: RICHARD Brown Status: REG ER Study:Chest PA and Lateral Date of Exam: 12/25/24 Exam# [id number] Ordering Dr: Marquis Fitch DO PROCEDURE: CHEST PA AND LATERAL 12/25/2024 REASON FOR EXAM: STROKE TECHNIQUE: CHEST PA AND LATERAL COMPARISON: None. RAD/Chest PA and Lateral IMPRESSION: Moderate degenerative changes of the visualized spine are seen. A partially calcified aorta is noted; no evidence of cardiomegaly. Lungs appear clear of acute disease. No pleural effusion or pneumothorax is noted. No evidence of acute cardiopulmonary disease Reading Location: [place] [address] CC: RICHARD Waddell; Dr. Donn Fitch DO ~ Hard Met[employer] Hand Engraver: Signed [facility]06-24-2025 Radiology Diagnostic study note [facility] Imaging Services [address] [place] [address] STROKE CTA Head AND Neck W/Con MR#: [id number] Acct: [id number] Name: KAYLEE ROYAL Rep #: [id number] : 1955 69 From: Faisal Garrett MD PCP: RICHARD Brown Status: REG ER Study:STROKE CTA Head AND Neck W/Con Date of Exam: 12/25/24 Exam# [id number] Ordering Dr: Marquis Fitch DO PROCEDURE: STROKE CTA HEAD AND NECK W/CON 12/25/2024 REASON FOR EXAM: NEURO DEFICIT, ACUTE, STROKE SUSPECTED TECHNIQUE: STROKE CTA HEAD AND NECK W/CON Multiplanar Sagittal and Coronal images were obtained. CONTRAST: Isovue 3 7 VOLUME: 100 mL One or more dose reduction techniques were used (e.g., Automated exposure control, adjustment of the mA and/or kV according to patient size, use of iterative reconstruction technique). RADIATION DOSE SUMMARY: CTDlvol: 17.5 mGy DLP: 584.28 mGycm COMPARISON: None FINDINGS: Aortic Arch: Normal size and branching pattern. Mild atherosclerotic plaque. Brachiocephalic and Subclavians: Mild atherosclerotic plaque without significantstenosis. RIGHT Carotid: Right CCA: Unremarkable. Right ICA: Unremarkable. Right ECA: Unremarkable. LEFT Carotid: Left CCA: Unremarkable. Left ICA: Moderate calcified and soft plaque. Maximum stenosis (NASCET): > 70 % Left ECA: Unremarkable. Vertebrals: Codominant. Arise from the subclavians. Both vertebrals form the basilar. RIGHT Vertebral: Unremarkable. LEFT Vertebral: Unremarkable. Anatomy: [place] anatomy is normal. Aneurysm or avm: No intracranial aneurysms or large vascular malformations are identified. Anterior cerebral arteries: Unremarkable: Middle cerebral arteries: Unremarkable. Basilar artery: Unremarkable. Posterior cerebral arteries: Unremarkable. Other major branches of the posterior circulation: Unremarkable. Major venous structures: Unremarkable. Other findings: Neck: Lungs: Bones: CT/STROKE CTA Head AND Neck W/Con IMPRESSION: High-grade stenosis at the origin of the left internal carotid artery. Reading Location: [facility] CC: RICHARD Waddell; Dr. Donn Fitch DO ~ [employer] Hand Engraver: Signed [facility]06-24-2025 Radiology Diagnostic study note [facility] Imaging Services [address] [place] [address] STROKE Brain/Head without Cont MR#: [id number] Acct: [id number] Name: KAYLEE ROYAL Rep #: [id number] : 1955 F 69 From: Faisal Garrett MD PCP: RICHARD Brown Status: REG ER Study:STROKE Brain/Head without Cont Date of Exam: 12/25/24 Exam# [id number] Ordering Dr: Marquis Fitch DO PROCEDURE: STROKE BRAIN/HEAD WITHOUT CONT N/A REASON FOR EXAM: NEURO DEFICIT, ACUTE, STROKE SUSPECTED TECHNIQUE: STROKE BRAIN/HEAD WITHOUT CONT Coronal and Sagittal reconstruction series were provided. One or more dose reduction techniques were used (e.g., Automated exposure control, adjustment of the mA and/or kV according to patient size, use of iterative reconstruction technique. RADIATION DOSE SUMMARY: CTDlvol: 44.99 mGy DLP: 762.36 mGycm COMPARISON: None FINDINGS: Brain: Low density in the periventricular white matter suggests mild chronic small vessel ischemic changes. Focal area of decreased attenuation in the medial aspect of the right occipital lobe as well as in the region of the hippocampus of the right temporal lobe. This may be subacute in nature. CSF Spaces: Mild generalized cerebral atrophy Sinuses/Mastoids: Clear at visualized levels Bones: Unremarkable CT/STROKE Brain/Head without Cont IMPRESSION: Findings suggestive of possible subacute infarct in the region of the hippocampus of the right temporal lobe. Old ischemic change in the medial aspect of the right occipital lobe. Red Alert: ?Ischemia in Right hippocampus The critical information above was relayed directly by me by telephone to Donn Fitch on 12/25/2024 at 12:34 pm with readback verification. Reading Location: [id number] CC: IMPORT EXPORT MANAGERFrederickC Chaya Waddell; Dr. Donn Fitch DO ~ [employer] Hand Engraver: Signed [facility]06-09-2025 NoteHNO ID: [id number] Author: RACHELE OSUNA PA-C Service: ? Author Type: Physician Backshoe Person Type: Progress Notes Filed: 12/12/2024 18:04 Note Text: Rachele Osuna PA-C Department of Orthopaedics Orthopaedics [address] [facility] [address] Dept: [phone] Dept December 10, 2024 CHIEF COMPLAINT: New and Pain of the Right Shoulder (Referred by Chaya Waddell) Right Shoulder Pain: - Worsening pain and limited ROM in the right shoulder. - Pain described as awful, radiating down the entire front of the shoulder. - Difficulty performing daily activities, including hair care and vacuuming. - Unable to sleep comfortably due to pain. - Reports a visible lump on the shoulder. - Pain exacerbated by movement, especially pulling; shoulder feels like it jerks out of socket. - Two previous cortisone injections by Chaya Waddell provided no relief. - Tylenol ineffective for pain management. - History of right clavicle fracture, (AC seperation) 30 years ago. - Left-handed but uses right hand more frequently; right-hand dominant for sports. - Retired after 46 years at [employer], with a history of overhead lifting and repetitive use of the right arm. ASSESSMENT: M19.011 Glenohumeral arthritis, right (primary encounter diagnosis) PLAN: 1. Glenohumeral arthritis, right (M19.011) - Discussed the benefits of shoulder replacement surgery, including pain relief and nondenominational of a significant amount of movement. - Referred to Dr. Nolan Stanford at [facility] for consultation and potential shoulder replacement surgery. - Patient and spouse understand and agree with the treatment plan. Ms. Krista Royal was advised as to contrast therapies and/or to take analgesics/anti-inflammatories as needed and all contraindications were reviewed. OBJECTIVE: Ms. Krista Royal is a pleasant 69 year old in no apparent distress. Gen:There were no vitals taken for this visit. nl development, non obese, no deformities ENT: Normocephalic, normal hearing, moist mucosa CV: Pulses:Radial= 2+ and symmetric, capillary refill < 2 secs, no peripheral edema/varicosities Skin: no rash, bruising or lesions. Good turgor. Psych: cooperative and appropriate, alert and oriented x 3, good mood and affect. Musculoskeletal: Right shoulder with an obvious deformity at the AC joint. Diffuse tenderness throughout the right shoulder. Passive forward elevation of about 85 degrees, passive external rotation of about 10 degrees. There is palpable crepitance of the shoulder through passive range of motion. Strength testing was not performed. Imaging: * * *Final Report* * * DATE OF EXAM: Dec 10 2024 11:23AM [id number] - XR SHLDR >/=3V AP/JOHN AP/OTHR RT / PROCEDURE REASON: Pain * * * * Physician Interpretation * * * * XR SHLDR >/=3V AP/JOHN AP/OTHR RT Ordering Physician: RACHELE OSUNA RIGHT SHOULDER RADIOGRAPHS Clinical Statement: Pain Comparison: None FINDINGS: Inferior subluxation of the acromion in relation to the distal clavicle is likely chronic. The coracoclavicular distance is not widened. There are advanced degenerative changes in the glenohumeral joint with joint space narrowing, subchondral sclerosis and prominent marginal osteophytosis. Soft tissues are unremarkable. IMPRESSION IMPRESSION: Chronic and degenerative changes. Hard Metals Hand Engraver: [facility] Transcribe Date/Time: Dec 12 2024 7:51A Dictated by : KRYSTAL RIVERA MD This examination was interpreted and the report reviewed and electronically signed by: KRYSTAL RIVERA MD on Dec 12 2024 7:51AM EST Supporting Subjective Information Below: Past Surgical History: PAST SURGICAL HISTORY Procedure Laterality Date LIGATE FALLOPIAN TUBE NASAL SURGERY PROCEDURE OPEN RX ANKLE DISLOCATN+FIXATN Left 06/15/2018 ORIF left ankle Medications: Current Outpatient Medications Medication Sig lisinopril (ZESTRIL) 5 mg tablet Take 5 mg by mouth once daily. meloxicam (MOBIC) 15 mg tablet Take 15 mg by mouth once daily. ezetimibe (ZETIA) 10 mg tablet Take 10 mg by mouth once daily. BABY ASPIRIN ORAL Take 81 mg by mouth once daily. No current facility-administered medications for this visit. Allergies: Codeine ROS: General (negative for fatigue, malaise, weight loss/gain) HEENT (negative for headache, earache, recent vision changes, sinus pain, sore throat) Respiratory (no recent shortness of breath, hemoptysis) CV (negative for chest tightness, palpitations) Musculoskeletal (see HPI) Psych (no depression, anxiety) This note was partially generated using [employer] voice recognition system, and there may be some incorrect words, spellings, and punctuation that were not noted in checking the note before saving. [facility] History of Present illness Narrative* Rachele Osuna PA-C - 12/10/2024 2:14 PM EDT Rachele Osuna PA-C Department of Orthopaedics Orthopaedics [address] [facility] [address] Dept: [phone] Dept December 10, 2024 CHIEF COMPLAINT: New and Pain of the Right Shoulder (Referred by Chaya Waddell) Right Shoulder Pain: - Worsening pain and limited ROM in the right shoulder. - Pain described as awful, radiating down the entire front of the shoulder. - Difficulty performing daily activities, including hair care and vacuuming. - Unable to sleep comfortably due to pain. - Reports a visible lump on the shoulder. - Pain exacerbated by movement, especially pulling; shoulder feels like it jerks out of socket. - Two previous cortisone injections by Chaya Waddell provided no relief. - Tylenol ineffective for pain management. - History of right clavicle fracture, (AC seperation) 30 years ago. - Left-handed but uses right hand more frequently; right-hand dominant for sports. - Retired after 46 years at [employer], with a history of overhead lifting and repetitive use of the right arm. ASSESSMENT: M19.011 Glenohumeral arthritis, right (primary encounter diagnosis) PLAN: 1. Glenohumeral arthritis, right (M19.011) - Discussed the benefits of shoulder replacement surgery, including pain relief and nondenominational of a significant amount of movement. - Referred to Dr. Nolan Stanford at [facility] for consultation and potential shoulder replacement surgery. - Patient and spouse understand and agree with the treatment plan. Ms. Krista Royal was advised as to contrast therapies and/or to take analgesics/anti-inflammatories as needed and all contraindications were reviewed. OBJECTIVE: Ms. Krista Royal is a pleasant 69 year old in no apparent distress. Gen:There were no vitals taken for this visit. nl development, non obese, no deformities ENT: Normocephalic, normal hearing, moist mucosa CV: Pulses:Radial= 2+ and symmetric, capillary refill < 2 secs, no peripheral edema/varicosities Skin: no rash, bruising or lesions. Good turgor. Psych: cooperative and appropriate, alert and oriented x 3, good mood and affect. Musculoskeletal: Right shoulder with an obvious deformity at the AC joint. Diffuse tenderness throughout the right shoulder. Passive forward elevation of about 85 degrees, passive external rotation of about 10 degrees. There is palpable crepitance of the shoulder through passive range of motion. Strength testing was not performed. Imaging: * * *Final Report* * * DATE OF EXAM: Dec 10 2024 11:23AM [id number] - XR SHLDR >/=3V AP/JOHN AP/OTHR RT / PROCEDURE REASON: Pain * * * * Physician Interpretation * * * * XR SHLDR >/=3V AP/JOHN AP/OTHR RT Ordering Physician: RACHELE OSUNA RIGHT SHOULDER RADIOGRAPHS Clinical Statement: Pain Comparison: None FINDINGS: Inferior subluxation of the acromion in relation to the distal clavicle is likely chronic. The coracoclavicular distance is not widened. There are advanced degenerative changes in the glenohumeral joint with joint space narrowing, subchondral sclerosis and prominent marginal osteophytosis. Soft tissues are unremarkable. IMPRESSION IMPRESSION: Chronic and degenerative changes. [employer] Met[employer] Hand Engraver: ISABEL Transcribe Date/Time: Dec 12 2024 7:51A Dictated by : KRYSTAL RIVERA MD This examination was interpreted and the report reviewed and electronically signed by: KRYSTAL RIVERA MD on Dec 12 2024 7:51AM EST Supporting Subjective Information Below: Past Surgical History: PAST SURGICAL HISTORY Procedure Laterality Date LIGATE FALLOPIAN TUBE 1979' NASAL SURGERY PROCEDURE OPEN RX ANKLE DISLOCATN+FIXATN Left 06/15/2018 ORIF left ankle Medications: Current Outpatient Medications Medication Sig lisinopril (ZESTRIL) 5 mg tablet Take 5 mg by mouth once daily. meloxicam (MOBIC) 15 mg tablet Take 15 mg by mouth once daily. ezetimibe (ZETIA) 10 mg tablet Take 10 mg by mouth once daily. BABY ASPIRIN ORAL Take 81 mg by mouth once daily. No current facility-administered medications for this visit. Allergies: Codeine ROS: General (negative for fatigue, malaise, weight loss/gain) HEENT (negative for headache, earache, recent vision changes, sinus pain, sore throat) Respiratory (no recent shortness of breath, hemoptysis) CV (negative for chest tightness, palpitations) Musculoskeletal (see HPI) Psych (no depression, anxiety) This note was partially generated using [employer] voice recognition system, and there may be some incorrect words, spellings, and punctuation that were not noted in checking the note before saving. Rachele Osuna PA-C * Mary Park MA - 12/10/2024 11:36 AM EDT Patient presents with: Right Shoulder - New, Pain: Referred by Chaya ARROYO ROOMING INTAKE FLOWSHEET DATA Risk Screening Do you have concerns about personal safety or safety in the home?: No Pain Pain Level: 10 Pain Location: Shoulder-Right Description: Aching Duration Amount of Time: 6 Duration Units: Years Frequency: Continuous Intervention/Comfort measure: (injections) Patient states she is having pain in her right shoulder that started 6 years ago after using crutches when she fractured her ankle. States she is having difficulty sitting on the couch. Feels like her shoulder blade is protruding in her back. She was given a a cortisone shot by her PCP and did not help. X-rays done today. Tried taking Tylenol for the pain and does not help. Has tried biofreeze and only helps for about 10 minutes. [facility] NoteHNO ID: [id number] Author: MARY PARK MA Service: ? Author Type: Human Resource Management Instructor Type: Progress Notes Filed: 12/12/2024 18:04 Note Text: Patient presents with: Right Shoulder - New, Pain: Referred by Chaya ARROYO ROOMING INTAKE FLOWSHEET DATA Risk Screening Do you have concerns about personal safety or safety in the home?: No Pain Pain Level: 10 Pain Location: Shoulder-Right Description: Aching Duration Amount of Time: 6 Duration Units: Years Frequency: Continuous Intervention/Comfort measure: (injections) Patient states she is having pain in her right shoulder that started 6 years ago after using crutches when she fractured her ankle. States she is having difficulty sitting on the couch. Feels like her shoulder blade is protruding in her back. She was given a a cortisone shot by her PCP and did not help. X-rays done today. Tried taking Tylenol for the pain and does not help. Has tried biofreeze and only helps for about 10 minutes.[facility] 12-10-2024 History of Present illness Narrative* Adria Pinzon RT(R) - 12/10/2024 10:30 AM EDT Radiology Service Progress Note PATIENT NAME: Krista Royal DATE OF SERVICE: December 10, 2024 TIME: 11:13 AM PATIENT IDENTITY VERIFICATION COMPLETED USING TWO (2) IDENTIFIERS: Name and Date of confirmedby patient verbally. FALL SCREENING: Has the patient had 2 falls in the last year or 1 fall with injury or currently using an Ambulatory Assistive Device (Walker, Cane, Wheelchair, Crutches, etc.)? No PATIENT GENDER DATA: Assigned female at . status: : No status:NO. PATIENT RELEVANT IMPLANT DATA REVIEWED: Yes PATIENT PRESENTS WITH AN IMPLANTABLE OR ATTACHED PE ELECTRICAL ENGINEER: No RADIOLOGY DEPARTMENT: General X-ray: Exam(s) Completed: Upper Extremity X- Ray(s): Shoulder, AP / TRUE AP / AXILLARY right PERIPHERAL IV DATA: Not applicable SIGNED BY: LUCHO Block) December 10, 2024 11:13 AM documented in this encounterWay[facility]06-[facility]-2025 NoteHNO ID: [id number] Author: ADRIA PINZON RT(R) Service: ? Author Type: Fiber Picker Type: Progress Notes Filed: 12/10/2024 11:23 Note Text: Radiology Service Progress Note PATIENT NAME: Krista Royal DATE OF SERVICE: December 10, 2024 TIME: 11:13 AM PATIENT IDENTITY VERIFICATION COMPLETED USING TWO (2) IDENTIFIERS: Name and Date of confirmed by patient verbally. FALL SCREENING: Has the patient had 2 falls in the last year or 1 fall with injury or currently using an Ambulatory Assistive Device (Walker, Cane, Wheelchair, Crutches, etc.)? No PATIENT GENDER DATA: Assigned female at . status: : No status: NO. PATIENT RELEVANT IMPLANT DATA REVIEWED: Yes PATIENT PRESENTS WITH AN IMPLANTABLE OR ATTACHED PE ELECTRICAL ENGINEER: No RADIOLOGY DEPARTMENT: General X-ray: Exam(s) Completed: Upper Extremity X-Ray(s): Shoulder, AP / TRUE AP / AXILLARY right PERIPHERAL IV DATA: Not applicable SIGNED BY: RT Umair(R) December 10, 2024 11:13 [facility]02-18-2025 [facility] Medical Records Department [address] [place] [address] History Physical Exam 08/21/24 0841 MR#: [id number] Acct: [id number] Name: KAYLEE ROYAL Rep #: [id number] : 1955 69 From: Maxwell Castillo MD PCP: RICHARD Brown Status:[facility] Location: [place] [address] HPI - General General Date of Admission: 08/21/24 Date of Service: 08/21/24 Chief Complaint: Colonoscopy HPI Narrative KAYLEE ROYAL, is a 69 F who presents for screening colonoscopy. She has had no prior colonoscopy. No family history of colon polyps or colon cancers. She denies any GI issues or complaints. FOR[facility]LY [facility] Medical History Wears glasses Alcohol use Arthritis High cholesterol Back pain Heartburn PONV (postoperative nausea and vomiting) Non-smoker Hemiplegia and hemiparesis following cerebral infarction affecting left non- dominant side CVA (cerebral vascular accident) HTN (hypertension) Home Medications ???Medication ???Instructions ???Recorded ???Last Taken ???Type aspirin 81 mg tablet,delayed 81 mg PO QDAY 07/13/24 08/20/24 Hi story release (Adult Low Dose Aspirin) atorvastatin 40 mg tablet 40 mg PO QHS 07/13/24 Unknown Hist ory lisinopril 5 mg tablet 5 mg PO QDAY 07/13/24 08/20/24 His tory meloxicam 15 mg tablet 15 mg PO QDAY 07/13/24 08/19/24 Hi story Allergy/AdvReac Type Severity Reaction Status Date / Time codeine AdvReac Jitters Verified 08/21/24 07:07 Dressing: Non-Medicated AdvReac Rash Verified 08/21/24 07:07 (band aids) Surgical History History of tubal ligation History of nasal surgery History of ankle surgery Social History household members: spouse and children current occupational status: retired Smoking Status: Never smoker alcohol intake: current alcohol intake frequency: holidays/special occasions only substance use type: does not use ROS Constitutional Constitutional: Reports systems reviewed and no addt'l complaints, except as documented Eyes Eyes: Reports systems reviewed and no addt'l complaints, except as documented ENT HEENT: Reports systems reviewed and no addt'l complaints, except as documented Cardiovascular Cardiovascular: Reports systems reviewed and no addt'l complaints, except as documented Respiratory/Chest Respiratory/Chest: Reports systems reviewed and no addt'l complaints, except as documented Gastrointestinal Gastrointestinal: Reports systems reviewed and no addt'l complaints, except as documented Vital Signs Vital Signs Vital Signs: 08/21/24 07:08 08/21/24 07:08 08/21/24 07:37 Temperature 97.2 F L 97.2 F L Temperature Source Temporal Pulse Rate 74 74 Respiratory Rate 12 12 Respiratory Pattern Normal Blood Pressure 145/83 H 145/83 H Blood Pressure Mean 103 Blood Pressure Source Monitor Blood Pressure Position Semi-Fowlers Blood Pressure Location Right Arm Pulse Ox 98 98 Oxygen Delivery Method Room Air Room Air Weight Weight: 134 lb 4.184 oz Body Mass Index (BMI) 23.0 Physical Exam Const alert, oriented x3 and no apparent distress Assessment Plan Assessment/Plan (1) Encounter for screening for malignant neoplasm of colon: PLAN: Plan The patient is a 69-year-old female in need of a screening colonoscopy. She has not had no previous colonoscopy. We discussed the details of the planned procedure including risk benefits and alternatives. She wishes to proceed. This will begin momentarily. 08/21/24 0843 Cosigner Signature (if applicable): CC: RICHARD Waddell; Dr. Maxwell Castillo MD [facility]11-15-2024 NoteFollow up Patient Visit [facility] [address], [place] [address] (office) Date of service: 05/18/2024 ID: Krista Royal, 68 y.o., female; : 1955 Chief Concerns and reason for consult: Krista Royal is a 68 y.o. woman who comes for consultation regarding Cerebrovascular Accident (Pt reports things have been feeling fine. Feels as though she is back to baseline. ) Interval history 05/17/2024: Patient presents for follow-up. Denies any new symptoms. She has been controlling her diet and has lost weight significantly since her previous stroke. Her diabetes has also been under control with HbA1c dropping from 6.9 to within normal limits. She has elevated blood pressures during the visit, however she has maintained a blood pressure diary which shows vigorous predominantly within normal limits. Denies any new neurologic symptoms. History of Present Illness: Ms. Royal has a history of recent stroke. On [...] stroke however she was then transferred to [facility]. She was found to have a right STARS COORDINATOR stroke and right facial cellulitis. By the time she was at [facility], she was out of the window for IV tPA. She was started on dual antiplatelets therapy. Echo was obtained prior to the patient being at [facility], and reportedly showed without evidence of [...] visit she had no other medical history. Update 10/03/2023: The patient has had no further strokelike symptoms since her last visit in July 2023. Her systolic blood pressure readings at home have mostly been in the 110s or 120s and diastolic mostly in the 80s. The patient has lost 25 pounds in the past 3 months by controlling her diet. She has been on dual antiplatelet therapy as well as atorvastatin. While she was able to tolerate the dual antiplatelet therapy, atorvastatin 80 mg made her feel jittery, and hence this was switched to 40 mg which she can tolerate much better. Neurological ROS: negative for - behavioral changes, [...] past medical history of Known health problems: none and Stroke (HCC). Past surgical history: has a past surgical [...] daily ., Disp: 30 tablet, Rfl: 2 lisinopriL (PRINIVIL,ZESTRIL) 5 MG tablet, Take 1 (one) tablet (5 mg total) by mouth daily with lunch ., Disp: 30 tablet, Rfl: 0 meloxicam (MOBIC) 7.5 MG tablet, Take 1 (one) tablet (7.5 mg total) by mouth daily ., Disp: , Rfl: atorvastatin (LIPITOR) 40 MG tablet, Take 1 (one) tablet (40 mg total) by mouth daily ., Disp: , Rfl: Allergies: Allergies Allergen Reactions Codeine Unknown Physical Examination: Vitals signs :Her blood pressure is 164/81 (abnormal) and her pulse is 82. Her respiration is 18 and oxygen saturation is 98%. GENERAL EXAM: The patient is in no apparent distress. Head - normocephalic, atraumatic RESP: normal respiratory effort, no use of accessory muscles for respiration SKIN: No bruising MSK: No bony anomalies CV: Pulse regular; BP as above; Neuro (more content not included)...[facility]11-15-2024 History of Present illness Narrative* Josesito Pollack MD - 05/18/2024 10:16 AM EST Images from the original note were not included. Follow up Patient Visit [facility] [address], [address], [place] [address] (office) Date of service: 05/18/2024 ID: Krista Royal, 68 y.o., female; : 1955 Chief Concerns and reason for consult: Krista Royal is a 68 y.o. woman who comes for consultation regarding Cerebrovascular Accident (Pt reports things have been feeling fine. Feels as though she is back to baseline. ) Interval history 05/17/2024: Patient presents for follow-up. Denies any new symptoms. She has been controlling her diet and has lost weight significantly since her previous stroke. Her diabetes has also been under control with HbA1c dropping from 6.9 to within normal limits. She has elevated blood pressures during the visit, however she has maintained a blood pressure diary which shows vigorous predominantly within normal limits. Denies any new neurologic symptoms. History of Present Illness: Ms. Royal has a history of recent stroke. On [...] stroke however she was then transferred to [facility]. She was found to have a right STARS COORDINATOR stroke and right facial cellulitis. By the time she was at [facility], she was out of the window for IV tPA. She was started on dual antiplatelets therapy. Echo was obtained prior to the patient being at [facility], and reportedly showed without evidence of endocarditis (EF 65-70%, mild concentricLVH, no regional wall motion abnormalities). Her NIHSS was noticed to, 1 for visual field deficits on the left, and 1 for left facial palsy at the time. She presents today for initial outpatient evaluation of the stroke. She denies any similar symptoms in the past. Prior to the recent visit she had no other medical history. Update 10/03/2023: The patient has had no further strokelike symptoms since her last visit in July2023. Her systolic blood pressure readings at home have mostly been in the 110s or 120s and diastolic mostly in the 80s. The patient has lost 25 pounds in the past 3 months by controlling her diet. She has been on dual antiplatelet therapy as well as atorvastatin. While she was able to tolerate thedual antiplatelet therapy, atorvastatin 80 mg made her feel jittery, and hence this was switched to40 mg which she can tolerate much better. Neurological ROS: negative for - behavioral changes, [...] past medical history of Known health problems: none and Stroke (HCC). Past surgical history: has a past surgical history that includes left ankle surgery and Tubal ligation. Social history: reports that she has never smoked. She has never used smokeless tobacco. She reports current alcohol use of about 1.0 standard drink of alcohol per week. She reports that she does notuse drugs. Family history:family history includes Emphysema in her father; Stroke in her brother, brother, andmother. Medications: Current Outpatient Medications: aspirin 81 MG EC tablet, Take 1 (one) tablet (81 mg total) by mouth daily ., Disp: 30 tablet, Rfl: 2 lisinopriL (PRINIVIL,ZESTRIL) 5 MG tablet, Take 1 (one) tablet (5 mg total) by mouth daily with lunch ., Disp: 30 tablet, Rfl: 0 meloxicam (MOBIC) 7.5 MG tablet, Take 1 (one) tablet (7.5 mg total) by mouth daily ., Disp: , Rfl: atorvastatin (LIPITOR) 40 MG tablet, Take 1 (one) tablet (40 mg total) by mouth daily ., Disp: , Rfl: Allergies: Allergies Allergen Reactions Codeine Unknown Physical Examination: Vitals signs :Her blood pressure is 164/81 (abnormal) and her pulse is 82. Her respiration is 18 and oxygen saturation is 98%. GENERAL EXAM: The [...] to confrontation. PERRL. Normal conjunctivae and lids. 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 [...] Achilles 1 1 Babinski Down Down Coordination: [id number] intact bilaterally. Sensation: Comments Light touch Intact throughout Vibration Decreased at bilateral feet Temperature Mildly decreased at foot proprioception Decreased bilateral feet Gait: Normal stride length, arm swing, and base width. Able to toe, heel, and tandem walk. NegativeRomberg. Review of images/other data: MRI BRAIN: 07/02/2023 1. There is restricted diffusion identified within the right STARS COORDINATOR territory compatible with evolvingacute ischemic infarct with involvement of the right posterior limb internal capsule and thalamus. There is associated sulcal effacement and hyperintense T2/FLAIR signal abnormality in the region. No associated hemorrhage. No significant mass effect. 2. No additional evidence of acute ischemia elsewhere. 3. Findings are superimposed on mild senescent change and a mild burden of nonspecific white matterdisease for age most commonly associated with the sequelae of chronic microvascular ischemia. 4. No pathologic post-contrast enhancement is identified to suggest abnormal breakdown of the bloodbrain barrier. MRA BRAIN: 1. There is intracranial [...] stenoses, occlusions, or aneurysm/vascular malformation. Assessment:/Plan: Krista Royal is a 68 y.o. female who presents for follow-up evaluation after sustaining in June2023, an ischemic stroke in the right posterior internal capsule and thalamus in the right STARS COORDINATOR P2 territory. Her neurologic examination during this current visit is nonfocal. NIHSS score is 0. Right STARS COORDINATOR P2 stroke (Ischemic Infarct) Etiology: Large vessel stenosis Testin-day cafeteria monitor to monitor for atrial fibrillation did not reveal any evidence of atrial fibrillation Labs: Lipid panel elevated during inpatient stay. Patient is scheduled to get a fasting test in thenear future with a primary care physician. A1c reportedly 5.9 during last visit with PCP Cardiac Rhythm: No atrial fibrillation was noted during 30-day cardiac rhythm monitor Anti-thrombotic: Continue aspirin 81 mg daily Anti-lipid Agent: Lipitor (atorvastatin) 40 mg LDL goal < 70, Hemoglobin A1c goal 6.5 or lower, Blood pressure goal 110-130/80. Educated on the importance of adequate sleep, exercise (30 minutes brisk exercise 5 days per week),hydration (at least 64 oz of water daily), and mediterranean style diet were discussed. All questions and concerns were addressed. Diagnosis:The encounter diagnosis was H/O ischemic right STARS COORDINATOR stroke. Follow up: Return in about 1 year (around 05/18/2025). Josesito Pollack MD Cutting Table Operator Neurologist [facility]. Timed code: 32 minutes Includes preparation to see the patient (reviewing previous history, exam, test, procedure, and medications); Obtaining history from the patient/family/caregivers; performing evaluation and examination; ordering medications, tests, or procedures; referring and communicating with other healthcare professionals; counseling and education of the patient/family/caregiver; independently interpreting results (Tests, labs, imaging) and communicating results to the patient/family/caregiver; coordination of care; documenting clinical information in the electronic and other health records. documented in this [id number] History of Present illness Narrative* Josesito Pollack MD - 10/03/2023 3:42 PM EDT Images from the original note were not included. New Patient Visit [facility] [address], [address], [place] [id number] (office) Date of service: 10/03/2023 ID: Krista Royal, 68 y.o., female; : 1955 Chief Concerns and reason for consult: Krista Royal is a 68 y.o. woman who comes for consultation regarding Cerebrovascular Accident (I'm doing great. Lost 25lbs by watching my diet./Need refill of Plavix if I need to continue this medication./Has list of BP readings for DR Pollack to view.) Update 10/03/2023: The patient has had no further strokelike symptoms since her last visit in July2023. Her systolic blood pressure readings at home have mostly been in the 110s or 120s and diastolic mostly in the 80s. The patient has lost 25 pounds in the past 3 months by controlling her diet. She has been on dual antiplatelet therapy as well as atorvastatin. While she was able to tolerate thedual antiplatelet therapy, atorvastatin 80 mg made her feel jittery, and hence this was switched to40 mg which she can tolerate much better. History of Present Illness: Ms. Royal has a history of recent stroke. On [...] stroke however she was then transferred to [facility]. She was found to have a right STARS COORDINATOR stroke and right facial cellulitis. By the time she was at [facility], she was out of the window for IV tPA. She was started on dual antiplatelets therapy. Echo was obtained prior to the patient being at [facility], and reportedly showed without evidence of endocarditis (EF 65-70%, mild concentricLVH, no regional wall motion abnormalities). Her NIHSS [...] per week. She reports that she does notuse drugs. Family history:family history includes Emphysema in her father; Stroke in her brother, brother, andmother. Medications: Current Outpatient Medications: aspirin 81 MG EC tablet, Take 1 (one) tablet (81 mg total) by mouth daily ., Disp: 30 tablet, Rfl: 2 clopidogreL (PLAVIX) 75 mg tablet, Take 1 (one) tablet (75 mg total) by mouth daily Start: 07/09/23., Disp: 90 tablet, Rfl: 0 lisinopriL (PRINIVIL,ZESTRIL) 5 MG tablet, Take 1 (one) tablet (5 mg total) by mouth daily with lunch ., Disp: 30 tablet, Rfl: 0 atorvastatin (LIPITOR) 80 MG tablet, Take 1 (one) tablet (80 mg total) by mouth nightly ., Disp: 30tablet, Rfl: 2 Allergies: Allergies Allergen Reactions Codeine Unknown Physical Examination: Vitals signs :Her weight is 63.6 kg (140 lb 3.2 oz). Her blood pressure is 159/103 (abnormal) and her pulse is 86. GENERAL EXAM: The patient is in no [...] to confrontation. PERRL. Normal conjunctivae and lids. 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 [...] Achilles 1 1 Babinski Down Down Coordination: Gdlheb-yp-nngp intact bilaterally. Sensation: Comments Light touch Intact throughout Vibration Decreased at bilateral feet Temperature Mildly decreased at foot proprioception Decreased bilateral feet Gait: Normal stride length, arm swing, and base width. Able to toe, heel, and tandem walk. NegativeRomberg. 07/12/23 1613 NIH Stroke Scale Interval 7-10 [...] is restricted diffusion identified within the right STARS COORDINATOR territory compatible with evolvingacute ischemic infarct with involvement of the right posterior limb internal capsule and thalamus. There is associated sulcal effacement and hyperintense T2/FLAIR signal abnormality in the region. No associated hemorrhage. No significant mass effect. 2. No additional evidence of acute ischemia elsewhere. 3. Findings are superimposed on mild senescent change and a mild burden of nonspecific white matterdisease for age most commonly associated with the sequelae of chronic microvascular ischemia. 4. No pathologic post-contrast enhancement is identified to suggest abnormal breakdown of the bloodbrain barrier. MRA BRAIN: 1. There is intracranial [...] stenoses, occlusions, or aneurysm/vascular malformation. Assessment:/Plan: Krista Royal is a 68 y.o. female who presents for follow-up evaluation after sustaining in June2023, an ischemic stroke in the right posterior internal capsule and thalamus in the right STARS COORDINATOR P2 territory. Right STARS COORDINATOR P2 stroke (Ischemic Infarct) Etiology: Large vessel stenosis Testin-day cafeteria monitor to monitor for atrial fibrillation did not reveal any evidence of atrial fibrillation Labs: Lipid panel elevated during inpatient stay. Patient is scheduled to get a fasting test in thenear future with a primary care physician. A1c elevated Cardiac Rhythm: No atrial fibrillation was noted during 30-day cardiac rhythm monitor Anti-thrombotic: She is due to complete 3 months of dual antiplatelet therapy shortly, she can continue with aspirin monotherapy thereafter Anti-lipid Agent: Lipitor (atorvastatin) 40 mg BP Goal: Less than 130/80; Glucose Goal: Normoglycemia/ A1c less than 6.5. Counseled on the importance of maintaining a healthy diet, and regular aerobic exercises. Counseled to optimize control of cerebrovascular risk factors as above, and avoiding tobacco if applicable. Diagnosis:The primary encounter diagnosis was Acute ischemic right STARS COORDINATOR stroke (HCC). A diagnosis ofH/O ischemic right STARS COORDINATOR stroke was also pertinent to this visit. Follow up: Return in about 6 months (around 04/03/2024). Josesito Pollack MD Cutting Table Operator Neurologist [facility]. documented in this [id number] History of Present illness Narrative* Josesito Pollack MD - 07/12/2023 4:05 PM EST Images from the original note were not included. New Patient Visit [facility] [address] [facility], [address], [place] [address] (office) Date of service: 07/12/2023 ID: Krista Royal, 68 y.o., female; : 1955 Chief Concerns and reason for consult: Krista Royal is a 68 y.o. woman who comes for consultation regarding Cerebrovascular Accident (Left side is doing better, including left eye. Speech not affected. Ambulating well after stroke.Sometimes I feel like I have a sinus headache but its getting better. is present for appointment.) History of Present Illness: Ms. Royal has a history of recent stroke. On [...] stroke however she was then transferred to [facility]. She was found to have a right STARS COORDINATOR stroke and right facial cellulitis. By the time she was at [facility], she was out of the window for IV tPA. She was started on dual antiplatelets therapy. Echo was obtained prior to the patient being at [facility], and reportedly showed without evidence of endocarditis (EF 65-70%, mild concentricLVH, no regional wall motion abnormalities). Her NIHSS [...] per week. She reports that she does notuse drugs. Family history:family history includes Emphysema in her father; Stroke in her brother, brother, andmother. Medications: Current Outpatient Medications: aspirin 81 MG EC tablet, Take 1 (one) tablet (81 mg total) by mouth daily ., Disp: 30 tablet, Rfl: 2 atorvastatin (LIPITOR) 80 MG tablet, Take 1 (one) tablet (80 mg total) by mouth nightly ., Disp: 30tablet, Rfl: 2 clopidogreL (PLAVIX) 75 mg tablet, [...] her pulse is 80. Her oxygen saturation is98%. GENERAL EXAM: The patient is in no [...] to confrontation. PERRL. Normal conjunctivae and lids. 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 [...] Achilles 1 1 Babinski Down Down Coordination: Rmgpce-pd-dhxn intact bilaterally. Sensation: Comments Light touch Intact throughout Vibration Decreased at bilateral feet Temperature Mildly decreased at foot proprioception Decreased bilateral feet Gait: Normal stride length, arm swing, and base width. Able to toe, heel, and tandem walk. NegativeRomberg. 07/12/23 1613 NIH Stroke Scale Interval 7-10 [...] is restricted diffusion identified within the right STARS COORDINATOR territory compatible with evolvingacute ischemic infarct with involvement of the right posterior limb internal capsule and thalamus. There is associated sulcal effacement and hyperintense T2/FLAIR signal abnormality in the region. No associated hemorrhage. No significant mass effect. 2. No additional evidence of acute ischemia elsewhere. 3. Findings are superimposed on mild senescent change and a mild burden of nonspecific white matterdisease for age most commonly associated with the sequelae of chronic microvascular ischemia. 4. No pathologic post-contrast enhancement is identified to suggest abnormal breakdown of the bloodbrain barrier. MRA BRAIN: 1. There is intracranial [...] stenoses, occlusions, or aneurysm/vascular malformation. Assessment:/Plan: Krista Royal is a 68 y.o. female who presents for initial evaluation after sustaining a recent acute ischemic stroke in the right posterior internal capsule and thalamus in the right STARS COORDINATOR P2 territory. Right STARS COORDINATOR P2 stroke (Ischemic Infarct) Etiology: Large vessel stenosis versus embolic Testing: Patient is scheduled for 30-day cafeteria monitor to monitor for atrial fibrillation Labs: Lipid panel elevated during inpatient stay. Patient is scheduled to get a fasting test in thenear future with a primary care physician. A1c [...] Diagnosis:The encounter diagnosis was Acute ischemic right STARS COORDINATOR stroke (HCC). Follow up: Return in about 3 months (around 10/11/2023). Josesito Pollack MD Cutting Table Operator Neurologist [facility]. documented in this [id number] History of Present illness Narrative* Katy Oliver CMA - 07/12/2023 11:49 AM EST 30 day preventice monitor ordered documented in this [id number] History of Present illness Narrative* Edwina Moran RN - 07/05/2023 7:48 AM EST Patient with recent admission to [facility] for CVA. Discharged 07.04.22. Per Dr. Aleta Hudson, patient will need 30 day MCOT. MCOT ordered. documented in this [id number] Note* Quick Note - Kelly Del Valle RN - 07/04/2023 11:41 AM EST Discussed with Patient and Family- spouse scheduling follow up appointment in the [facility]. Appointment made and agreed upon with Patient and Family for July 12, [address] Pollack @ 1100. Approved to f/u in [place] per Dr Patterson. (closer to home). Reminder [...] this time. Please contact Neurology Navigator at [phone] if you have additional questions or needs. [id number] Miscellaneous Notes* Quick Note - Kelly Del Valle RN - 07/04/2023 11:41 AM EST Discussed with Patient and Family- spouse scheduling follow up appointment in the [facility]. Appointment made and agreed upon with Patient and Family for July 12, [address] Pollack @ [facility]. Approved to f/u in [place] per Dr Patterson. (closer to home). Reminder [...] this time. Please contact Neurology Navigator at [phone] if you have additional questions or needs. * Sign Off Note - Marisabel Reagan CNP - 07/03/2023 1:21 PM EST Neurology Neurovascular Sign-Off Diagnosis: RPCA Stroke Associated Large Vessel Lesion: None Neurovascular Etiology: Intracranial atherosclerotic disease vs embolic Risk Factor Labs: Lab Results Component Value Date LDLCALC 238 (H) 07/02/2023 Lab Results Component Value Date HGBA1C 6.1 (H) 07/02/2023 Procedures & Acute Interventions: None Demographics/Scores: Age & Sex: 68 y.o. female Ethnicity: Not or [* Zip: [address] NIHSS Admission Total: 2 NIHSS at Sign Off Total: 2 [id number] Score: Age 65= 1, Stroke/Tia= 2, and [...] details. Recall: If questions. Urgent Questions: Use [facility] On-call Directory to contact Physician documented in this [id number] Consult note* Radha Briones LSW - 07/04/2023 11:15 AM ESTAssociated Order(s): IP CONSULT TO CARE MANAGEMENT Care Management Consult Note Date: 07/04/2023 Time: 11:15 AM Patient Name: Krista Royal Date of : 1955 Reason for Consult: Transition of Care HOUSEHOLD COORDINATOR notified by RN of needed of OP therapy orders. HOUSEHOLD COORDINATOR placed orders, no further needs. [id number] Consult note* Radha Briones LSW - 07/04/2023 11:15 AM EST Associated Order(s): IP CONSULT TO CARE MANAGEMENT Care Management Consult Note Date: 07/04/2023 Time: 11:15 AM Patient Name: Krista Royal Date of : 1955 Reason for Consult: Transition of Care HOUSEHOLD COORDINATOR notified by RN of needed of OP therapy orders. HOUSEHOLD COORDINATOR placed orders, no further needs. 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 Ellyn Shelton RN - 07/03/2023 1:30 PM ESTAssociated Order(s): IP CONSULT TO CARDIAC ELECTROPHYSIOLOGY This consult is for OP MCT request from neuro to cardio. AVS updated and MCT will be ordered upon hospital release. Aleta Colbert MD - 07/02/2023 4:58 PM ESTAssociated Order(s): IP CONSULT TO NEUROLOGY; IP CONSULT TO NEUROLOGY Neurology Inpatient Consult [facility] 07/02/2023 Aleta Hudson MD [facility] Patient: Krista Royal Date of : 1955 (68 y.o. female) Referring Provider: Refer to consult order in electronic medical record PCP: Yennifer, Physician ASSESSMENT: 68 y.o. female with history of with no past medical history, does not follow-up with doctors presented to [facility] on 07/02/2023 with left arm heaviness and right facial swelling,found to have right STARS COORDINATOR infarct and right facial cellulitis. CTA with multifocal stenosis but does not appear that severe. Her stroke is likely due to intracranial atherosclerotic disease versus embolic etiology. Low concern for bacteremia or infective endocarditis. Echo obtained at OSH without evidence of endocarditis (EF 65-70%, mild concentric LVH, no regional wall motion abnormalities). PLAN: Right STARS COORDINATOR stroke (Ischemic Infarct) Etiology: iCAD versus embolic [...] the interpretation(s) with the following comments: Right STARS COORDINATOR infarct, multifocal intracranial stenosis Lab Results Component Value Date HGBA1C 6.1 (H) 07/02/2023 LDLCALC 238 (H) 07/02/2023 SUBJECTIVE: Chief Complaint/Reason for Consult: Stroke Informant(s): Patient, Care Team/Chart History of Present Illness: Krista Royal is a 68 y.o. female with no significant past medical history, does not follow-up with doctors who presented to the emergency department with left- sided weakness and right facial swelling. Patient has been having problems with her tooth and was supposed to have a dentist appointment butshe developed sudden onset left-sided weakness that lasted for about 6 hours. Subsequently she had a fall and was little bit dizzy and lightheaded. She also had left visual field deficits. In the emergency department CT head showed right STARS COORDINATOR infarct. She was transferred to [place] since there is no MRI at [facility]. Review of Systems: All systems reviewed and [...] per week. She reports that she does notuse drugs. Family History Problem Relation Age of [...] sodium chloride (PF) 5 mL Intravenous Q8H [facility] PRN Medications: acetaminophen, labetalol [...] & GROSS MOTOR: Abnormal Movements: None Coordination Vowfqs-yf-Gwcc: no ataxia but slow on FNF in the LUE. Coordination: Wzmx-Dwlh-Yrtz:Normal Drift: None Tone: Normal Bulk: Normal MOTOR - MUSCLE STRENGTH: 5/5 throughout REFLEXES: Symmetric throughout REFLEXES NINO: 4+ Sustained Clonus 3+ Brisk 2+ Normal 1+ Diminished 0 Absent SERENE Unable to Assess SENSATION: Fine Touch: Normal OTHER: Stroke Assessment - 07/02/231909 NIH Stroke Scale Level of Consciousness (1a.) [...] Neglect) 0 Total 2 documented in this [id number] Hospital course Narrative* Yelena Reeder, DO - 07/04/2023 10:39 AM EST MEDONE DISCHARGE SUMMARY Krista Royal Account: [id number] Admitted: 07/02/2023 Discharge Date/Time: 07/04/23 10:41 AM Handoff to PCP PCP to address the following Follow up on BP control (new lisinopril), repeat BMP in ~5 days Ensure compliance to DAPT for 90 days (starting 07/09/22), [facility] CVA clinic Clinical Summary Krista Royal is a 68 y.o. female with no significant past medical history who had C visit 07/01/23 from [facility] due to concern for right facial cellulitis, fall, and left arm heaviness found to have CT head nonacute but noted facial cellulits, small abscess thus transferred to [facility] 07/02/2023 subsequent MRI with R STARS COORDINATOR territory CVA. Neuro followed: DAPT x90 days then ASA starting 07/09/22 Acute R STARS COORDINATOR Stroke: with left arm heaviness and left peripheral vision deficit 07/01/23, since resolved. [facility] CT H 07/01/23 without acute intracranial abnormality, TTE 07/01/23 EF 65-70%, mild concentric LVH, no regional wall motion abnormalities. Admission CTA H/N showed evolving R STARS COORDINATOR distribution infarct, occlusion of proximal P2 segment of right STARS COORDINATOR, and focal high grade stenosis involving theorigin of left vertebral artery. Confirmed on MRI. 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 XR Left ankle 07/01/23 without acute injury, stable surgical screws noted. OVS. Telemetry. PT/OT Elevated Blood Pressure: SBP 170-190s on admit. No prior diagnosis of HTN. Add low dose lisinopril Elevated Trop: at [facility], suspect demand ischemia. [...] Physician(s) Family: No, Physician, Phone: None, Address: [facility] Follow Up: [facility] [address] [address] Follow up Physicians, [facility] [address] [facility] [address] Follow up You will be mailed a [...] care, including complete radiology reports, please contact [place] [facility] Records at Patient instructions, including activity, were given to the patient/family at discharge. Please seethe After Visit Summary in the medical record for details. Time spent on discharge: > 30 minutes Completed by: Yelena Reeder on 07/04/23, 10:41 AM documented in this [id number] Consult note* Elvis Andres, PT - 07/04/2023 8:54 AM EST Physical Therapy PHYSICAL THERAPY EVALUATION, TREATMENT, AND [...] Crutches Prior Level of Function Level of Moffat - Transfers/Ambulation/Mobility: Independent with functional transfers, Independent with household ambulation, Independent with community ambulation Level of Moffat - ADLs: Independent Level of Moffat - Homemaking: Independent Driving: Patient drives Vocational: Retired ([employer]) Location [employer]) PHYSICAL THERAPY TREATMENT NOTE Total Treatment Time [...] hospital or completion of Physical Therapy Plan. [id number] Emergency department Note* Chris Helms RN - 07/03/2023 6:47 PM EST Rounding completed on this patient as follows: Safety - Safety addressed. Cart in low and locked position, side rails up for safety, call light within reach. Plan - Plan discussed with patient. Personal Needs - Personal needs of patient addressed. Duration - Duration discussed with patient. [id number] Emergency department Note* Chris Helms RN - 07/03/2023 6:47 PM EST Rounding completed on this patient as follows: Safety - Safety addressed. Cart in low and locked position, side rails up for safety, call light within reach. Plan - Plan discussed with patient. Personal Needs - Personal needs of patient addressed. Duration - Duration discussed with patient. * Chaya Florez RN - 07/02/2023 8:43 PM EST Bed: 2406 Expected date: Expected time: Means of arrival: Comments: 15 - already in hospital bed * Candace Prado RN - 07/02/2023 8:07 PM EST Report given to 2 ivania nurse at this time. * Cassandra Neumann RN - 07/02/2023 8:28 AM EST MRI scheduled for 929 * Sourav Thapa MD - 07/02/2023 3:35 AM EST Images from the original note were not included. ED PROVIDER NOTE [facility] EMERGENCY DEPARTMENT NAME: Krista Royal AGE: 68 y.o. : 1955 VISIT DATE: 07/02/2023 CSN: [id number] PCP: No, Physician Chief Complaint Patient presents with Weakness HPI 68-year-old presents emergency department concerns for weakness. Patient presented to an [facility] hospital yesterday was diagnosed with facial cellulitis. She was admitted last night and this morninghad a fall. She noted some weakness at that time. Patient noted some left arm weakness and left late ral visual disturbance. She had undergone a facial CT as well as a chest CT and echo of her heart. They had concerns about giving her an additional dye load and did speak with neurology here who recommended she come to the emergency department for CTA of her head and neck. She notes no headache shenotes no other neurologic deficits. History reviewed. No [...] Result 1. 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 No evidence of hemorrhagic transformation. 2. There is occlusion of the proximal P2 segment of the right STARS COORDINATOR. 3. There is focal high-grade stenosis involving the origin of the left vertebral artery. 4. There are atherosclerotic changes noted along the carotid bulbs. Otherwise, the extracranial carotid arteries are patent. The process of contacting the ordering provider was initiated on 07/02/2023 at 4:01 a.m.. Critical results were relayed by Dr. Darius Banks to Dr. SOURAV THAPA on 07/02/2023 at 04:14. Workstation ID: [id number] MRA Cow And MR Brain With Contrast (Results Pending) Procedures Medical Decision Making HPI Summary: 68-year-old presents emergency department from [facility] with concerns for left arm weakness and left lateral visual disturbance in the setting of a recent diagnosis of facial cellulitis. DDx: CVA, TIA, peripheral neuropathy Data Review/analysis: CT obtained interpreted by radiology the head and neck showed evolving right STARS COORDINATOR infarction. There is occlusion of the proximal P2 segment of the right STARS COORDINATOR. Patient's CBC and chemistry are within normal [...] during her ED course and actually noted someimprovement in her subjective strength in her left [...] for Thrombolytics: LKW was > 3.5 hrs Sourav Thapa MD 07/02/23 0437 * Mohini Hilliard RN - 07/02/2023 2:57 AM EST Per transfer center note: Patient admitted on a med/surg unit for C/O right facial cellulitis today from an infected tooth. Patiet is not septic. [facility] reports that the patient reported that she had fallen while at the [facility] thismorning around 8am, and noted she hand left arm heaviness and that her left eye vision feels delayed. Patient also has mild intermittent confusion. [facility] reports patient was seen by their [...] region could be compressing on the RCA. [facility] do not have MRI available on the weekends. [facility] request transfer where the patient can have an MRI. VS HR [id number]%RA. [facility] reports patient with no past medical problems. [facility] reports patient did have an elevated troponin 123, 106, no C/O chest pain. [facility] reports most likely not cardiac. Request transfer for further strokework up. Per EMS REPORT: No peripheral vision at this time. Equal backshoe person strength, left sided deficits, right side droop per ems but could be attributed to cellulitis. CT and repeat CT were unremarkable. Potassium running 100 mL/HR. * Annamaria Cazares, RN - 07/02/2023 2:56 AM EST Bed: 15 Expected date: Expected time: Means of arrival: Comments: Referral/Elier/Lele documented in this [id number] History of Present illness Narrative* Yelena Reeder, - 07/03/2023 4:31 PM EST [facility] Inpatient Progress Note 07/03/2023 Krista Royal 1955 [id number] Assessment/Plan: Krista Royal is a 68 y.o. female with no significant past medical history who had [facility] visit 07/01/23 from [facility] due to concern for right facial cellulitis, fall, and left arm heaviness found to have CT head nonacute but noted facial cellulits, small abscess thus transferred to [facility] 07/02/2023 subsequent MRI with R STARS COORDINATOR territory CVA. Neuro followed: DAPT as below Acute R STARS COORDINATOR Stroke: with left arm heaviness and left peripheral vision deficit 07/01/23, since resolved. [facility] CT H 07/01/23 without acute intracranial abnormality, TTE 07/01/23 EF 65-70%, mild concentric LVH, no regional wall motion abnormalities. Admission CTA H/N showed evolving R STARS COORDINATOR distribution infarct, occlusion of proximal P2 segment of right STARS COORDINATOR, and focal high grade stenosis involving theorigin of left vertebral artery. Confirmed on MRI. 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 XR Left [...] labs, diagnostics, vitals including pulse ox, and technical sales consultant/other provider recommendations. Case discussed with Neuro [...] 124* CALCIUM mg/dL 9.2 9.3 -- -- * Marisabel Reagan CNP - 07/03/2023 10:17 AM EST ADDENDUM: Patient plan reviewed with Dr. Mora, plan to start Plavix 75 mg + ASA 81 mg on 07/09/23 x 90 days,then ASA monotherapy. 07/03/2023 1:19 PM Neurology Inpatient Follow Up [facility] 07/03/2023 Marisabel Reagan CNP [facility] Patient: Krista Royal Date of : 1955 (68 y.o. female) Referring Provider: Refer to consult order in electronic medical record PCP: No, Physician ASSESSMENT: 68 y.o. female with history of with no past medical history, does not follow-up with doctors presented to [facility] on 07/02/2023 with left arm heaviness and right facial swelling,found to have right STARS COORDINATOR infarct and right facial cellulitis. CTA with multifocal stenosis; her stroke is likely due to intracranial atherosclerotic disease versus embolic etiology. Low concern for bacteremia or infective endocarditis. Echo obtained at OSH without evidence of endocarditis (EF 65-70%, mild concentric LVH, no regional wall motion abnormalities). PLAN: Right STARS COORDINATOR stroke (Ischemic Infarct) Etiology: intracranial atherosclerotic disease [...] is restricted diffusion identified within the right STARS COORDINATOR territory compatible with evolving acute ischemic infarct [...] and neck: There is an evolving right STARS COORDINATOR distribution infarction. No evidence of hemorrhagic transformation. There is occlusion of the proximal P2 segment of the right STARS COORDINATOR. There is focal high-grade stenosis involving the origin of the left vertebral artery. There are atherosclerotic changes noted along the carotid bulbs. Otherwise, the extracranial carotid arteries arepatent. TTE at OSH reportedly normal. Report unable to view Lab Results Component Value Date HGBA1C 6.1 (H) 07/02/2023 LDLCALC 238 (H) 07/02/2023 SUBJECTIVE: Chief Complaint/Reason for Consult: Stroke Informant(s): Patient Interval Update: Ongoing [facility]. Right face with notable swelling/bruising. Reviewed recs for formal outpatient drivingevaluation prior to resumption of driving. Review of [...] Normal CRANIAL NERVES: II - Visual [place]: [facility] II, III - Pupils: PERRL III, IV, - Eye Movements: Normal (EOMI, no ptosis, no nystagmus) V - Facial Sensation: Normal VII - Face Symmetry and Strength: Rt face is swollen. VIII - Hearing: Normal IX, X - Palate: Normal XI - Shoulder Shrug: Normal XII - Tongue Protrusion: Normal COORDINATION & GROSS MOTOR: Abnormal Movements: None Coordination Qjvhfm-uw-Vnpu: no ataxia but slow LUE Drift: None [...] No abnormality Total: 2 documented in this [id number] Consult note* Ellyn Lin RN - 07/03/2023 1:30 PM ESTAssociated Order(s): IP CONSULT TO CARDIAC ELECTROPHYSIOLOGY This consult is for OP MCT request from neuro to cardio. AVS updated and MCT will be ordered upon hospital release. [id number] Note* Sign Off Note - Marisabel Reagan CNP - 07/03/2023 1:21 PM EST Neurology Neurovascular Sign-Off Diagnosis: RPCA Stroke Associated Large Vessel Lesion: None Neurovascular Etiology: Intracranial atherosclerotic disease vs embolic Risk Factor Labs: Lab Results Component Value Date LDLCALC 238 (H) 07/02/2023 Lab Results Component Value Date HGBA1C 6.1 (H) 07/02/2023 Procedures & Acute Interventions: None Demographics/Scores: Age & Sex: 68 y.o. female Ethnicity: Not or [* Zip: [facility] NIHSS Admission Total: 2 NIHSS at Sign Off Total: 2 [id number] Score: Age 65= 1, Stroke/Tia= 2, and [...] details. Recall: If questions. Urgent Questions: Use [facility] to contact Physician [id number] Emergency department Note* Chaya Florez RN - 07/02/2023 8:43 PM EST Bed: 2406 Expected date: Expected time: Means of arrival: Comments: 15 - already in hospital bed [id number] Emergency department Note* Candace Prado RN - 07/02/2023 8:07 PM EST Report given to 2 green nurse at this time. [id number] Consult note* Aleta Hudson MD - 07/02/2023 4:58 PM ESTAssociated Order(s): IP CONSULT TO NEUROLOGY; IP CONSULT TO NEUROLOGY Neurology Inpatient Consult [facility] 07/02/2023 Aleta Hudson MD [facility] Patient: Krista Royal Date of : 1955 (68 y.o. female) Referring Provider: Refer to consult order in electronic medical record PCP: No, Physician ASSESSMENT: 68 y.o. female with history of with no past medical history, does not follow-up with doctors presented to [facility] on 07/02/2023 with left arm heaviness and right facial swelling,found to have right STARS COORDINATOR infarct and right facial cellulitis. CTA with multifocal stenosis but does not appear that severe. Her stroke is likely due to intracranial atherosclerotic disease versus embolic etiology. Low concern for bacteremia or infective endocarditis. Echo obtained at OSH without evidence of endocarditis (EF 65-70%, mild concentric LVH, no regional wall motion abnormalities). PLAN: Right STARS COORDINATOR stroke (Ischemic Infarct) Etiology: iCAD versus embolic [...] the interpretation(s) with the following comments: Right STARS COORDINATOR infarct, multifocal intracranial stenosis Lab Results Component Value Date HGBA1C 6.1 (H) 07/02/2023 LDLCALC 238 (H) 07/02/2023 SUBJECTIVE: Chief Complaint/Reason for Consult: Stroke Informant(s): Patient, Care Team/Chart History of Present Illness: Krista Royal is a 68 y.o. female with no significant past medical history, does not follow-up with doctors who presented to the emergency department with left- sided weakness and right facial swelling. Patient has been having problems with her tooth and was supposed to have a dentist appointment butshe developed sudden onset left-sided weakness that lasted for about 6 hours. Subsequently she had a fall and was little bit dizzy and lightheaded. She also had left visual field deficits. In the emergency department CT head showed right STARS COORDINATOR infarct. She was transferred to [place] since there is no MRI at [facility]. Review of Systems: All systems reviewed and [...] per week. She reports that she does notuse drugs. Family History Problem Relation Age of [...] sodium chloride (PF) 5 mL Intravenous Q8H [facility] PRN Medications: acetaminophen, labetalol [...] & GROSS MOTOR: Abnormal Movements: None Coordination Iljccj-sr-Jjdv: no ataxia but slow on FNF in the LUE. Coordination: Tfiy-Wjhn-Vioa:Normal Drift: None Tone: Normal Bulk: Normal MOTOR - MUSCLE STRENGTH: 5/5 throughout REFLEXES: Symmetric throughout REFLEXES NINO: 4+ Sustained Clonus 3+ Brisk 2+ Normal 1+ Diminished 0 Absent SERENE Unable to Assess SENSATION: Fine Touch: Normal OTHER: Stroke Assessment - 07/02/231909 NIH Stroke Scale Level of Consciousness (1a.) [...] Inattention (11.) (Formerly Neglect) 0 Total 2 [employer] Work Phone: 1(772) 539-545912-30-2023 Emergency department Note* Cassandra Neumann RN - 07/02/2023 8:28 AM EST [id number] History and physical note* Kelli Staton CNP - 07/02/2023 7:12 AM EST [facility] History and Physical Note 07/02/23 Krista Royal 1955 [id number] Assessment/Plan: Krista Royal is a 68 y.o. female with no significant past medical history who had [facility] visit 07/01/23 from [facility] due to concern for right facial cellulitis, fall, and left arm heaviness. Transferred to [facility] 07/02/2023 for further neurological evaluation as no MRI available at [facility] on weekends. Acute Stroke: with left arm heaviness and numbness, gait instability, and left peripheral vision deficit 07/01/23, since resolved. [facility] Stroke Network evaluated with CT H 07/01/23 without acute intracranial abnormality; noted unable to obtain CTA H/N due to recent contrast and recommended MRI/MRA H/N as concern that CT MF showing inflammation along maxillary/mandible region could be compressing onRCA. [facility] TTE 07/01/23 EF 65-70%, mild concentric LVH, no regional wall motion abnormalities. Admission CTA H/N showed evolving R STARS COORDINATOR distribution infarct, occlusion of proximal P2 segment of right STARS COORDINATOR, and focal high grade stenosis involving the origin of left vertebral artery. Admission lipid panel with LDL 238, hesham 328, tri 166 and A1c pending. ASA/statin initiated on admit. MRI/MRA pending. Neuro, PT, OT, CYLINDER MACHINE OPERATOR consulted. 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 XR Left ankle 07/01/23 without acute injury, stable surgical screws noted. OVS. Telemetry. PT/OT Elevated Blood Pressure: SBP 170-190s on admit. No prior diagnosis of HTN. Monitor, allow for permissive HTN then may need anti-hypertensive agent Elevated Trop: at [facility], suspect demand ischemia. CT Chest 06/25/23 [...] Stroke symptoms History of Present Illness: Krista Royal is a 68 y.o. female with no significant past medical history who had [facility] visit 07/01/23 from [facility] due to concern for right facial cellulitis, fall, and left arm heaviness. Transferred to [facility] 07/02/2023 for further neurological evaluation as no MRI available at [facility] on weekends. Patient has infection under [...] 9.3 -- -- Associated attestation - Maday Conti MD - 07/02/2023 11:19 AM EST I have personally performed a [id number] diagnostic evaluation of this patient on 07/02/2023. After discussing the case Kelli Staton CNP, I performed the substantive part of the medical decisionmaking for this encounter with the following additions: Patient is a 68 year old female with no known past significant medical history who initially presented to [facility] on 07/01/23 for stroke like symptoms with left arm heaviness and facial cellulitis. VS at [facility] significant for BP of 189/95. She was transferred to [facility] on 07/02/23 for higher level of care. CTA head and neck at [facility] on 07/02/23 showed evolving right STARS COORDINATOR infarction, occluded proximal P2 segment of right STARS COORDINATOR and focal high grade stenosis of left vertebral artery. Acute stroke: likely ischemic than embolic, presented as above. CTA as above. Neurology consulted. TTE at [facility] with EF of 65% with no [...] Denied anginal complaint. EKG at [facility] pending. Likely due to demand ischemia in [...] fold on right side due to facial swelling,strength on UE and LE intact Psych: Mood appropriate. [id number] History and physical note* Kelli Staton CNP - 07/02/2023 7:12 AM EST [facility] and Physical Note 07/02/23 Krista Royal 1955 [id number] Assessment/Plan: Krista Royal is a 68 y.o. female with no significant past medical history who had [facility] visit 07/01/23 from [facility] due to concern for right facial cellulitis, fall, and left arm heaviness. Transferred to [facility] 07/02/2023 for further neurological evaluation as no MRI available at [facility] on weekends. Acute Stroke: with left arm heaviness and numbness, gait instability, and left peripheral vision deficit 07/01/23, since resolved. [facility] Stroke Network evaluated with CT H 07/01/23 without acute intracranial abnormality; noted unable to obtain CTA H/N due to recent contrast and recommended MRI/MRA H/N as concern that CT MF showing inflammation along maxillary/mandible region could be compressing onRCA. [facility] TTE 07/01/23 EF 65-70%, mild concentric LVH, no regional wall motion abnormalities. Admission CTA H/N showed evolving R STARS COORDINATOR distribution infarct, occlusion of proximal P2 segment of right STARS COORDINATOR, and focal high grade stenosis involving the origin of left vertebral artery. Admission lipid panel with LDL 238, hesham 328, tri 166 and A1c pending. ASA/statin initiated on admit. MRI/MRA pending. Neuro, PT, OT, CYLINDER MACHINE OPERATOR consulted. 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 XR Left ankle 07/01/23 without acute injury, stable surgical screws noted. OVS. Telemetry. PT/OT Elevated Blood Pressure: SBP 170-190s on admit. No prior diagnosis of HTN. Monitor, allow for permissive HTN then may need anti-hypertensive agent Elevated Trop: at [facility], suspect demand ischemia. CT Chest 06/25/23 [...] Stroke symptoms History of Present Illness: Krista Royal is a 68 y.o. female with no significant past medical history who had [facility] visit 07/01/23 from [facility] due to concern for right facial cellulitis, fall, and left arm heaviness. Transferred to [facility] 07/02/2023 for further neurological evaluation as no MRI available at [facility] on weekends. Patient has infection under [...] 9.3 -- -- Associated attestation - Maday Conti MD - 07/02/2023 11:19 AM EST I have personally performed a [id number] diagnostic evaluation of this patient on 07/02/2023. After discussing the case Kelli Staton CNP, I performed the substantive part of the medical decisionmaking for this encounter with the following additions: Patient is a 68 year old female with no known past significant medical history who initially presented to [facility] on 07/01/23 for stroke like symptoms with left arm heaviness and facial cellulitis. VS at [facility] significant for BP of 189/95. She was transferred to [facility] on 07/02/23 for higher level of care. CTA head and neck at [facility] on 07/02/23 showed evolving right STARS COORDINATOR infarction, occluded proximal P2 segment of right STARS COORDINATOR and focal high grade stenosis of left vertebral artery. Acute stroke: likely ischemic than embolic, presented as above. CTA as above. Neurology consulted. TTE at [facility] with EF of 65% with no [...] Denied anginal complaint. EKG at [facility] pending. Likely due to demand ischemia in [...] fold on right side due to facial swelling,strength on UE and LE intact Psych: Mood appropriate. documented in this [id number] NoteHNO ID: [id number] Author: Mildred Lewis DO Service: Hospital Medicine Author Type: Physician Type: Plan of Care Filed: 07/02/2023 2:16 AM Note Text: Accepted for transfer yesterday 07/01/2023 (late charting, pt not yet arrived [facility] cellulitis suspected [...] went up to 180's reportedly but Dr. Hathaway discussed this seeming related to pain from facial cellulitis and did not note a correlation between blood pressure being elevated and neurologic symptoms. 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 ED PROVIDER NOTE [facility] EMERGENCY DEPARTMENT NAME: Krista Royal AGE: 68 y.o. : 1955 VISIT DATE: 07/02/2023 CSN: [id number] PCP: No, Physician Chief Complaint Patient presents with Weakness HPI 68-year-old presents emergency department concerns for weakness. Patient presented to an [facility] hospital yesterday was diagnosed with facial cellulitis. She was admitted last night and this morninghad a fall. She noted some weakness at that time. Patient noted some left arm weakness and left late ral visual disturbance. She had undergone a facial CT as well as a chest CT and echo of her heart. They had concerns about giving her an additional dye load and did speak with neurology here who recommended she come to the emergency department for CTA of her head and neck. She notes no headache shenotes no other neurologic deficits. History reviewed. No [...] Result 1. 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 No evidence of hemorrhagic transformation. 2. There is occlusion of the proximal P2 segment of the right STARS COORDINATOR. 3. There is focal high-grade stenosis involving the origin of the left vertebral artery. 4. There are atherosclerotic changes noted along the carotid bulbs. Otherwise, the extracranial carotid arteries are patent. The process of contacting the ordering provider was initiated on 07/02/2023 at 4:01 a.m.. Critical results were relayed by Dr. Darius Banks to Dr. SOURAV THAPA on 07/02/2023 at 04:14. Workstation ID: [id number] MRA Cow And MR Brain With Contrast (Results Pending) Procedures Medical Decision Making HPI Summary: 68-year-old presents emergency department from [facility] with concerns for left arm weakness and left lateral visual disturbance in the setting of a recent diagnosis of facial cellulitis. DDx: CVA, TIA, peripheral neuropathy Data Review/analysis: CT obtained interpreted by radiology the head and neck showed evolving right STARS COORDINATOR infarction. There is occlusion of the proximal P2 segment of the right STARS COORDINATOR. Patient's CBC and chemistry are within normal [...] during her ED course and actually noted someimprovement in her subjective strength in her left [...] for Thrombolytics: LKW was > 3.5 hrs Sourav Thapa MD 07/02/23 0437 [id number] Emergency department Triage note* Mohini Hilliard, RN - 07/02/2023 2:57 AM EST Per transfer center note: Patient admitted on a med/surg unit for C/O right facial cellulitis today from an infected tooth. Patiet is not septic. [facility] reports that the patient reported that she had fallen while at the [facility] thismorning around 8am, and noted she hand left arm heaviness and that her left eye vision feels delayed. Patient also has mild intermittent confusion. [facility] reports patient was seen by their [...] region could be compressing on the RCA. [facility] do not have MRI available on the weekends. [facility] request transfer where the patient can have an MRI. VS HR [id number]/95-94%RA. [facility] reports patient with no past medical problems. [facility] reports patient did have an elevated troponin 123, 106, no C/O chest pain. [facility] reports most likely not cardiac. Request transfer for further strokework up. Per EMS REPORT: No peripheral vision at this time. Equal backshoe person strength, left sided deficits, right side droop per ems but could be attributed to cellulitis. CT and repeat CT were unremarkable. Potassium running 100 mL[facility]HR. [id number] Note* Annamaria Cazares, RN - 07/02/2023 2:56 AM EST Bed: 15 Expected date: Expected time: Means of arrival: Comments: Referral/Elier/[facility] note* Diagnosis Acute stroke due to occlusion of right carotid artery (HCC)- Primary Cerebrovascular accident (CVA), unspecified mechanism (HCC) Facial cellulitis Acute stroke due to occlusion of right carotid artery (HCC) [facility]* Diagnosis Atrial fibrillation, unspecified type (HCC)- Primary [facility]* Diagnosis Acute ischemic right STARS COORDINATOR stroke (HCC)- Primary Unspecified cerebral artery occlusion with cerebral infarction [facility] noteNo assessment information availableWSumma Health Work Phone: Evaluation note* Diagnosis Acute ischemic right STARS COORDINATOR stroke (HCC)- Primary Unspecified cerebral artery occlusion with cerebral infarction H/O ischemic right STARS COORDINATOR stroke [facility]* Diagnosis H/O ischemic right STARS COORDINATOR stroke- Primary [facility]* Diagnosis Pain Generalized pain documented in this encounter [facility] note* Diagnosis Glenohumeral arthritis, right- Primary documented in this encounter [facility] note* Diagnosis Onset Date Resolution Status Admit Date Abnormal involuntary movement acute December 25, 2024 1:58pm Altered mental status acute Dec 1:58pm [facility] Work Phone: History and physical note [facility] Medical Records Department [address] [place] [id number] H&P Exam - Hospitalist 12/25/24 1357 MR#: [id number] Acct: [id number] Name: KAYLEE ROYAL Rep #:[id number] : 1955 69 From: Yadira Costello MD PCP: RICHARD Brown Status:ADM IN Location: PCU [id number] HPI - General General Date of Admission: 12/25/24 Date of Service: 12/25/24 Chief Complaint: LOC, shaking episode HPI Narrative KAYLEE ROYAL, is a 69-year-old female history of CVA and hypertension [facility] as a prehospital stroke alert. On arrival patient afebrile, heart rate 92 with blood pressure 134/67, respiratory rate 16 patient pulse ox 98% on room air. CBC with no concerning findings, BMP with bicarb of 11.9 and a gap of 26 with creatinine of 1.1. Reportedly patient and were driving down the road and then she began looking to her left and had left arm shaking and was not responding purposefully and then went completely unresponsive so pulled over and called EMS. When EMS arrivedshe was not fully responding initially but then slowly became more responsive and opened her eyes but was not saying words or following commands. She then became combative but by the time ED physician evaluated her she was awake and alert. Patient did have stroke alert and brain CT showed findings suggestive ofpossible subacute infarct in region of hippocampus on right temporal lobe with old ischemic change in the medial aspect of the right occipital lobe. CTA with high-grade stenosis of the origin of the left internal carotid artery. Teleneurology evaluated and gothistory that patient had left arm tightening, left face twisting and then started shaking before she lost consciousness for 1 minute, during that time she bit her right lateral tongue and had stool incontinence and was confused. Teleneurology concern for seizure and recommended admitting locally and pursuing seizure workup with brain MRI, routine EEG, general neuro consult and recommended loadingpatient with Keppra. Patient loaded with Keppra and hospitalist contacted for admission. Patient germain luated at bedside with family members present. reports that she had been in her usual health and then suddenly while he was driving she began looking somewhere behind him, he looked to see what she was looking at but did not see anything and when he looked back her left arm manjit up in the left side of her face twisted and then she began having all over shaking movements, then slumped forward with loss of consciousness, was noted to bit her tongue and soiled herself. She was confused afterwards but now is back to her baseline mental status. Feels little bit nauseated and just kind of tired but no other new or acute complaints. Denies anything like this happening previously. Does note previous stroke 07/01/2023 when she went to do her hair she was unable to use her left hand, she then lost consciousness and fell hurting her shoulder andher left leg. Only residual problems are somenumbness on top of left foot and knee which is unchanged. Presently denies any other numbness, tingling, weakness. Has chronic right shoulder problems so somewhat limited with this andis supposed to be evaluated for surgery next month. Sometimes gets some reflux symptoms but no chest pain or shortness of breath, no headache or changes in vision. No bowel or bladder complaints. [facility] Medical History Wears glasses Alcohol use Arthritis High cholesterol Back pain Heartburn PONV (postoperative nausea and vomiting) Non-smoker Hemiplegia and hemiparesis following cerebral infarction affecting left non- dominant side CVA (cerebral vascular accident) HTN (hypertension) Home Medications ?Medication ?Instructions ?Recorded ?Last Taken ?Type aspirin 81 mg tablet,delayed 81 mg PO QDAY 07/13/24 History release (Adult Low Dose Aspirin) lisinopril 5 mg tablet 5 mg PO QDAY 07/13/24 History meloxicam 15 mg tablet 15 mg PO QDAY 07/13/2408/19 History ezetimibe 10 mg tablet 10 mg PO DAILY 12/25/24 Unkn own History Allergy/AdvReac Type Severity Reaction Status Date / Time codeine AdvReac Jitters Verified 08/21/24 07:07 Dressing: Non-Medicated AdvReac Rash Verified 08/21/24 07:07 (band aids) Surgical History History of tubal ligation History of nasal surgery History of ankle surgery Social History household members: spouse and children current occupational status: retired Smoking Status: Never smoker alcohol intake: current alcohol intake frequency: holidays/special occasions only substance use type: does not use ROS ROS Narrative General: Denies fever/chills HENT: Denies headache, denies stuffy nose, denies sore throat EYES: Denies changes in vision Resp: Denies cough, denies shortness of breath Cardiac: Denies chest pain GI: Denies abdominal pain, denies changes in bowel, feels little nauseated, did soil self during this episode : Denies changes in urination Extremity: Denies swelling MSK: Denies weakness, has some chronic right shoulder pain and left hip pain Neuro: Chronic numb feeling in left knee and top of left foot Heme: Denies any bleeding or bruising Skin: Denies rashes Psychiatric: No complaints voiced Vital Signs Vital Signs Vital Signs: 12/25/24 12:19 12/25/24 12:20 12/25/24 12:25 Temperature 98.6 F 98.1 F Temperature Source Oral Temporal Pulse Rate 92 104 H Respiratory Rate 16 18 Blood Pressure 134/67 H 144/77 H Blood Pressure Mean 89 99 Pulse Ox 98 96 Oxygen Delivery Method Room Air Room Air Room Air 12/25/24 12:25 12/25/24 12:27 12/25/24 13:18 Temperature 98.6 F Temperature Source Oral Pulse Rate 104 H 104 H 72 Respiratory Rate 18 18 16 Blood Pressure 144/74 H 144/74 H 131/81 H Blood Pressure Mean 97 97 97 Pulse Ox 96 96 93 Oxygen Delivery Method Room Air Room Air Room Air 12/25/24 13:48 Temperature 97.8 F Temperature Source Pulse Rate 76 Respiratory Rate 20 H Blood Pressure 125/76 H Blood Pressure Mean 92 Pulse Ox 97 Oxygen Delivery Method Weight Weight: 61 kg Body Mass Index (BMI) 23.1 Physical Exam Narrative General: Alert, oriented, no apparent distress HEENT: Atraumatic, normocephalic Eyes: Anicteric, normal conjunctiva, extraocular movements intact, pupils equal Neck: Supple Respiratory: Clear to auscultation bilaterally, normal respiratory effort Cardiovascular: Regular rate and rhythm GI: Soft, nontender, nondistended Extremities: No edema Musculoskeletal: Strength 5 out of 5 in right upper extremity, 5 out of 5 left upper extremity, 5 out of 5 right lower extremity, 5 out of 5 left lower extremity, does have some limited shrug and movement in the right shoulder whichis not new Neuro: No overt focal neurological deficits, cranial nerves II through XII intact, [id number] without significant difficulty bilaterally Skin: No rashes appreciated Psych: Cooperative Results Lab / Micro Data 12/25/24 12:30 12/25/24 12:30 Labs: Laboratory Results - last 24 hr 12/25/24 12:30: WBC 11.0, RBC 4.57, Hgb 14.3, Hct 43.5, MCV 95.2, MCH 31.3, MCHC32.9, RDW Std Deviation 45.2 H, RDW Coeff of Miesha 13.0, Plt Count 313, MPV 10.0, Immature Gran % (Auto) 0.500, Neut % (Auto) 63.5, Lymph % (Auto) 27.7, [place] % (Auto) 6.3, Eos % (Auto) 1.3, Baso % (Auto) 0.7, Absolute Neuts (auto) 7.0, Absolute Lymphs (auto) 3.04, Nucleated RBC % 0, PT 14.7, INR 1.1, APTT 24.5, Sodium 135, Potassium 4.3, Chloride 96 L, Carbon Dioxide 11.9 L, Anion Gap 26 H,BUN 18, Creatinine 1.10, Estim Creat Clear Calc 42.86 L, Est GFR (MDRD) Non-Af 55 L, BUN/Creatinine Ratio 16.0, Glucose 128 H, Calcium 10.0, Troponin T High Sens 9 Imaging Radiology Impression Brain CT 12/25/24 12:19 IMPRESSION: Findings suggestive of possible subacute infarct in the region of the hippocampus of the right temporal lobe. Old ischemic change in the medial aspect of the right occipital lobe. Red Alert: ?Ischemia in Right hippocampus The critical information above was relayed directly by me by telephone to Donn Fitch on 12/25/2024 at 12:34 pm with readback verification. Reading Location: [id number] Chest X-Ray 12/25/24 12:19 IMPRESSION: Moderate degenerative changes of the visualized spine are seen. A partially calcified aorta is noted; no evidence of cardiomegaly. Lungs appear clear of acute disease. No pleural effusion or pneumothorax is noted. No evidence of acute cardiopulmonary disease Reading Location: [facility] Head/Neck CTA 12/25/24 12:19 IMPRESSION: High-grade stenosis at the origin of the left internal carotid artery. Reading Location: [facility] Assessment & Plan Assessment/Plan (1) Abnormal involuntary movement: (2) Altered mental status: PLAN: Plan # Concern for new onset seizure - With left-sided symptoms followed by general tonic-clonic movements, possibly associated with right sided subacute CVA seen on imaging, evaluated by stroke neurologist who recommended admitting locally with further workup with a generaltelemetry neurology consult - MRI ordered - EEG - General Neurology consult - Continuing Kera - Will obtain UA and UDS for additional workup - Also check lactic acid given the low bicarb and elevated gap, no other acute complaints is suspected that this is high due to seizure -IVF # Subacute CVA - CT revealed possible subacute infarct in region of left hippocampus of right temporal lobe - Aspirin, statin - MRI as above - Will obtain echocardiogram - Monitor on telemetry -It was felt that presentation was due to seizure not stroke however given the subacute stroke willobtain further workup as above -NIH q4hr -asa, statin -Echo -PT/OT/Speech eval # Left internal carotid stenosis - Seen on CTA - Will obtain carotid Doppler for further assessment, if significant stenosis will need to considervascular intervention inpatient versus outpatient #Hypertension - Will hold home lisinopril at this time pending further workup #DVT ppx: SCDs Yadira Costello MD Charges/Coding Visit Charges Inpatient E&M: 36718 Init Hosp L2 12/25/24 1410 Cosigner Signature (if applicable): CC: IMPORT EXPORT MANAGER-C Chaya Waddell; Dr. Yadira Costello MD~ [facility] Author Yadira Costello [facility] Note Date/Time December 25, 2024 2:[address] [facility] Medical Records Department [address] [place] [address] H&P Exam - Hospitalist 12/25/24 1357 MR#: [id number] Acct: [id number] Name: KAYLEE ROYAL Rep #:[id number] : 1955 69 From: Yadira Costello MD PCP: RICHARD Brown Status:ADM IN Location: U [id number] HPI - General General Date of Admission: 12/25/24 Date of Service: 12/25/24 Chief Complaint: LOC, shaking episode HPI Narrative KAYLEE ROYAL, is a 69-year-old female history of CVA and hypertension [facility] as a prehospital stroke alert. On arrival patient afebrile, heart rate 92 with blood pressure 134/67, respiratory rate 16 patient pulse ox 98% on room air. CBC with no concerning findings, BMP with bicarb of 11.9 and a gap of 26 with creatinine of 1.1. Reportedly patient and were driving down the road and then she began looking to her left and had left arm shaking and was not responding purposefully and then went completely unresponsive so pulled over and called EMS. When EMS arrivedshe was not fully responding initially but then slowly became more responsive and opened her eyes but was not saying words or following commands. She then became combative but by the time ED physician evaluated her she was awake and alert. Patient did have stroke alert and brain CT showed findings suggestive ofpossible subacute infarct in region of hippocampus on right temporal lobe with old ischemic change in the medial aspect of the right occipital lobe. CTA with high-grade stenosis of the origin of the left internal carotid artery. Teleneurology evaluated and got history that patient had left arm tightening, left face twisting and then started shaking before she lost consciousness for 1 minute, during that time she bit her right lateral tongue and had stool incontinence and was confused. Teleneurology concern for seizure and recommended admitting locally and pursuing seizure workup with brain MRI, routine EEG, general neuro consult and recommended loading patient with Keppra. Patient loaded with Keppra and hospitalist contacted for admission. Patient evaluated at bedside with family members present. reports that she had been in her usual health and then suddenly while he was driving she began looking somewhere behind him, he looked to see what she was looking at but did not see anything and when he looked back her left arm manjit up in the left side of her face twisted and then she began having all over shaking movements, then slumped forward with loss of consciousness, was noted to bit her tongue and soiled herself. She was confused afterwards but now is back to her baseline mental status. Feels little bit nauseated and just kind of tired but no other new or acute complaints. Denies anything like this happening previously. Does note previous stroke 07/01/2023 when she went to do her hair she was unable to use her left hand, she then lost consciousness and fell hurting her shoulder andher left leg. Only residual problems are some numbness on top of left foot and knee which is unchanged. Presently denies any other numbness, tingling, weakness. Has chronic right shoulder problems so somewhat limited with this andis supposed to be evaluated for surgery next month. Sometimes gets some reflux symptoms but no chest pain or shortness of breath, no headache or changes in vision. No bowel or bladder complaints. [facility]LY [facility] Medical History Wears glasses Alcohol use Arthritis High cholesterol Back pain Heartburn PONV (postoperative nausea and vomiting) Non-smoker Hemiplegia and hemiparesis following cerebral infarction affecting left non- dominant side CVA (cerebral vascular accident) HTN (hypertension) Home Medications ?Medication ?Instructions ?Recorded ?Last Taken ?Type aspirin 81 mg tablet,delayed 81 mg PO QDAY 07/13/24 History release (Adult Low Dose Aspirin) lisinopril 5 mg tablet 5 mg PO QDAY 07/13/24 History meloxicam 15 mg tablet 15 mg PO QDAY 07/13/2408/19 History ezetimibe 10 mg tablet 10 mg PO DAILY 12/25/24 Unkn own History Allergy/AdvReac Type Severity Reaction Status Date / Time codeine AdvReac Jitters Verified 08/21/24 07:07 Dressing: Non-Medicated AdvReac Rash Verified 08/21/24 07:07 (band aids) Surgical History History of tubal ligation History of nasal surgery History of ankle surgery Social History household members: spouse and children current occupational status: retired Smoking Status: Never smoker alcohol intake: current alcohol intake frequency: holidays/special occasions only substance use type: does not use ROS ROS Narrative General: Denies fever/chills HENT: Denies headache, denies stuffy nose, denies sore throat EYES: Denies changes in vision Resp: Denies cough, denies shortness of breath Cardiac: Denies chest pain GI: Denies abdominal pain, denies changes in bowel, feels little nauseated, did soil self during this episode : Denies changes in urination Extremity: Denies swelling MSK: Denies weakness, has some chronic right shoulder pain and left hip pain Neuro: Chronic numb feeling in left knee and top of left foot Heme: Denies any bleeding or bruising Skin: Denies rashes Psychiatric: No complaints voiced Vital Signs Vital Signs Vital Signs: 12/25/24 12:19 12/25/24 12:20 12/25/24 12:25 Temperature 98.6 F 98.1 F Temperature Source Oral Temporal Pulse Rate 92 104 H Respiratory Rate 16 18 Blood Pressure 134/67 H 144/77 H Blood Pressure Mean 89 99 Pulse Ox 98 96 Oxygen Delivery Method Room Air Room Air Room Air 12/25/24 12:25 12/25/24 12:27 12/25/24 13:18 Temperature 98.6 F Temperature Source Oral Pulse Rate 104 H 104 H 72 Respiratory Rate 18 18 16 Blood Pressure 144/74 H 144/74 H 131/81 H Blood Pressure Mean 97 97 97 Pulse Ox 96 96 93 Oxygen Delivery Method Room Air Room Air Room Air 12/25/24 13:48 Temperature 97.8 F Temperature Source Pulse Rate 76 Respiratory Rate 20 H Blood Pressure 125/76 H Blood Pressure Mean 92 Pulse Ox 97 Oxygen Delivery Method Weight Weight: 61 kg Body Mass Index (BMI) 23.1 Physical Exam Narrative General: Alert, oriented, no apparent distress HEENT: Atraumatic, normocephalic Eyes: Anicteric, normal conjunctiva, extraocular movements intact, pupils equal Neck: Supple Respiratory: Clear to auscultation bilaterally, normal respiratory effort Cardiovascular: Regular rate and rhythm GI: Soft, nontender, nondistended Extremities: No edema Musculoskeletal: Strength 5 out of 5 in right upper extremity, 5 out of 5 left upper extremity, 5 out of 5 right lower extremity, 5 out of 5 left lower extremity, does have some limited shrug and movement in the right shoulder whichis not new Neuro: No overt focal neurological deficits, cranial nerves II through XII intact, [id number] without significant difficulty bilaterally Skin: No rashes appreciated Psych: Cooperative Results Lab / Micro Data 12/25/24 12:30 12/25/24 12:30 Labs: Laboratory Results - last 24 hr 12/25/24 12:30: WBC 11.0, RBC 4.57, Hgb 14.3, Hct 43.5, MCV 95.2, MCH 31.3, MCHC32.9, RDW Std Deviation 45.2 H, RDW Coeff of Miesha 13.0, Plt Count 313, MPV 10.0, Immature Gran % (Auto) 0.500, Neut % (Auto) 63.5, Lymph % (Auto) 27.7, [place] % (Auto) 6.3, Eos % (Auto) 1.3, Baso % (Auto) 0.7, Absolute Neuts (auto) 7.0, Absolute Lymphs (auto) 3.04, Nucleated RBC % 0, PT 14.7, INR 1.1, APTT 24.5, Sodium 135, Potassium 4.3, Chloride 96 L, Carbon Dioxide 11.9 L, Anion Gap 26 H,BUN 18, Creatinine 1.10, Estim Creat Clear Calc 42.86 L, Est GFR (MDRD) Non-Af 55 L, BUN/Creatinine Ratio 16.0, Glucose 128 H, Calcium 10.0, Troponin T High Sens 9 Imaging Radiology Impression Brain CT 12/25/24 12:19 IMPRESSION: Findings suggestive of possible subacute infarct in the region of the hippocampus of the right temporal lobe. Old ischemic change in the medial aspect of the right occipital lobe. Red Alert: ?Ischemia in Right hippocampus The critical information above was relayed directly by me by telephone to Donn Fitch on 12/25/2024 at 12:34 pm with readback verification. Reading Location: [id number] Chest X-Ray 12/25/24 12:19 IMPRESSION: Moderate degenerative changes of the visualized spine are seen. A partially calcified aorta is noted; no evidence of cardiomegaly. Lungs appear clear of acute disease. No pleural effusion or pneumothorax is noted. No evidence of acute cardiopulmonary disease [id number] Head/Neck CTA 12/25/24 12:19 IMPRESSION: High-grade stenosis at the origin of the left internal carotid artery. Reading Location: [facility] Assessment & Plan Assessment/Plan (1) Abnormal involuntary movement: (2) Altered mental status: PLAN: Plan # Concern for new onset seizure - With left-sided symptoms followed by general tonic-clonic movements, possibly associated with right sided subacute CVA seen on imaging, evaluated by stroke neurologist who recommended admitting locally with further workup with a generaltelemetry neurology consult - MRI ordered - EEG - General Neurology consult - Continuing [facility] - Will obtain UA and UDS for additional workup - Also check lactic acid given the low bicarb and elevated gap, no other acute complaints is suspected that this is high due to seizure -IVF # Subacute CVA - CT revealed possible subacute infarct in region of left hippocampus of right temporal lobe - Aspirin, statin - MRI as above - Will obtain echocardiogram - Monitor on telemetry -It was felt that presentation was due to seizure not stroke however given the subacute stroke will obtain further workup as above -NIH q4hr -asa, statin -Echo -PT/OT/Speech eval # Left internal carotid stenosis - Seen on CTA - Will obtain carotid Doppler for further assessment, if significant stenosis will need to consider vascular intervention inpatient versus outpatient #Hypertension - Will hold home lisinopril at this time pending further workup #DVT ppx: SCDs Yadira Costello MD Charges/Coding Visit Charges Inpatient E&M: 63877 Init Hosp L2 12/25/24 1410 <Electronically signed by Yadira Costello MD> Cosigner Signature (if applicable): CC: IMPORT EXPORT MANAGERRavinder Waddell; Dr. Yadira Costello MD~ Signed [facility] Work Phone: Hospital Discharge instructions* Attachments The following attachments cannot be sent through Care Everywhere. * Stroke (Botswanan) * After a Stroke: Taking an Antiplatelet: Video (Botswanan) * Antiplatelets After Ischemic Stroke: General Info (Bots[place]an) documented in this encounterOhioHealthReason for referral (narrative)No reason for referral information availableWSumma Health Work Phone: Reason for visit Narrative* Diagnostic Procedure Only (Routine) - Closed Specialty Diagnoses / Procedures Referred By Contac t Referred To Contact XR IMAGING Diagnoses Pain Procedures XR SHOULDER GENERAL 3V OR MORE AP/TRUE AP/OTHER RIGHT RADEX SHOULDER COMPLETE MINIMUM 2 VIEWS Rachele Osuna PA-C [address] [place] [address] Phone: tel: fax: [place] [phone] Referral ID Status Reason Start Date Expiration Date V isits Requested Visits Authorized [id number] Closed Auto-Generate d Referral 09/20/2024 10/20/2025 1 1 [facility] Summary Purpose Family History No Family History Records FoundNo Family History Records FoundNo Family History Records FoundNo Family History Records FoundNo Family History Records FoundNo Family History Records FoundNo Family History Records FoundNo Family History Records Found Advance Directives Latest Code Status on File Code Status Date Activated Date Inactivated Comments Full Code 07/02/2023 8:05 AM 07/04/2023 2:18 PM Latest Code Status on File Code Status Date Activated Date Inactivated Comments Full Code 07/02/2023 8:05 AM 07/04/2023 2:18 PM Date Activated Date Inactivated Comments 07/02/2023 8:05 AM 07/04/2023 2:18 PM Advance Directive Response Recorded Date/ Time Do you have a Healthcare Power of Log Loader? Yes December 25, 2024 12:44pm Name of Medical Power of Log Loader darius December 25, 2024 12:44pm Reason for Referral Specialty Diagnoses / Procedures Referred By Contac t Referred To Contact Rehabilitation Diagnoses Cerebrovascular accident (CVA), unspecified mechanism (HCC) Facial cellulitis Acute stroke due to occlusion of right carotid artery (HCC) Yelena Reeder DO [address] [place] [address] Referral ID Status Reason Start Date Expiration Date V isits Requested Visits Authorized [id number] Authorized 07/04/2023 07/03/2024 1 1 Specialty Diagnoses / Procedures Referred By Contac t Referred To Contact Cardiology Diagnoses Atrial fibrillation, unspecified type (HCC) Procedures MCT- Mobile Cardiac Telemetry Aleta Hudson MD [address] [place] [address] Referral ID Status Reason Start Date Expiration Date V isits Requested Visits Authorized [id number] Authorized 07/06/2023 07/05/2024 1 1 Chief Complaint and Reason for Visit Chief Complaint SCREENING Chief Complaint Admit Date stroke December 25, 2024 1:58 pm Reason for Visit Admit Date Abnormal involuntary movement December 25, 2024 1:58pm Altered mental status December 25, 2024 1: 58pm Additional Source Comments INFORMATION SOURCE (unrecogn ized section and content) DATE CREATED AUTHOR 07/02/2023 Derik Young [facility] DATE CREATED AUTHOR AUTHOR'S ORGANIZ ATION 07/03/2023 [facility] DATE CREATED AUTHOR AUTHOR'S ORGANIZ ATION 07/03/2023 [facility] DATE CREATED AUTHOR AUTHOR'S ORGANIZ ATION 07/13/2023 [facility] DATE CREATED AUTHOR AUTHOR'S ORGANIZ ATION 09/22/2023 [facility] DATE CREATED AUTHOR AUTHOR'S ORGANIZ ATION 05/20/2024 [facility] DATE CREATED AUTHOR AUTHOR'S ORGANIZ ATION 09/06/2024 [facility] DATE CREATED AUTHOR AUTHOR'S ORGANIZ ATION 12/14/2024 [facility] Reason for Visit (unrecogniz ed section and content) Reason Comments Weakness Specialty Diagnoses / Procedures Referred By Kyrie erickson Referred To Contact Diagnoses Acute stroke due to occlusion of right carotid artery (HCC) Stroke Symptoms, Facial cellulitis Referral ID Status Reason Start Date Expiration Date Visits Re quested Visits Authorized [id number] 1 Reason Comments Cerebrovascular Accident Left side is do ing better, including left eye. Speech not affected. Ambulating well after stroke.Sometimes I feel like I have a sinus headache but its getting better. is present for appointment. Reason Comments Cerebrovascular Accident I'm doing grea t. Lost 25lbs by watching my diet.Need refill of Plavix if I need to continue this medication.Has list of BP readings for DR Pollack to view. Reason Comments Cerebrovascular Accident Pt reports thin gs have been feeling fine. Feels as though she is back to baseline. Reason Comments New Referred by Chaya lyons Pain Referred by Chaya lyons Scheduled Active and Recently Administ ered Medications (unrecognized section and content) Medication Order 07/02/2023 07/03/2023 07/04/2023 ampicillin-sulbactam (UNASYN) 3000 mg in sodium chloride (NS) 0.9% 100 mL MBP (CANCELED) 3,000 mg, Intravenous, at 100 mL/hr, Every 6 hours, First dose on 07/02/23 at 0900, Indication: Sinusitis 1001 (New Bag - Provider: Smitha Mancia RN)1101 (Stopped - Provider: Smitha Mancia, RN)1546 (New Bag - Provider: Smitha Mancia, RN)1646 (Stopped - Provider: Smitha Mancia, HARIKA) 0011 (New Bag - Provider: Tracey Jones RN)0111 (Stopped - Provider: Tracey Jones RN)0519 (New Bag - Provider: Tracey Jones RN)0619 (Stopped - Provider: Tracey Jones RN)0900 (Canceled Entry - Provider: Navin Marin RN)1229 (New Bag - Provider: Naivn Marin RN)1329 (Stopped - Provider: Navin Marin RN)1500 (Canceled Entry - Provider: Navin Marin RN) ampicillin-sulbactam (UNASYN) 3000 mg in sodium chloride (NS) 0.9% 100 mL MBP 3,000 mg, Intravenous, at 100 mL/hr, Every 6 hours, First dose (after last modification) on 07/03/23 at 1800, Indication: Sinusitis 1741 (New Bag - Provider: Navin Marin RN)1841 (Stopped - Provider: Chris Helms RN) 0108 (New Bag - Provider: CHRISTIANO Zaman)0208 (Stopped - Provider: CHRISTIANO Zaman)0609 (New Bag - Provider: CHRISTIANO Zaman)0709 (Stopped - Provider: Surya Martinez RN)1200 (Due) aspirin EC tablet 325 mg(Linked Group 1) 325 mg, Oral, Daily, First dose on 07/02/23 at 0815, DO NOT CRUSH OR CHEW. 0926 (Given - Provider: Smitha Mancia RN) 1055 (Given - Provider: Navin Marin RN) 0920 (Given - Provider: Surya Martinez, HARIKA) aspirin suppository 300 mg(Linked Group 1) 300 mg, Rectal, Daily, First dose on 07/02/23 at 0815, Use oral route first, if tolerated. 0926 (See Alternative - Provider: Smitha Mancia RN) 1055 (See Alternative - Provider: Navin Marin RN) 0920 (See Alternative - Provider: Surya Martinez RN) atorvastatin (LIPITOR) tablet 40 mg (CANCELED) 40 mg, Oral, Nightly, First dose on 07/02/23 at 2100 2135 (Given - Provider: Tracey Jones RN) atorvastatin (LIPITOR) tablet 80 mg 80 mg, Oral, Nightly, First dose (after last modification) on 07/03/23 at 2100 2208 (Given - Provider: CHRISTIANO Zaman) enoxaparin (LOVENOX) syringe 40 mg 40 mg, Subcutaneous, Daily, First dose on 07/02/23 at 0900, Administer in abdomen unless otherwise directed by prescriber. Notify physician if patient refuses., Indication: VTE Prophylaxis 0926 (Given - Provider: Smitha Mancia RN) 1055 (Given - Provider: Navin Marin RN) 0920 (Given - Provider: Surya Martinez, RN) lisinopriL (PRINIVIL,ZESTRIL) tablet 5 mg 5 mg, Oral, Daily with lunch, First dose on Tue07/04/23 at 1200, Hold for SBP < 110 1200 (Given - Provider: Surya Martinez, RN) sodium chloride (PF) (NS) flush 5 mL(Linked Group 2) 5 mL, Intravenous, Every 8 hours scheduled, First dose on 07/02/23 at 0815, Saline lock 0815 (Given - Provider: Smitha Mancia RN)1400 (Given - Provider: Smitha Mancia RN)2200 (Canceled Entry - Provider: Tracey Jones RN) 0600 (Canceled Entry - Provider: Tracey Jones RN)1400 (Not Given - Provider: Navin Marin RN - Reason: Other)2200 (Given - Provider: CHRISTIANO Zaman) 0600 (Not Given - Provider: CHRISTIANO Zaman - Reason: Other) PRN Medication Order 07/02/2023 07/03/2023 07/04/2023 acetaminophen [...] ordered. 2217 (See Alternative - Provider: CHRISTIANO Zmaan) iopamidoL (ISOVUE-370) 370 mg iodine /mL (76 [...]
Care Teams (unrecognized sec tion and content) Hand Etcher Relationship Specialty Start Date End Date No, Physician [facility] PCP - General 07/01/23 Hand Etcher Relationship Specialty Start Date End Date No, Physician [facility] PCP - General 07/01/23 Hand Etcher Relationship Specialty Start Date End Date Chaya Waddell CNP [place] [address] [place], [place] [id number] PCP - General Nurse Practitioner 07/12/23 Hand Etcher Relationship Specialty Start Date End Date Chaya Waddell CNP [facility] [address] [place], [place] [id number] PCP - General Nurse Practitioner 07/12/23 Team Status: Active Member Role Status Dates No Primary Care Physician Family Provider Active RICAHRD Brown Primary Care Provider Active Team Status: Inactive Member Role Status Dates RICHARD Brown Primary Care Provide r, Attending Provider, Referring Provider Active Hand Etcher Relationship Specialty Start Date End Date Chaya Waddell CNP [facility] [address] [place], [place] [id number] PCP - General Nurse Practitioner 07/12/23 Hand Etcher Relationship Specialty Start Date End Date Chaya Waddell NP [address] [place] [address] PCP - General Family Medicine 09/20/24 Hand Etcher Relationship Specialty Start Date End Date Chaya Waddell NP [address] [facility] [address] PCP - General Family Medicine 09/20/24 Team Status: Active Member Role Status Dates Chaya Waddell NP-Violet Primary Care Provider Active Team Status: Active Member Role Status Dates RICHARD Brown Primary Care Provider Active Start: December 25, 2024 Dr. Donn Fitch DO Emergency Provider Active Start: December 25, 2024 Dr. Yadira Costello MD Admit Provider Active Star t: December 25, 2024 Dr. Yadira Costello MD Attending Provider Active Start: December 25, 2024 Dr. Yadira Costello MD Referring Provider Active Start: December 25, 2024 Goals (unrecognized section and content) Goals may be documented in a n alternate sectionGoals may be documented in an alternate sectionGoals may be documented in an alternate section Source Comments (unrecognize d section and content) In the event this informatio n is protected by the Federal Confidentiality of Alcohol and Drug Abuse Patient Records regulations: The Federal rules restrict any use of the information to criminally investigate or prosecute any alcohol or drug abuse patient.[facility] the event this information is protected by the Federal Confidentiality of Alcohol and Drug Abuse Patient Records regulations: The Federal rules restrict any use of the information to criminally investigate or prosecute any alcohol or drug abuse patient.[facility] FOR RECORDS PERTAINING TO PATIENTS WHO ARE [...] BE BASED ON THE PRIMARY CLINICAL RECORDS. [facility]. provides no warranty or guarantee of the accuracy or completeness of information in this document.
[2024-12-25] MEDS: Atorvastatin Calcium 80 MG Tablet PO (22:42)
[2024-12-25] MEDS: levETIRAcetam IV 1,000 MG/100 ML BAG 400 MG IV (22:42)
[2024-12-25] MEDS: Acetaminophen 325 MG Tablet 650 MG PO (22:48)
[2024-12-26 00:15] VITALS: BP 140/76; PULSE 68; RESP 16; TEMP 36.6; O2SAT 95
[2024-12-26 03:00] VITALS: BP 121/72; PULSE 67; RESP 16; TEMP 36.7; O2SAT 97
[2024-12-26 04:38] VITALS: BMI 23.8
[2024-12-26 05:02] LABS: Absolute Lymphocyte Count 1.41 X10^3/uL (0.83-4.51); Absolute Neutrophil Count 4.4 X10^3/uL (2.0-7.7); Basophil# 0.03 X10^3/uL; Basophil% 0.5 % (0-1); Eosinophil# 0.13 X10^3/uL; Hematocrit 37.9 % (37-47); Hemoglobin 12.7 g/dL (12.0-15.0); Lymphocyte # 1.41 X10^3/ul (0.83-4.51); Lymphocyte % 21.6 % (19-41); Mean Corp Hgb Conc 33.5 g/dL (32-36); Mean Corpuscular Hgb 30.8 pg (27.0-32.0); Mean Corpuscular Volume 91.8 fL (81-99); Mean Platelet Vol. 9.4 fl (6.2-12.0); Monocyte# 0.54 X10^3/uL; Monocyte% 8.3 % (0-10); NRBC Flagged by Analyzer 0 % (0-5); Neutrophil # 4.41 X10^3/uL (2.7-7.7); Neutrophil % 67.3 % (47-70); Platelet Count 239 K/mm3 (150-450); RBC Distribution Width SD 43.6 fl (35.1-43.9); Red Blood Count 4.13 M/mm3 (4.2-5.4); White Blood Count 6.5 K/mm3 (4.4-11.0)
[2024-12-26 06:18] LABS: Cholesterol 225 mg/dL (<=200); High Density Lipoprotein 47 mg/dL; Low Density Lipoprotein Calc. 143 mg/dL; Triglycerides 176 mg/dL; Very Low Density Lipoprotein 35 mg/dL (5-40); cholesterol:hdl ratio screen 4.82
[2024-12-26 06:38] LABS: Anion Gap 9 (5-15); BUN 10 mg/dL (4-19); BUN/Creat Ratio 12.3 RATIO (10-20); Calcium,Total 8.9 mg/dL (7.6-11.0); Carbon Dioxide 22.4 mmol/L (21.0-32.0); Chloride 109 mmol/L (98-108); Creatinine, Serum 0.79 mg/dL (0.70-1.20); EST Glomerular Filtration Rate 82 (>60); Estimated Creatinine Clearance 58.93 ml/min (50-250); Glucose 115 mg/dL (70-99); Sodium Level 140 mmol/L (133-145); Thyroid Stim Hormone (TSH) 0.713 uIU/mL (0.300-4.200)
[2024-12-26 07:04] VITALS: O2SAT 95
--- NOTE | 2024-12-26 08:43 | PCM.PN.HOSP ---
Reason for Visit Reason for Visit: Diagnoses Unspecified abnormal involuntary movements (12/25/24) Altered mental status, unspecified (12/25/24) Subjective Subjective Feels well. no prior seizures. Objective Data Objective Data Vital Signs: Vital Signs Temp Pulse Resp BP Pulse Ox O2 Del Method 36.7 C 67 16 121/72 H 97 Room Air 12/26/24 03:00 12/26/24 03:00 12/26/24 03:00 12/26/24 03:00 12/26/24 03:00 12/26/24 03:00 Oxygen Delivery Method Room Air Weight: 62.8 kg Body Mass Index (BMI) 23.8 Intake & Output: Intake and Output for Last 24 Hours 12/24/24 12/25/24 12/26/24 23:59 23:59 23:59 Intake Total 1798.33 / 1798.33 791.67 / 791.67 Balance 1798.33 / 1798.33 791.67 / 791.67 Lab / Micro Data 12/26/24 04:31 12/26/24 04:31 Labs: Laboratory Results - last 24 hr 12/25/24 12:30: WBC 11.0, RBC 4.57, Hgb 14.3, Hct 43.5, MCV 95.2, MCH 31.3, MCHC 32.9, RDW Std Deviation 45.2 H, RDW Coeff of Miesha 13.0, Plt Count 313, MPV 10.0, Immature Gran % (Auto) 0.500, Neut % (Auto) 63.5, Lymph % (Auto) 27.7, Sully % (Auto) 6.3, Eos % (Auto) 1.3, Baso % (Auto) 0.7, Absolute Neuts (auto) 7.0, Absolute Lymphs (auto) 3.04, Nucleated RBC % 0, PT 14.7, INR 1.1, APTT 24.5, Sodium 135, Potassium 4.3, Chloride 96 L, Carbon Dioxide 11.9 L, Anion Gap 26 H, BUN 18, Creatinine 1.10, Estim Creat Clear Calc 42.86 L, Est GFR (MDRD) Non-Af 55 L, BUN/Creatinine Ratio 16.0, Glucose 128 H, Calcium 10.0, Troponin T High Sens 9 12/25/24 14:58: Lactic Acid 2.8 H*, Troponin T Hi Sens 2 Hr 63 H* 12/25/24 15:46: Urine Color Straw, Urine Clarity Clear, Urine pH 7.0, Ur Specific [place] 1.010, Urine Protein 15 H, Urine Glucose (UA) Normal, Urine Ketones Negative, Urine Occult Blood 25 H, Urine Nitrite Negative, Urine Bilirubin Negative, Urine Urobilinogen Normal, Ur Leukocyte Esterase 25 H, Urine RBC 0-5 SEEN, Urine WBC 0-5 SEEN, Ur Squamous Epith Cells 0-5 SEEN, Urine Bacteria 1+, Urine Mucus 0 SEEN, Urine Opiates Screen NEGATIVE, U Buprenorphine Qual NEGATIVE, Ur Oxycodone Screen NEGATIVE, Urine Methadone Screen NEGATIVE, Urine Fentanyl Screen NEGATIVE, Ur Barbiturates Screen NEGATIVE, Ur Phencyclidine Scrn NEGATIVE, Ur Amphetamines Screen NEGATIVE, U Benzodiazepines Scrn NEGATIVE, Urine Cocaine Screen NEGATIVE, U Cannabinoids Screen NEGATIVE 12/25/24 16:27: Troponin T Hi Sens 4Hr 74 H* 12/25/24 19:56: Lactic Acid 1.6 12/26/24 04:31: WBC 6.5, RBC 4.13 L, Hgb 12.7, Hct 37.9, MCV 91.8, MCH 30.8, MCHC 33.5, RDW Std Deviation 43.6, RDW Coeff of Miesha 13.0, Plt Count 239, MPV 9.4, Immature Gran % (Auto) 0.300, Neut % (Auto) 67.3, Lymph % (Auto) 21.6, Sully % (Auto) 8.3, Eos % (Auto) 2.0, Baso % (Auto) 0.5, Absolute Neuts (auto) 4.4, Absolute Lymphs (auto) 1.41, Nucleated RBC % 0, Sodium 140, Potassium 4.0, Chloride 109 H, Carbon Dioxide 22.4, Anion Gap 9, BUN 10, Creatinine 0.79, Estim Creat Clear Calc 58.93, Est GFR (MDRD) Non-Af 82, BUN/Creatinine Ratio 12.3, Glucose 115 H, Hemoglobin A1c 6.0 H, Calcium 8.9, Triglycerides 176, Cholesterol 225 H, LDL Cholesterol, Calc 143, VLDL Cholesterol 35, HDL Cholesterol 47, Cholesterol/HDL Ratio 4.82, TSH 0.713 Radiography Diagnostic Testing: Radiology Impression Brain CT 12/25/24 12:19 IMPRESSION: Findings suggestive of possible subacute infarct in the region of the hippocampus of the right temporal lobe. Old ischemic change in the medial aspect of the right occipital lobe. Red Alert: ?Ischemia in Right hippocampus The critical information above was relayed directly by me by telephone to Donn Fitch on 12/25/2024 at 12:34 pm with readback verification. Reading Location: [facility] Chest X-Ray 12/25/24 12:19 IMPRESSION: Moderate degenerative changes of the visualized spine are seen. A partially calcified aorta is noted; no evidence of cardiomegaly. Lungs appear clear of acute disease. No pleural effusion or pneumothorax is noted. No evidence of acute cardiopulmonary disease Reading Location: [facility] Head/Neck CTA 12/25/24 12:19 IMPRESSION: High-grade stenosis at the origin of the left internal carotid artery. Reading Location: [id number] Brain MRI 12/25/24 14:24 IMPRESSION: No acute infarction. 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 [facility] Carotid Duplex 12/25/24 14:24 Interpretation Summary Mild (<50%) stenosis right extracranial internal carotid. Mild (<50%) stenosis left extracranial internal carotid. Patent and antegrade vertebrals bilaterally. Ordering Physician: Yadira Costello Referring Physician: Johanna Amador Performed By: Wilfred Jamison RVT Echocardiogram 12/25/24 14:24 Interpretation Summary Normal LV size. Left ventricular systolic function is normal. The left ventricular ejection fraction is 70 %. No regional wall motion abnormalities noted. Mild focal mitral valve calcification, bileaflet. Mild tricuspid valve insufficiency. Ordering Physician: Yadira Costello Referring Physician: Yadira Costello Performed By: Carmina Waggoner RDCS Physical Exam Const alert and no apparent distress HEENT head/scalp atraumatic and moist oral mucous membranes Resp normal respiratory effort and no retractions Neuro Sensorium / Orientation: awake and alert Assessment & Plan Assessment/Plan (1) Seizure: PLAN: MRI showed no acute CVA. EEG ordered. Levetiracetam Neuro consult For 3 months, patient not to drive nor operate heavy machinery, avoid swimming by herself or taking baths. Likely focus of the seizure was from her prior stroke. PLAN: Plan Subacute CVA: ASA atorvastatin VTE prophylaxis: SCDs. Discussed with the patient's family at bedside. Charges/Coding Visit Charges Inpatient E&M: 25671 Subs Hosp L2 NIHSS NIHSS Nursing Documentation NIHSS Nursing Documentation: NIHSS: Ischemic Stroke/TIA Start: 12/25/24 14:24 Text: For PCU Patients: NIH and Neuro Check every 4 Status: Complete hours, PRN and with change in RN caregiver. Freq: [id number] Protocol: Activity Type Activity Date Activity User E-sign Co-sign Detail Recorded Client Recorded Date Recorded By Document 12/26/24 00:15 DEBI [id number] 12/26/24 00:22 DEBI 12/26/24 00:15 NIH Stroke Scale [NIHSS] A score of 0 is normal or asymptomatic . Total possible score is 42. Inpatient: RN or Physician to activate a stroke alert for onset of new stroke symptoms or with NIHSS increase >/= 3 points. Following change in neurological status, NIHSS will be performed per physician order or more frequently PRN. -1a. Level of Consciousness 0 - Alert; keenly responsive -1b. LOC Questions 0 - Answers BOTH questions correctly -1c. LOC Commands 0 - Performs BOTH tasks correctly -2. Best Gaze 0 - Normal -3. Visual 0 - No visual loss -4. Facial Palsy 0 - Normal symmetrical movements -5a. Left Arm 0 - No drift; arm holds 90 ( or 45) degrees for full 10 seconds -5b. Right Arm 0 - No drift; arm holds 90 ( or 45) degrees for full 10 seconds -6a. Left Leg 0 - No drift; leg holds 30- degree position for full 5 seconds -6b. Right Leg 0 - No drift; leg holds 30- degree position for full 5 seconds -7. Limb Ataxia 0 - Absent -8. Sensory 1 - Mild-to- moderate sensory loss; -9. Best Language 0 - No aphasia; normal -10. Dysarthria 0 - Normal -11. Extinction and Inattention 0 - No abnormality -Total 1 Query Text:A score of 0 is normal or asymptomatic. Total possible score is 42 . ED: Notify Physician for NIHSS increase by > / = 3 points. Inpatient: RN or Physician to activate a stroke alert for NIHSS increase of > / = 3 points. Coma Scale [Assess] -Eye Opening Spontaneous -Motor Obeys Commands -Verbal Oriented [Total] -Coma Scale Total 15
[2024-12-26 09:00] VITALS: BP 140/65; PULSE 70; RESP 16; TEMP 36.7; O2SAT 100
[2024-12-26] MEDS: Aspirin 81 MG TAB.CHEW PO (10:04)
[2024-12-26] MEDS: levETIRAcetam IV 1,000 MG/100 ML BAG 400 MG IV ×2 (10:05→20:36)
[2024-12-26 11:07] VITALS: BMI 23.8
[2024-12-26 11:08] VITALS: BMI 23.8
--- NOTE | 2024-12-26 11:28 | NEURO.CONS ---
Assessment and Plan: Neuro Assessment/Plan ZACH URBAN is a 69 F with a past medical history of , being evaluated by Teleneurology for seizure. Patient had first time seizure, localizing to the R hemisphere and has prior history of stroke which easily could be substrate for new seizure activity. Exam currently returned to baseline, with some symptoms of clumsiness and numbness on the L that is baseline. Imaging is benign with no new acute lesions. Plan: - recommend starting Keppra 500mg bID. Even though first time seizure, her symptoms localize to an area of encephalomalacia from prior stroke and she had no other provoking factors. The likelihood of another event is high. - agree with EEG, pending read. Reviewed seizure precautions with patient - no driving or operating heavy machinery for 3 months. Followup with patient's neurologist. I personally attended this patient and spent a total time of 45minutes evaluating this patient including clinical assessment, review of chart, medical history imaging, and determining appropriate treatment and workup. HPI Consult Data Date of Consult: 12/26/24 HPI Narrative HPI Narrative: ELIZABETH URBAN, is a 69-year-old female history of CVA and hypertension presented to [facility] ED 12/21/2024 as a prehospital stroke alert. On arrival patient afebrile, heart rate 92 with blood pressure 134/67, respiratory rate 16 patient pulse ox 98% on room air. CBC with no concerning findings, BMP with bicarb of 11.9 and a gap of 26 with creatinine of 1.1. Reportedly patient and were driving down the road and then she began looking to her left and had left arm shaking and was not responding purposefully and then went completely unresponsive so pulled over and called EMS. When EMS arrived she was not fully responding initially but then slowly became more responsive and opened her eyes but was not saying words or following commands. She then became combative but by the time ED physician evaluated her she was awake and alert. Patient did have stroke alert and brain CT showed findings suggestive of possible subacute infarct in region of hippocampus on right temporal lobe with old ischemic change in the medial aspect of the right occipital lobe. CTA with high-grade stenosis of the origin of the left internal carotid artery. Teleneurology evaluated and got history that patient had left arm tightening, left face twisting and then started shaking before she lost consciousness for 1 minute, during that time she bit her right lateral tongue and had stool incontinence and was confused. Teleneurology concern for seizure and recommended admitting locally and pursuing seizure workup with brain MRI, routine EEG, general neuro consult and recommended loading patient with Keppra. Patient loaded with Keppra and hospitalist contacted for admission. Patient evaluated at bedside with family members present. reports that she had been in her usual health and then suddenly while he was driving she began looking somewhere behind him, he looked to see what she was looking at but did not see anything and when he looked back her left arm manjit up in the left side of her face twisted and then she began having all over shaking movements, then slumped forward with loss of consciousness, was noted to bit her tongue and soiled herself. She was confused afterwards but now is back to her baseline mental status. Feels little bit nauseated and just kind of tired but no other new or acute complaints. Denies anything like this happening previously. Does note previous stroke 07/01/2023 when she went to do her hair she was unable to use her left hand, she then lost consciousness and fell hurting her shoulder and her left leg. Only residual problems are some numbness on top of left foot and knee which is unchanged. Presently denies any other numbness, tingling, weakness. Has chronic right shoulder problems so somewhat limited with this and is supposed to be evaluated for surgery next month. Sometimes gets some reflux symptoms but no chest pain or shortness of breath, no headache or changes in vision. No bowel or bladder complaints. Neurologic History was driving and suddenly she stopped talking and her phone dropped. Suddenly her eyes and head were deviated to the left side and then she started shaking. Her face and her L hand were twitching and started to tonically contract as well. She then made an ictal cry. After that she slumped forward and was unresponsive. Patient remained unconsciousness until the EMS was there (about 5 min later). First thing she remembers was waking up in the emergency room. She bit her R side of tongue. She had no prodromal symptoms. Pt currently feels back to baseline. Pt knows she had a stroke in 2022 but no evidence of seizure. No seizures immediatelty after the stroke. No recent changes in medications except statin was changes to zetia recently. She has residual numbness in the L knee and foot. Patient still able to drive. Neurologic Exam -? General: Laying comfortably in bed; in no acute distress. -? HENT: Normal oropharynx and mucosa. Normal external appearance of ears and nose. Exophthalmos. -? Neck: Supple, no pain or tenderness -? CV:? No peripheral edema. -? Pulmonary:? Normal respiratory effort. -? Ext: No cyanosis, edema, or deformity -? Skin: No rash. Normal palpation of skin.? -? Musculoskeletal: full range of motion; no joint tenderness. Normal digits and nails by inspection. No clubbing. -? NEURO: -? Mental Status: The patient was alert and oriented to time, place, and person. Normal recent/remote memory, concentration, and general fund of knowledge. -? Language: speech is clear.? Naming, repetition, fluency, and comprehension intact. -? Cranial Nerves: PERRL 3mm/brisk. EOMI, visual zapien full, mild L facial nasolabial flattening, facial sensation intact, hearing intact, tongue midline, no evidence of atrophy or fibrillations. -? Motor: slight pronationo f the RUE at baseline -? Detailed strength exam as performed by the nurse/ELLIOT and witnessed by the physician: R L SA 4 5 EE EF 5 5 WE WF Burglar Alarm Operator 5 5 HF 5- 5 KE KF DF PF -? Tone: is normal and bulk is normal -? Sensation- Intact to light touch bilaterally -? Coordination: No dysmetria on [id number], finger follow finger or [id number]. -? Gait- deferred [facility] Medical History (Updated 12/26/24 @ 08:[address] Enrrique Burrell, DO) Wears glasses Alcohol use Arthritis High cholesterol Back pain Heartburn PONV (postoperative nausea and vomiting) Non-smoker Hemiplegia and hemiparesis following cerebral infarction affecting left non-dominant side CVA (cerebral vascular accident) HTN (hypertension) Home Medications ?Medication ?Instructions ?Recorded ?Last Taken ?Type aspirin 81 mg tablet,delayed 81 mg PO QDAY 07/13/24 08/20/24 History release (Adult Low Dose Aspirin) lisinopril 5 mg tablet 5 mg PO QDAY 07/13/24 08/20/24 History meloxicam 15 mg tablet 15 mg PO QDAY 07/13/24 08/19/24 History ezetimibe 10 mg tablet 10 mg PO DAILY 12/25/24 Unknown History Allergy/AdvReac Type Severity Reaction Status Date / Time codeine AdvReac Jitters Verified 08/21/24 07:07 Dressing: Non-Medicated AdvReac Rash Verified 08/21/24 07:07 (band aids) Surgical History History of tubal ligation History of nasal surgery History of ankle surgery Social History household members: spouse and children current occupational status: retired Smoking Status: Never smoker alcohol intake: current alcohol intake frequency: holidays/special occasions only substance use type: does not use Vital Signs Vital Signs Vital Signs: 12/25/24 12:19 12/25/24 12:20 12/25/24 12:25 Temperature 98.6 F 98.1 F Temperature Source Oral Temporal Pulse Rate 92 104 H Pulse Strength Respiratory Rate 16 18 Respiratory Effort Respiratory Depth Respiratory Pattern Blood Pressure 134/67 H 144/77 H Blood Pressure Mean 89 99 Blood Pressure Source Blood Pressure Position Blood Pressure Location Pulse Ox 98 96 Oxygen Delivery Method Room Air Room Air Room Air 12/25/24 12:25 12/25/24 12:27 12/25/24 13:18 Temperature 98.6 F Temperature Source Oral Pulse Rate 104 H 104 H 72 Pulse Strength Respiratory Rate 18 18 16 Respiratory Effort Respiratory Depth Respiratory Pattern Blood Pressure 144/74 H 144/74 H 131/81 H Blood Pressure Mean 97 97 97 Blood Pressure Source Blood Pressure Position Blood Pressure Location Pulse Ox 96 96 93 Oxygen Delivery Method Room Air Room Air Room Air 12/25/24 13:48 12/25/24 14:00 12/25/24 15:12 Temperature 97.8 F 97.5 F L Temperature Source Oral Pulse Rate 76 82 73 Pulse Strength Respiratory Rate 20 H 14 16 Respiratory Effort Respiratory Depth Respiratory Pattern Blood Pressure 125/76 H 145/78 H 148/90 H Blood Pressure Mean 92 100 109 Blood Pressure Source Monitor Blood Pressure Position Semi-Fowlers Blood Pressure Location Left Arm Pulse Ox 97 96 99 Oxygen Delivery Method Room Air Room Air 12/25/24 15:30 12/25/24 18:36 12/25/24 20:15 Temperature 97.9 F 97.5 F L Temperature Source Temporal Oral Pulse Rate 60 66 Pulse Strength Respiratory Rate 14 16 Respiratory Effort Normal Non-Labored Respiratory Depth Normal Respiratory Pattern Normal Blood Pressure 143/88 H 135/74 H Blood Pressure Mean 106 94 Blood Pressure Source Monitor Monitor Blood Pressure Position Semi-Fowlers Semi-Fowlers Blood Pressure Location Left Arm Left Arm Pulse Ox 97 99 Oxygen Delivery Method Room Air Room Air Room Air 12/25/24 20:15 12/25/24 22:00 12/26/24 00:15 Temperature 97.8 F Temperature Source Oral Pulse Rate 68 Pulse Strength Normal (2+) Respiratory Rate 16 Respiratory Effort Normal Non-Labored Respiratory Depth Normal Respiratory Pattern Normal Blood Pressure 140/76 H Blood Pressure Mean 97 Blood Pressure Source Monitor Blood Pressure Position Semi-Fowlers Blood Pressure Location Left Arm Pulse Ox 95 Oxygen Delivery Method Room Air Room Air 12/26/24 03:00 12/26/24 07:04 12/26/24 09:00 Temperature 98.0 F 98.0 F Temperature Source Oral Oral Pulse Rate 67 70 Pulse Strength Respiratory Rate 16 16 Respiratory Effort Respiratory Depth Respiratory Pattern Blood Pressure 121/72 H 140/65 H Blood Pressure Mean 88 90 Blood Pressure Source Monitor Monitor Blood Pressure Position Semi-Fowlers Sitting Blood Pressure Location Left Arm Left Arm Pulse Ox 97 95 100 Oxygen Delivery Method Room Air Room Air Room Air 12/26/24 09:59 Temperature Temperature Source Pulse Rate Pulse Strength Normal (2+) Respiratory Rate Respiratory Effort Respiratory Depth Respiratory Pattern Blood Pressure Blood Pressure Mean Blood Pressure Source Blood Pressure Position Blood Pressure Location Pulse Ox Oxygen Delivery Method Weight Weight: 62.8 kg Body Mass Index (BMI) 23.8 EEG Results Procedure Details EEG Procedure Details: ZACH URBAN is a 69 year old F with a past medical history of , who presents for evaluation of Electroencephalogram on DATE at TIME Lab / Micro Data 12/26/24 04:31 12/26/24 04:31 Labs: Laboratory Results - last 24 hr 12/25/24 12:30: WBC 11.0, RBC 4.57, Hgb 14.3, Hct 43.5, MCV 95.2, MCH 31.3, MCHC 32.9, RDW Std Deviation 45.2 H, RDW Coeff of Miesha 13.0, Plt Count 313, MPV 10.0, Immature Gran % (Auto) 0.500, Neut % (Auto) 63.5, Lymph % (Auto) 27.7, Karnes % (Auto) 6.3, Eos % (Auto) 1.3, Baso % (Auto) 0.7, Absolute Neuts (auto) 7.0, Absolute Lymphs (auto) 3.04, Nucleated RBC % 0, PT 14.7, INR 1.1, APTT 24.5, Sodium 135, Potassium 4.3, Chloride 96 L, Carbon Dioxide 11.9 L, Anion Gap 26 H, BUN 18, Creatinine 1.10, Estim Creat Clear Calc 42.86 L, Est GFR (MDRD) Non-Af 55 L, BUN/Creatinine Ratio 16.0, Glucose 128 H, Calcium 10.0, Troponin T High Sens 9 12/25/24 14:58: Lactic Acid 2.8 H*, Troponin T Hi Sens 2 Hr 63 H* 12/25/24 15:46: Urine Color Straw, Urine Clarity Clear, Urine pH 7.0, Ur Specific [place] 1.010, Urine Protein 15 H, Urine Glucose (UA) Normal, Urine Ketones Negative, Urine Occult Blood 25 H, Urine Nitrite Negative, Urine Bilirubin Negative, Urine Urobilinogen Normal, Ur Leukocyte Esterase 25 H, Urine RBC 0-5 SEEN, Urine WBC 0-5 SEEN, Ur Squamous Epith Cells 0-5 SEEN, Urine Bacteria 1+, Urine Mucus 0 SEEN, Urine Opiates Screen NEGATIVE, U Buprenorphine Qual NEGATIVE, Ur Oxycodone Screen NEGATIVE, Urine Methadone Screen NEGATIVE, Urine Fentanyl Screen NEGATIVE, Ur Barbiturates Screen NEGATIVE, Ur Phencyclidine Scrn NEGATIVE, Ur Amphetamines Screen NEGATIVE, U Benzodiazepines Scrn NEGATIVE, Urine Cocaine Screen NEGATIVE, U Cannabinoids Screen NEGATIVE 12/25/24 16:27: Troponin T Hi Sens 4Hr 74 H* 12/25/24 19:56: Lactic Acid 1.6 12/26/24 04:31: WBC 6.5, RBC 4.13 L, Hgb 12.7, Hct 37.9, MCV 91.8, MCH 30.8, MCHC 33.5, RDW Std Deviation 43.6, RDW Coeff of Miesha 13.0, Plt Count 239, MPV 9.4, Immature Gran % (Auto) 0.300, Neut % (Auto) 67.3, Lymph % (Auto) 21.6, Karnes % (Auto) 8.3, Eos % (Auto) 2.0, Baso % (Auto) 0.5, Absolute Neuts (auto) 4.4, Absolute Lymphs (auto) 1.41, Nucleated RBC % 0, Sodium 140, Potassium 4.0, Chloride 109 H, Carbon Dioxide 22.4, Anion Gap 9, BUN 10, Creatinine 0.79, Estim Creat Clear Calc 58.93, Est GFR (MDRD) Non-Af 82, BUN/Creatinine Ratio 12.3, Glucose 115 H, Hemoglobin A1c 6.0 H, Calcium 8.9, Triglycerides 176, Cholesterol 225 H, LDL Cholesterol, Calc 143, VLDL Cholesterol 35, HDL Cholesterol 47, Cholesterol/HDL Ratio 4.82, TSH 0.713 Imaging Radiology Impression Brain CT 12/25/24 12:19 IMPRESSION: Findings suggestive of possible subacute infarct in the region of the hippocampus of the right temporal lobe. Old ischemic change in the medial aspect of the right occipital lobe. Red Alert: ?Ischemia in Right hippocampus The critical information above was relayed directly by me by telephone to Donn Fitch on 12/25/2024 at 12:34 pm with readback verification. Reading Location: [id number] Chest X-Ray 12/25/24 12:19 IMPRESSION: Moderate degenerative changes of the visualized spine are seen. A partially calcified aorta is noted; no evidence of cardiomegaly. Lungs appear clear of acute disease. No pleural effusion or pneumothorax is noted. No evidence of acute cardiopulmonary disease Reading [facility] Head/Neck CTA 12/25/24 12:19 IMPRESSION: High-grade stenosis at the origin of the left internal carotid artery. Reading Location: [id number] Brain MRI 12/25/24 14:24 IMPRESSION: No acute infarction. 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 Reading [facility] Carotid Duplex 12/25/24 14:24 Interpretation Summary Mild (<50%) stenosis right extracranial internal carotid. Mild (<50%) stenosis left extracranial internal carotid. Patent and antegrade vertebrals bilaterally. Ordering Physician: Yadira Costello Referring Physician: Johanna Amador Performed By: Wilfred Jamison, RVT Echocardiogram 12/25/24 14:24 Interpretation Summary Normal LV size. Left ventricular systolic function is normal. The left ventricular ejection fraction is 70 %. No regional wall motion abnormalities noted. Mild focal mitral valve calcification, bileaflet. Mild tricuspid valve insufficiency. Ordering Physician: Yadira Costello Referring Physician: Yadira Costello Performed By: Carmina Waggoner, DARCI Active Medications Active Medications Active Medications: Current Medications Generic Name Dose Route Start Last Admin Trade Name Freq PRN Reason Stop Dose Admin Acetaminophen 650 mg 12/25/24 14:24 12/25/24 22:48 Acetaminophen 325 Mg Tablet PO 650 mg Q6H PRN PRN Administration Pain 1-10 Or Fever >100.7 Albuterol Sulfate 2.5 mg 12/25/24 14:24 Albuterol 2.5 Mg/3 Ml Vial.Neb. INHALATION Q2H PRN PRN SOB &/OR WHEEZING Aspirin 81 mg 12/26/24 08:00 12/26/24 10:04 Aspirin 81 Mg Tab.Chew PO 81 mg BREAKFAST MERISSA Administration Atorvastatin Calcium 80 mg 12/25/24 22:00 12/25/24 22:42 Atorvastatin Calcium 80 Mg Tablet PO 80 mg QHS MERISSA Administration Hydralazine HCl 5 mg 12/25/24 14:24 Hydralazine 20 Mg/Ml Vial IV 12/26/24 14:24 Q30M PRN maintain BP parameters with HR <60 Levetiracetam 1,000 mg in 100 mls @ 400 mls/hr 12/25/24 22:00 12/26/24 10:21 IV Infused Q12 MERISSA Infusion Sodium Chloride 250 mls @ 15 mls/hr 12/25/24 14:32 IV .[id number] PRN Saline Flush Sodium Chloride 250 mls @ 15 mls/hr 12/25/24 14:32 IV .[id number] PRN Additional IVPB Infusion Labetalol HCl 20 mg 12/25/24 12:19 Labetalol 20 Mg/4 Ml Vial IV 12/26/24 12:19 X1 PRN BLOOD PRESSURE Labetalol HCl 10 - 20 mg 12/25/24 14:24 Labetalol 20 Mg/4 Ml Vial IV 12/26/24 14:24 Q10M PRN PRN maintain BP parameters with HR >/=60 Lorazepam 2 mg 12/25/24 14:24 Lorazepam 2 Mg/Ml Wch Syringe IV X1 PRN Seizure activity Melatonin 3 mg 12/25/24 14:24 Melatonin 3 Mg Tablet PO QHS PRN PRN INSOMNIA Menthol 1 applic 12/26/24 00:25 Menthol 226.8 Gm Jar TOPICAL 4X/DAY PRN PRN Muscle/joint pain Ondansetron HCl 4 mg 12/25/24 14:24 12/25/24 19:59 Ondansetron 4 Mg/2 Ml Vial IV 4 mg Q8H PRN PRN Administration NAUSEA/VOMITING Senna/Docusate Sodium 2 tablet 12/25/24 14:24 Senna/Docusate Sodium 1 Tablet PO BID PRN PRN Constipation Sodium Chloride 10 - 40 ml 12/25/24 14:32 0.9% Saline Lock 10 Ml Syringe IV UD PRN SALINE FLUSH NIHSS NIHSS Nursing Documentation NIHSS Nursing Documentation: NIHSS: Ischemic Stroke/TIA Start: 12/25/24 14:24 Text: For PCU Patients: NIH and Neuro Check every 4 Status: Complete hours, PRN and with change in RN caregiver. Freq: [id number] Protocol: Activity Type Activity Date Activity User E-sign Co-sign Detail Recorded Client Recorded Date Recorded By Document 12/26/24 00:15 DEBI [id number] 12/26/24 00:22 DEBI 12/26/24 00:15 NIH Stroke Scale [NIHSS] A score of 0 is normal or asymptomatic . Total possible score is 42. Inpatient: RN or Physician to activate a stroke alert for onset of new stroke symptoms or with NIHSS increase >/= 3 points. Following change in neurological status, NIHSS will be performed per physician order or more frequently PRN. -1a. Level of Consciousness 0 - Alert; keenly responsive -1b. LOC Questions 0 - Answers BOTH questions correctly -1c. LOC Commands 0 - Performs BOTH tasks correctly -2. Best Gaze 0 - Normal -3. Visual 0 - No visual loss -4. Facial Palsy 0 - Normal symmetrical movements -5a. Left Arm 0 - No drift; arm holds 90 ( or 45) degrees for full 10 seconds -5b. Right Arm 0 - No drift; arm holds 90 ( or 45) degrees for full 10 seconds -6a. Left Leg 0 - No drift; leg holds 30- degree position for full 5 seconds -6b. Right Leg 0 - No drift; leg holds 30- degree position for full 5 seconds -7. Limb Ataxia 0 - Absent -8. Sensory 1 - Mild-to- moderate sensory loss; -9. Best Language 0 - No aphasia; normal -10. Dysarthria 0 - Normal -11. Extinction and Inattention 0 - No abnormality -Total 1 Query Text:A score of 0 is normal or asymptomatic. Total possible score is 42 . ED: Notify Physician for NIHSS increase by > / = 3 points. Inpatient: RN or Physician to activate a stroke alert for NIHSS increase of > / = 3 points. Coma Scale [Assess] -Eye Opening Spontaneous -Motor Obeys Commands -Verbal Oriented [Total] -Coma Scale Total 15
--- NOTE | 2024-12-26 12:05 | CASEMGMT ---
RN?CM?PROMOTIONAL DEMONSTRATOR?CM?to room to meet with patient for initial transition planning/care coordination?assessment.?RN?CM?introduced self and role at [facility].? Pt voices understanding and consents to?assessment?at this time.? Pt sitting up in chair in no distress at this time.? @ bedside. Pt is A/O at this time and answers all questions appropriately.?? Care providers, pharmacy, and demographics verified/updated at this time. Strata: 1 PCP: SHUKRI Amador Specialists: Pt has seen neurologist, Dr Josesito Wen, in [place], but wishes to start seeing neurologist @ [facility]. Provided w/Provider Directory w/contact info. Pt has an upcoming appt w/greg Nguyen, in [place] 01/25/25. Preferred Pharmacy: [facility] [address] Otherwise, goes to [facility]. Insurance: [employer] [facility] Prescription Benefit:?yes LNOK: Janusz Living Arrangements: Lives w/ in one-story home w/one step to enter. Independent. Transportation:?Pt states drives self and states no transportation concerns at this time.? also drives. DME: ? Denies using any DME and denies needs.? HHC/SNF: No hx of either. Pt wishes to return home and states has no concerns with going home at time of discharge.?CM?to follow for any discharge planning/needs.? Pt voices no concerns/needs at this time.? Advised pt to ask for?CM?if any questions/concerns/needs arise.? Voices understanding. PLAN:??Home Nicole BSN?RN?CM
[2024-12-26 13:54] VITALS: BP 135/71; PULSE 73; RESP 18; TEMP 36.4; O2SAT 100
--- NOTE | 2024-12-26 15:21 | DCINST_ITS ---
Discharge Instructions Diet Discharge Diet: No restrictions DC O2, CPAP, BIPAP needs Home O2 Discharge instructions: No Follow Up Care Test Results: Test results from this visit will be discussed in further detail at your follow- up appointment, if applicable. Discharge Plan Admission Admit Date/Time: 12/25/24 13:58 Primary Reason for Your Visit: Seizure Attending Provider: Enrrique Burrell Primary Care Provider: Johanna Amador Consulting Providers: Jacinto Fleming; Damaris Lowry; Naif Chambers; Glenda Villatoro; Carolin Myers; Guy Crespo; Yeni Carlson; Verenice Whelan; Ziggy Brenner; Valery Pacheco; Odin Schultz; Janusz Schmidt; Pj Islas; Mikayla Payton; Sheeba Mora; Arturo Lafleur; Rohan Riddle; Graham Bird; Taina Byrd; Pancho Sanders; Margarita Herrera; Domingo Gabirel; Earl Roberson; PATRICIA AYALA; Lawrence Beltre; Leny Vides; Yadira Costello Instructions Additional Instructions / Restrictions: No driving or operating heavy machinery for 3 months as long as you are seizure- free. Follow-up with neurology in the next 1 to 2 months. Discharge Orders/Prescriptions Prescriptions: New levetiracetam [Keppra] 500 mg tablet 500 mg PO BID Qty: 60 0RF Continued aspirin [Adult Low Dose Aspirin] 81 mg tablet,delayed release (DR/EC) 81 mg PO QDAY lisinopril 5 mg tablet 5 mg PO QDAY meloxicam 15 mg tablet 15 mg PO QDAY ezetimibe 10 mg tablet 10 mg PO DAILY Referrals / Follow Up: Johanna Amador, HEALTHCARE APPLICATIONS ANALYST-C [Primary Care Provider] - Within 2 Weeks Disposition Disposition (needs filled in before D/C Order can be placed): Home, Self Care
--- NOTE | 2024-12-26 15:42 | CASEMGMT ---
SW did not complete a PHQ9 as patient did not have a Stroke. Michaelle DOAN
--- NOTE | 2024-12-26 16:08 | CASEMGMT ---
Patient is anticipated to discharge today. RN CM in to discuss needs at discharge. Patient denies needs or help at discharge. Patient had no further questions or concerns.
[2024-12-26] MEDS: Acetaminophen 325 MG Tablet 650 MG PO (16:20)
[2024-12-26 20:01] VITALS: BP 118/78; PULSE 60; RESP 16; TEMP 36.4; O2SAT 100
[2024-12-26] MEDS: Atorvastatin Calcium 80 MG Tablet PO (20:36)
[2024-12-26] MEDS: MENTHOL 226.8 GM JAR 1 APPLIC TOPICAL (20:37)
[2024-12-27 03:30] VITALS: BP 123/70; PULSE 65; RESP 14; TEMP 36.6; O2SAT 100
[2024-12-27 09:30] VITALS: BP 142/78; PULSE 78; RESP 15; TEMP 36.4; O2SAT 97
[2024-12-27] MEDS: levETIRAcetam IV 1,000 MG/100 ML BAG 400 MG IV (09:53)
[2024-12-27] MEDS: Aspirin 81 MG TAB.CHEW PO (09:53)
[2024-12-27 11:10] VITALS: BMI 23.8
[2024-12-27 11:24] VITALS: BMI 23.8
--- NOTE | 2024-12-27 13:26 | PCM.DC.SUM ---
Providers Date of Admission: 12/25/24 Primary Care Physician: RICHARD Brown Consultations 12/25/24 14:24 Consult: Tele-Neurology Routine Consulting Provider: [facility] Reason for Consult: new onset seizure, subacute stroke EMERGENT Consult: No MD Notified: Yes Date Notified: 12/25/24 Time Notified: 14:03 Method of Notification: ED Physician Initiated Nursing Unit Staff Notify [facility] of Tele-Neurology Consult: Yes Reason For Visit: stroke Diagnosis Discharge Diagnosis (1) Seizure: Status: Acute Code(s): R56.9 - Unspecified convulsions Plan: MRI showed no acute CVA. EEG ordered. Levetiracetam Neuro consult For 3 months, patient not to drive nor operate heavy machinery, avoid swimming by herself or taking baths. Likely focus of the seizure was from her prior stroke. Plan Subacute CVA: ASA atorvastatin VTE prophylaxis: SCDs. Discussed with the patient's family at bedside. Medications at Discharge Home Medications aspirin 81 mg tablet,delayed release (Adult Low Dose Aspirin) 81 mg PO QDAY heart health 07/13/24 lisinopril 5 mg tablet 5 mg PO QDAY blood pressure 07/13/24 meloxicam 15 mg tablet 15 mg PO QDAY pain 07/13/24 ezetimibe 10 mg tablet 10 mg PO DAILY cholesterol 12/25/24 levetiracetam 500 mg tablet (Keppra) 500 mg PO BID #60 tabs 12/26/24 Hospital Course Operations None Procedures None Summary of Care Provided Hospital Course: Patient had a seizure. Patient was in car with her where she started having abnormal arm movements. Patient was unresponsive. Patient eventually came to. She has never had a seizure before. Show under went an MRI that showed chronic right BRAIN PICKER stroke. That may have been the nidus of this event. Patient was started on levetiracetam. Patient was seen by neurology and EEG was performed. EEG was negative. Patient will be discharged continue with levetiracetam 500 twice daily. Weight / BMI Weight Weight: 62.8 kg Body Mass Index (BMI) 23.8 ABG / Lab / Microbiology Data 12/26/24 04:31 12/26/24 04:31 Microbiology: Microbiology 12/25/24 15:46 Urine, Clean Catch Urine Culture - Preliminary Mixed Gram Pos & Gram Neg Org D/C Instructions Discharge Diet: No restrictions DC O2, CPAP, BIPAP Needs Home O2 Discharge instructions: No Meaningful Use Info Meaningful Use Meaningful Use Diagnoses (Choose all that apply): None applicable Ischemic Stroke Statin Dosing Therapy Reference: STATIN DOSE THERAPY REFERENCE: * Patients > 75 years receive moderate or high dose statin therapy. * Patients 75 years or YOUNGER should receive HIGH intensity statin dose unless contraindicated. You will be required to document reason for non-treatment if statin daily dose does not meet guidelines. HIGH DOSE STATIN THERAPY DAILY Atorvastatin > than or = to 40 mg Rosuvastatin > than or = to 20 mg Amlodipine + Atorvastatin > than or = to 2.5/40 mg Ezetimibe + Simvastatin 10/80 mg Simvastatin 80mg Discharge Plan Admission Admit Date/Time: 12/25/24 13:58 Primary Reason for Your Visit: Seizure Attending Provider: Enrrique Burrell Primary Care Provider: Johanna Amador Consulting Providers: Jacinto Fleming; Damaris Lowry; Naif Chambers; Glenda Villatoro; Carolin Myers; Guy Crespo; Yeni Carlson; Verenice Whelan; Ziggy Brenner; Valery Pacheco; dOin Schultz; Janusz Schmidt; Pj Islas; Mikayla Payton; Sheeba Mora; Arturo Lafleur; Rohan Riddle; Graham Bird; Taina Byrd; Pancho Sanders; Margarita Herrera; Domingo Gabriel; Earl Roberson; PATRICIA AYALA; Lawrence Beltre; Leny Vides; Yadira Costello Instructions Additional Instructions / Restrictions: No driving or operating heavy machinery for 3 months as long as you are seizure-free. Follow-up with neurology in the next 1 to 2 months. Discharge Orders/Prescriptions Prescriptions: New levetiracetam [Keppra] 500 mg tablet 500 mg PO BID Qty: 60 0RF Continued aspirin [Adult Low Dose Aspirin] 81 mg tablet,delayed release (DR/EC) 81 mg PO QDAY lisinopril 5 mg tablet 5 mg PO QDAY meloxicam 15 mg tablet 15 mg PO QDAY ezetimibe 10 mg tablet 10 mg PO DAILY Referrals / Follow Up: Johanna Amador, RESEARCH DEVELOPMENT MANAGER-C [Primary Care Provider] - Within 2 Weeks Disposition Disposition (needs filled in before D/C Order can be placed): Home, Self Care Charges/Coding Visit Charges Inpatient E&M: 53469 Disch Hosp
== END 2024-12-27 11:55 | disposition home or self-care (01) | DRG 57 ==
LOC: ED 13:38 → PCU 14:05
PROVIDERS: Admitting Provider Internal Medicine; Emergency Provider Emergency Medicine; PCP Nurse Practitioner Family; Referring Provider Internal Medicine
DX: I69.398 Other sequelae of cerebral infarction (principal); I69.354 Hemiplegia and hemiparesis following cerebral infarction affecting left non-dominant side; R56.9 Unspecified convulsions; I10 Essential (primary) hypertension; I65.22 Occlusion and stenosis of left carotid artery; E78.00 Pure hypercholesterolemia, unspecified; Z79.82 Long term (current) use of aspirin; Z79.899 Other long term (current) drug therapy
CPT/HCPCS: 36415; 70450; 70496; 70498; 70551; 71046; 80048; 80061; 80307; 81001; 83036; 83605; 84443; 84484; 85025; 85610; 85730; 87086; 87088; 93005; 93306; 93880; 95819; 97161; 97166; 97802; 99285; Q9967; A4216; J2405

== ENCOUNTER → 2025-02-11 | Outpatient (CLI) | payer MEDICARE, SELFPAY ==
[2025-02-11 15:20] LABS: Hematocrit 44.6 % (37-47); Hemoglobin 14.9 g/dL (12.0-15.0); Immature Granulocytes Count 0.010 X10^3/uL (0.0-0.0); Mean Corp Hgb Conc 33.4 g/dL (32-36); Mean Corpuscular Volume 92.5 fL (81-99); Mean Platelet Vol. 10.2 fl (6.2-12.0); NRBC Flagged by Analyzer 0 % (0-5); Platelet Count 242 K/mm3 (150-450); RBC Distribution Width CV 12.4 % (11.6-14.6); RBC Distribution Width SD 42.3 fl (35.1-43.9); Red Blood Count 4.82 M/mm3 (4.2-5.4); White Blood Count 6.6 K/mm3 (4.4-11.0)
[2025-02-11 17:45] LABS: AST(SGOT) 26 U/L (<=31); Alanine Aminotransfer ALT/SGPT 30 U/L (<=34); Albumin, Serum 4.5 g/dL (3.4-4.8); Alkaline Phosphatase 79 U/L (35-104); Anion Gap 12 (5-15); BUN 20 mg/dL (4-19); BUN/Creat Ratio 20.8 RATIO (10-20); Calcium,Total 10.4 mg/dL (7.6-11.0); Carbon Dioxide 25.0 mmol/L (21.0-32.0); Chloride 100 mmol/L (98-108); Globulin 2.8 g/dL (2.2-4.2); Glucose 99 mg/dL (70-99); Potassium 4.7 mmol/L (3.3-5.1)
== END | disposition home or self-care (01) ==
LOC: BFHLAB 13:20
PROVIDERS: PCP Nurse Practitioner Family; Visit Provider Nurse Practitioner Family
DX: Z01.818 Encounter for other preprocedural examination (principal)
CPT/HCPCS: 36415; 80053; 85025